=== PATIENT | male | born 1970 | race Hispanic/Latino ===

== ENCOUNTER 2018-12-17 23:54 | Emergency (ER) | payer BC ==
[2018-12-18] MEDS ORDERED: CETIRIZINE HCL 5 MG TABLET ONE (00:46)
[2018-12-18] MEDS ORDERED: ACETAMINOPHEN 325 MG TABLET ONE (00:46)
--- NOTE | 2018-12-18 02:14 | ER ---
Nurse's Notes [facility] Name: Juwan Turner Jr Age: 48 yrs Sex: Male : 1970 Arrival Date: 12/17/2018 Time: 23:59 Bed 15 Private MD: Diagnosis: Influenza due to identified novel influenza A virus Presentation: 12/18 00:03 Presenting complaint: Patient states: I have been congested and my eyes have been jb4 itching. I have body aches and chills that all started yesterday. 00:03 Transition of care: patient was not received from another setting of care. Onset of jb4 symptoms was December 16, 2017. Risk Assessment: Do you want to hurt yourself or someone else? Patient reports no desire to harm self or others. Initial Sepsis Screen: Does the patient meet any 2 criteria? No. Patient's initial sepsis screen is negative. Does the patient have a suspected source of infection? No. Patient's initial sepsis screen is negative. 00:03 Method Of Arrival: Ambulatory jb4 00:03 Acuity: ZAHIDA 4 jb4 00:03 Care prior to arrival: None. jb4 Triage Assessment: 00:03 General: Appears in no apparent distress. uncomfortable, Behavior is calm, cooperative, jb4 appropriate for age. Pain: Complains of pain in headache. Pain does not radiate. Pain currently is 6 out of 10 on a pain scale. EENT: Sclera/Cornea are reddened in outer aspect of conjuctiva of right eye, inner aspect of conjuctiva of right eye, outer aspect of conjuctiva of left eye and inner aspect of conjunctiva of left eye. Neuro: Level of Consciousness is awake, alert, obeys commands. Cardiovascular: Patient's skin is warm and dry. Respiratory: Airway is patent Respiratory effort is even, unlabored, Respiratory pattern is regular, symmetrical, Breath sounds are clear bilaterally. GI: No signs and/or symptoms were reported involving the gastrointestinal system. : No signs and/or symptoms were reported regarding the genitourinary system. Derm: Skin is intact, Skin is pink, warm \T\ dry. Musculoskeletal: Circulation, motion, and sensation intact. Historical: - Allergies: 00:03 No Known Allergies; jb4 - Home Meds: 00:03 None [Active]; jb4 - PMHx: 00:03 None; jb4 - PSHx: 00:03 None; jb4 - Immunization history:: Adult Immunizations up to date, Flu vaccine is not up to date. - Social history:: Smoking status: Patient/guardian denies using tobacco, Patient/guardian denies using alcohol. - Ebola Screening: : No symptoms or risks identified at this time. Screenin:03 Abuse screen: Denies threats or abuse. Nutritional screening: No deficits noted. jb4 Tuberculosis screening: No symptoms or risk factors identified. Fall Risk None identified. Assessment: 00:03 General: see triage assessment.. jb4 01:30 Reassessment: Patient appears in no apparent distress at this time. Patient and/or jb4 family updated on plan of care and expected duration. Pain level reassessed. Patient is alert, oriented x 3, equal unlabored respirations, skin warm/dry/pink. Patient states feeling better. 02:04 Reassessment: Patient appears in no apparent distress at this time. Patient and/or jb4 family updated on plan of care and expected duration. Pain level reassessed. Patient is alert, oriented x 3, equal unlabored respirations, skin warm/dry/pink. Pt O2 sats dropped to 88% while sleeping, placed on 2 L NC per protocol. Patient states feeling better. Vital Signs: 00:03 BP 140 / 74; Pulse 92; Resp 20; Temp 100.7(O); Pulse Ox 96% on R/A; Weight 147.42 kg jb4 (R); Height 5 ft. 7 in. (170.18 cm); Pain 8/10; 01:15 BP 114 / 61; Pulse 87; Resp 16; Temp 100.0; Pulse Ox 95% on R/A; jb4 00:03 Body Mass Index 50.90 (147.42 kg, 170.18 cm) jb4 ED Course: 12/17 23:59 Patient arrived in ED. es 12/18 00:03 Shaheen Sinclair, LIZZIE is Primary Nurse. jb4 00:03 Arm band placed on left wrist. jb4 00:03 Patient has correct armband on for positive identification. Placed in gown. Bed in low jb4 position. Call light in reach. Side rails up X 1. Pulse ox on. NIBP on. 00:08 Paul Godfrey MD is Attending Physician. gs 00:25 Triage completed. jb4 02:26 No provider procedures requiring assistance completed. Patient did not have IV access jb4 during this emergency room visit. Administered Medications: 00:40 Drug: ZyrTEC - Cetirizine 10 mg Route: PO; jb4 02:26 Follow up: Response: No adverse reaction jb4 00:41 Drug: Tylenol 650 mg Route: PO; jb4 02:26 Follow up: Response: No adverse reaction; Temperature is decreased jb4 Outcome: 02:13 Discharge ordered by . gs 02:26 Discharged to home ambulatory. jb4 02:26 Condition: stable 02:26 Discharge instructions given to patient, Instructed on discharge instructions, follow up and referral plans. medication usage, Demonstrated understanding of instructions, follow-up care, medications, Prescriptions given X 1. 02:27 Patient left the ED. jb4 Signatures: Alla Javier James, RN RN jb4 Paul Godfrey MD MD
--- NOTE | 2018-12-18 02:14 | EDPHYS ---
Physician Documentation [facility] Name: Juwan Turner Jr Age: 48 yrs Sex: Male : 1970 Arrival Date: 12/17/2018 Time: 23:59 Bed 15 Private MD: ED Physician Paul Godfrey HPI: 12/18 02:11 This 48 yrs old Male presents to ER via Ambulatory with complaints of gs Congestion, Itching, eyes. 02:11 The patient or guardian reports cough, flu symptoms, arthralgias, low-grade fever, gs myalgias, no appetite. Onset: The symptoms/episode began/occurred yesterday. Severity of symptoms: At their worst the symptoms were moderate, in the emergency department the symptoms are unchanged. Modifying factors: The symptoms are alleviated by nothing, the symptoms are aggravated by nothing. Associated signs and symptoms: Pertinent positives: fever, Pertinent negatives: chest pain. The patient has experienced similar episodes in the past, a few times. The patient has not recently seen a physician. Historical: - Allergies: 00:03 No Known Allergies; jb4 - Home Meds: 00:03 None [Active]; jb4 - PMHx: 00:03 None; jb4 - PSHx: 00:03 None; jb4 - Immunization history:: Adult Immunizations up to date, Flu vaccine is not up to date. - Social history:: Smoking status: Patient/guardian denies using tobacco, Patient/guardian denies using alcohol. - Ebola Screening: : No symptoms or risks identified at this time. ROS: 02:11 All other systems are negative. gs Exam: 02:11 Head/Face: Normocephalic, atraumatic. Eyes: Pupils equal round and reactive to light, gs extra-ocular motions intact. Lids and lashes normal. Conjunctiva and sclera are non-icteric and not injected. Cornea within normal limits. Periorbital areas with no swelling, redness, or edema. Neck: Trachea midline, no thyromegaly or masses palpated, and no cervical lymphadenopathy. Supple, full range of motion without nuchal rigidity, or vertebral point tenderness. No Meningismus. Chest/axilla: Normal chest wall appearance and motion. Nontender with no deformity. No lesions are appreciated. Cardiovascular: Regular rate and rhythm with a normal S1 and S2. No gallops, murmurs, or rubs. Normal PMI, no JVD. No pulse deficits. Respiratory: Lungs have equal breath sounds bilaterally, clear to auscultation and percussion. No rales, rhonchi or wheezes noted. No increased work of breathing, no retractions or nasal flaring. Abdomen/GI: Soft, non-tender, with normal bowel sounds. No distension or tympany. No guarding or rebound. No evidence of tenderness throughout. Back: No spinal tenderness. No costovertebral tenderness. Full range of motion. Skin: Warm, dry with normal turgor. Normal color with no rashes, no lesions, and no evidence of cellulitis. MS/ Extremity: Pulses equal, no cyanosis. Neurovascular intact. Full, normal range of motion. Neuro: Awake and alert, GCS 15, oriented to person, place, time, and situation. Cranial nerves II-XII grossly intact. Motor strength 5/5 in all extremities. Sensory grossly intact. Cerebellar exam normal. Normal gait. 02:11 Constitutional: The patient appears alert, awake. 02:11 ENT: TM's: are normal, Nose: nasal drainage, that is moderate, that is thick. Vital Signs: 00:03 BP 140 / 74; Pulse 92; Resp 20; Temp 100.7(O); Pulse Ox 96% on R/A; Weight 147.42 kg jb4 (R); Height 5 ft. 7 in. (170.18 cm); Pain 8/10; 01:15 BP 114 / 61; Pulse 87; Resp 16; Temp 100.0; Pulse Ox 95% on R/A; jb4 00:03 Body Mass Index 50.90 (147.42 kg, 170.18 cm) jb4 MDM: 00:23 Patient medically screened. 02:11 Differential Diagnosis: Bronchitis Influenza Upper Respiratory Infection. Data reviewed: vital signs, nurses notes, lab test result(s). Counseling: I had a detailed discussion with the patient and/or guardian regarding: lab results. Response to treatment: the patient's symptoms have markedly improved after treatment, and as a result, I will discharge patient. 12/18 00:23 Order name: Strep; Complete Time: 02:10 12/18 00:23 Order name: Influenza Screen (a \T\ B); Complete Time: 02:10 12/18 02:10 Order name: Throat Culture EDMS Administered Medications: 00:40 Drug: ZyrTEC - Cetirizine 10 mg Route: PO; jb4 02:26 Follow up: Response: No adverse reaction jb4 00:41 Drug: Tylenol 650 mg Route: PO; jb4 02:26 Follow up: Response: No adverse reaction; Temperature is decreased jb4 Disposition: 12/18/18 02:13 Discharged to Home. Impression: Influenza due to identified novel influenza A virus. - Condition is Stable. - Discharge Instructions: Influenza, Adult. - Prescriptions for Tamiflu 75 mg Oral Capsule - take 1 tablet by ORAL route every 12 hours for 5 days; 10 tablet. - Work release form, Medication Reconciliation Form, Thank You Letter, Antibiotic Education, Prescription Opioid Use form. - Follow up: Emergency Department; When: 2 - 3 days; Reason: Re-evaluation by your physician. Signatures: Dispatcher [employer] [facility] Shaheen Sinclair RN RN jb4 Paul Godfrey MD MD Corrections: (The following items were deleted from the chart) 02:27 02:13 12/18/2018 02:13 Discharged to Home. Impression: Influenza due to identified jb4 novel influenza A virus. Condition is Stable. Forms are Medication Reconciliation Form, Thank You Letter, Antibiotic Education, Prescription Opioid Use. Follow up: Emergency Department; When: 2 - 3 days; Reason: Re-evaluation by your physician.
== END 2018-12-18 02:27 | disposition home or self-care (01) ==
LOC: ER 23:54
DX: J10.1 Influenza due to other identified influenza virus with other respiratory manifestations (principal)
CPT/HCPCS: 87070; 87081; 87804

== ENCOUNTER 2022-05-27 17:25 | Emergency (ER) | payer OTHER ==
--- OUTSIDE RECORDS SUMMARY | 2022-05-27 17:28 | XMS REPORT | Continuity of Care Document ---
:1970 Author Organization [facility] t Address [address] [place] [address] Care Team Providers Name Role Phone Doctor Unassigned, Painter Attending Clinician Unavailable Avi SAMUEL, T Attending Clinician Unavailable Lab, Fam Pob I Attending Clinician Unavailable Ebrahim DRY CLEANER HAND Attending Clinician Pob1, Care Clinic Attending Clinician Unavailable Anene DRY CLEANER HAND Attending Clinician ANENE Attending Clinician Unavailable Human DRY CLEANER HAND, F Attending Clinician Brenda RN Attending Clinician Unavailable Kalina TERRY, A Attending Clinician Pcp, Does Not Have A Attending Clinician Lab, Covid Attending Clinician Unavailable Green DRY CLEANER HAND Attending Clinician Payers Payer Name Policy Type Policy Number Effective Date Expiration Date [facility] - [id number] 2020 00:00:00 OUT OF STATE Problems Condition Condition Condition Status Onset Resolution Last Treating Co mments Source Name Details Category Date Date Treatment Clinician Date No known No known Disease Unive rs active active ity of problems problems [facility] Allergies, Adverse Reactions, Alerts Allergy Allergy Status Severity Reaction(s) Onset Inactive Treating Comm ents Source Name Type Date Date Clinician NO KNOWN Drug Active Univers ALLERGIE Class ity of S [facility] Social History Social Habit Start Date Stop Date Quantity Comments Source Sex Assigned At [facility] Medical Branch Exposure to Yes [facility] SARS-CoV-2 (event) Medica l Branch Tobacco use and 2020 2020 Never used [facility] [employer] [place] exposure 00:00:00 00:00:00 Medical Branch Smoking Status Start Date Stop Date Source Unknown if ever smoked [facility] Medical Branch Never smoker [facility] Medical [place] Medications Ordered Filled Start Stop Current Ordering Indication Dosage Frequency Signature Comments Components Source Medication Medication Date Date Medication? Clinician (SIG) Name Name benzonatate 2020-0 2020- No [id number] 100mg Take 1 Univers (TESSALON 8-19 08-30 capsule by itShira) 100 [place]:00: 04:59 [place] 00 :00 (three) Medica l times Branch daily as needed for Cough for up to 10 days. benzonatate 2020-0 2020- No [id number] 100mg Take 1 Univers (TESSALON 8-19 08-30 capsule by itjimmy of [facility]) 100 [place]:00: 04:59 [place] capsule 00 :00 (three) Medica l times Branch daily as needed for Cough for up to 10 days. benzonatate 2020-0 2020- No [id number] 100mg Take 1 Univers (TESSALON 8-19 08-30 capsule by itjimmy of [facility]) 100 00:00: 04:59 [place] capsule 00 :00 (three) Medica l times Branch daily as needed for Cough for up to 10 days. benzonatate 2020-0 2020- No [id number] 100mg Take 1 Univers (TESSALON 8-19 08-30 capsule by itjimmy of ISAEL) 100 00:00: 04:59 [place] capsule 00 :00 (three) Medica l times Branch daily as needed for Cough for up to 10 days. albuterol 2019- 2020- No [id number] 2{puff} Inhale 2 Univers (VENTOLIN 8-03 09-03 Puffs ity of HFA) 90 00:00: 04:59 every 6 [place] mcg/actuati 00 :00 (six) Medical on inhaler hours as Branc h needed for Shortness of Breath or Chest tightness for up to 30 days. albuterol 2020- 2020- No [id number] 2{puff} Inhale 2 Univers (VENTOLIN 8-03 09-03 Puffs ity of HFA) 90 00:00: 04:59 every 6 [place] mcg/actuati 00 :00 (six) Medical on inhaler hours as Branc h needed for Shortness of Breath or Chest tightness for up to 30 days. albuterol 2019- 2020- No [id number] 2{puff} Inhale 2 Univers (VENTOLIN 8-03 09-03 Puffs ity of HFA) 90 00:00: 04:59 every 6 [place] mcg/actuati 00 :00 (six) Medical on inhaler hours as Branc h needed for Shortness of Breath or Chest tightness for up to 30 days. albuterol 2019- 2020- No [id number] 2{puff} Inhale 2 Univers (VENTOLIN 8-03 09-03 Puffs ity of HFA) 90 00:00: 04:59 every 6 [place] mcg/actuati 00 :00 (six) Medical on inhaler hours as Branc h needed for Shortness of Breath or Chest tightness for up to 30 days. albuterol 2019-2019- No [id number] 2{puff} Inhale 2 Univers (VENTOLIN 8-03 09-03 Puffs ity of HFA) 90 00:00: 04:59 every 6 [place] mcg/actuati 00 :00 (six) Medical on inhaler hours as Branc h needed for Shortness of Breath or Chest tightness for up to 30 days. albuterol 2019- 2020- No [id number] 2{puff} Inhale 2 Univers (VENTOLIN 8-03 09-03 Puffs ity of HFA) 90 00:00: 04:59 every 6 [place] mcg/actuati 00 :00 (six) Medical on inhaler hours as Branc h needed for Shortness of Breath or Chest tightness for up to 30 days. albuterol 2019- 2020- No [id number] 2{puff} Inhale 2 Univers (VENTOLIN 8-03 09-03 Puffs ity of HFA) 90 00:00: 04:59 every 6 [place] mcg/actuati 00 :00 (six) Medical on inhaler hours as Branc h needed for Shortness of Breath or Chest tightness for up to 30 days. albuterol 2019- 2020- No [id number] 2{puff} Inhale 2 Univers (VENTOLIN 8-03 09-03 Puffs ity of HFA) 90 00:00: 04:59 every 6 [place] mcg/actuati 00 :00 (six) Medical on inhaler hours as Branc h needed for Shortness of Breath or Chest tightness for up to 30 days. albuterol 2019-2019- No [id number] 2{puff} Inhale 2 Univers (VENTOLIN 8-03 09-03 Puffs ity of HFA) 90 00:00: 04:59 every 6 [place] mcg/actuati 00 :00 (six) Medical on inhaler hours as Branc h needed for Shortness of Breath or Chest tightness for up to 30 days. albuterol 2019- 2020- No [id number] 2{puff} Inhale 2 Univers (VENTOLIN 8-03 09-03 Puffs ity of HFA) 90 00:00: 04:59 every 6 [place] mcg/actuati 00 :00 (six) Medical on inhaler hours as Branc h needed for Shortness of Breath or Chest tightness for up to 30 days. albuterol 2019-0 2020- No [id number] 2{puff} Inhale 2 Univers (VENTOLIN 8-03 09-03 Puffs ity of HFA) 90 00:00: 04:59 every 6 [place] mcg/actuati 00 :00 (six) Medical on inhaler hours as Branc h needed for Shortness of Breath or Chest tightness for up to 30 days. albuterol 2019-2019- No [id number] 2{puff} Inhale 2 Univers (VENTOLIN 8-03 09-03 Puffs ity of HFA) 90 00:00: 04:59 every 6 [place] mcg/actuati 00 :00 (six) Medical on inhaler hours as Branc h needed for Shortness of Breath or Chest tightness for up to 30 days. benzonatate 2020- 2020- No [id number] 100mg Take 1 Univers (TESSALON 8-03 08-18 capsule by ity of PERLES) 100 00:00: 04:59 [place] capsule 00 :00 (three) Medica l times Branch daily for 14 days. benzonatate 2020-0 2020- No [id number] 100mg Take 1 Univers (TESSALON 8-03 08-18 capsule by ity of PERLES) 100 00:00: 04:59 mouth 3 [place] mg capsule 00 :00 (three) Medica l times Branch daily for 14 days. benzonatate 2020-0 2020- No [id number] 100mg Take 1 Univers (TESSALON 8- 08-18 capsule by itjimmy of [facility]) 100 00:00: 04:59 mouth 3 [place] mg capsule 00 :00 (three) Medica l times Branch daily for 14 days. benzonatate 2020-0 2020- No [id number] 100mg Take 1 Univers (TESSALON 8- 08-18 capsule by itjimmy [facility]) 100 00:00: 04:59 mouth 3 [place] mg capsule 00 :00 (three) Medica l times Branch daily for 14 days. benzonatate 2020-0 2020- No [id number] 100mg Take 1 Univers (TESSALON 8- 08-18 capsule by itjimmy [facility]) 100 00:00: 04:59 mouth 3 [place] mg capsule 00 :00 (three) Medica l times Branch daily for 14 days. benzonatate 2020-0 2020- No [id number] 100mg Take 1 Univers (TESSALON 8- 08-18 capsule by itjimmy RUFINO) 100 00:00: 04:59 mouth 3 [place] mg capsule 00 :00 (three) Medica l times Branch daily for 14 days. bromphenira 2020-0 2020- No [id number] 5mL Take 5 mL Univers mine-pseudo 07-0314 by mouth 4 i ty of ephedrine-D 00:00: 04:59 (four) Jose Francisco as M (BROMFED 00 :00 times Medical DM) 2-30-10 daily as Bran ch mg/5 mL needed for syrup Cough for up to 10 days. methylPREDN 2020-0 2020- No [id number] Take by Univers ISolone 4 07-03 08-10 mouth ity of mg tablets 00:00: 04:59 SEE-INSTRU [place] 00 :00 CTIONS for Medical 6 days. Branch follow package directions methylPREDN 2020-0 2020- No [id number] Take by Univers ISolone 4 8- 08-10 mouth ity of mg tablets 00:00: 04:59 SEE-INSTRU [place] 00 :00 CTIONS for Medical 6 days. Branch follow package directions methylPREDN 2020-0 2020- No [id number] Take by Univers ISolone 4 07-03 08-10 mouth ity of mg tablets 00:00: 04:59 SEE-INSTRU [place] 00 :00 CTIONS for Medical 6 days. Branch follow package directions methylPREDN 2020-0 2020- No [id number] Take by [facility] 4 8- 08-10 mouth ity of mg tablets 00:00: 04:59 SEE-INSTRU [place] 00 :00 CTIONS for Medical 6 days. Branch follow package directions methylPREDN 2020-0 2020- No [id number] Take by [facility] 4 8- 08-10 mouth ity of mg tablets 00:00: 04:59 SEE-INSTRU [place] 00 :00 CTIONS for Medical 6 days. Branch follow package directions methylPREDN 2020-0 2020- No [id number] Take by [facility] 4 8- 08-10 mouth ity of mg tablets 00:00: 04:59 SEE-INSTRU [place] 00 :00 CTIONS for Medical 6 days. Branch follow package directions azithromyci 2020-0 2020- No [id number] 250mg Take 1 [facility] 07-03 tablet by ity of (ZITHROMAX 00:00: 04:59 mouth [place] Z-YOLI) 250 00 :00 daily for Medi bette mg tablet 5 days. Branch Take 500 mg day 1, then 250 mg days 2 to 5. azithromyci 2020-0 2020- No [id number] 250mg Take 1 [facility] 07-03 tablet by ity of (ZITHROMAX 00:00: 04:59 mouth [place] Z-YOLI) 250 00 :00 daily for Medi bette mg tablet 5 days. Branch Take 500 mg day 1, then 250 mg days 2 to 5. azithromyci 2020-0 2020- No [id number] 250mg Take 1 [facility] 07-03- tablet by ity of (ZITHROMAX 00:00: 04:59 mouth [place] Z-YOLI) 250 00 :00 daily for Medi bette mg tablet 5 days. Branch Take 500 mg day 1, then 250 mg days 2 to 5. azithromyci 2020-0 2020- No [id number] 250mg Take 1 [facility] 809 tablet by ity of (ZITHROMAX 00:00: 04:59 mouth [place] Z-YOLI) 250 00 :00 daily for Medi bette mg tablet 5 days. Branch Take 500 mg day 1, then 250 mg days 2 to 5. azithromyci 2020-0 2020- No [id number] 250mg Take 1 Univers n 07-03 tablet by ity of (ZITHROMAX 00:00: 04:59 mouth [place] Z-YOLI) 250 00 :00 daily for Medi bette mg tablet 5 days. Branch Take 500 mg day 1, then 250 mg days 2 to 5. bromphenira 2020-0 2020- No [id number] 5mL Take 5 mL Univers mine-pseudo 07-03 by mouth 4 i ty of ephedrine-D 00:00: 00:00 (four) Jose Francisco as M (BROMFED 00 :00 times Medical DM) 2-30-10 daily as Bran ch mg/5 mL needed for syrup Cough for up to 10 days. losartan 2020-0 Yes 100mg Take 100 Univ ers 100 mg 6-05 mg by ity of tablet 00:00: mouth [place] 00 every Medical morning. Branch losartan 2020-0 Yes 100mg Take 100 Univ ers 100 mg 6-05 mg by ity of tablet 00:00: mouth [place] 00 every Medical morning. Branch losartan 2020-0 Yes 100mg Take 100 Univ ers 100 mg 6-05 mg by ity of tablet 00:00: mouth [place] 00 every Medical morning. Branch losartan 2020-0 Yes 100mg Take 100 Univ ers 100 mg 6-05 mg by ity of tablet 00:00: mouth [place] 00 every Medical morning. Branch losartan 2020-0 Yes 100mg Take 100 Univ ers 100 mg 6-05 mg by ity of tablet 00:00: mouth [place] 00 every Medical morning. Branch losartan 2020-0 Yes 100mg Take 100 Univ ers 100 mg 6-05 mg by ity of tablet 00:00: mouth [place] 00 every Medical morning. Branch losartan 2020-0 Yes 100mg Take 100 Univ ers 100 mg 6-05 mg by ity of tablet 00:00: mouth [place] 00 every Medical morning. Branch losartan 2020-0 Yes 100mg Take 100 Univ ers 100 mg 6-05 mg by ity of tablet 00:00: mouth [place] 00 every Medical morning. Branch losartan 2020-0 Yes 100mg Take 100 Univ ers 100 mg 6-05 mg by ity of tablet 00:00: mouth [place] 00 every Medical morning. Branch losartan 2020-0 Yes 100mg Take 100 Univ ers 100 mg 6-05 mg by ity of tablet 00:00: mouth [place] 00 every Medical morning. Branch losartan 2020-0 Yes 100mg Take 100 Univ ers 100 mg 6-05 mg by ity of tablet 00:00: mouth [place] 00 every Medical morning. Branch losartan 2020-0 Yes 100mg Take 100 Univ ers 100 mg 6-05 mg by ity of tablet 00:00: mouth [place] 00 every Medical morning. Branch No known No [facility] No [facility] No [facility] medications ity [facility] No known No Univers medications ity [facility] No known No [facility] No known No Univers medications ity [facility] No known No [facility] No known No Univers medications [facility] Vital Signs Vital Name Observation Time Observation Value Comments Source Systolic blood 2020 21:07:00 169 mm[Hg] Univer sity of [facility] Diastolic blood 2020 21:07:00 81 mm[Hg] Unive rsity of [facility] Heart rate 2020 21:05:00 91 /min Universi ty [facility] Body temperature 2020 21:05:00 37.17 Melly [facility] Respiratory rate 2020 21:05:00 22 /min [facility] Body height 2020 21:05:00 [facility] Body weight 2020 21:05:00 [facility]563 [facility] BMI 2020 21:05:00 57.17 kg/m2 General acute hospital Oxygen saturation in 2020 21:05:00 95 /min [facility] Arterial blood by [facility] Pulse oximetry Branch Systolic blood 2020 21:07:00 169 mm[Hg] Univer sity of [facility] Diastolic blood 2020 21:07:00 81 mm[Hg] Unive rsity of [facility] Heart rate 2020 21:05:00 91 /min Universi ty [facility] Body temperature 2020 21:05:00 37.17 Melly [facility] Respiratory rate 2020 21:05:00 22 /min [facility] Body height 2020 21:05:00 170.2 cm Universi ty [facility] [place] [facility] Body weight 2020 21:05:00 165.563 kg [facility]i ty [facility] [place] [facility] BMI 2020 21:05:00 57.17 kg/m2 Universi ty [facility] [place] [facility] Oxygen saturation in 2020 21:05:00 95 /min University of Arterial blood by [facility] Pulse oximetry Branch Systolic blood 2020-07-03 17:58:00 127 mm[Hg] Univer sity of pressure [place] [facility] Diastolic blood 2020-07-03 17:58:00 78 mm[Hg] Unive rsity of pressure [place] [facility] Heart rate 2020-07-03 17:58:00 80 /min Universi ty [facility] [place] [facility] Body temperature 2020-07-03 17:58:00 37.61 Melly Univ ersity of [place] [facility] Respiratory rate 2020-07-03 17:58:00 18 /min Univ ersity of [place] [facility] Body height 2020-07-03 17:58:00 177.8 cm [facility]i [facility] [place] [facility] Body weight 2020-07-03 17:58:00 165.563 kg Universi [facility] [place] [facility] BMI 2020-07-03 17:58:00 52.37 kg/m2 Universi ty [facility] [place] [facility] Oxygen saturation in 2020-07-03 17:58:00 97 /min University of Arterial blood by [facility] Pulse oximetry Branch Systolic blood 2020-07-03 17:58:00 127 mm[Hg] Univer sity of pressure [place] [facility] Diastolic blood 2020-07-03 17:58:00 78 mm[Hg] Unive rsity of pressure [place] [facility] Heart rate 2020-07-03 17:58:00 80 /min Universi ty [facility] [place] [facility] Body temperature 2020-07-03 17:58:00 37.61 Melly Univ ersity of [place] [facility] Respiratory rate 2020-07-03 17:58:00 18 /min Univ ersity of [place] [facility] Body height 2020-07-03 17:58:00 177.8 cm [facility]i [facility] [place] [facility] Body weight 2020-07-03 17:58:00 165.563 kg [facility]i [facility] [place] [facility] BMI 2020-07-03 17:58:00 52.37 kg/m2 Universi ty [facility] [place] [facility] Oxygen saturation in 2020-07-03 17:58:00 97 /min University of Arterial blood by [facility] Pulse oximetry Branch Systolic blood 2020-06-21 18:20:00 116 mm[Hg] Univer sity of pressure [facility] Diastolic blood 2020-06-21 18:20:00 83 mm[Hg] Unive rsity of pressure [facility] Heart rate 2020-06-21 18:20:00 78 /min Universi [facility] Body temperature 2020-06-21 18:20:00 36.94 Melly [facility] Respiratory rate 2020-06-21 18:20:00 20 /min [facility] Body height 2020-06-21 18:20:00 177.8 cm Universi [facility] Body weight 2020-06-21 18:20:00 [facility]109 [facility] 2020-06-21 18:20:00 52.23 kg/m2 General acute hospital Oxygen saturation in 2020-06-21 18:20:00 96 /min University Arterial blood by [facility] Pulse oximetry Branch Procedures Procedure Date / Time Performed Performing Clinician [facility] e PATIENT QUESTIONNAIRE 2020-08-01 05:01:00 Doctor Unassigned, No [facility] Name [facility] XR CHEST 2 VW 2020-07-03 19:06:09 Olga Hernandez [place] o f [facility] Encounters Start End Encounter Admission Attending Care Care Encounter Source Date/Time Date/Time Type Type Clinicians Facility Department ID 2021-09-28 Emergency X [facility] [id number] Univers 13:46:22 ity of [facility] 2020-08-01 2020-08-01 Orders Doctor GORDON 1.2.840.114 [id number] 00:00:00 00:00:00 Only Unassigned, SONJA [id number] [facility] [id number] [id number] 2020-08-01 2020-08-01 Orders Doctor HEIDI Carter2.840.114 [id number] Univers 00:00:00 00:00:00 Only Unassigned, SONJA [id number] ity of Painter [facility] [id number] Jose Francisco as [phone] [place] [address] [place] 2020-07-22 2020-07-22 Letter HEIDI Cárdenas 1.2.840.114 [id number] 00:00:00 00:00:00 (Out) Yue CASILLAS [id number] [facility] [phone] [facility] 2020-07-22 2020-07-22 Letter HEIDI Cárdenas 1.2.840.114 [id number] Univers 00:00:00 00:00:00 (Out) Yue CASILLAS [id number] it y of HOSPITAL [id number] Jose Francisco as [phone] [address] 2020-07-21 2020-07-21 Laboratory Lab, [facility] [id number] 08:40:30 09:00:30 Only Fam Pob I Health [id number] [place] [id number] Professio [phone] [place] [address] Office Building [facility] 2020-07-21 2020-07-21 Laboratory Lab, [facility] Fam Pob I [facility] 1.2. 840.114 [id number] [facility] 08:40:30 09:00:30 Only Ebrahim, Rania Health [id number] ity of [place] [id number] Jose Francisco as Professio [phone] Hi dical [address] Office Building [facility] 2020-07-21 2020-07-21 Outpatient R [facility] [id number] Univers 08:20:00 08:20:00 [id number] ity of [facility] 2020-07-21 2020-07-21 Outpatient R [facility] [id number] Univers 08:20:00 08:20:00 ity of [facility] 2020-07-20 2020-07-20 Telephone Pob1, Acute [facility] 1.2.840.114 [id number] 00:00:00 00:00:00 [facility] Health [id number] [place] 4.2.7.2.686 Professio [phone] nal [facility] Office Building [facility] 2020-07-20 2020-07-20 Telephone Pob1, Acute [facility] 1.2.840.114 [id number] Univers 00:00:00 00:00:00 [facility] Health [id number] ity of [place] [id number] Jose Francisco as Professio [phone] [address] Office Building One 2020 2020 Urgent Pob1, Acute Care Clinic [facility] 1. 2.840.114 [id number] Univers 15:57:18 16:20:48 Olga Fitzpatrick Health [id number] ity of [place] [id number] Jose Francisco as Professio [phone] [address] Office Building One 2020 2020 Urgent Pob1, Acute [facility] 1.2.840.114 [id number] 15:57:18 16:20:48 [facility] Health [id number] [place] [id number] Professio [phone] [place] [address] Office [facility] One 2020 2020 Outpatient R [facility] [id number] Univers 15:40:00 15:40:00 ity of [facility] 2020 2020 Outpatient R [facility] [id number] Univers 15:20:00 15:20:00 [id number] ity [facility] 2020 2020 [facility] [id number] Univers 15:20:00 15:20:00 OLGA ity [facility] 2020-07-10 2020-07-10 Telephone Human, [facility] [id number] Univers 00:00:00 00:00:00 Samara F iCopyright [id number] ity of [place].2.[place] - [phone] [address] 2020-07-10 2020-07-10 Telephone Human, [facility] [id number] 00:00:00 00:00:00 Samara F Health [id number] Specialty 4.2.7.2.686 Care - [id number] [place] [address] 2020-07-09 2020-07-09 Outpatient R [facility] [id number] Univers 16:40:00 16:40:00 [id number] sruthiy [facility] 2020-07-09 2020-07-09 Outpatient O HOLDEN [facility] [id number] Univers 16:40:00 16:40:00 OLGA ity [facility] 2020-07-09 2020-07-09 Laboratory Lab, [facility] Fam Pob I [facility] 1.2. 840.114 [id number] Univers 14:25:31 14:45:31 Only Olga Hernandez Health [id number] ity of [place] 4.2.7.2.686 Jose Francisco as Professio [phone] Hi dic[address] Office [facility] 2020-07-09 2020-07-09 Laboratory Lab, [facility] 1.2.840.114 [id number] 14:25:31 14:45:31 Only Fam Pob I Health [id number] [place] 4.2.7.2.686 Professio [phone] [place] [address] Office [facility] 2020-07-04 2020-07-04 Telephone Elizabeth Gutierrez 1.2.840.114 [id number] Univers 00:00:00 00:00:00 SONJA [id number] it y of HOSPITAL 4.2.7.2.686 Jose Francisco as [phone] [address] 2020-07-04 2020-07-04 Telephone Pob1, Acute [facility] 1.2.840.114 [id number] Univers 00:00:00 00:00:00 Care Clinic Health [id number] ity of [place] 4.2.7.2.686 Jose Francisco as Professio [phone] Hi dic[address] Office [facility] 2020-07-04 2020-07-04 Telephone Elizabeth Gutierrez 1.2.840.114 [id number] 00:00:00 00:00:00 SONJA [id number] [facility] 4.2.7.2.686 [id number] [facility] 2020-07-04 2020-07-04 Telephone Pob1, Acute [facility] 1.2.840.114 [id number] 00:00:00 00:00:00 Care Clinic Health [id number] [place] 4.2.7.2.686 Professio [phone] nal [address] One 2020-07-03 2020-07-03 [facility] 1.2.840.114 [id number] [facility] 13:54:27 23:59:00 Encounter Olga Talbert [id number] ity of [place] 4.2.7.2.686 [place] [phone] [address] 2020-07-03 2020-07-03 [facility] 1.2.840.114 [id number] 13:54:27 23:59:00 Encounter Olga Talbert [id number] [place] 4.2.7.2.686 [place] [id number] [facility] 2020-07-03 2020-07-03 Urgent Pob1, Acute Care Clinic [facility] 1. 2.840.114 [id number] Univers 12:47:10 13:58:33 Olga Fitzpatrick [facility] [id number] ity of [place] [id number] Jose Francisco Professio [phone] Hi dical [address] Office Building One 2020-07-03 2020-07-03 Urgent Pob1, Acute [facility] 1.2.840.114 [id number] 12:47:10 13:58:33 [facility] [id number] [place] 4.2.7.2.686 Professio [phone] nal [facility] Office Building One 2020-07-03 2020-07-03 Outpatient R [facility] [id number] Univers 13:00:00 13:00:00 [id number] ity [facility] 2020-07-03 2020-07-03 [facility] [id number] Univers 13:00:00 13:00:00 OLGA sebastian [facility] 2020-06-24 2020-06-24 Telephone HEIDI Gilman [id number] Univers 00:00:00 00:00:00 More CASILLAS [id number] i ty of HOSPITAL 4.2.7.2.686 Jose Francisco as [phone] [address] 2020-06-24 2020-06-24 Letter PcpHEIDI [id number] Univers 00:00:00 00:00:00 (Out) Patient SONJA 350.1.13.10 it y of Does Not [facility] [place].2.686 [place] [phone] [address] 2020-06-24 2020-06-24 Letter Pcp, OMARI [id number] Univers 00:00:00 00:00:00 (Out) Patient Health 350.1.13.10 it y of Does Not [place].2.686 [place] A Professio [phone] Hi dical nal [address] [place] [address] Office [facility] 2020-06-23 2020-06-23 Laboratory Lab, Adc Fam Pob I [facility] 1.2. 840.114 [id number] Univers 14:27:14 14:47:14 Only Olga Hernandez 350.1.13.10 ity of [place] 4.2.7.2.686 Jose Francisco as Professio [phone] Hi dical nal [address] [place] [address] 2020-06-23 2020-06-23 Outpatient R [facility] [id number] Univers 14:40:00 14:40:00 [id number] ity [facility] 2020-06-23 2020-06-23 Outpatient R [facility] [id number] Univers 14:40:00 14:40:00 ity [facility] 2020-06-23 2020-06-23 Letter Lab, Pcp [facility] 1.2.840.114 [id number] Univers 00:00:00 00:00:00 (Out) Covid [place] 350.1.13.10 i ty of [place].2.[place] Profess[place] [phone] Hi dical nal 044 [facility] 2020-06-23 2020-06-23 Letter Lab, Nilesh [facility] 1.2.840.114 [id number] Univers 00:00:00 00:00:00 (Out) Covid [place] 350.1.13.10 i [place].2.[place] Profess[place] [phone] Hi dical nal 044 [facility] 2020-06-21 2020-06-21 Urgent Pob1, Acute Care Clinic [facility] 1. 2.840.114 [id number] Univers 13:15:16 13:35:16 Care Olga Hernandez Health 350.1.13.10 ity of [place] 4.2.7.2.686 Jose Francisco as Professio [phone] Hi dical nal 0[address] [place] [facility] 2020-06-21 2020-06-21 Laboratory Lab, Adc Fam Pob I [facility] 1.2. 840.114 [id number] Univers 13:05:01 13:25:01 Only Aleksandra Hernandezthia Health 350.1.13.10 ity of [place] 4.2.7.2.686 Jose Francisco as Professio [phone] [address] 2020-06-21 2020-06-21 Outpatient [facility] [id number] Univers 13:20:00 13:20:00 [id number] ity of [facility] 2020-06-21 2020-06-21 Outpatient R [facility] [id number] Univers 13:20:00 13:20:00 ity of [facility] 2020-06-13 2020-06-13 Sandborn Duke [facility] [id number] Univers 00:00:00 00:00:00 [facility] 350.1.13.10 it y of [place] 4.2.7.2.686 Jose Francisco as Professio [phone] [facility] [address] [place] [address] Office [facility] 2020-06-11 2020-06-11 Laboratory Lab, Adc Fam Pob I [facility] 1.2. 840.114 [id number] Univers 12:42:34 13:02:34 Only Aleksandra Hernandezthia Health 350.1.13.10 ity of [place] 4.2.7.2.686 Jose Francisco as Professio [phone] Hi dical nal [address] [place] [facility] 2020-06-11 2020-06-11 Outpatient R HOLDEN [facility] [id number] Univers 13:00:00 13:00:00 OLGA ity of [facility] 2020-06-11 2020-06-11 Outpatient R [facility] [id number] Univers 13:00:00 13:00:00 [id number] [facility] Results Test Description Test Time Test Comments Results Result Comments Source TSH, THIRD GENERATION 2021-12-31 00:41:25 Test Item Value Reference Range Interpretation Comme nts TSH, THIRD GENERATION (test 1.580 UIU/ML 0.400-4.100 UNLESS OTHERWISE code = 2821) INDICATED, ALL TESTING PERFORMED [facility], [facility]. [address] [place] [address] LABORATORY DIRE CTOR: KAYLENE LOPEZ M.D. CLIA NUMBER [id number] CAP ACCREDITATION N O. [id number] LIPID [id number] 00:13:01 Test Item Value Reference Range Interpretation Comments CHOLESTEROL (test 177 MG/DL <200 code = 2210) TRIGLYCERIDES (test 68 MG/DL <150 code = 2232) HDL CHOLESTEROL (test 52 MG/DL >39 code = 2220) CALC LDL CHOL (test 110 MG/DL <100 H NOTE: C ALCULATED LDL code = 2237) IS BASED ON JULIANNE-EWING METHOD WHICHINCLUDES ADJUSTABLE TRIGLYCERIDE:VL DL CHOLESTEROL RAT IO.THIS FACTOR VARIES B Y MEASURED TRIGLY CERIDE AND NON-HDLCHOL ESTEROL CONCENTRATIONS WITH INCREASED CALCU LATED LDL SEENIN HIGH ER TRIGLYCERIDE OR LOWER NON-HDL SPECIME NS. FOR MOREINFORMATION , SEE CLIENT ANNOUNCE MENT AT [email or web address] LDL/HDL 2.12 RATIO <3.55 (test code = 2238) COMPREHENSIVE METABOLIC [id number] 00:13:01 Test Item Value Reference Range Interpretation Comments GLUCOSE (test code = 92 MG/DL 70-99 2216) BUN (test code = 14 MG/DL 6-20 2207) CREATININE (test 0.80 MG/DL 0.80-1.40 code = 2214) eGFR (2020 CKD-EPI) 107 >60 (test code = 40601) ML/MIN/1.73 CALC BUN/CREAT (test 18 RATIO 6-28 code = 2235) SODIUM (test code = 139 MEQ/L 272-032 5268) POTASSIUM (test code 4.1 MEQ/L 3.5-5.4 = 2228) CHLORIDE (test code 100 MEQ/L 95-107 = 2215) CARBON DIOXIDE (test 24 MEQ/L 19-31 code = 220) CALCIUM (test code = 9.0 MG/DL 8.5-10.5 2208) PROTEIN, TOTAL (test 7.7 G/DL 6.1-8.3 code = 2229) ALBUMIN (test code = 4.4 G/DL 3.5-5.2 2200) CALC GLOBULIN (test 3.3 G/DL 1.9-3.7 code = 2240) CALC A/G RATIO (test 1.3 RATIO 1.0-2.6 code = 2234) BILIRUBIN, TOTAL 0.6 MG/DL See_Comment [Automated message] (test code = 2206) The syste m which generated this result transmit karen reference range : <=1.2. The refe rence range was not u sed to interpret th is result as normal/abnormal . ALKALINE PHOSPHATASE 63 U/L 40-121 (test code = 2203) AST (test code = 32 U/L 9-50 2217) ALT (test code = 34 U/L 5-50 2218) HEMOGLOBIN [id number] 04:44:59 Test Item Value Reference Range Interpretation Comments HEMOGLOBIN A1c (test code = 73385) 6.2 % 4.2-5.6 H CBC W/AUTO DIFF WITH [id number] 03:55:47 Test Item Value Reference Range Interpretation Comments WBC (test code = 11.1 K/UL 3.5-11.0 H 1001) RBC (test code = 4.35 M/UL 4.50-6.10 L 1002) HEMOGLOBIN (test code 13.6 G/DL 13.5-17.0 = 1003) HEMATOCRIT (test code 40.1 % 40.0-51.0 = 1004) MCV (test code = 92.2 fL 80.0-99.0 1005) MCH (test code = 31.3 PG 25.0-33.0 1006) MCHC (test code = 33.9 G/DL 31.0-36.0 1007) RDW (test code = 12.4 % 11.5-15.0 1038) NEUTROPHILS (test 71.0 % code = 1008) LYMPHOCYTES (test 19.7 % code = 1010) MONOCYTES (test code 5.4 % = 1011) EOSINOPHILS (test 2.9 % code = 1012) BASOPHILS (test code 0.5 % = 1013) IMMATURE GRANULOCYTES 0.5 % (test code = 1036) NUCLEATED RBCS (test 0.0 /100 See_Comment [Autom ated code = 1065) WBC'S message] The sy stem which generated this result transmitted reference range : 0.0. The refere nce range was not u sed to interpret th is result as normal/abnormal . PLATELET COUNT (test 249 K/UL 130-400 code = 1015) ABSOLUTE NEUTROPHILS 7.85 K/UL 1.50-7.50 H (test code = 1066) ABSOLUTE LYMPHOCYTES 2.18 K/UL 1.00-4.00 (test code = 1067) ABSOLUTE MONOCYTES 0.60 K/UL 0.20-1.00 (test code = 1068) ABSOLUTE EOSINOPHILS 0.32 K/UL 0.00-0.50 (test code = 1040) ABSOLUTE BASOPHILS 0.06 K/UL 0.00-0.20 (test code = 1069) ABS IMMATURE 0.05 K/UL 0.00-0.10 GRANULOCYTES (test code = 1020) ABS NUCLEATED RBCS 0.00 K/UL 0.00-0.11 (test code = 52271) XR CHEST 2 [id number] 20:22:30 Mild bilateral interstitial opacities could be related to minimal pulmonaryvascular congestion versus less likely an atypical infectious process suchas Covid 19 pneumonia. Disclaimer: Generally, the fi ndings on chest imaging in COVID-19 are notspecific, and overlap with other infections, including influenza, H1N1,SARS and MERS.According to the Centers for Disease Control (CDC) and recent statement ofthe [employer], viral testing remains the only specificmethod of diagnosis. Confirmation with the viral test is required, even ifradiologic findings are suggestive of COVID- [address] Preliminary Report Dictated by Resident: Enrike Samayoa MD., have reviewed this study and agree with the abovereport. PROCEDURE: PA AND LATERAL CHEST X-RAY CLINICAL INDICATION: Positive Covid, Cough and SOB for 1 month no relieffrom therapies thus far. COMPARISON: None FIND INGS: Minimal increase in the pulmonary vascular markings with prominence of thepulmonary hilum bilaterally is noted. The lungs are otherwise clear. Nopleural effusion or pneumothorax is seen. The cardiomediastinal silhouette is normal. No acute bony abnormality. [facility], Radiant Results Inft User - 07/03/2020 3:23 PM CDTPROCEDURE: PA AND LATERAL CHEST X-RAYCLINICAL INDICATION: Positive Covid, Cough and SOB for 1 month no relieffrom therapies thus far. COMPARISON: NoneFINDINGS:Minimal increase in the pulmonary vascular markings with prominence of thepulmonary hilum bilaterally is noted. The lungs areotherwise clear. Nopleural effusion or pneumothorax is seen.The cardiomediastinal silhouette is normal.No acute bony abnormality.IMPRESSIONMild bilateral interstitial opacities could be related to minimal pulmonaryvascular congestion versus less likely an atypical infectious process suchas Covid 19 pneumonia.Disclaimer: Generally, the findings on chest imaging in COVID-19 are notspecific, and overlapwith other infections, including influenza, H1N1,SARS and MERS.According to the Centers for Disease Control (CDC) and recent statement ofthe [employer], viral testing remains the only specificmethod of diagnosis. Confirmation with the viral test is required, even ifradiologic findings are suggestive of COVID- [address]Preliminary Report Dictated by Resident: Enrike Sawyer MD., have reviewed this study and agree with the abovereport. [facility]
[2022-05-27] MEDS ORDERED: IBUPROFEN 400 MG TAB ONE (18:03)
--- NOTE | 2022-05-27 18:54 | RAD REPORT ---
EXAM DESCRIPTION: RAD - Pelvis - 05/27/2022 6:16 pm CLINICAL HISTORY: fall, groin pain COMPARISON: Hip Left 2 View dated 05/27/2022 TECHNIQUE: AP imaging of the pelvis was obtained. FINDINGS: Film technique and body habitus affects limit detail. No gross abnormality of the lower eh mbar spine when viewed from AP projection. No fracture of the bony pelvis identifiable. No SI joint o r pubic symphysis diastases. SI joint degenerative changes minimal. Mild symmetric degenerative change seen along the superior aspect of each acetabular rim. No proximal femur fracture identifiable on this image. IMPRESSION: No fracture or acute finding identifiable.
--- NOTE | 2022-05-27 18:55 | RAD REPORT ---
EXAM DESCRIPTION: RAD - Hip Left 2 View - 05/27/2022 6:16 pm CLINICAL HISTORY: PAINfollowing fall COMPARISON: No comparisons FINDINGS: AP and frogleg views of the left hip were obtained. There is no fracture or dislocation. No acute or destructive bony process seen. Mild degenerative ch tony present along superior acetabular rim. Minimal SI joint degenerative change. No soft tissue abnormality. IMPRESSION: Negative left hip examination for acute or significant findings.
--- NOTE | 2022-05-27 19:15 | ER ---
Nurse's Notes [facility] Name: Juwan Turner Jr Age: 51 yrs Sex: Male : 1970 Arrival Date: 05/27/2022 Time: 17:28 Bed 25 Private MD: Diagnosis: Pain in left hip;Fall from chair, initial encounter Presentation: 05/27 17:36 Chief complaint: Patient states: fell and now has groin pain. iw 17:36 Acuity: ZAHIDA 3 iw 17:54 Coronavirus screen: At this time, the client does not indicate any symptoms associated jb4 with coronavirus-19. Ebola Screen: No symptoms or risks identified at this time. Initial Sepsis Screen: Does the patient meet any 2 criteria? No. Patient's initial sepsis screen is negative. Does the patient have a suspected source of infection? No. Patient's initial sepsis screen is negative. Risk Assessment: Do you want to hurt yourself or someone else? Patient reports no desire to harm self or others. Onset of symptoms was May 27, 2022. Transition of care: patient was not received from another setting of care. 17:54 Method Of Arrival: Ambulatory jb4 Historical: - Allergies: 17:55 No Known Allergies; jb4 - Home Meds: 17:55 None [Active]; jb4 - PMHx: 17:55 None; jb4 - PSHx: 17:55 None; jb4 - Immunization history:: Adult Immunizations up to date. - Social history:: Smoking status: Patient denies any tobacco usage or history of. Screenin:00 Abuse screen: Denies threats or abuse. Nutritional screening: No deficits noted. jb4 Tuberculosis screening: No symptoms or risk factors identified. Fall Risk None identified. Assessment: 17:55 General: Appears in no apparent distress. uncomfortable, Behavior is calm, cooperative, jb4 appropriate for age. Pain: Complains of pain in buttocks and pelvis Pain does not radiate. Pain currently is 8 out of 10 on a pain scale. Neuro: Level of Consciousness is awake, alert, obeys commands, Oriented to person, place, time, situation. Cardiovascular: Patient's skin is warm and dry. Respiratory: Airway is patent Respiratory effort is even, unlabored, Respiratory pattern is regular, symmetrical. Derm: Skin is intact, Skin is pink, warm \T\ dry. Musculoskeletal: Circulation, motion, and sensation intact. Range of motion: intact in all extremities. 19:07 Reassessment: Patient appears in no apparent distress at this time. Patient and/or jb4 family updated on plan of care and expected duration. Pain level reassessed. Patient is alert, oriented x 3, equal unlabored respirations, skin warm/dry/pink. Vital Signs: 17:54 BP 152 / 71; Pulse 78; Resp 16; Pulse Ox 96% on R/A; Weight 174.63 kg (R); Height 5 ft. jb4 9 in. (175.26 cm); Pain 8/10; 18:28 Temp 98.3; oj 19:07 BP 140 / 76; Pulse 81; Resp 16; Pulse Ox 97% on R/A; jb4 17:54 Body Mass Index 56.85 (174.63 kg, 175.26 cm) jb4 ED Course: 17:28 Patient arrived in ED. mr 17:32 Ronak Barakat PA is PHCP. cp 17:32 Mark Godwin MD is Attending Physician. cp 17:36 Triage completed. iw 17:48 Shaheen Sinclair, LIZZIE is Primary Nurse. jb4 17:55 Arm band placed on right wrist. jb4 18:00 Patient has correct armband on for positive identification. Bed in low position. Call jb4 light in reach. Side rails up X 1. Client placed on continuous cardiac and pulse oximetry monitoring. NIBP monitoring applied. 18:17 XRAY Pelvis In Process Unspecified. EDMS 18:17 XRAY Hip LEFT 2 view In Process Unspecified. EDMS 19:22 No provider procedures requiring assistance completed. Patient did not have IV access jb4 during this emergency room visit. Administered Medications: 18:05 Drug: Ibuprofen 800 mg Route: PO; jb4 19:23 Follow up: Response: No adverse reaction; Marked relief of symptoms jb4 Medication: 19:23 VIS not applicable for this client. jb4 Outcome: 19:14 Discharge ordered by . cp 19:22 Discharged to home ambulatory, with family. jb4 19:22 Condition: stable 19:22 Discharge instructions given to patient, Instructed on discharge instructions, follow up and referral plans. medication usage, Demonstrated understanding of instructions, follow-up care, medications, Prescriptions given X 1. 19:23 Patient left the ED. jb4 Signatures: Dispatcher [employer] EDMS AgueroTierney Irene, RN RN Ronak Rehman PA PA cp Bryson, James, RN RN jb4 Yojana Ortiz
--- NOTE | 2022-05-27 19:16 | EDPHYS ---
Physician Documentation [facility] Name: Juwan Turner Jr Age: 51 yrs Sex: Male : 1970 Arrival Date: 05/27/2022 Time: 17:28 Bed 25 Private MD: ED Physician Mark Godwin HPI: 05/27 17:45 This 51 yrs old Male presents to ER via Ambulatory with complaints of Fall cp Injury. 17:45 The patient presents with pain, that is acute. cp 17:45 The complaints affect the left inner thigh. Context: resulted from fall onto buttocks cp while attempting to sit in chair at work yesterday. Patient denies immediate pain and reports pain started today. Associated signs and symptoms: The patient has no apparent associated signs or symptoms. Details of fall: The patient fell from an upright position, while attempting to sit onto chair. Historical: - Allergies: 17:55 No Known Allergies; jb4 - Home Meds: 17:55 None [Active]; jb4 - PMHx: 17:55 None; jb4 - PSHx: 17:55 None; jb4 - Immunization history:: Adult Immunizations up to date. - Social history:: Smoking status: Patient denies any tobacco usage or history of. ROS: 17:50 Constitutional: Negative for body aches, chills, fever, poor PO intake. cp 17:50 Eyes: Negative for injury, pain, redness, and discharge. cp 17:50 Neck: Negative for pain with movement, pain at rest, stiffness. 17:50 Cardiovascular: Negative for chest pain, edema, palpitations. 17:50 Respiratory: Negative for cough, shortness of breath, wheezing. 17:50 Back: Negative for pain at rest, pain with movement. 17:50 : Negative for urinary symptoms, testicular pain 17:50 MS/extremity: Positive for pain, of the left inner thigh and left groin, Negative for decreased range of motion, paresthesias. 17:50 Neuro: Negative for altered mental status, headache, numbness, syncope, weakness. 17:50 All other systems are negative. Exam: 17:55 Constitutional: The patient appears in no acute distress, alert, awake, cp non-diaphoretic, non-toxic, well developed, well nourished, obese. 17:55 Head/Face: Normocephalic, atraumatic. cp 17:55 Neck: ROM/movement: is normal, is supple, without pain, no range of motions limitations. 17:55 Chest/axilla: Inspection: normal. 17:55 Cardiovascular: Rate: normal. 17:55 Respiratory: the patient does not display signs of respiratory distress, Respirations: normal, no use of accessory muscles, no retractions. 17:55 Abdomen/GI: Inspection: obese Bowel sounds: active, all quadrants, Palpation: abdomen is soft and non-tender, in all quadrants. 17:55 Back: vertebral tenderness, is not appreciated. 17:55 Musculoskeletal/extremity: Extremities: grossly normal except: noted in the left inner thigh and left groin: pain, tenderness, ROM: limited active range of motion due to pain, in the left hip, Pulses: noted to be 2+ in the left dorsalis pedis artery, the left leg Sensation intact. Vital Signs: 17:54 BP 152 / 71; Pulse 78; Resp 16; Pulse Ox 96% on R/A; Weight 174.63 kg (R); Height 5 ft. jb4 9 in. (175.26 cm); Pain 8/10; 18:28 Temp 98.3; oj 19:07 BP 140 / 76; Pulse 81; Resp 16; Pulse Ox 97% on R/A; jb4 17:54 Body Mass Index 56.85 (174.63 kg, 175.26 cm) jb4 MDM: 17:36 Patient medically screened. cp 18:00 Differential diagnosis: hip fracture, pelvic fracture, contusion. cp 19:14 Data reviewed: vital signs, nurses notes, radiologic studies, plain films. cp 19:14 Test interpretation: by ED physician or midlevel provider: plain radiologic studies. cp Counseling: I had a detailed discussion with the patient and/or guardian regarding: the historical points, exam findings, and any diagnostic results supporting the discharge/admit diagnosis, lab results, the need for outpatient follow up, a family practitioner, to return to the emergency department if symptoms worsen or persist or if there are any questions or concerns that arise at home. Response to treatment: the patient's symptoms have mildly improved after treatment, and as a result, I will discharge patient. ED course: VSS. Xrays negative for acute fracture. Patient observed bearing weight left lower extremity and ambulating w/o assistance. Will discharge to home for continued monitoring. 05/27 17:36 Order name: XRAY Pelvis; Complete Time: 19:11 cp 05/27 19:12 Interpretation: Report reviewed. cp 05/27 17:36 Order name: XRAY Hip LEFT 2 view; Complete Time: 19:11 cp 05/27 19:12 Interpretation: Report reviewed. cp Administered Medications: 18:05 Drug: Ibuprofen 800 mg Route: PO; jb4 19:23 Follow up: Response: No adverse reaction; Marked relief of symptoms jb4 Disposition: 05/28 07:00 Co-signature as Attending Physician, Mark Godwin MD. rn Disposition Summary: 05/27/22 19:14 Discharge Ordered Location: Home cp Problem: new cp Symptoms: have improved cp Condition: Stable cp Diagnosis - Pain in left hip cp - Fall from chair, initial encounter cp Followup: cp - With: Private Physician - When: 2 - 3 days - Reason: Worsening of condition Discharge Instructions: - Discharge Summary Sheet cp - Hip Pain cp - Pelvic Pain, Male cp Forms: - Medication Reconciliation Form cp - Thank You Letter cp - Antibiotic Education cp - Prescription Opioid Use cp - Work release form jb4 Prescriptions: - Naprosyn 500 mg Oral Tablet - take 1 tablet by ORAL route 2 times per day take with food; 20 tablet; Refills: cp 0, Product Selection Permitted Signatures: Dispatcher [employer] Mark Padilla MD MD rn Page, Corey, PA PA cp Shaheen Sinclair, RN RN jb4 Corrections: (The following items were deleted from the chart) 18:05 05/26 17:45 This 51 yrs old Male presents to ER via Ambulatory with complaints cp of Fall Injury. cp
[2022-05-27 19:51] VITALS: TEMP 98.3
[2022-05-27 19:52] VITALS: BP 140/76; O2SAT 97
== END 2022-05-27 19:23 | disposition home or self-care (01) ==
LOC: ER 17:25
DX: M25.552 Pain in left hip (principal); W07.XXXA Fall from chair, initial encounter
CPT/HCPCS: 72170; 99283

== ENCOUNTER 2023-07-29 21:51 | Emergency (ER) | payer OTHER ==
--- OUTSIDE RECORDS SUMMARY | 2023-07-29 21:55 | XMS REPORT | Continuity of Care Document ---
:1970 Author Organization [facility] t Address [address] [place] [address] [place] [address] Care Team Providers Name Role Phone Doctor Unassigned, [place] Attending Clinician Unavailable Yue Cárdenas RN Attending Clinician Unavailable Lab, Adc Fam Pob I Attending Clinician Unavailable Kathleen FINANCIAL ANALYSIS ADVISORSandra Hopper Attending Clinician Pob1, Acute Care Clinic Attending Clinician Unavailable David CÁRDENASPOlga Attending Clinician OLGA HERNANDEZ Attending Clinician Unavailable Human Samara ALVARADO Attending Clinician Elizabeth Gutierrez RN Attending Clinician Unavailable More Syed Attending Clinician Pcp, Patient Does Not Have A Attending Clinician [phone] Lab, Pcp Covid Attending Clinician Unavailable Manju Quezada Attending Clinician Payers Payer Name Policy Type Policy Number Effective Date Expiration Date S [facility] - [id number] 2020 00:00:00 OUT OF STATE Problems Condition Condition Condition Status Onset Resolution Last Treating Co mments Source Name Details Category Date Date Treatment Clinician Date No known No known Disease Unive rs active active ity of problems problems [facility] Allergies, Adverse Reactions, Alerts Allergy Allergy Status Severity Reaction(s) Onset Inactive Treating Comm ents Source Name Type Date Date Clinician NO KNOWN Drug Active [facility] ALLERGIE Class ity of [facility] Social History Social Habit Start Date Stop Date Quantity Comments Source Sex Assigned At [facility] Exposure to Yes [facility] SARS-CoV-2 (event) Medica l Branch Tobacco use and 2020 2020 Never used [facility] exposure 00:00:00 00:00:00 Medical Branch Smoking Status Start Date Stop Date Source Unknown if ever smoked [facility] Never smoker [facility] Medications Ordered Filled Start Stop Current Ordering Indication Dosage Frequency Signature Comments Components Source Medication Medication Date Date Medication? Clinician (SIG) Name Name benzonatate 2019- 2020- No [id number] 100mg Take 1 Univers (TESSALON 8-19 08-30 capsule by ity of [employer]) 100 [place]:00[place] 04:[place] capsule 00 :00 (three) Medica l times Branch daily as needed for Cough for up to 10 days. benzonatate 2019- 2020- No [id number] 100mg Take 1 Univers (TESSALON 8-19 08-30 capsule by ity of [employer]) 100 00:00: 04:59 [place] capsule 00 :00 (three) Medica l times Branch daily as needed for Cough for up to 10 days. benzonatate 2020-0 2020- No [id number] 100mg Take 1 Univers (TESSALON 8-19 08-30 capsule by ity of [employer]) 100 00:00: 04:59 [place] capsule 00 :00 (three) Medica l times Branch daily as needed for Cough for up to 10 days. benzonatate 2020- 2020- No [id number] 100mg Take 1 Univers (TESSALON 8-19 08-30 capsule by ity of [employer]) 100 00:00: 04:59 [place] capsule 00 :00 (three) Medica l times Branch daily as needed for Cough for up to 10 days. albuterol 2019- 2020- No [id number] 2{puff} Inhale 2 Univers (VENTOLIN 8-03 09-03 Puffs ity of HFA) 90 00:00: 04:59 every 6 [place] mcg/actuati 00 :00 (six) Medical on inhaler hours as Branc h needed for Shortness of Breath or Chest tightness for up to 30 days. albuterol 2019- 2020- No [id number] 2{puff} Inhale 2 Univers (VENTOLIN 8-03 09-03 Puffs ity of HFA) 90 00:00: 04:59 every 6 [place] mcg/actuati 00 :00 (six) Medical on inhaler hours as Branc h needed for Shortness of Breath or Chest tightness for up to 30 days. albuterol 2019- 2020- No [id number] 2{puff} Inhale 2 Univers (VENTOLIN 8-03 09-03 Puffs ity of HFA) 90 00:00: 04:59 every 6 [place] mcg/actuati 00 :00 (six) Medical on inhaler hours as Branc h needed for Shortness of Breath or Chest tightness for up to 30 days. albuterol 2020-0 2020- No [id number] 2{puff} Inhale 2 Univers (VENTOLIN 8-03 09-03 Puffs ity of HFA) 90 00:00: 04:59 every 6 [place] mcg/actuati 00 :00 (six) Medical on inhaler hours as Branc h needed for Shortness of Breath or Chest tightness for up to 30 days. albuterol 2019-0 2020- No [id number] 2{puff} Inhale 2 Univers (VENTOLIN 8-03 09-03 Puffs ity of HFA) 90 00:00: 04:59 every 6 [place] mcg/actuati 00 :00 (six) Medical on inhaler hours as Branc h needed for Shortness of Breath or Chest tightness for up to 30 days. albuterol 2019- 2020- No [id number] 2{puff} Inhale 2 Univers (VENTOLIN 8-03 09-03 Puffs ity of HFA) 90 00:00: 04:59 every 6 [place] mcg/actuati 00 :00 (six) Medical on inhaler hours as Branc h needed for Shortness of Breath or Chest tightness for up to 30 days. albuterol 2020-0 2020- No [id number] 2{puff} Inhale 2 Univers (VENTOLIN 8-03 09-03 Puffs ity of HFA) 90 00:00: 04:59 every 6 [place] mcg/actuati 00 :00 (six) Medical on inhaler hours as Branc h needed for Shortness of Breath or Chest tightness for up to 30 days. albuterol 2019-0 2020- No [id number] 2{puff} Inhale 2 Univers (VENTOLIN 8-03 09-03 Puffs ity of HFA) 90 00:00: 04:59 every 6 [place] mcg/actuati 00 :00 (six) Medical on inhaler hours as Branc h needed for Shortness of Breath or Chest tightness for up to 30 days. albuterol 2019- 2020- No [id number] 2{puff} Inhale 2 Univers (VENTOLIN 8-03 09-03 Puffs ity of HFA) 90 00:00: 04:59 every 6 [place] mcg/actuati 00 :00 (six) Medical on inhaler hours as Branc h needed for Shortness of Breath or Chest tightness for up to 30 days. albuterol 2020-0 2020- No [id number] 2{puff} Inhale 2 Univers (VENTOLIN 8-03 09-03 Puffs ity of HFA) 90 00:00: 04:59 every 6 [place] mcg/actuati 00 :00 (six) Medical on inhaler hours as Branc h needed for Shortness of Breath or Chest tightness for up to 30 days. albuterol 2019- 2020- No [id number] 2{puff} Inhale 2 Univers (VENTOLIN 8-03 09-03 Puffs ity of HFA) 90 00:00: 04:59 every 6 [place] mcg/actuati 00 :00 (six) Medical on inhaler hours as Branc h needed for Shortness of Breath or Chest tightness for up to 30 days. albuterol 2019- 2020- No [id number] 2{puff} Inhale 2 Univers (VENTOLIN 8-03 09-03 Puffs ity of HFA) 90 00:00: 04:59 every 6 [place] mcg/actuati 00 :00 (six) Medical on inhaler hours as Branc h needed for Shortness of Breath or Chest tightness for up to 30 days. benzonatate 2020-0 2020- No [id number] 100mg Take 1 Univers (TESSALON 8- 08-18 capsule by ity of ISAEL) 100 00:00: 04:59 [place] 3 [place] mg capsule 00 :00 (three) Medica l times Branch daily for 14 days. benzonatate 2020- 2020- No [id number] 100mg Take 1 Univers (TESSALON 8- 08-18 capsule by ity of ISAEL) 100 00:00: 04:59 mouth 3 [place] mg capsule 00 :00 (three) Medica l times Branch daily for 14 days. benzonatate 2020-0 2020- No [id number] 100mg Take 1 Univers (TESSALON 8- 08-18 capsule by [employer]) 100 00:00: 04:59 mouth 3 [place] mg capsule 00 :00 (three) Medica l times Branch daily for 14 days. benzonatate 2020-0 2020- No [id number] 100mg Take 1 Univers (TESSALON 8- 08-18 capsule by [employer]) 100 00:00: 04:59 mouth 3 [place] mg capsule 00 :00 (three) Medica l times Branch daily for 14 days. benzonatate 2020-0 2020- No [id number] 100mg Take 1 Univers (TESSALON 8- 08-18 capsule by [employer]) 100 00:00: 04:59 mouth 3 [place] mg capsule 00 :00 (three) Medica l times Branch daily for 14 days. benzonatate 2020-0 2020- No [id number] 100mg Take 1 Univers (TESSALON 8- 08-18 capsule by [email or web address]) 100 00:00: 04:59 mouth 3 [place] mg capsule 00 :00 (three) Medica l times Branch daily for 14 days. bromphenira 2020-0 2020- No [id number] 5mL Take 5 mL Univers mine-pseudo 07-03 08-14 by mouth 4 i ty of ephedrine-D 00:00: 04:59 (four) Jose Francisco as M (BROMFED 00 :00 times Medical DM) 2-30-10 daily as Bran ch mg/5 mL needed for syrup Cough for up to 10 days. methylPREDN 2020-0 2020- No [id number] Take by Univers ISolone 4 8- 08-10 mouth ity of mg tablets 00:00: 04:59 SEE-INSTRU [place] 00 :00 CTIONS for Medical 6 days. Branch follow package directions methylPREDN 2020-0 2020- No [id number] Take by Univers ISolone 4 8-03 08-10 mouth ity of mg tablets 00:00: 04:59 SEE-INSTRU [place] 00 :00 CTIONS for Medical 6 days. Branch follow package directions methylPREDN 2020-0 2020- No [id number] Take by [place] [id number] 08-10 mouth ity of mg tablets 00:00: 04:59 SEE-INSTRU [place] 00 :00 CTIONS for Medical 6 days. Branch follow package directions methylPREDN 2019-0 2020- No [id number] Take by [place] [id number] 8 08-10 mouth ity of mg tablets 00:00: 04:59 SEE-INSTRU [place] 00 :00 CTIONS for Medical 6 days. Branch follow package directions methylPREDN 2019-0 2019- No [id number] Take by [place] [id number] 8 08-10 mouth ity of mg tablets 00:00: 04:59 SEE-INSTRU [place] 00 :00 CTIONS for Medical 6 days. Branch follow package directions methylPREDN 2019-0 2019- No [id number] Take by [place] [id number] 07-03 08-10 mouth ity of mg tablets 00:00: 04:59 SEE-INSTRU [place] 00 :00 CTIONS for Medical 6 days. Branch follow package directions azithromyci 2019-0 2019- No [id number] 250mg Take 1 [place] [facility] 07-03 tablet by ity of (ZITHROMAX 00:00: 04:59 mouth [place] Z-YOLI) 250 00 :00 daily for Medi bette mg tablet 5 days. Branch Take 500 mg day 1, then 250 mg days 2 to 5. azithromyci 2019-0 2020- No [id number] 250mg Take 1 [facility] 07-03 tablet by ity of (ZITHROMAX 00:00: 04:59 mouth [place] Z-YOLI) 250 00 :00 daily for Medi bette mg tablet 5 days. Branch Take 500 mg day 1, then 250 mg days 2 to 5. azithromyci 2020-0 2020- No [id number] 250mg Take 1 [facility] 07-03- tablet by ity of (ZITHROMAX 00:00: 04:59 mouth [place] Z-YOLI) 250 00 :00 daily for Medi bette mg tablet 5 days. Branch Take 500 mg day 1, then 250 mg days 2 to 5. azithromyci 2020-0 2020- No [id number] 250mg Take 1 [place] [id number] tablet by ity of (ZITHROMAX 00:00: 04:59 mouth [place] Z-YOIL) 250 00 :00 daily for Medi bette mg tablet 5 days. Branch Take 500 mg day 1, then 250 mg days 2 to 5. azithromyci 2020-0 2020- No [id number] 250mg Take 1 Univers n 07-03 tablet by ity of (ZITHROMAX 00:00: 04:59 mouth [place] Z-YOLI) 250 00 :00 daily for Medi bette mg tablet 5 days. Branch Take 500 mg day 1, then 250 mg days 2 to 5. bromphenira 2020-0 2020- No [id number] 5mL Take 5 mL Univers mine-pseudo 07-03 [...] mg by ity of tablet 00:00: mouth [place] 00 every Medical morning. Branch losartan 2020-0 Yes 100mg Take 100 Univ ers 100 mg 6-05 mg by ity of tablet 00:00: mouth [place] 00 every Medical morning. Branch losartan 2020-0 Yes 100mg Take 100 Univ ers 100 mg 6-05 mg by ity of tablet 00:00: mouth [place] 00 every Medical morning. Branch No known No Univers medications ity [facility] No known No [facility] No known No Univers medications [facility] No known No [facility] No [facility] Univers medications [facility] No known No Univers medications [facility] No known No Univers medications [facility] Vital Signs Vital Name Observation Time Observation Value Comments Source Systolic blood 2020 21:07:00 169 mm[Hg] Univer sity of [facility] Diastolic blood 2020 21:07:00 81 mm[facility]Hg[facility] 2020 21:05:00 91 /min Universi ty [facility] Body temperature 2020 21:05:00 37.17 Melly [facility] Respiratory rate 2020 21:05:00 22 /min [facility] Body height 2020 21:05:00 170.2 cm [facility] Body weight 2020 21:05:00 165.563 kg Universi ty [facility] BMI 2020 21:05:00 57.17 kg/m2 [facility] Oxygen saturation in 2020 21:05:00 95 /min [facility] Arterial blood by [facility] Pulse oximetry Branch Systolic blood 2020 21:07:00 169 mm[Hg] Univer sity of [facility] Diastolic blood 2020 21:07:00 81 mm[Hg] Unive rsity of [facility] Heart rate 2020 21:05:00 91 /min Universi ty [facility] Body temperature 2020 21:05:00 37.17 Melly [facility] Respiratory rate 2020 21:05:00 22 /min Univ ersity of [place] [facility] Body height 2020 21:05:00 170.2 cm Universi ty [facility] [place] [facility] Body weight 2020 21:05:00 165.563 kg Universi ty [facility] [place] [facility] BMI 2020 21:05:00 57.17 kg/m2 Universi ty [facility] [place] [facility] Oxygen saturation in 2020 21:05:00 95 /min University of Arterial blood by [facility] Pulse oximetry Branch Systolic blood 2020-07-03 17:58:00 127 mm[Hg] Univer sity of pressure [facility] Diastolic blood 2020-07-03 17:58:00 78 mm[Hg] Unive rsity of pressure [facility] Heart rate 2020-07-03 17:58:00 80 /min Universi ty [facility] [place] [facility] Body temperature 2020-07-03 17:58:00 37.61 Melly Univ ersity [facility] [place] [facility] Respiratory rate 2020-07-03 17:58:00 18 /min Univ ersity of [place] [facility] Body height 2020-07-03 17:58:00 177.8 cm Universi [facility] [place] [facility] Body weight 2020-07-03 17:58:00 165.563 kg Universi [facility] [place] [facility] BMI 2020-07-03 17:58:00 52.37 kg/m2 Universi ty [facility] [place] [facility] Oxygen saturation in 2020-07-03 17:58:00 97 /min University of Arterial blood by [facility] Pulse oximetry Branch Systolic blood 2020-07-03 17:58:00 127 mm[Hg] Univer sity of pressure [facility] Diastolic blood 2020-07-03 17:58:00 78 mm[Hg] Unive rsity of pressure [facility] Heart rate 2020-07-03 17:58:00 80 /min Universi ty [facility] [place] [facility] Body temperature 2020-07-03 17:58:00 37.61 Melly Univ ersity [facility] [place] [facility] Respiratory rate 2020-07-03 17:58:00 18 /min Univ ersity [facility] [place] [facility] Body height 2020-07-03 17:58:00 177.8 cm [facility]i [facility] [place] [facility] Body weight 2020-07-03 17:58:00 165.563 kg [facility]i [facility] [place] [facility] BMI 2020-07-03 17:58:00 52.37 kg/m2 Universi [facility] Oxygen saturation in 2020-07-03 17:58:00 97 /min University of Arterial blood by [facility] Pulse oximetry Branch Systolic blood 2020-06-21 18:20:00 116 mm[Hg] Univer sity of pressure [facility] Diastolic blood 2020-06-21 18:20:00 83 mm[Hg] Unive rsity of pressure [facility] Heart rate 2020-06-21 18:20:00 78 /min Universi [facility] Body temperature 2020-06-21 18:20:00 36.94 Melly [facility] Respiratory rate 2020-06-21 18:20:00 20 /min [facility] Body height 2020-06-21 18:20:00 177.8 cm Universi [facility] Body weight 2020-06-21 18:20:00 165.109 kg General acute hospital BMI 2020-06-21 18:20:00 52.23 kg/m2 Universi [facility] Oxygen saturation in 2020-06-21 18:20:00 96 /min University of Arterial blood by [facility] Pulse oximetry Branch Procedures Procedure Date / Time Performed Performing Clinician [facility] e PATIENT QUESTIONNAIRE 2020-08-01 05:01:00 Doctor Unassigned, No [facility] XR CHEST 2 VW 2020-07-03 19:06:09 [facility] o f [facility] Encounters Start End Encounter Admission Attending Care Care Encounter Source Date/Time Date/Time Type Type Clinicians Facility Department ID 2021-09-28 Emergency X [facility] [id number] Univers 13:46:22 ity of [facility] 2023-07-12 2023-07-12 Outpatient SFA SFA [id number] Herbie 13:15:22 13:15:22 [id number] F [place] 2023-07-11 2023-07-11 Outpatient SFA SFA [id number] Herbie 15:02:44 15:02:44 0811 F José Miguel 2020-08-01 2020-08-01 Orders Doctor GORDON 1.2.840.114 [id number] Univers 00:00:00 00:00:00 Only Unassigned, SONJA [id number] ity of [place] [facility] 4.2.7.2.686 Jose Francisco as [phone] [facility] [address] [place] 2020-08-01 2020-08-01 Orders Doctor HEIDI 1.2.840.114 [id number] 00:00:00 00:00:00 Only Unassigned, SONJA [id number] [place] [facility] 4.2.7.2.686 [id number] [id number] 2020-07-22 2020-07-22 Letter HEIDI Cárdenas 1.2.840.114 [id number] Univers 00:00:00 00:00:00 (Out) Yue CASILLAS [id number] it y of HOSPITAL [id number] Jose Francisco as [phone] [facility] [address] [place] 2020-07-22 2020-07-22 HEIDI Reyes 1.2.840.114 [id number] 00:00:00 00:00:00 (Out) Yue CASILLAS [id number] HOSPITAL [id number] [id number] 2020-07-21 2020-07-21 Laboratory Lab, [facility] Fam Pob I [facility] 1.2. 840.114 [id number] Univers 08:40:30 09:00:30 Only Ebrahim, [facility] [id number] ity of [place] [id number] Jose Francisco as Professio [phone] Me dical [address] Office Building [facility] 2020-07-21 2020-07-21 Laboratory Lab, [facility] 1.2.840.114 [id number] 08:40:30 09:00:30 Only Fam Pob I Health [id number] [place] 4.2.7.2.686 Professio [phone] [place] [address] Office Building [facility] 2020-07-21 2020-07-21 Outpatient R [facility] [id number] Univers 08:20:00 08:20:00 ity of [facility] 2020-07-20 2020-07-20 Telephone Pob1, Acute [facility] 1.2.840.114 [id number] Univers 00:00:00 00:00:00 [facility] Health [id number] ity of [place] 4.2.7.2.686 Jose Francisco as Professio [phone] [address] Office Building One 2020-07-20 2020-07-20 Telephone Pob1, Acute [facility] 1.2.840.114 [id number] 00:00:00 00:00:00 Care [facility] [id number] [place] [id number] Professio [phone] [place] [address] Office Building One 2020 2020 Urgent Pob1, Acute Care Clinic [facility] 1. 2.840.114 [id number] Univers 15:57:18 16:20:48 Care Olga Hernandez Health [id number] ity of [place] [id number] Jose Francisco as Professio [phone] [address] Office Building One 2020 2020 Urgent Pob1, Acute [place] 1.2.840.114 [id number] 15:57:18 16:20:48 [facility] Health [id number] [place] 4.2.7.2.686 Professio [phone] [place] [address] Office Building One 2020 2020 Outpatient R [facility] [id number] Univers 15:40:00 15:40:00 ity of [facility] 2020 2020 [facility] [id number] Univers 15:20:00 15:20:00 OLGA ity of [facility] 2020-07-10 2020-07-10 Telephone Human, [facility] [id number] Univers 00:00:00 00:00:00 [facility] [id number] ity of Special[id number] [place] - [phone] [address] 2020-07-10 2020-07-10 Telephone Human, [facility] 1.2.019.744 [id number] 00:00:00 00:00:00 Samara F Health [id number] Specialty 4.2.7.2.686 Care - [phone] [place] 314 2020-07-09 2020-07-09 Outpatient O DAVID [facility] [id number] Univers 16:40:00 16:40:00 OLGA ity of [facility] 2020-07-09 2020-07-09 Laboratory Lab, [facility] Fam Pob I [facility] 1.2. 840.114 [id number] [facility] 14:25:31 14:45:31 Only Olga Hernandez Health [id number] ity of [place] 4.2.7.2.686 Jose Francisco as Professio [phone] [address] Office [facility] 2020-07-09 2020-07-09 Laboratory Lab, [facility] 1.2.840.114 [id number] 14:25:31 14:45:31 Only [facility] Pob I Health [id number] [place] 4.2.7.2.686 Professio [phone] [place] [address] Office [facility] 2020-07-04 2020-07-04 Telephone Elizabeth Gutierrez 1.2.840.114 [id number] Univers 00:00:00 00:00:00 SONJA [id number] it y of HOSPITAL 4.2.7.2.686 Jose Francisco as [phone] [address] 2020-07-04 2020-07-04 Telephone Pob1, Acute [facility] 1.2.840.114 [id number] Univers 00:00:00 00:00:00 Care Clinic Health [id number] ity of [place] 4.2.7.2.686 Jose Francisco as Professio [phone] [address] Office [facility] 2020-07-04 2020-07-04 Telephone Elizabeth Gutierrez 1.2.840.114 [id number] 00:00:00 00:00:00 SONJA [id number] HOSPITAL 4.2.7.2.686 [id number] 2020-07-04 2020-07-04 Telephone Pob1, Acute [facility] 1.2.840.114 [id number] 00:00:00 00:00:00 Care Clinic Health [id number] [place] 4.2.7.2.686 Professio [phone] nal [address] Office [address] One 2020-07-03 2020-07-03 [facility] 1.2.840.114 [id number] Univers 13:54:27 23:59:00 Encounter Olga Talbert [id number] ity of [place]2.7.2.686 [place] [phone] [facility] [address] [place] 2020-07-03 2020-07-03 [facility] 1.2.840.114 [id number] 13:54:27 23:59:00 Encounter Olga Talbert [id number] [place] 4.2.7.2.686 [place] [phone] [facility] 2020-07-03 2020-07-03 Urgent Pob1, Acute Care Clinic [facility] 1. 2.840.114 [id number] Univers 12:47:10 13:58:33 [facility] [id number] ity of [place] 4.2.7.2.686 Jose Francisco as Professio [phone] Il dical [address] Office Building One 2020-07-03 2020-07-03 Urgent Pob1, Acute [facility] 1.2.840.114 [id number] 12:47:10 13:58:33 [facility] Health 350.1.13.10 [place] 4.2.7.2.686 Professio [phone] nal [facility] Office Building One 2020-07-03 2020-07-03 Outpatient R [facility] [id number] Univers 13:00:00 13:00:00 OLGA itjimmy of [facility] 2020-06-24 2020-06-24 Telephone KalinaHEIDI gamino [id number] Univers 00:00:00 00:00:00 More CASILLAS [id number] i ty of [facility] 4.2.7.2.686 Jose Francisco as [phone] [facility] [address] [place] 2020-06-24 2020-06-24 Letter HEIDI [place]allow[place] 1.2.840.114 [id number] Univers 00:00:00 00:00:00 (Out) Patient SONJA 350.1.13.10 it y of Does Not HOSPITAL 4.2.7.2.686 [place] Have A [phone] [address] 2020-06-24 2020-06-24 Letter Pcp, [facility] 1.2.840.114 [id number] Univers 00:00:00 00:00:00 (Out) Patient Health 350.1.13.10 it y of Does Not [place]2.7.2.686 [place] A Professio [phone] [address] Office [facility] 2020-06-23 2020-06-23 Laboratory Lab, Adc Fam Pob I [facility] 1.2. 840.114 [id number] Univers 14:27:14 14:47:14 Only David Olga Health 350.1.13.10 ity of [place] 4.2.7.2.686 Jose Francisco as Professio [phone] [address] 2020-06-23 2020-06-23 Outpatient R [facility] [id number] Univers 14:40:00 14:40:00 ity of [facility] 2020-06-23 2020-06-23 Letter Lab, Pcp [facility] 1.2.840.114 [id number] Univers 00:00:00 00:00:00 (Out) Covid [place] [id number] i ty of [place]2.7.2.[place] Profess[place] [phone] [address] 2020-06-23 2020-06-23 Letter Lab, Pcp [facility] 1.2.840.114 [id number] Univers 00:00:00 00:00:00 (Out) Covid [place] [id number] i ty of [place] 4.2.7.2.686 [place] Profess[place] [phone] [address] 2020-06-21 2020-06-21 Urgent Pob1, Acute Care Clinic [facility] 1. 2.840.114 [id number] Univers 13:15:16 13:35:16 Care DavidAleksandraOlga Health [id number] ity of [place] 4.2.7.2.686 Jose Francisco as Professio [phone] Il dical nal [address] [place] Office Building [facility] 2020-06-21 2020-06-21 Laboratory Lab, [facility] Fam Pob I [facility] 1.2. 840.114 [id number] Univers 13:05:01 13:25:01 Only Olga Hernandez Health [id number] ity of [place] 4.2.7.2.686 Jose Francisco as Professio [phone] Il dical nal 62 [place] [address] Office Building [facility] 2020-06-21 2020-06-21 Outpatient R [facility] [id number] Univers 13:20:00 13:20:00 ity of [facility] 2020-06-13 2020-06-13 [facility] [id number] Univers 00:00:00 00:00:00 [facility] [id number] it y of [place] [id number] Jose Francisco as Professio [phone] [facility] nal [address] [place] [address] Office [facility] 2020-06-11 2020-06-11 Laboratory Lab, [facility] Pob I [facility] [id number] Univers 12:42:34 13:02:34 Only [facility] [id number] ity of [place] [id number] Jose Francisco as Professio [id number] Il dical nal [address] [place] [address] Office [facility] 2020-06-11 2020-06-11 Outpatient R [facility] [id number] Univers 13:00:00 13:00:00 OLGA ity [facility] Results Test Description Test Time Test Comments Results Result Comments Source HIV 1/2 4TH GEN, RFLX CONF 2023-07-15 01:47:24 Test Item Value Reference Range Interpretation Comme nts HIV 1/2 4TH GEN, RFLX NON-REACTIVE NON-REACTIVE UNLES S OTHERWISE INDICATED, ALL CONF (test code = 3514) TEST ING PERFORMED AT [facility] [employer] [address] [place] [address] [id number] LABORATORY DIRE CTOR: VINCENT HOWELL M.D. C YONI NUMBER [id number] [facility] [place] [id number] TSH, THIRD [id number] 03:40:32 Test Item Value Reference Range Interpretation Comments TSH, THIRD GENERATION (test code 1.770 UIU/ML 0.400-4.100 = 1) PSA, [id number] 03:40:32 Test Item Value Reference Range Interpretation Comments PSA, TOTAL 0.21 NG/ML See_Comment NOTE: Methodol ogy is Javi (test code = Boo Electroch emiluminescence 2606) Immunoassay tra ceable to WHO reference stand kalne 96/760. [Automated mess age] The system which generated this result transmitted ref erence range: <=4.00. The ref erence range was not used to int erpret this result as raquel l/abnormal. COMPREHENSIVE METABOLIC [id number] 03:13:06 Test Item Value Reference Range Interpretation Comments GLUCOSE (test code = 93 MG/DL 70-99 2216) BUN (test code = 12 MG/DL 6-20 2207) CREATININE (test 0.70 MG/DL 0.80-1.40 L code = 2214) eGFR (2020 CKD-EPI) 111 >60 (test code = 55385) ML/MIN/1.73 CALC BUN/CREAT (test 17 RATIO 6-28 code = 2235) SODIUM (test code = 137 MEQ/L 056-040 9614) POTASSIUM (test code 4.4 MEQ/L 3.5-5.4 = 2227) CHLORIDE (test code 100 MEQ/L 95-107 = 2215) CARBON DIOXIDE (test 22 MEQ/L 19-31 code = 2206) CALCIUM (test code = 9.3 MG/DL 8.5-10.5 2208) PROTEIN, TOTAL (test 7.3 G/DL 6.1-8.3 code = 2229) ALBUMIN (test code = 4.1 G/DL 3.5-5.2 2200) CALC GLOBULIN (test 3.2 G/DL 1.9-3.7 code = 2240) CALC A/G RATIO (test 1.3 RATIO 1.0-2.6 code = 2234) BILIRUBIN, TOTAL 0.3 MG/DL See_Comment [Automated message] (test code = 2207) The syste m which generated this result transmit karen reference range : <=1.2. The refe rence range was not u sed to interpret th is result as normal/abnormal . ALKALINE PHOSPHATASE 58 U/L 40-121 (test code = 2203) AST (test code = 15 U/L 9-50 2217) ALT (test code = 16 U/L 5-50 2218) LIPID [id number] 03:13:06 Test Item Value Reference Range Interpretation Comments CHOLESTEROL (test 168 MG/DL <200 code = 2210) TRIGLYCERIDES (test 83 MG/DL <150 code = 2232) HDL CHOLESTEROL (test 53 MG/DL >39 code = 2220) CALC LDL CHOL (test 98 MG/DL <100 NOTE: C ALCULATED LDL code = 2237) IS BASED ON JULIANNE-EWING METHOD WHICHINCLUDES ADJUSTABLE TRIGLYCERIDE:VL DL CHOLESTEROL RAT IO.THIS FACTOR VARIES B Y MEASURED TRIGLY CERIDE AND NON-HDLCHOL ESTEROL CONCENTRATIONS WITH INCREASED CALCU LATED LDL SEENIN HIGH ER TRIGLYCERIDE OR LOWER NON-HDL SPECIME NS. FOR MOREINFORMATION , SEE CLIENT ANNOUNCE MENT AT [email or web address] [email or web address] RATIO LDL/HDL 1.85 RATIO <3.55 (test code = 2237) HEMOGLOBIN [id number] 03:02:16 Test Item Value Reference Range Interpretation Comments HEMOGLOBIN A1c (test 6.1 % 4.2-5.6 H [employer] AN DIABETES code = 34932) ASSOCIATION IDELINES FOR HGB A1C: PREDIABETES/INC REASED RISK . . . . . . . 5.7 -6.4% DIAGNOSIS OF DI ABETES . . . . . . . . . >=6 .5% WITH CONFIRMATION OR APPROPRIATE SYMPTOMS NOTE: ASSAY MAY BE AFFECTED BY HEMOGLOBINOPATH IES (SICKLE CELL ANEMIA, S- C DISEASE, OTHERS) OR ROSENDO FICIALLY LOWERED BY DECR EASED RED CELL SURVIVAL ( HEMOLYTIC ANEMIAS, BLOOD LOSS, ETC.). CONSIDER ALTERN ATE TESTING OR LABORATORY C ONSULTATION. CBC W/AUTO DIFF WITH [id number] 02:26:30 Test Item Value Reference Range Interpretation Comments WBC (test code = 8.9 K/UL 3.5-11.0 1001) RBC (test code = 4.37 M/UL 4.50-6.10 L 1002) HEMOGLOBIN (test code 13.7 G/DL 13.5-17.0 = 1003) HEMATOCRIT (test code 40.4 % 40.0-51.0 = 1004) MCV (test code = 92.4 fL 80.0-99.0 1005) MCH (test code = 31.4 PG 25.0-33.0 1006) MCHC (test code = 33.9 G/DL 31.0-36.0 1007) RDW (test code = 12.7 % 11.5-15.0 1038) NEUTROPHILS (test 69.7 % code = 1008) LYMPHOCYTES (test 20.6 % code = 1010) MONOCYTES (test code 6.2 % = 1011) EOSINOPHILS (test 2.7 % code = 1012) BASOPHILS (test code 0.4 % = 1013) IMMATURE GRANULOCYTES 0.4 % (test code = 1036) NUCLEATED RBCS (test 0.0 /100 WBC'S See_Comment [Aut omated code = 1065) message] The sy stem which generated this result transmitted reference range : 0.0. The refere nce range was not u sed to interpret th is result as normal/abnormal . PLATELET COUNT (test 231 K/UL 130-400 code = 1015) ABSOLUTE NEUTROPHILS 6.22 K/UL 1.50-7.50 (test code = 1066) ABSOLUTE LYMPHOCYTES 1.84 K/UL 1.00-4.00 (test code = 1067) ABSOLUTE MONOCYTES 0.55 K/UL 0.20-1.00 (test code = 1068) ABSOLUTE EOSINOPHILS 0.24 K/UL 0.00-0.50 (test code = 1040) ABSOLUTE BASOPHILS 0.04 K/UL 0.00-0.20 (test code = 1069) ABS IMMATURE 0.04 K/UL 0.00-0.10 GRANULOCYTES (test code = 1020) ABS NUCLEATED RBCS 0.00 K/UL 0.00-0.11 (test code = 98944) TSH, THIRD [id number] 00:41:25 Test Item Value Reference Range Interpretation Comments TSH, THIRD 1.580 UIU/ML 0.400-4.100 UNLESS OTHERWI SE GENERATION (test INDICATED, ALL TESTING code = 2821) PERFORMED [facility] [address] [place] [address] [facility] DIRECTOR: KAYLENE LOPEZ M.D. CLIA NUMBER [id number] CAP ACCREDITATION N O. [id number] LIPID [id number] 00:13:01 Test Item Value Reference Range Interpretation [...] MOREINFORMATION , SEE CLIENT ANNOUNCE MENT AT [email or web address] [email or web address] RATIO LDL/HDL 2.12 RATIO <3.55 (test code = 2238) COMPREHENSIVE METABOLIC [id number] 00:13:01 Test Item Value Reference Range Interpretation Comments GLUCOSE (test code = 92 MG/DL 70-99 2216) BUN (test code = 14 MG/DL 6-20 2207) CREATININE (test 0.80 MG/DL 0.80-1.40 code = 2214) eGFR (2020 CKD-EPI) 107 >60 (test code = 66147) ML/MIN/1.73 CALC BUN/CREAT (test 18 RATIO 6-28 code = 2235) SODIUM (test code = 139 MEQ/L 462-555 2161) POTASSIUM (test code 4.1 MEQ/L 3.5-5.4 = 2228) CHLORIDE (test code 100 MEQ/L 95-107 = 2215) CARBON DIOXIDE (test 24 MEQ/L 19-31 code = 2206) CALCIUM (test code = 9.0 MG/DL 8.5-10.5 2208) PROTEIN, TOTAL (test 7.7 G/DL 6.1-8.3 code = 2229) ALBUMIN (test code = 4.4 G/DL 3.5-5.2 2200) CALC GLOBULIN (test 3.3 G/DL 1.9-3.7 code = 2240) CALC A/G RATIO (test 1.3 RATIO 1.0-2.6 code = 2234) BILIRUBIN, TOTAL 0.6 MG/DL See_Comment [Automated message] (test code = 2207) The syste m which generated this result transmit karen reference range : <=1.2. The refe rence range was not u sed to interpret th is result as normal/abnormal . ALKALINE PHOSPHATASE 63 U/L 40-121 (test code = 2203) AST (test code = 32 U/L 9-50 2217) ALT (test code = 34 U/L 5-50 2218) HEMOGLOBIN [id number] 04:44:59 Test Item Value Reference Range Interpretation Comments HEMOGLOBIN A1c (test code = 28106) 6.2 % 4.2-5.6 H CBC W/AUTO DIFF WITH [id number] 03:55:47 Test Item Value Reference Range Interpretation [...] = 1036) NUCLEATED RBCS (test 0.0 /100 WBC'S See_Comment [Aut omated code = 1065) message] The sy stem which generated this [...] RBCS 0.00 K/UL 0.00-0.11 (test code = 20658) XR CHEST 2 [id number] 20:22:30 Mild bilateral interstitial opacities could be related to minimal pulmonaryvascular congestion versus less likely an atypical infectious process suchas Covid 19 pneumonia. Disclaimer: Generally, the fi ndings on chest imaging in COVID-19 are notspecific, and overlap with other infections, including influenza, H1N1,SARS and MERS.According to the Centers for Disease Control (CDC) and recent statement ofthe [employer], viral testing remains the only specificmethod of diagnosis. Confirmation with the viral test is required, even ifradiologic findings are suggestive of COVID- [address] Preliminary Report Dictated by Resident: Cresencio Bella I, Enrike Xavier MD., have reviewedthis study and agree with the abovereport. PROCEDURE: PA AND LATERAL CHEST X-RAY CLINICAL INDICATION: Positive Covid, Cough and SOB for 1 month no relieffrom therapies thus far. COMPARISON: None FINDINGS: Minimal increase in the pulmonary vascular markings [...] otherwise clear. Nopleural effusion or pneumothorax is seen.The [...] Disease Control (CDC) and recent statement ofthe [employer], viral testing remains the only specificmethod of diagnosis. Confirmation with the viral test is required, even ifradiologic findings are suggestive of COVID- [address]Preliminary Report Dictated by Resident: Hilario Sawyer MD., have reviewed this study and agree with the abovereport. [facility]
--- NOTE | 2023-07-29 22:15 | RAD REPORT ---
EXAM DESCRIPTION: RAD - Chest Single View - 07/29/2023 10:09 pm CLINICAL HISTORY: CHEST PAIN Chest pain. COMPARISON: <Comparisons> FINDINGS: Portable technique limits examination quality. The lungs are grossly clear. The heart is normal in size. No displaced fractures. IMPRESSION: No acute intrathoracic process suspected.
[2023-07-29] MEDS ORDERED: NA CHLORIDE 0.9% 1,000 ML ONE (22:27)
[2023-07-29 22:37] LABS: Hematocrit 37.7 % (39.6-49.0); Lymphocytes % 16.7 % (15.3-44.8); MCV 95.1 fL (80-100); MPV 8.6 fL (7.6-11.3); Platelets 226 thou/uL (152-406); RBC Red Blood Cell Count 3.97 M/uL (4.33-5.43)
[2023-07-29 22:54] LABS: Protime INR 1.17
[2023-07-29 23:05] LABS: Albumin 3.3 g/dL (3.4-5.0); Bilirubin Direct 0.1 mg/dL (0-0.2); Bilirubin Indirect, Calculated 0.2 mg/dL (0.2-0.8); Bilirubin Total 0.3 mg/dL (0.2-1.0); Protein, Total 7.4 g/dL (6.4-8.2); Troponin High Sensitivity 7.9 pg/mL (<58.9)
[2023-07-29 23:12] LABS: Magnesium 2.6 mg/dL (1.6-2.4); Potassium 4.2 mEq/L (3.5-5.1)
[2023-07-29] MEDS ORDERED: ASPIRIN 81 MG CHEWABLE TABLET ONE (23:12)
[2023-07-30] MEDS ORDERED: NA CHLORIDE 0.9% 1,000 ML ONE (00:59)
--- NOTE | 2023-07-30 01:20 | ER ---
Nurse's Notes [facility] Name: Juwan Turner Jr Age: 53 yrs Sex: Male : 1970 Arrival Date: 07/29/2023 Time: 21:51 Bed 5 Private MD: Diagnosis: Dehydration;Heat exhaustion, heat cramps, moderate dehydration, abdominal pain, morbid obesity Presentation: 07/29 21:59 Chief complaint: Patient states: while at work was having left sided flank pain and was cm10 having his hands cramping up. Pt states that his symptoms have resolved at this time. Coronavirus screen: Vaccine status: Patient reports being unvaccinated. Client denies travel out of the [place] in the last 14 days. Ebola Screen: Patient denies travel to an Ebola-affected area in the 21 days before illness onset. No symptoms or risks identified at this time. Initial Sepsis Screen: Does the patient meet any 2 criteria? No. Patient's initial sepsis screen is negative. Does the patient have a suspected source of infection? No. Patient's initial sepsis screen is negative. Risk Assessment: Do you want to hurt yourself or someone else? Patient reports no desire to harm self or others. Onset of symptoms was July 29, 2023. 21:59 Method Of Arrival: Ambulatory cm10 21:59 Acuity: ZAHIDA 2 cm10 Historical: - Allergies: 22:02 No Known Allergies; cm10 - PMHx: 22:02 Pulmonary Embolism; Hypertensive disorder; cm10 - Immunization history:: Adult Immunizations unknown. - Social history:: Smoking status: Patient denies any tobacco usage or history of. - Family history:: not pertinent. Screenin:15 [facility] ED Fall Risk Assessment (Adult) History of falling in the last 3 months, jw7 including since admission No falls in past 3 months (0 pts) Score/Fall Risk Level 0 - 2 = Low Risk. Abuse screen: Denies threats or abuse. Denies injuries from another. Nutritional screening: No deficits noted. Tuberculosis screening: No symptoms or risk factors identified. Assessment: 22:15 General: Appears in no apparent distress. comfortable, obese, Behavior is calm, jw7 cooperative. 22:15 Pain: Denies pain. Neuro: No deficits noted. Cardiovascular: No deficits noted. Denies jw7 chest pain. Respiratory: No deficits noted. GI: Reports lower abdominal pain, cramping. : No deficits noted. No signs and/or symptoms were reported regarding the genitourinary system. EENT: No deficits noted. No signs and/or symptoms were reported regarding the EENT system. Derm: No deficits noted. No signs and/or symptoms reported regarding the dermatologic system. Musculoskeletal: No deficits noted. No signs and/or symptoms reported regarding the musculoskeletal system. 23:30 Reassessment: Patient appears in no apparent distress at this time. No changes from [facility] previously documented assessment. Patient and/or family updated on plan of care and expected duration. Pain level reassessed. Patient is alert, oriented x 3, equal unlabored respirations, skin warm/dry/pink. 07/30 00:20 Reassessment: Patient appears in no apparent distress at this time. No changes from [facility] previously documented assessment. Patient and/or family updated on plan of care and expected duration. Pain level reassessed. Patient is alert, oriented x 3, equal unlabored respirations, skin warm/dry/pink. Vital Signs: 07/29 21:59 BP 126 / 68; Pulse 69; Resp 18; Temp 98.6; Pulse Ox 97% ; Weight 167.83 kg; Height 5 cm10 ft. 8 in. ; Pain 1/10; 22:17 BP 121 / 53; Pulse 70; Resp 19 S; Pulse Ox 95% on R/A; jw7 22:45 BP 116 / 57; Pulse 73; Resp 24 S; Pulse Ox 96% on R/A; jw7 23:15 BP 103 / 60; Pulse 70; Resp 18 S; Temp 98.5(O); Pulse Ox 98% on R/A; jw7 07/30 00:22 BP 104 / 60; Pulse 64; Resp 18 S; Pulse Ox 98% on R/A; jw7 07/29 21:59 Body Mass Index 56.26 (167.83 kg, 172.72 cm) cm10 07/29 21:59 Pain Scale: Adult cm10 ED Course: 07/29 21:53 Patient arrived in ED. jj6 21:56 Bora Oquendo MD is Attending Physician. sp4 22:02 Triage completed. cm10 22:02 Arm band placed on Patient placed in an exam room, on a stretcher. cm10 22:11 XRAY Chest (1 view) In Process Unspecified. EDMS 22:14 Amy Brand, RN is Primary Nurse. jw7 22:15 Patient has correct armband on for positive identification. Bed in low position. Call jw7 light in reach. Side rails up X 1. 22:40 Initial lab(s) drawn, by me, by EMS personnel. EKG done, by ED staff, reviewed by juan Oquendo MD. Inserted saline lock: 20 gauge in right antecubital area, using aseptic technique. Blood collected. 23:47 CT Abd/Pelvis - Without Contrast In Process Unspecified. EDPR 07/30 01:18 Tian Okeefe MD is Referral Physician. sp4 01:48 Provided Education on: discharge teaching. jw7 01:48 No provider procedures requiring assistance completed. IV discontinued, intact, jw7 bleeding controlled, No redness/swelling at site. Pressure dressing applied. Administered Medications: 07/29 22:41 Drug: NS 0.9% IV 1000 ml Route: IV; Rate: 1 bolus; Site: right antecubital; jw7 07/30 00:57 Follow up: Response: No adverse reaction; IV Status: Completed infusion; IV Intake: jw7 1000ml 07/29 23:02 Drug: Aspirin PO Chewable Tablet 324 mg Route: PO; jw7 07/30 00:56 Follow up: Response: No adverse reaction jw7 00:49 Drug: NS 0.9% IV 1000 ml Route: IV; Rate: 1 bolus; Site: right antecubital; rv 01:49 Follow up: Response: No adverse reaction; IV Status: Completed infusion; IV Intake: jw7 1000ml Medication: 01:48 VIS not applicable for this client. jw7 Intake: 00:57 IV: 1000ml; Total: 1000ml. jw7 01:49 IV: 1000ml; Total: 2000ml. jw7 Outcome: 01:19 Discharge ordered by . sp4 01:49 Discharged to home ambulatory. jw7 01:49 Condition: stable 01:49 Discharge instructions given to patient, Instructed on discharge instructions, follow up and referral plans. Demonstrated understanding of instructions, follow-up care. 01:49 Patient left the ED. jw7 Signatures: Dispatcher [employer] [facility] Obdulio Taylor RN RN rv Ginny Melchor6 Amy Brand, RN RN jw7 Bora Oquendo MD MD sp4 Kathy Gray RN RN cm10
--- NOTE | 2023-07-30 01:20 | EDPHYS ---
Physician Documentation [facility] Name: Juwan Turner Jr Age: 53 yrs Sex: Male : 1970 Arrival Date: 07/29/2023 Time: 21:51 Bed 5 Private MD: ED Physician Bora Oquendo HPI: 07/29 21:56 This 53 yrs old Male presents to ER via Unassigned with complaints of Hand sp4 Pain, Abdominal Pain. 22:08 Very pleasant 53-year-old male who is morbidly overweight presents with a cute onset of sp4 left flank abdominal pain today at work. 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 Patient is stating that he also had bilateral hand cramps. Patient also reported that he had mild midsternal discomfort associated with the symptoms. Patient states he has history of prediabetes and history of possible pulmonary embolus that is remote.. Historical: - Allergies: 22:02 No Known Allergies; cm10 - PMHx: 22:02 Pulmonary Embolism; Hypertensive disorder; cm10 - Immunization history:: Adult Immunizations unknown. - Social history:: Smoking status: Patient denies any tobacco usage or history of. - Family history:: not pertinent. ROS: 22:08 Constitutional: Negative for fever, chills, and weight loss, positive for abdominal sp4 pain, left flank pain, chest discomfort, bilateral hand cramp. 22:08 All other systems are negative. Exam: 22:44 Constitutional: This is a well developed, well nourished patient who is awake, alert, sp4 and in no acute distress. There is morbidly overweight patient. No distress Head/Face: Normocephalic, atraumatic. Eyes: Pupils equal round and reactive to light, extra-ocular motions intact. Lids and lashes normal. Conjunctiva and sclera are not injected. Cornea within normal limits. Periorbital areas with no swelling, redness, or edema. ENT: Nares patent. No nasal discharge, no septal abnormalities noted. Tympanic membranes are normal and external auditory canals are clear. Oropharynx with no redness, swelling, or masses, exudates, or evidence of obstruction, uvula midline. Mucous membranes moist. Neck: Trachea midline, no thyromegaly or masses palpated, and no cervical lymphadenopathy. Supple, full range of motion without nuchal rigidity, or vertebral point tenderness. Chest/axilla: Normal chest wall appearance and motion. Nontender with no deformity. No lesions are appreciated. Cardiovascular: Regular rate and rhythm with a normal S1 and S2. No gallops, murmurs, or rubs. Normal PMI, no JVD. No pulse deficits. Respiratory: Lungs have equal breath sounds bilaterally, clear to auscultation and percussion. No rales, rhonchi or wheezes noted. No increased work of breathing, no retractions or nasal flaring. Abdomen/GI: Soft, non-tender, with normal bowel sounds. No distension or tympany. No guarding or rebound. No evidence of tenderness throughout. Back: No spinal tenderness. No costovertebral tenderness. Skin: Warm, dry with normal turgor. Normal color with no rashes, no lesions, and no evidence of cellulitis. MS/ Extremity: Pulses equal, no cyanosis. Neurovascular intact. Full, normal range of motion. Neuro: Awake and alert, GCS 15, oriented to person, place, time, and situation. Cranial nerves II-XII grossly intact. Motor strength 5/5 in all extremities. Sensory grossly intact. Psych: Awake, alert, with orientation to person, place and time. Behavior, mood, and affect are within normal limits 22:44 ECG was reviewed by the Attending Physician. EKG time 2235, EKG reveals normal sinus sp4 rhythm at rate of 73 with left axis deviation left ventricular hypertrophy no ST elevation or depression no ectopy , otherwise normal EKG Vital Signs: 21:59 BP 126 / 68; Pulse 69; Resp 18; Temp 98.6; Pulse Ox 97% ; Weight 167.83 kg; Height 5 cm10 ft. 8 in. ; Pain 1/10; 22:17 BP 121 / 53; Pulse 70; Resp 19 S; Pulse Ox 95% on R/A; jw7 22:45 BP 116 / 57; Pulse 73; Resp 24 S; Pulse Ox 96% on R/A; jw7 23:15 BP 103 / 60; Pulse 70; Resp 18 S; Temp 98.5(O); Pulse Ox 98% on R/A; jw7 07/30 00:22 BP 104 / 60; Pulse 64; Resp 18 S; Pulse Ox 98% on R/A; jw7 07/29 21:59 Body Mass Index 56.26 (167.83 kg, 172.72 cm) cm10 07/29 21:59 Pain Scale: Adult cm10 MDM: 07/29 22:02 Patient medically screened. sp4 07/30 00:26 ED course: CT abdomen - FINDINGS: The lack of IV and oral contrast limits evaluation of sp4 solid organs, subtle lesions cannot be excluded. The lung bases demonstrate to be clear. Grossly the unopacified liver demonstrate decreased attenuation corresponding to mild fatty dictation. Otherwise the liver, gallbladder, pancreas, spleen and adrenal glands demonstrate to be within normal limits, no significant focal lesions were identified. The kidneys demonstrate grossly unremarkable. There is a lower pole left renal calculus measuring 7.3 mm on image 47. There is no evidence for hydronephrosis/or hydroureter in either kidney. No focal masses were demonstrated. Grossly the unopacified stomach, small bowel and large bowel demonstrate to be within normal limits. There is no evidence for bowel dilatation/or free air. The appendix is unremarkable. With the left site colon demonstrate to be unremarkable. The urinary bladder demonstrate to be within normal limits. The prostate gland demonstrate to be unremarkable. The aorta demonstrate to be within normal limits. There is no retroperitoneal lymphadenopathy. There is no evidence for ascites. The rest of the soft tissue demonstrate to be grossly unremarkable. IMPRESSION: 7.3 mm non obstructing calculus lower pole left renal calculus. Mild fatty dictation of the liver.. ED course: Chest X Ray - EXAM DESCRIPTION: RAD - Chest Single View - 07/29/2023 10:09 pm CLINICAL HISTORY: CHEST PAIN Chest pain. COMPARISON: FINDINGS: Portable technique limits examination quality. The lungs are grossly clear. The heart is normal in size. No displaced fractures. IMPRESSION: No acute intrathoracic process suspected.. 01:16 Differential diagnosis: Hypovolemia, dehydration, new onset diabetes, electrolyte sp4 imbalance, pancreatitis. Data reviewed: vital signs, nurses notes, old medical records, lab test result(s), cardiac enzymes, electrolytes, hepatic panel, EKG, radiologic studies. Consideration of Admission/Observation Escalation of care including admission/observation considered. ED course: Patient's labs are significant for signs of hypovolemia and dehydration. Patient was given 2 L IV fluid boluses. Patient will be advised to remain home for the next 2 days. Will advise clear liquid diet to replenish electrolytes and fluids for the next 24 hours. Increase p.o. hydration at work including Gatorade or other sports beverage. We will also advised to see primary care physician in 2 to 4 weeks to recheck kidney function.. 07/29 22:02 Order name: Basic Metabolic Panel; Complete Time: 23:17 [facility] 07/29 22:02 Order name: CBC with Diff; Complete Time: 23: [facility] 07/29 22:02 Order name: LFT's; Complete Time: 23:17 [facility] 07/29 22:02 Order name: Magnesium; Complete Time: 23:17 [facility] 07/29 22:02 Order name: NT PRO-BNP; Complete Time: 23: [facility] 07/29 22:02 Order name: PT-INR; Complete Time: 23: [facility] 07/29 22:02 Order name: Troponin HS; Complete Time: 23:17 [facility] 07/29 22:02 Order name: XRAY Chest (1 view); Complete Time: 23:17 [facility] 07/29 23:21 Order name: CT Abd/Pelvis - Without Contrast [facility] 07/29 22:02 Order name: EKG; Complete Time: 22:03 [facility] 07/29 22:02 Order name: Cardiac monitoring; Complete Time: 22:41 [facility] 07/29 22:02 Order name: EKG - Nurse/Tech; Complete Time: 22:41 [facility] 07/29 22:02 Order name: IV Saline Lock; Complete Time: 22:41 [facility] 07/29 22:02 Order name: Labs collected and sent; Complete Time: 22:41 [facility] 07/29 22:02 Order name: O2 Per Protocol; Complete Time: 22:41 [facility] 07/29 22:02 Order name: O2 Sat Monitoring; Complete Time: 22:41 4 EC/29 22:44 Rate is 72 beats/min. Rhythm is regular, Sinus Rhythm. Left axis deviation noted. [place] sp4 interval is normal. QRS interval is normal. QT interval is normal. T waves are Normal. No ST changes noted. Clinical impression: No evidence of ischemia. Interpreted by me. Administered Medications: 22:41 Drug: NS 0.9% IV 1000 ml Route: IV; Rate: 1 bolus; Site: right antecubital; jw7 07/30 00:57 Follow up: Response: No adverse reaction; IV Status: Completed infusion; IV Intake: jw7 1000ml 07/29 23:02 Drug: Aspirin PO Chewable Tablet 324 mg Route: PO; 7 07/30 00:56 Follow up: Response: No adverse reaction 00:49 Drug: NS 0.9% IV 1000 ml Route: IV; Rate: 1 bolus; Site: right antecubital; rv 01:49 Follow up: Response: No adverse reaction; IV Status: Completed infusion; IV Intake: jw7 1000ml Disposition Summary: 07/30/23 01:19 Discharge Ordered Location: Home sp4 Problem: new sp4 Symptoms: have improved sp4 Condition: Stable sp4 Diagnosis - Dehydration sp4 - Heat exhaustion, heat cramps, moderate dehydration, abdominal pain, morbid obesity sp4 Followup: sp4 - With: Tian Okeefe MD - When: 7 - 10 days - Reason: Recheck today's complaints Discharge Instructions: - Discharge Summary Sheet sp4 - Dehydration, Adult, [id number] sp4 Forms: - Work release form kl - Patient Portal Instructions sp4 - Leadership Thank You Letter sp4 Signatures: Dispatcher [employer] Obdulio Ravi RN RN Amy Suggs RN RN [email or web address] Bora Oquendo MD MD sp4 Kathy Gray RN RN cm10 Corrections: (The following items were deleted from the chart) 07/29 23:20 22:03 Abdomen Pelvis W Con+CT.RAD.BRZ ordered. EDMS EDMS 23:27 23:20 Abdomen ordered. EDMS EDMS
[2023-07-30 02:53] VITALS: TEMP 98.5; O2SAT 98
[2023-07-30 02:55] VITALS: BP 104/60
--- NOTE | 2023-07-30 12:30 | RAD REPORT ---
EXAM DESCRIPTION: CT - Abdomen Pelvis Wo Contrast - 07/30/2023 6:34 am CLINICAL HISTORY: 53 years, Male, ABD PAIN COMPARISON: None TECHNIQUE: Multiple transaxial tomograms of the abdomen and pelvis were performed from the lung base s to the symphysis pubis utilizing 5 mm slice thickness at 5 mm interval reconstruction, without admi nistration of IV and oral contrast. Multiplanar reformats in the sagittal and coronal plane were generated and reviewed. This exam was performed according to our departmental dose-optimization protocol, which includes auto mated exposure control, adjustment of the mA and/or kV according to patient size and/or use of iterat enma reconstruction technique. FINDINGS: The lack of IV and oral contrast limits evaluation of solid organs, subtle lesions cannot be excluded. The lung bases demonstrate to be clear. Grossly the unopacified liver demonstrate decreased attenuation corresponding to mild fatty dictation . Otherwise the liver, gallbladder, pancreas, spleen and adrenal glands demonstrate to be within norm al limits, no significant focal lesions were identified. The kidneys demonstrate grossly unremarkable. There is a lower pole left renal calculus measuring 7 .3 mm on image 47. There is no evidence for hydronephrosis/or hydroureter in either kidney. No focal masses were demonstrated. Grossly the unopacified stomach, small bowel and large bowel demonstrate to be within normal limits. There is no evidence for bowel dilatation/or free air. The appendix is unremarkable. With the left si te colon demonstrate to be unremarkable. The urinary bladder demonstrate to be within normal limits. The prostate gland demonstrate to be unre markable. The aorta demonstrate to be within normal limits. There is no retroperitoneal lymphadenop athy. There is no evidence for ascites. The rest of the soft tissue demonstrate to be grossly unrem arkable. IMPRESSION: 7.3 mm nonobstructing calculus lower pole left renal calculus. Mild fatty dictation of the liver. Electronically signed by: Eduin Molina MD 07/29/2023 11:57 PM CDT Due to temporary technical issues with the PACS/Fluency reporting system, reports are being signed by the in house radiologist without review as a courtesy to ensure prompt reporting. The interpreting r adiologist is fully responsible for the content of the report.
--- NOTE | 2023-07-30 13:04 | EKG ---
Test Date: 2023-07-29 Test Time: 22:36:02 [employer] Supervisor: TELMA MEASUREMENT RESULTS: Intervals: Rate: 73 NM: 166 QRSD: 130 QT: 450 QTc: 495 Melissa: P: 23 NM: 166 QRS: -63 T: 32 INTERPRETIVE STATEMENTS: Normal sinus rhythm Left axis deviation Left ventricular hypertrophy with QRS widening Cannot rule out Septal infarct, age undetermined Abnormal ECG Compared to ECG 10/04/2000 19:38:00 Left-axis deviation now present Left ventricular hypertrophy now present Myocardial infarct finding now present Electronically Signed On 07-30-23 13:03:05 CDT by Jose G Shelton
== END 2023-07-30 01:49 | disposition home or self-care (01) ==
LOC: ER 21:51
DX: E86.0 Dehydration (principal); T67.2XXA Heat cramp, initial encounter; T67.5XXA Heat exhaustion, unspecified, initial encounter; E66.01 Morbid (severe) obesity due to excess calories; Z68.43 Body mass index [BMI] 50.0-59.9, adult; I10 Essential (primary) hypertension
CPT/HCPCS: 93005; 85025; 80048; 36415; 83735; 85610; 80076; 84484; 83880; 74176; 71045; J7030 ×2

== ENCOUNTER 2023-09-08 05:16 | Emergency (ER) | payer OTHER ==
--- OUTSIDE RECORDS SUMMARY | 2023-09-08 05:19 | XMS REPORT | Continuity of Care Document ---
:1970 Author Organization [facility] t Address [address] [facility] [address] [place] [id number] Care Team Providers Name Role Phone Pcp, Patient Does Not Have A Primary Care Physician [phone] [id number] Doctor Unassigned, [place] Attending Clinician Unavailable Yue Cárdenas RN Attending Clinician Unavailable Lab, Adc Fam Pob I Attending Clinician Unavailable Kathleen MOLD CARPENTERSandra Attending Clinician Pob1, Acute Care Clinic Attending Clinician Unavailable David CÁRDENASPOlga Attending Clinician OLGA HERNANDEZ Attending Clinician Unavailable Samara Paul Attending Clinician Elizabeth Gutierrez RN Attending Clinician Unavailable More Syed Attending Clinician Pcp, Patient Does Not Have A Attending Clinician [phone] Lab, Pcp Covid Attending Clinician Unavailable Manju Quezada Attending Clinician Payers Payer Name Policy Type Policy Number Effective Date Expiration Date S [facility] - [id number] 2020 00:00:00 OUT OF STATE Problems Condition Condition Condition Status Onset Resolution Last Treating Co mments Source Name Details Category Date Date Treatment Clinician Date No known No known Disease Unive rs active active ity of problems problems [facility] Allergies, Adverse Reactions, Alerts Allergy Allergy Status Severity Reaction(s) Onset Inactive Treating Comm ents Source Name Type Date Date Clinician NO KNOWN Drug Active Univers ALLERGIE Class ity of S [facility] Social History Social Habit Start Date Stop Date Quantity Comments Source [facility] to 2020-06-19 2020 Yes University SARS-CoV-2 (event) 00:00:00 16:03:00 [facility] History of Social 2020 2020 Univers ity of function 00:00:00 00:00:00 [facility] Tobacco use and 2020-06-21 2020-06-21 Smokeless Universit y of exposure 00:00:00 00:00:00 tobacco non-user [facility] Sex Assigned At [birth year] Universit y of 00:00:00 00:00:00 [facility] Smoking Status Start Date Stop Date Source Tobacco smoking consumption [facility] Never smoked tobacco [facility] Medications Ordered Filled Start Stop Current Ordering Indication Dosage Frequency Signature Comments Components Source Medication Medication Date Date Medication? Clinician (SIG) Name Name benzonatate 2020- No [id number] 100mg Take 1 Univers (TESSALON 8-19 08-30 capsule by itjimmy of PERL) 100 00:00: 04:[place] capsule 00 :00 (three) Medica l times Branch daily as needed for Cough for up to 10 days. benzonatate 2020- No [id number] 100mg Take 1 Univers (TESSALON 8-19 08-30 capsule by ity PERLClient Outlook) 100 00:00: 04:59 [place] capsule 00 :00 (three) Medica l times Branch daily as needed for Cough for up to 10 days. benzonatate 2020- No [id number] 100mg Take 1 Univers (TESSALON 8-19 08-30 capsule by ity of PERLClient Outlook) 100 00:00: 04:59 [place] capsule 00 :00 (three) Medica l times Branch daily as needed for Cough for up to 10 days. benzonatate 2019- 2020- No [id number] 100mg Take 1 Univers (TESSALON 8-19 08-30 capsule by itjimmy of PERLClient Outlook) 100 00:00: 04:59 [place] capsule 00 :00 (three) Medica l times Branch daily as needed for Cough for up to 10 days. albuterol 0 2020- No [id number] 2{puff} Inhale 2 Univers (VENTOLIN 8-03 09-03 Puffs ity of HFA) 90 00:00: 04:59 every 6 [place] mcg/actuati 00 :00 (six) Medical on inhaler hours as Branc h needed for Shortness of Breath or Chest tightness for up to 30 days. albuterol 2019-0 2020- No [id number] 2{puff} Inhale 2 Univers (VENTOLIN 8-03 09-03 Puffs ity of HFA) 90 00:00: 04:59 every 6 [place] mcg/actuati 00 :00 (six) Medical on inhaler hours as Branc h needed for Shortness of Breath or Chest tightness for up to 30 days. albuterol 2019-0 2020- No [id number] 2{puff} Inhale 2 Univers (VENTOLIN 8-03 09-03 Puffs ity of HFA) 90 00:00: 04:59 every 6 [place] mcg/actuati 00 :00 (six) Medical on inhaler hours as Branc h needed for Shortness of Breath or Chest tightness for up to 30 days. albuterol 2019-0 2020- No [id number] 2{puff} Inhale 2 Univers (VENTOLIN 8-03 09-03 Puffs ity of HFA) 90 00:00: 04:59 every 6 [place] mcg/actuati 00 :00 (six) Medical on inhaler hours as Branc h needed for Shortness of Breath or Chest tightness for up to 30 days. albuterol 2019-0 2020- No [id number] 2{puff} Inhale 2 Univers (VENTOLIN 8-03 09-03 Puffs ity of HFA) 90 00:00: 04:59 every 6 [place] mcg/actuati 00 :00 (six) Medical on inhaler hours as Branc h needed for Shortness of Breath or Chest tightness for up to 30 days. albuterol 2020-0 2020- No [id number] 2{puff} Inhale 2 Univers (VENTOLIN 8-03 09-03 Puffs ity of HFA) 90 00:00: 04:59 every 6 [place] mcg/actuati 00 :00 (six) Medical on inhaler hours as Branc h needed for Shortness of Breath or Chest tightness for up to 30 days. albuterol 2019- 2020- No [id number] 2{puff} Inhale 2 Univers (VENTOLIN 8-03 09-03 Puffs ity of HFA) 90 00:00: 04:59 every 6 [place] mcg/actuati 00 :00 (six) Medical on inhaler hours as Branc h needed for Shortness of Breath or Chest tightness for up to 30 days. albuterol 2019- 2020- No [id number] 2{puff} Inhale 2 Univers (VENTOLIN 8-03 09-03 Puffs ity of HFA) 90 00:00: 04:59 every 6 [place] mcg/actuati 00 :00 (six) Medical on inhaler hours as Branc h needed for Shortness of Breath or Chest tightness for up to 30 days. albuterol 2019- 2020- No [id number] 2{puff} Inhale 2 Univers (VENTOLIN 8-03 09-03 Puffs ity of HFA) 90 00:00: 04:59 every 6 [place] mcg/actuati 00 :00 (six) Medical on inhaler hours as Branc h needed for Shortness of Breath or Chest tightness for up to 30 days. albuterol 2019- 2020- No [id number] 2{puff} Inhale 2 Univers (VENTOLIN 8-03 09-03 Puffs ity of HFA) 90 00:00: 04:59 every 6 [place] mcg/actuati 00 :00 (six) Medical on inhaler hours as Branc h needed for Shortness of Breath or Chest tightness for up to 30 days. albuterol 2019- 2020- No [id number] 2{puff} Inhale 2 Univers (VENTOLIN 8-03 09-03 Puffs ity of HFA) 90 00:00: 04:59 every 6 [place] mcg/actuati 00 :00 (six) Medical on inhaler hours as Branc h needed for Shortness of Breath or Chest tightness for up to 30 days. albuterol 2020-0 2020- No [id number] 2{puff} Inhale 2 Univers (VENTOLIN 8-03 09-03 Puffs ity of HFA) 90 00:00: 04:59 every 6 [place] mcg/actuati 00 :00 (six) Medical on inhaler hours as Branc h needed for Shortness of Breath or Chest tightness for up to 30 days. benzonatate 2020-0 2020- No [id number] 100mg Take 1 Univers (TESSALON 8 08-18 capsule by itjimmy of PERLClient Outlook) 100 00:00: 04:59 mouth 3 [place] capsule 00 :00 (three) Medica l times Branch daily for 14 days. benzonatate 2020-0 2020- No [id number] 100mg Take 1 Univers (TESSALON 07-0318 capsule by itjimmy of [employer]) 100 00:00: 04:59 mouth 3 [place] mg capsule 00 :00 (three) Medica l times Branch daily for 14 days. benzonatate 2020-0 2020- No [id number] 100mg Take 1 Univers (TESSALON 8- 08-18 capsule by itOpara of PERLClient Outlook) 100 00:00: 04:59 mouth 3 [place] mg capsule 00 :00 (three) Medica l times Branch daily for 14 days. benzonatate 2019-0 2020- No [id number] 100mg Take 1 Univers (TESSALON 07-0318 capsule by itjimmy of [employer]) 100 00:00: 04:59 mouth 3 [place] mg capsule 00 :00 (three) Medica l times Branch daily for 14 days. benzonatate 2019-0 2020- No [id number] 100mg Take 1 Univers (TESSALON 07-0318 capsule by itjimmy of [employer]) 100 00:00: 04:59 mouth 3 [place] mg capsule 00 :00 (three) Medica l times Branch daily for 14 days. benzonatate 2019-0 2019- No [id number] 100mg Take 1 Univers (TESSALON 07-0318 capsule by itjimmy of RUFINOClient Outlook) 100 00:00: 04:59 mouth 3 [place] mg capsule 00 :00 (three) Medica l times Branch daily for 14 days. bromphenira 2019- 2020- No [id number] 5mL Take 5 mL Univers mine-pseudo 07-03 by mouth 4 i ty of ephedrine-D 00:00: 04:59 (four) Jose Francisco as M (BROMFED 00 :00 times Medical DM) 2-30-10 daily as Bran ch mg/5 mL needed for syrup Cough for up to 10 days. methylPREDN 2019- No [id number] Take by Univers ISolone 4 07-03 08-10 mouth ity of mg tablets 00:00: 04:59 SEE-INSTRU [place] 00 :00 CTIONS for Medical 6 days. Branch follow package directions methylPREDN 2020-0 2020- No [id number] Take by [place] [id number] 08-10 mouth ity of mg tablets 00:00: 04:59 SEE-INSTRU [place] 00 :00 CTIONS for Medical 6 days. Branch follow package directions methylPREDN 2020-0 2020- No [id number] Take by [place] [id number] 07-03 08-10 mouth ity of mg tablets 00:00: 04:59 SEE-INSTRU [place] 00 :00 CTIONS for Medical 6 days. Branch follow package directions methylPREDN 2020-0 2020- No [id number] Take by [place] [id number] 08-10 mouth ity of mg tablets 00:00: 04:59 SEE-INSTRU [place] 00 :00 CTIONS for Medical 6 days. Branch follow package directions methylPREDN 2020-0 2020- No [id number] Take by [place] [id number] 07-03 08-10 mouth ity of mg tablets 00:00: 04:59 SEE-INSTRU [place] 00 :00 CTIONS for Medical 6 days. Branch follow package directions methylPREDN 2020-0 2020- No [id number] Take by [place] [id number] 08-10 mouth ity of mg tablets 00:00: 04:59 SEE-INSTRU [place] 00 :00 CTIONS for Medical 6 days. Branch follow package directions azithromyci 2020-0 2020- No [id number] 250mg Take 1 [facility] 07-03 tablet by ity of (ZITHROMAX 00:00: 04:59 mouth [place] Z-YOLI) 250 00 :00 daily for Medi bette mg tablet 5 days. Branch Take 500 mg day 1, then 250 mg days 2 to 5. azithromyci 2020-0 2020- No [id number] 250mg Take 1 [facility] 07-03 tablet by ity of (ZITHROMAX 00:00: 04:59 mouth [place] Z-YOLI) 250 00 :00 daily for Medi bette mg tablet 5 days. Branch Take 500 mg day 1, then 250 mg days 2 to 5. azithromyci 2020-0 2020- No [id number] 250mg Take 1 Univers n 07-03 tablet by ity of (ZITHROMAX 00:00: 04:59 mouth [place] Z-YOLI) 250 00 :00 daily for Medi bette mg tablet 5 days. Branch Take 500 mg day 1, then 250 mg days 2 to 5. azithromyci 2020-0 2020- No [id number] 250mg Take 1 Univers n 07-03 tablet by ity of (ZITHROMAX 00:00: 04:59 mouth [place] Z-YOLI) 250 00 :00 daily for Medi bette mg tablet 5 days. Branch Take 500 mg day 1, then 250 mg days 2 to 5. azithromyci 2020-0 2020- No [id number] 250mg Take 1 Univers n 07-03 tablet by ity of (ZITHROMAX 00:00: 04:59 mouth [place] Z-YOLI) 250 00 :00 daily for Medi bette mg tablet 5 days. Branch Take 500 mg day 1, then 250 mg days 2 to 5. bromphenira 2020-0 2020- No [id number] 5mL Take 5 mL Univers mine-pseudo 07-03 [...] morning. Branch No known No [facility] medications [facility] No known No [facility] medications [facility] No known No [facility] medications [facility] No known No [facility] medications [facility] No known No [facility] medications [facility] No known No [facility] medications [facility] No known No [facility] medications [facility] Vital Signs Vital Name Observation Time Observation Value Comments Source Systolic blood 2020 21:07:00 169 mm[Hg] Univer sity of pressure [facility] Diastolic blood 2020 21:07:00 81 mm[Hg] Unive rsity of [facility] Heart rate 2020 21:05:00 91 /min [facility] Body temperature 2020 21:05:00 37.17 Melly [facility] ersity [facility] Respiratory rate 2020 21:05:00 22 /min [facility] Body height 2020 21:05:00 170.2 cm [facility] Body weight 2020 21:05:00 165.563 kg [facility] BMI 2020 21:05:00 57.17 kg/m2 Universi ty [facility] Oxygen saturation in 2020 21:05:00 95 /min University of Arterial blood by [place] Medi bette Pulse oximetry Branch Systolic blood 2020 21:07:00 169 mm[Hg] Univer sity of pressure [facility] Diastolic blood 2020 21:07:00 81 mm[Hg] Unive rsity of pressure [facility] Heart rate 2020 21:05:00 91 /min [facility] Body temperature 2020 21:05:00 37.17 Melly Univ ersity [facility] Respiratory rate 2020 21:05:00 22 /min Univ [facility]ity [facility] Body height 2020 21:05:00 170.2 cm [facility] Body weight 2020 21:05:00 165.563 kg [facility] BMI 2020 21:05:00 57.17 kg/m2 [facility] Oxygen saturation in 2020 21:05:00 95 /min University of Arterial blood by [facility] Pulse oximetry Branch Systolic blood 2020-07-03 [...] 97 /min University of Arterial blood by [place] Medi bette Pulse oximetry Branch Systolic blood 2020-07-03 17:58:00 [...] 97 /min University of Arterial blood by [place] [facility] Pulse oximetry Branch Systolic blood 2020-06-21 18:20:00 116 mm[Hg] Univer sity of pressure [facility] Diastolic blood 2020-06-21 18:20:00 83 mm[Hg] Unive rsity of pressure [facility] Heart rate 2020-06-21 18:20:00 78 /min [facility]i ty [facility] Body temperature 2020-06-21 18:20:00 36.94 Melly Univ ersity [facility] Respiratory rate 2020-06-21 18:20:00 20 /min Univ [facility] Body height 2020-06-21 18:20:00 177.8 cm [facility] Body weight 2020-06-21 18:20:00 165.109 kg [facility] BMI 2020-06-21 18:20:00 52.23 kg/m2 [facility] Oxygen saturation in 2020-06-21 18:20:00 96 /min University of Arterial blood by [facility] Pulse oximetry Branch Procedures Procedure Date / Time Performed Performing Clinician Sour e PATIENT QUESTIONNAIRE 2020-08-01 05:01:00 Doctor Unassigned, No [facility] Name Medical Branch XR CHEST 2 VW 2020-07-03 19:06:09 David [facility] o f [facility] Encounters Start End Encounter Admission Attending Care Care Encounter Source Date/Time Date/Time Type Type Clinicians Facility Department ID 2021-09-28 Emergency X [facility] [id number] Univers 13:46:22 ity of [facility] 2023-07-12 2023-07-12 Outpatient [facility] [id number] Herbie 13:15:22 13:15:22 [id number] F José Miguel 2023-07-11 2023-07-11 Outpatient [facility] [id number] Herbie 15:02:44 15:02:44 0811 F José Miguel 2020-08-01 2020-08-01 Orders Doctor HEIDI Carter2.840.114 [id number] Univers 00:00:00 00:00:00 Only Unassigned, SONJA [id number] ity of [place] [facility] 4.2.7.2.686 Jose Francisco as [phone] [address] 2020-08-01 2020-08-01 Orders Doctor HEIDI 1.2.840.114 [id number] 00:00:00 00:00:00 Only Unassigned, SONJA [id number] [place] [facility] 4.2.7.2.686 [id number] 2020-07-22 2020-07-22 Letter HEIDI Cárdenas 1.2.840.114 [id number] Univers 00:00:00 00:00:00 (Out) Yue CASILLAS [id number] it y of HOSPITAL 4.2.7.2.686 Jose Francisco as [phone] [address] 2020-07-22 2020-07-22 Patient Doctor HEIDI 1.2.840.114 [id number] Univers 00:00:00 00:00:00 Secure Msg Unassigned, SONJA [id number] ity of [place] [facility] 4.2.7.2.686 Jose Francisco as [phone] [address] 2020-07-22 2020-07-22 HEIDI Reyes.2.840.114 [id number] 00:00:00 00:00:00 (Out) Yue KIMY [id number] HOSPITAL 4.2.7.2.686 [id number] 2020-07-21 2020-07-21 Laboratory Lab, Adc Fam Pob I [facility] 1.2. 840.114 [id number] Univers 08:40:30 09:00:30 Only Ebraanastasia [facility] [id number] ity of [place] 4.2.7.2.686 Jose Francisco as Professio [phone] [address] Office Building One 2020-07-21 2020-07-21 Laboratory Lab, [facility] 1.2.840.114 [id number] 08:40:30 09:00:30 Only Fam Pob I Health [id number] [place] 4.2.7.2.686 Professio [phone] [place] [address] Office [address] 2020-07-21 2020-07-21 Outpatient R [facility] [id number] Univers 08:20:00 08:20:00 ity of [facility] 2020-07-20 2020-07-20 Telephone Pob1, Acute [facility] 1.2.840.114 [id number] Univers 00:00:00 00:00:00 Care [facility] Health [id number] ity of [place] 4.2.7.2.686 Jose Francisco as Professio [phone] [address] Office [address] One 2020-07-20 2020-07-20 Telephone Pob1, Acute [facility] 1.2.840.114 [id number] 00:00:00 00:00:00 Care Clinic Health [id number] [place] 4.2.7.2.686 Professio [phone] [place] [address] Office [address] 2020 2020 Urgent Pob1, Acute Care Clinic [facility] 1. 2.840.114 [id number] Univers 15:57:18 16:20:48 [facility] [id number] ity of [place] 4.2.7.2.686 Jose Francisco as Professio [phone] [address] Office Building One 2020 2020 Urgent Pob1, Acute [facility] 1.2.840.114 [id number] 15:57:18 16:20:48 Care Care Clinic Health [id number] [place] 4.2.7.2.686 Professio [phone] [place] [address] Office [address] One 2020 2020 Outpatient R [facility] [id number] Univers 15:40:00 15:40:00 ity of [facility] 2020 2020 [facility] [id number] Univers 15:20:00 15:20:00 OLGA sebastian [facility] 2020-07-10 2020-07-10 Telephone Human, [facility] [id number] [id number] Univers 00:00:00 00:00:00 Samara Kamara Health [id number] ity of [place]ty [place].7.2.[place] - [phone] [address] 2020-07-10 2020-07-10 Telephone Human, [facility] [id number] 00:00:00 00:00:00 Samara Kamara Health [id number] Specialty 4.2.7.2.686 Care - [phone] [place] [address] 2020-07-09 2020-07-09 Outpatient O DAVID, [facility] [id number] Univers 16:40:00 16:40:00 OLGA sebastian [facility] 2020-07-09 2020-07-09 Laboratory Lab, [facility] Fam Pob I [facility] 1.2. 840.114 [id number] Univers 14:25:31 14:45:31 Only Olga Hernandez Health [id number] ity of [place] 4.2.7.2.686 Jose Francisco as Professio [phone] Nd dical [address] 2020-07-09 2020-07-09 Laboratory Lab, [facility] 1.2.840.114 [id number] 14:25:31 14:45:31 Only Fam Pob I Health 350.1.13.10 [place] 4.2.7.2.686 Professio [phone] [address] 2020-07-04 2020-07-04 Telephone Elizabeth Gutierrez 1.2.840.114 [id number] Univers 00:00:00 00:00:00 SONJA 350.1.13.10 it y of HOSPITAL 4.2.7.2.686 Jose Francisco as [id number] [facility] 019 [place] 2020-07-04 2020-07-04 Telephone Pob1, Acute [facility] 1.2.840.114 [id number] [facility] 00:00:00 00:00:00 Care Clinic Health [id number] ity of [place] 4.2.7.2.686 Jose Francisco as Professio [phone] Nd dical nal 044 [place] Office [facility] 2020-07-04 2020-07-04 Telephone Elizabeth Gutierrez 1.2.840.114 [id number] 00:00:00 00:00:00 SONJA 350.1.13.10 [facility] 4.2.7.2.686 [phone] [facility] 2020-07-04 2020-07-04 Telephone Pob1, Acute [facility] 1.2.840.114 [id number] 00:00:00 00:00:00 Care Clinic Health [id number] [place] 4.2.7.2.686 Professio [phone] [place] [address] Office [facility] 2020-07-03 2020-07-03 Hospital [facility] 1.2.840.114 [id number] [facility] 13:54:27 23:59:00 Encounter Olga [place] 350.1.13.10 ity of [place] 4.2.7.2.686 [facility] [id number] [facility] 807 [place] 2020-07-03 2020-07-03 Hospital [facility] 1.2.840.114 [id number] 13:54:27 23:59:00 Encounter Olga [place] 350.1.13.10 [place] 4.2.7.2.686 [place] [id number] [facility] 2020-07-03 2020-07-03 Urgent Pob1, Acute Care Clinic [facility] 1. 2.840.114 [id number] [facility] 12:47:10 13:58:33 Care [facility] Health 350.1.13.10 ity of [place] 4.2.7.2.686 Jsoe Francisco as Professio [phone] Nd dicmo nal [address] [place] [address] Office [facility] 2020-07-03 2020-07-03 Urgent Pob1, Acute [facility] 1.2.840.114 [id number] 12:47:10 13:58:33 [facility] Health 350.1.13.10 [place] 4.2.7.2.686 Professio [phone] nal [facility] Office [facility] 2020-07-03 2020-07-03 Outpatient R DAVID [facility] [id number] Univers 13:00:00 13:00:00 OLGA ity of [facility] 2020-06-24 2020-06-24 Telephone KalinaHEIDI 1.2.653.201 [id number] Univers 00:00:00 00:00:00 More Fontanez SONJA 350.1.13.10 i ty of HOSPITAL 4.2.7.2.686 Jose Francisco as [phone] [address] 2020-06-24 2020-06-24 Letter PcpHEIDI 1.2.840.114 [id number] Univers 00:00:00 00:00:00 (Out) Patient SONJA 350.1.13.10 it y of Does Not HOSPITAL 4.[place].7.2.[place] Have A [id number] [address] 2020-06-24 2020-06-24 Letter Pcp, [facility] 1.2.840.114 [id number] Univers 00:00:00 00:00:00 (Out) Patient Health 350.1.13.10 it y of Does Not [place] 4.2.7.2.686 [place] Have A Professio [phone] [facility] nal [address] [place] [address] Office [facility] 2020-06-23 2020-06-23 Laboratory Lab, Adc Fam Pob I [facility] 1.2. 840.114 [id number] Univers 14:27:14 14:47:14 Only Olga Hernandez Health 350.1.13.10 ity of [place] 4.2.7.2.686 Jose Francisco as Professio [phone] Nd dical nal [address] [place] [address] Office [facility] 2020-06-23 2020-06-23 Outpatient R [facility] [id number] Univers 14:40:00 14:40:00 ity of [facility] 2020-06-23 2020-06-23 Letter Lab, Pcp [facility] 1.2.840.114 [id number] Univers 00:00:00 00:00:00 (Out) Covid [place] 350.1.13.10 i ty of [place] 4.2.7.2.686 [place] Profess[place] [phone] Nd dical nal [address] [place] [address] 2020-06-23 2020-06-23 Letter Lab, Pcp [facility] 1.2.840.114 [id number] Univers 00:00:00 00:00:00 (Out) Covid [place] 350.1.13.10 i ty of [place] 4.2.7.2.686 [place] Professio [phone] Nd dical nal [address] [place] [address] 2020-06-21 2020-06-21 Urgent Pob1, Acute Care Clinic [place] 1. 2.840.114 [id number] Univers 13:15:16 13:35:16 Care PaigeChris [facility] Health 350.1.13.10 ity of [place] 4.2.7.2.686 Jose Francisco as Professio [phone] [facility] nal [address] [place] [address] Office [facility] 2020-06-21 2020-06-21 Laboratory Lab, Adc Fam Pob I [facility] 1.2. 840.114 [id number] Univers 13:05:01 13:25:01 Only David Olga Health 350.1.13.10 ity of [place] 4.2.7.2.686 Jose Francisco as Professio [phone] [facility] nal [address] [place] [address] Office [facility] 2020-06-21 2020-06-21 Outpatient R [facility] [id number] Univers 13:20:00 13:20:00 ity of [facility] 2020-06-13 2020-06-13 Patient Doctor [facility] 1.2.840.114 [id number] Univers 00:00:00 00:00:00 Secure Msg Unassigned, HEALTH 350.1.13.10 ity of [place] [facility] 4.2.7.2.686 Jose Francsico as PROFESSIO [phone] [address] OFFICE [facility] 2020-06-13 2020-06-13 Telephone [place], [facility] 1.2.199.970 [id number] Univers 00:00:00 00:00:00 Manju Health 350.1.13.10 it y of [place] 4.2.7.2.686 Jose Francisco as Professio [phone] Nd dical nal [address] 2020-06-11 2020-06-11 Laboratory Lab, Adc Fam Pob I [facility] 1.2. 840.114 [id number] Univers 12:42:34 13:02:34 Only Olga Hernandez 350.1.13.10 ity of [place] 4.2.7.2.686 Jose Francisco as Professio [phone] Nd dical nal [address] [place] Office [address] 2020-06-11 2020-06-11 Outpatient R DAVID [facility] [id number] Univers 13:00:00 13:00:00 OLGA sebastian [facility] Results Test Description Test Time Test Comments Results Result Comments Source HIV 1/2 4TH GEN, RFLX CONF 2023-07-15 01:47:24 Test Item Value Reference Range Interpretation Comme nts HIV 1/2 4TH GEN, RFLX NON-REACTIVE NON-REACTIVE UNLES S OTHERWISE INDICATED, ALL CONF (test code = 3514) TEST ING PERFORMED AT [facility] [address] [place] [id number] LABORATORY DIRE CTOR: VINCENT HOWELL M.D. C YONI NUMBER [id number] [facility] [place]. [id number] TSH, THIRD [id number] 03:40:32 Test Item Value Reference Range Interpretation Comments TSH, THIRD GENERATION (test code 1.770 UIU/ML 0.400-4.100 = 2821) PSA, [id number] 03:40:32 Test Item Value Reference Range Interpretation Comments PSA, TOTAL 0.21 NG/ML See_Comment NOTE: Methodol ogy is Javi (test code = Boo Electroch emiluminescence 2606) Immunoassay tra ceable to WHO reference stand kalen 96/760. [Automated mess age] The system which generated this result transmitted ref erence range: <=4.00. The ref erence range was not used to int erpret this result as raquel l/abnormal. COMPREHENSIVE METABOLIC [id number] 03:13:06 Test Item Value Reference Range Interpretation Comments GLUCOSE (test code = 93 MG/DL 70-99 2217) BUN (test code = 12 MG/DL 6-20 2207) CREATININE (test 0.70 MG/DL 0.80-1.40 L code = 221) eGFR (2020 CKD-EPI) 111 >60 (test code = 65468) ML/MIN/1.73 CALC BUN/CREAT (test 17 RATIO 6-28 code = 2235) SODIUM (test code = 137 MEQ/L 227-689 0257) POTASSIUM (test code 4.4 MEQ/L 3.5-5.4 = 2227) CHLORIDE (test code 100 MEQ/L 95-107 = 2214) CARBON DIOXIDE (test 22 MEQ/L 19-31 code = 2206) CALCIUM (test code = 9.3 MG/DL 8.5-10.5 2208) PROTEIN, TOTAL (test 7.3 G/DL 6.1-8.3 code = 2228) ALBUMIN (test code = 4.1 G/DL 3.5-5.2 2200) CALC GLOBULIN (test 3.2 G/DL 1.9-3.7 code = 224) CALC A/G RATIO (test 1.3 RATIO 1.0-2.6 code = 223) BILIRUBIN, TOTAL 0.3 MG/DL See_Comment [Automated message] [...] code = 16 U/L 5-50 2218) LIPID [id number] 03:13:06 Test Item Value Reference Range Interpretation [...] MOREINFORMATION , SEE CLIENT ANNOUNCE MENT AT [email or web address] [email or web address] LDL/HDL 1.85 RATIO <3.55 (test code = 2238) HEMOGLOBIN [id number] 03:02:16 Test Item Value Reference Range Interpretation Comments HEMOGLOBIN A1c (test 6.1 % 4.2-5.6 H AMERIC AN DIABETES code = 20334) ASSOCIATION IDELINES FOR HGB A1C: PREDIABETES/INC REASED [...] LABORATORY C ONSULTATION. CBC W/AUTO DIFF WITH [id number] 02:26:30 Test Item Value Reference Range Interpretation [...] RBCS 0.00 K/UL 0.00-0.11 (test code = 84497) TSH, THIRD [id number] 00:41:25 Test Item Value Reference Range Interpretation Comments TSH, THIRD 1.580 UIU/ML 0.400-4.100 UNLESS OTHERWI SE GENERATION (test INDICATED, ALL TESTING code = 2821) PERFORMED [facility], [facility]. [address] [place] [id number] [place] [address] DIRECTOR: KAYLENE LOPEZ M.D. CLIA NUMBER [id number] CAP ACCREDITATION N O. [id number] LIPID [id number] 00:13:01 Test Item Value Reference Range Interpretation [...] MOREINFORMATION , SEE CLIENT ANNOUNCE MENT AT [email or web address] [email or web address] RATIO LDL/HDL 2.12 RATIO <3.55 (test code = 2238) COMPREHENSIVE METABOLIC [id number] 00:13:01 Test Item Value Reference Range Interpretation Comments GLUCOSE (test code = 92 MG/DL 70-99 2216) BUN (test code = 14 MG/DL 6-20 2207) CREATININE (test 0.80 MG/DL 0.80-1.40 code = 2214) eGFR (2020 CKD-EPI) 107 >60 (test code = 82631) ML/MIN/1.73 CALC BUN/CREAT (test 18 RATIO 6-28 code = 2235) SODIUM (test code = 139 MEQ/L 473-863 8000) POTASSIUM (test code 4.1 MEQ/L 3.5-5.4 = 2227) CHLORIDE (test code 100 MEQ/L 95-107 = 2214) CARBON DIOXIDE (test 24 MEQ/L 19-31 code = 220) CALCIUM (test code = 9.0 MG/DL 8.5-10.5 2208) PROTEIN, TOTAL (test 7.7 G/DL 6.1-8.3 code = 222) ALBUMIN (test code = 4.4 G/DL 3.5-5.2 [...] PHOSPHATASE 63 U/L 40-121 (test code = 2204) AST (test code = 32 U/L 9-50 2217) ALT (test code = 34 U/L 5-50 2218) HEMOGLOBIN [id number] 04:44:59 Test Item Value Reference Range Interpretation Comments HEMOGLOBIN A1c (test code = 12101) 6.2 % 4.2-5.6 H CBC W/AUTO DIFF WITH [id number] 03:55:47 Test Item Value Reference Range Interpretation [...] RBCS 0.00 K/UL 0.00-0.11 (test code = 43724) XR CHEST 2 [id number] 20:22:30 Mild bilateral interstitial opacities could be related to minimal pulmonaryvascular congestion versus less likely an atypical infectious process suchas Covid 19 pneumonia. Disclaimer: Generally, the fi ndings on chest imaging in COVID-19 are notspecific, and overlap with other infections, including influenza, H1N1,SARS and MERS.According to the Centers for Disease Control (CDC) and recent statement ofthe [employer] [place] [employer], viral testing remains the only specificmethod of diagnosis. Confirmation with the viral test is required, even ifradiologic findings are suggestive of COVID- [address] Preliminary Report Dictated by Resident: Enrike Samayoa MD., have reviewedthis study and agree with [...] Disease Control (CDC) and recent statement ofthe [place] [employer], viral testing remains the only specificmethod of diagnosis. Confirmation with the viral test is required, even ifradiologic findings are suggestive of COVID- [address]Preliminary Report Dictated by Resident: Hilario Sawyer MD., have reviewed this study and agree with the abovereport. [facility]
[2023-09-08 05:56] LABS: Absolute Lymphocytes (CBC) 1.6 K/uL (0.7-4.9); Hematocrit 37.6 % (39.6-49.0); MCV 95.9 fL (80-100); MPV 8.6 fL (7.6-11.3); Platelets 203 thou/uL (152-406); RBC Red Blood Cell Count 3.92 M/uL (4.33-5.43)
[2023-09-08] MEDS ORDERED: dexAMETHasone 10 MG/ML VIAL ONE (05:57)
[2023-09-08] MEDS ORDERED: KETOROLAC 30 MG/ML INJ ONE (05:58)
[2023-09-08] MEDS ORDERED: ONDANSETRON 4 MG/2 ML VIAL ONE (05:58)
[2023-09-08] MEDS ORDERED: NA CHLORIDE 0.9% 1,000 ML ONE (05:58)
[2023-09-08 06:08] LABS: Bilirubin Total 0.2 mg/dL (0.2-1.0); Potassium 4.5 mEq/L (3.5-5.1); Protein, Total 6.9 g/dL (6.4-8.2)
[2023-09-08 06:47] LABS: Specific Gravity 1.021 (1.005-1.030); Urine Bilirubin NEGATIVE (Negative); Urine Blood Negative (Negative); Urine Clarity Clear (Clear); Urine Color Colorless (Yellow); Urine Glucose NEGATIVE (Negative); Urine Protein NEGATIVE (Negative); Urine Urobilinogen Normal (Normal)
--- NOTE | 2023-09-08 07:09 | EDPHYS ---
Physician Documentation [facility] Name: Juwan Turner Jr Age: 53 yrs Sex: Male : 1970 Arrival Date: 09/08/2023 Time: 05:16 Bed 16 Private MD: ED Physician Ronak Enriquez HPI: 09/08 05:27 This 53 yrs old Male presents to ER via Unassigned with complaints of Back tyler Pain. 05:27 The patient presents with pain and decreased range of motion, and an injury. The tyler symptoms are located in the low back, lumbar area and right low back. Onset: The symptoms/episode began/occurred 2 day(s) ago. Location: right low back. Associated signs and symptoms: The patient has no apparent associated signs or symptoms. The problem was sustained from unknown cause. Severity of symptoms: At their worst the symptoms were moderate, in the emergency department the symptoms are unchanged. The patient has not experienced similar symptoms in the past. Historical: - Allergies: 05:27 No Known Allergies; lg3 - Home Meds: 05:27 unknown HTN medication [Active]; lg3 - PMHx: 05:27 Hypertensive disorder; Pulmonary Embolism; lg3 - PSHx: 05:27 None; lg3 - Immunization history:: Adult Immunizations up to date, Client reports having NOT received the Covid vaccine. Flu vaccine is not up to date. - Social history:: Smoking status: Patient denies any tobacco usage or history of. Patient uses alcohol, occasionally. - Family history:: not pertinent. ROS: 05:27 Constitutional: Negative for fever, chills, and weight loss, Eyes: Negative for injury, tyler pain, redness, and discharge, ENT: Negative for injury, pain, and discharge, Neck: Negative for injury, pain, and swelling, Cardiovascular: Negative for chest pain, palpitations, and edema, Respiratory: Negative for shortness of breath, cough, wheezing, and pleuritic chest pain, Abdomen/GI: Negative for abdominal pain, nausea, vomiting, diarrhea, and constipation, : Negative for injury, bleeding, discharge, and swelling, MS/Extremity: Negative for injury and deformity, Skin: Negative for injury, rash, and discoloration, Neuro: Negative for headache, weakness, numbness, tingling, and seizure, Psych: Negative for depression, anxiety, suicide ideation, homicidal ideation, and hallucinations, Allergy/Immunology: Negative for hives, rash, and allergies, Endocrine: Negative for neck swelling, polydipsia, polyuria, polyphagia, and marked weight changes, Hematologic/Lymphatic: Negative for swollen nodes, abnormal bleeding, and unusual bruising, 05:27 Back: Positive for decreased range of motion, pain with movement, Exam: 05:27 Constitutional: This is a well developed, well nourished patient who is awake, alert, tyler and in no acute distress. Head/Face: Normocephalic, atraumatic. Eyes: Pupils equal round and reactive to light, extra-ocular motions intact. Lids and lashes normal. Conjunctiva and sclera are non-icteric and not injected. Cornea within normal limits. Periorbital areas with no swelling, redness, or edema. ENT: Nares patent. No nasal discharge, no septal abnormalities noted. Tympanic membranes are normal and external auditory canals are clear. Oropharynx with no redness, swelling, or masses, exudates, or evidence of obstruction, uvula midline. Mucous membranes moist. Neck: Trachea midline, no thyromegaly or masses palpated, and no cervical lymphadenopathy. Supple, full range of motion without nuchal rigidity, or vertebral point tenderness. No Meningismus. Chest/axilla: Normal chest wall appearance and motion. Nontender with no deformity. No lesions are appreciated. Cardiovascular: Regular rate and rhythm with a normal S1 and S2. No gallops, murmurs, or rubs. Normal PMI, no JVD. No pulse deficits. Respiratory: Lungs have equal breath sounds bilaterally, clear to auscultation and percussion. No rales, rhonchi or wheezes noted. No increased work of breathing, no retractions or nasal flaring. Abdomen/GI: Soft, non-tender, with normal bowel sounds. No distension or tympany. No guarding or rebound. No evidence of tenderness throughout. Male : Normal genitalia with no discharge or lesions. Skin: Warm, dry with normal turgor. Normal color with no rashes, no lesions, and no evidence of cellulitis. MS/ Extremity: Pulses equal, no cyanosis. Neurovascular intact. Full, normal range of motion. Neuro: Awake and alert, GCS 15, oriented to person, place, time, and situation. Cranial nerves II-XII grossly intact. Motor strength 5/5 in all extremities. Sensory grossly intact. Cerebellar exam normal. Normal gait. Psych: Awake, alert, with orientation to person, place and time. Behavior, mood, and affect are within normal limits. 05:27 Back: pain, that is mild, ROM is normal spinal alignment noted, CVA tenderness, is absent, muscle spasm, is appreciated in the left low back, left mid back, right mid back and right low back, Vital Signs: 05:25 BP 147 / 81; Pulse 66; Resp 16 S; Temp 98.4(O); Pulse Ox 94% on R/A; Weight 165.56 kg lg3 (R); Height 5 ft. 8 in. (R); Pain 7/10; 06:15 BP 136 / 77; Pulse 64; Resp 16; Pulse Ox 97% on R/A; km8 06:25 Pain 4/10; km8 06:45 BP 137 / 79; Pulse 75; Resp 16; Pulse Ox 98% on R/A; km8 07:20 BP 144 / 78; Pulse 73; Resp 18 S; Temp 98(TE); Pulse Ox 97% on R/A; aa5 08:00 BP 140 / 74; Pulse 72; Resp 16 S; Pulse Ox 97% on R/A; aa5 05:25 Body Mass Index 55.50 (165.56 kg, 172.72 cm) lg3 05:25 Pain Scale: Adult lg3 06:25 Pain Scale: Adult km8 MDM: 05:22 Patient medically screened. [facility] 05:30 Differential diagnosis: chronic back pain, Fatigue Fracture Obesity Osteoporosis tyler Pyelonephritis Renal Infarction ruptured disc, Scoliosis spinal injury, sprain, Ureterolithiasis. Data reviewed: vital signs, nurses notes, lab test result(s), radiologic studies, CT scan. Consideration of Admission/Observation Escalation of care including admission/observation considered. I considered the following discharge prescriptions or medication management in the emergency department Medications were administered in the Emergency Department. See MAR. Independent interpretation of the following test(s) in the Emergency Department CT Scan: My interpretation is lumbar . Test considered but Not performed: MRI: no sdtone , no mri. 09/08 05:26 Order name: CBC with Diff; Complete Time: 06:50 tyler 09/08 05:26 Order name: Comprehensive Metabolic Panel; Complete Time: 06:50 [facility] 09/08 05:26 Order name: Urinalysis w/ reflexes; Complete Time: 06:50 [facility] 09/08 05:26 Order name: CT Lumbar Spine Wo Con tyler Administered Medications: 05:53 Drug: NS 0.9% IV 1000 ml IV at 1 bolus Per protocol; 1000 mL bolus Route: IV; Rate: 1 km8 bolus; Site: left antecubital; 07:20 Follow up: Response: completed infusion, intake: 1000mls aa5 05:53 Drug: Ketorolac IVP 30 mg IVP once Route: IVP; Site: left antecubital; km8 06:25 Follow up: Response: No adverse reaction; No change in condition; Pain is decreased km8 06:25 Follow up: Pain 4/10 Adult; Response: No adverse reaction; No change in condition; Pain km8 is decreased 05:53 Drug: Decadron - Dexamethasone IVP 10 mg IVP once Route: IVP; Site: left antecubital; km8 06:25 Follow up: Response: No adverse reaction; No change in condition km8 05:53 Drug: Ondansetron IVP 4 mg IVP once; over 2 minutes Route: IVP; Site: left antecubital; km8 06:25 Follow up: Response: No adverse reaction km8 07:30 Drug: Diazepam PO 10 mg PO once Route: PO; aa5 08:00 Follow up: Response: No adverse reaction; Marked relief of symptoms aa5 07:30 Drug: fentaNYL (PF) IVP 50 mcg IVP once Route: IVP; Site: left antecubital; aa5 07:35 Follow up: Response: No adverse reaction aa5 Disposition Summary: 09/08/23 07:08 Discharge Ordered Notes: Location: Home tyler Problem: new tyler Symptoms: have improved tyler Condition: Stable tyler Diagnosis - Low back pain tyler - Muscle spasm of back tyler - Other injury of muscle and tendon of back wall of thorax tyler - Sciatica, right side tyler Followup: tyler - With: Private Physician - When: 2 - 3 days - Reason: Recheck today's complaints, Continuance of care, Re-evaluation by your physician Followup: tyler - With: Be Clancy MD - When: 2 - 3 days - Reason: Re-evaluation by your physician Discharge Instructions: - Discharge Summary Sheet tyler - Acute Back Pain, Adult tyler - Musculoskeletal Pain tyler - Obesity, Adult tyler - Sciatica tyler - Sciatica, Jadi-od-Klvs [facility] - Obesity, Adult, Vcct-yb-Raat [facility] - Back Exercises, Wzpx-yz-Yuos aa5 Forms: - Medication Reconciliation Form [facility] - Thank You Letter tyler - Antibiotic Education [facility] - Prescription Opioid Use tyler - Patient Portal Instructions [facility] - Leadership Thank You Letter [facility] - Work release form aa5 Prescriptions: - acetaminophen-codeine 300-30 mg Oral tablet - take 2 tablet ORAL route every 6 hours as needed for pain; 20 tablet; Refills: tyler 0, Product Selection Permitted - dexamethasone 2 mg Oral tablet - take 2 tablet ORAL route every 2 hours; 10 tablet; Refills: 0, Product [facility] Selection Permitted - Diclofenac Sodium 75 mg Oral tablet, delayed release (enteric coated) - take 1 tablet ORAL route 2 times per day; 20 tablet; Refills: 0, Product [facility] Selection Permitted - Cyclobenzaprine 5 mg Oral Tablet - take 1 tablet ORAL route 3 times per day As needed; 15 tablet; Refills: 0, [facility] Product Selection Permitted Signatures: Dispatcher [employer] Ronak Calderon MD MD cha Calderon, Audri, RN RN aa5 Toshia Soto RN RN lg3 Nkechi Corey RN RN km8
--- NOTE | 2023-09-08 07:09 | ER ---
Nurse's Notes [facility] Name: Juwan Turner Jr Age: 53 yrs Sex: Male : 1970 Arrival Date: 09/08/2023 Time: 05:16 Bed 16 Private MD: Diagnosis: Low back pain;Muscle spasm of back;Other injury of muscle and tendon of back wall of thorax;Sciatica, right side Presentation: 09/08 05:25 Chief complaint: Patient states: right lower back pain beginning Friday that lg3 increases with ambulation/movement. pain /. denies radiation. Coronavirus screen: At this time, unable to obtain information related to travel outside the [place] At this time, the client does not indicate any symptoms associated with coronavirus-19. Ebola Screen: No symptoms or risks identified at this time. Initial Sepsis Screen: Does the patient meet any 2 criteria? No. Patient's initial sepsis screen is negative. Does the patient have a suspected source of infection? No. Patient's initial sepsis screen is negative. Risk Assessment: Do you want to hurt yourself or someone else? Patient reports no desire to harm self or others. Onset of symptoms was September 06, 2023. 05:25 Method Of Arrival: Ambulatory lg3 05:25 Acuity: ZAHIDA 3 lg3 Triage Assessment: 05:27 General: Appears in no apparent distress. comfortable, Behavior is calm, cooperative. lg3 Pain: Complains of pain in right low back Pain does not radiate. Pain currently is 7 out of 10 on a pain scale. Aggravated by increased activity. EENT: No deficits noted. No signs and/or symptoms were reported regarding the EENT system. Neuro: No deficits noted. Singleton Agitation-Sedation Scale (RASS): 0 - Alert and Calm Level of Consciousness is awake, alert, obeys commands, Oriented to person, place, time, situation. Cardiovascular: No deficits noted. Denies chest pain, shortness of breath, Capillary refill < 3 seconds Clubbing of nail beds is absent JVD is absent Patient's skin is warm and dry. Respiratory: No deficits noted. Airway is patent Respiratory effort is even, unlabored, Respiratory pattern is regular, symmetrical. GI: No deficits noted. No signs and/or symptoms were reported involving the gastrointestinal system. Abdomen is round non-distended, obese. : No deficits noted. No signs and/or symptoms were reported regarding the genitourinary system. Derm: No deficits noted. No signs and/or symptoms reported regarding the dermatologic system. Skin is intact, is healthy with good turgor, Skin is dry, Skin is normal, Skin temperature is warm. Musculoskeletal: No deficits noted. Circulation, motion, and sensation intact. Range of motion: intact in all extremities, Reports pain in right low back. Historical: - Allergies: 05:27 No Known Allergies; lg3 - Home Meds: 05:27 unknown HTN medication [Active]; lg3 - PMHx: 05:27 Hypertensive disorder; Pulmonary Embolism; lg3 - PSHx: 05:27 None; lg3 - Immunization history:: Adult Immunizations up to date, Client reports having NOT received the Covid vaccine. Flu vaccine is not up to date. - Social history:: Smoking status: Patient denies any tobacco usage or history of. Patient uses alcohol, occasionally. - Family history:: not pertinent. Screenin:30 [facility] ED Fall Risk Assessment (Adult) History of falling in the last 3 months, km8 including since admission No falls in past 3 months (0 pts) Confusion or Disorientation No (0 pts) Intoxicated or Sedated No (0 pts) Impaired Gait No (0 pts) Mobility Assist Device Used No (0 pt) Altered Elimination No (0 pt) Score/Fall Risk Level 0 - 2 = Low Risk Oriented to surroundings, Maintained a safe environment, Educated pt \T\ family on fall prevention, incl call for assistance when getting out of bed, Assessed \T\ reinforced patient's understanding of fall precautions. Abuse screen: Denies threats or abuse. Denies injuries from another. Nutritional screening: No deficits noted. Tuberculosis screening: No symptoms or risk factors identified. Assessment: 05:30 General: see triage assessment . lg3 05:54 General: pt is seeing if he can get a ride home before being given IV fentanyl and PO km8 diazepam; . 06:39 Reassessment: Patient appears in no apparent distress at this time. No changes from km8 previously documented assessment. Patient and/or family updated on plan of care and expected duration. Pain level reassessed. Patient is alert, oriented x 3, equal unlabored respirations, skin warm/dry/pink. Patient states symptoms have improved. Neuro: No deficits noted. Singleton Agitation-Sedation Scale (RASS): 0 - Alert and Calm. 07:20 Reassessment: Patient is alert, oriented x 3, equal unlabored respirations, skin aa5 warm/dry/pink. Reassessment: Pt states he found a ride home, his brother will come pick him up. Will administer pending medications now. . Pain: Pain currently is 4 out of 10 on a pain scale. 07:20 Reassessment: Awaiting CT scan results prior to d/c home per MD.. aa5 08:00 Reassessment: Patient is alert, oriented x 3, equal unlabored respirations, skin aa5 warm/dry/pink. Patient states feeling better. Pain: Pain currently is 2 out of 10 on a pain scale. Vital Signs: 05:25 BP 147 / 81; Pulse 66; Resp 16 S; Temp 98.4(O); Pulse Ox 94% on R/A; Weight 165.56 kg lg3 (R); Height 5 ft. 8 in. (R); Pain 7/10; 06:15 BP 136 / 77; Pulse 64; Resp 16; Pulse Ox 97% on R/A; km8 06:25 Pain 4/10; km8 06:45 BP 137 / 79; Pulse 75; Resp 16; Pulse Ox 98% on R/A; km8 07:20 BP 144 / 78; Pulse 73; Resp 18 S; Temp 98(TE); Pulse Ox 97% on R/A; aa5 08:00 BP 140 / 74; Pulse 72; Resp 16 S; Pulse Ox 97% on R/A; aa5 05:25 Body Mass Index 55.50 (165.56 kg, 172.72 cm) lg3 05:25 Pain Scale: Adult lg3 06:25 Pain Scale: Adult km8 ED Course: 05:20 Patient arrived in ED. gm2 05:22 Ronak Enriquez MD is Attending Physician. tyler 05:27 Triage completed. lg3 05:27 Arm band placed on right wrist. lg3 05:40 Comprehensive Metabolic Panel Sent. km8 05:40 CBC with Diff Sent. km8 05:40 Inserted saline lock: 20 gauge in left antecubital area, using aseptic technique. Blood km8 collected. 06:16 CT Lumbar Spine Wo Con In Process Unspecified. EDMS 06:30 Patient has correct armband on for positive identification. Bed in low position. Call km8 light in reach. Side rails up X 1. 06:39 Urinalysis w/ reflexes Sent. km8 07:03 Report given to LIZZIE Lion. km8 07:08 Be Clancy MD is Referral Physician. [facility] 07:34 Becca Rascon, LIZZIE is Primary Nurse. aa5 08:15 No provider procedures requiring assistance completed. IV discontinued, intact, aa5 bleeding controlled, No redness/swelling at site. Pressure dressing applied. Administered Medications: 05:53 Drug: NS 0.9% IV 1000 ml IV at 1 bolus Per protocol; 1000 mL bolus Route: IV; Rate: 1 km8 bolus; Site: left antecubital; 07:20 Follow up: Response: completed infusion, intake: 1000mls aa5 05:53 Drug: Ketorolac IVP 30 mg IVP once Route: IVP; Site: left antecubital; km8 06:25 Follow up: Response: No adverse reaction; No change in condition; Pain is decreased km8 06:25 Follow up: Pain 4/10 Adult; Response: No adverse reaction; No change in condition; Pain km8 is decreased 05:53 Drug: Decadron - Dexamethasone IVP 10 mg IVP once Route: IVP; Site: left antecubital; km8 06:25 Follow up: Response: No adverse reaction; No change in condition 8 05:53 Drug: Ondansetron IVP 4 mg IVP once; over 2 minutes Route: IVP; Site: left antecubital; km8 06:25 Follow up: Response: No adverse reaction km8 07:30 Drug: Diazepam PO 10 mg PO once Route: PO; aa5 08:00 Follow up: Response: No adverse reaction; Marked relief of symptoms aa5 07:30 Drug: fentaNYL (PF) IVP 50 mcg IVP once Route: IVP; Site: left antecubital; aa5 07:35 Follow up: Response: No adverse reaction aa5 Medication: 08:20 VIS not applicable for this client. aa5 Outcome: 07:08 Discharge ordered by . tyler 08:15 Discharged to home ambulatory, with family, aa5 08:15 Condition: improved 08:15 Discharge instructions given to patient, Instructed on discharge instructions, follow up and referral plans. medication usage, Demonstrated understanding of instructions, follow-up care, medications, Prescriptions given X 4 08:21 Patient left the ED. aa5 Signatures: Dispatcher [employer] EDRonak Law MD MD cha Calderon, Audri, RN RN aa5 Toshia Soto RN RN lg3 Celia Saucedo 2 Nkechi Corey RN RN km8
--- NOTE | 2023-09-08 07:25 | RAD REPORT ---
EXAM DESCRIPTION: CT - Spine Lumbar Wo Con - 09/08/2023 6:15 am CLINICAL HISTORY: Radiculopathy. Pain;Lower back pain COMPARISON: No comparisons TECHNIQUE: Axial noncontrast CT imaging of the lumbar spine was performed with coronal and sagittal re-formatted images. All CT scans are performed using dose optimization technique as appropriate and may include automated exposure control or mA/KV adjustment according to patient size. FINDINGS: No acute lumbar spine fracture seen. No aggressive marrow pattern or malalignment. Paraspinal tissues are normal in thickness. No paraspinal abscess or hematoma seen. Mild posterior disc bulges are seen lower lumbar level with facet hypertrophy and ligamentum flavum h ypertrophy. Mild narrowing of the central canal and bilateral exit foramina is likely present althoug h full assessment is limited by CT. Central canal narrowing appears most significant at L4-5. Small calculus suspected inferior left kidney. IMPRESSION: No acute lumbar spine finding. Mild to moderate lower lumbar degenerative spondylosis, appearing most significant at L4-5. Nonemerge nt followup MR imaging would be useful for more detailed assessment of disc disease.
[2023-09-08] MEDS ORDERED: DIAZEPAM 5 MG TABLET ONE (07:41)
[2023-09-08] MEDS ORDERED: FENTANYL CITR 100 MCG/2 ML ONE (07:41)
[2023-09-08 09:03] VITALS: BP 144/78; TEMP 98; O2SAT 97
== END 2023-09-08 08:21 | disposition home or self-care (01) ==
LOC: ER 05:16
DX: M62.830 Muscle spasm of back (principal); M54.31 Sciatica, right side; S29.092A Other injury of muscle and tendon of back wall of thorax, initial encounter; I10 Essential (primary) hypertension
CPT/HCPCS: 85025; 36415; 81003; 80053; 72131; 96375; 96374; 99284; J3010; J1100; J2405; J7030

== ENCOUNTER 2023-10-09 08:01 | Day surgery (SDC) | payer OTHER ==
[2023-10-09] MEDS ORDERED: Ringers Lactate 1,000 ML IV ONE (08:19)
[2023-10-09] MEDS ORDERED: LIDOCAINE 1% MPF 5 ML VIAL ONE (09:25)
[2023-10-09] MEDS ORDERED: propofoL 200 MG/20 ML VIAL IV ONE (09:25)
[2023-10-09 10:22] VITALS: O2SAT 95
[2023-10-09 10:24] VITALS: BP 128/77; TEMP 97.5
== END 2023-10-09 10:20 | disposition home or self-care (01) ==
LOC: OR 08:01
PROVIDERS: ATTEND Internal Medicine Gastroenterology
PROC: 0DB38ZX Excision of Lower Esophagus, Via Natural or Artificial Opening Endoscopic, Diagnostic (ICD-10-PCS; 2023-10-09)
PROC: 0DB78ZX Excision of Stomach, Pylorus, Via Natural or Artificial Opening Endoscopic, Diagnostic (ICD-10-PCS; 2023-10-09)
PROC: 0DB68ZX Excision of Stomach, Via Natural or Artificial Opening Endoscopic, Diagnostic (ICD-10-PCS; 2023-10-09)
PROC: 3E0G8GC Introduction of Other Therapeutic Substance into Upper GI, Via Natural or Artificial Opening Endoscopic (ICD-10-PCS; principal; 2023-10-09 09:15)
DX: Z01.818 Encounter for other preprocedural examination (principal); K29.50 Unspecified chronic gastritis without bleeding; A04.8 Other specified bacterial intestinal infections; K76.0 Fatty (change of) liver, not elsewhere classified; E66.9 Obesity, unspecified; K21.00 Gastro-esophageal reflux disease with esophagitis, without bleeding; Z68.43 Body mass index [BMI] 50.0-59.9, adult
CPT/HCPCS: 43239; 88312; 88305; J2704; J2001; J7120

== ENCOUNTER 2023-11-18 07:34 | Day surgery (SDC) | payer OTHER ==
[2023-11-18] MEDS ORDERED: EPHEDRINE SULF 50 MG/ML VIAL ONE (07:46)
[2023-11-18] MEDS ORDERED: propofoL 200 MG/20 ML VIAL IV ONE (07:46)
[2023-11-18] MEDS ORDERED: LIDOCAINE 1% MPF 5 ML VIAL ONE (07:46)
[2023-11-18] MEDS ORDERED: Ringers Lactate 1,000 ML IV ONE (07:56)
[2023-11-18 08:31] VITALS: TEMP 97.3
[2023-11-18 10:37] VITALS: BP 145/69; O2SAT 97
== END 2023-11-18 09:45 | disposition home or self-care (01) ==
LOC: OR 07:34
PROVIDERS: ATTEND Internal Medicine Gastroenterology
PROC: 0DBN8ZX Excision of Sigmoid Colon, Via Natural or Artificial Opening Endoscopic, Diagnostic (ICD-10-PCS; 2023-11-18)
PROC: 0DBK8ZX Excision of Ascending Colon, Via Natural or Artificial Opening Endoscopic, Diagnostic (ICD-10-PCS; principal; 2023-11-18 08:30)
DX: Z12.11 Encounter for screening for malignant neoplasm of colon (principal); Z68.43 Body mass index [BMI] 50.0-59.9, adult; I10 Essential (primary) hypertension; E66.9 Obesity, unspecified; K57.30 Diverticulosis of large intestine without perforation or abscess without bleeding; K64.8 Other hemorrhoids; D12.2 Benign neoplasm of ascending colon; D12.5 Benign neoplasm of sigmoid colon
CPT/HCPCS: 88305; 45384; J2704; J2001; J7120

== ENCOUNTER 2024-06-08 01:30 | Emergency (ER) | payer BC, SELFPAY ==
--- OUTSIDE RECORDS SUMMARY | 2024-06-08 01:34 | XMS REPORT | Continuity of Care Document ---
Author Name Unknown Address [address] [facility] [place]. [address] [place] [address] [facility] thconnect Address [address] [facility]. [address] [place] [address] Care Team Providers Care Ledger Clerk Name Role Phone Conrad BEE, Rani Primary Care Physician [phone] [place] I Attending Clinician Unavailable Doctor Unassigned, [place] Attending Clinician U fatmata Cárdenas RN, Yue Vargas Attending Clinician Unavailab le Lab, Adc Fam Pob I Attending Clinician Unavailab le Ebrahim OFFICE AUDITORSandra Attending Clinician [phone] Pob1, Acute Care Clinic Attending Clinician Unav ailable Olga Sanon Attending Clinician [phone] OLGA HERNANDEZ Attending Clinician Unavailable Human Samara ALVARADO Attending Clinician [phone] Elizabeth Gutierrez RN Attending Clinician Unavailable More Syed Attending Clinician [phone] Pcp, Patient Does Not Have A Attending Clinician Lab, Pcp Covid Attending Clinician Unavailable Manju Quezada Attending Clinician [phone] [place] I Admitting Clinician Unavailable Payers Payer Name Policy Type Policy Number Effective Date Expirati on Date Source [facility] - OUT [facility] STATE [id number] 2020 00:00:00 Problems Condition Name Condition Details Condition Category Status Onset Date Resolution Date Last Treatment Date Treating Clinician Comments Source No known active problems No known active problems Disease [facility] Allergies, Adverse Reactions, Alerts Allergy Name Allergy Type Status Severity Reaction(s) Onset Date Inactive Date Treating Clinician Comments Source No Known Allergie s DA Active U 12-25 00:00: 00 [facility] [place] NO KNOWN ALLERGIE S Drug Class Active [facility] Social History Social Habit Start Date Stop Date Quantity Comments Source Sexual orientation U [facility] Exposure to SARS-CoV-2 (event) 2020-06-19 00:00:00 2020 16:03:[address] [facility] History of Social function 2020 00:00:00 2020 00:00:[address] [facility] Tobacco use and exposure 2020-06-21 00:00:00 2020-06-21 00:00:00 Smokeless tobacco non-user [facility] Sex Assigned At 1970 00:00:00 1970 00:00:[address] [facility] Smoking Status Start Date Stop Date Source Tobacco smoking consumption unknown [facility] Never smoked tobacco [facility] Medications Ordered Medication Name Filled Medication Name Start Date Stop Date Current Medication? Ordering Clinician Indication Dosage Frequency Signature (SIG) Comments Components Source meloxicam 15 mg tablet 04-20 00:00: 00 Yes 1mg Herbie Valdez cyclobenzap rine 10 mg tablet 04-20 00:00: 00 Yes 1mg Herbie Valdez lisinopril 10 mg tablet -12 00:00: 00 Yes 1mg Herbie Valdez ONDANSETRON ODT 4 MG - 00:00: 00 Yes Herbie Valdez TAKE 1 TABLET BY MOUTH TWICE DAILY 2022-12- 00:00: 00 Yes Herbie Valdez AMOXICILLIN 500 MG CAPSULE 2022-12- 00:00: 00 Yes [address] 40 MG CAPSULE 2022-12- 00:00: 00 Yes 40 Herbie Valdez AMOXICILLIN 500 MG CAPSULE 2022-12 00:00: 00 Yes 500 Herbie Valdez 5MG /0.5 ML SINGLE DOSE PEN FOR SQ PREFILLED PEN INJECTION 2022-12 00:00: 00 Yes 505 Herbie Valdez TAKE 1 TABLET BY MOUTH ONCE DAILY 2022-12 00:00: 00 Yes 100 Herbie Valdez TAKE 1 TABLET BY MOUTH ONCE DAILY 2022-12 00:00: 00 Yes Herbie Valdez SOD SUL-POTASS SUL-MAG SUL MICHELLE 2022-12 00:00: 00 Yes Herbie Valdez TAKE 1 TABLET DAILY NEEDED. 2022-12 00:00: 00 Yes 10 Herbie Valdez INHALE 1 PUFF EVERY 12 HOURS. 2022-12 00:00: 00 03-15 00:00 :00 No [id number] Herbie Valdez TAKE 1 TABLET EVERY 12 HOURS DAILY. 2022-12 00:00: 00 Yes [id number] Herbie Valdez TAKE 2 TABLETS ON DAY 1 THEN TAKE 1 TABLET A DAY FOR 4 DAYS. 2022-12 00:00: 00 03-15 00:00 :00 No 250 Herbie Valdez TAKE 10 ML BY MOUTH EVERY 4 TO 6 HOURS NEEDED FOR COUGH. 2022-12 00:00: 00 03-15 00:00 :00 No [id number] Herbie Valdez BROMPHEN-PS E-DM 2-30-10 MG/5ML 2022-12 0 00:00: 00 03-15 00:00 :00 No Herbie Valdez CYCLOBENZAP RINE 5 MG 2022-12 0- 00:00: 00 Yes Herbie Valdez DEXAMETHASO NE 2 MG 2022-12 0- 00:00: 00 Yes Herbie Valdez DICLOFENAC SOD DR 75 MG 2022-12 0 00:00: 00 Yes Herbie Valdez ACETAMINOPH EN-COD #3 2022-12 0- 00:00: 00 Yes Herbie Valdez TAKE 1 TABLET DAILY. - 00:00: 00 03-15 00:00 :00 No 10 Herbie Valdez TAKE 1 TABLET DAILY. 8-11 00:00: 00 03-15 00:00 :00 No 10 Herbie Valdez &lt 05-27 00:00: 00 Yes Herbie Valdez &lt 05-27 00:00: 00 Yes Herbie Valdez TAKE 1 TABLET 3 TIMES DAILY WITH FOOD NEEDED. 05-27 00:00: 00 Yes 800 Herbie Valdez TAKE 1 TABLET TWICE DAILY NEEDED. 05-27 00:00: 00 Yes 10 Herbie Valdez benzonatate (TESSALON PERLES) 100 mg capsule 07-19 00:00: 00 07-30 04:59 :00 No [id number] 100mg Take 1 capsule by mouth 3 (three) times daily as needed for Cough for up to 10 days. [facility] Tessalon Perles 100 mg capsule 07-04 00:00: 00 Yes 12mg Herbie Valdez albuterol (VENTOLIN HFA) 90 mcg/actuati on inhaler 07-03 00:00: 08-03 04:59 :00 No [id number] 2{puff} Inhale 2 Puffs every 6 (six) hours as needed for Shortness of Breath or Chest tightness for up to 30 days. [facility] benzonatate (TESSALON PERLES) 100 mg capsule 07-03 00:00: 07-18 04:59 :00 No [id number] 100mg Take 1 capsule by mouth 3 (three) times daily for 14 days. [facility] bromphenira mine-pseudo ephedrine-D M (BROMFED DM) 2-30-10 mg/5 mL syrup 07-03 00:00: 00 07-14 04:59 :00 No [id number] 5mL Take 5 mL by mouth 4 (four) times daily as needed for Cough for up to 10 days. [facility] methylPREDN ISolone 4 mg tablets 07-03 00:00: 00 07-10 04:59 :00 No [id number] Take by mouth SEE-INSTRU CTIONS for 6 days. follow package directions [facility] azithromyci n (ZITHROMAX Z-YOLI) 250 mg tablet 07-03 00:00: 00 07-09 04:59 :00 No [id number] 250mg Take 1 tablet by mouth daily for 5 days. Take 500 mg day 1, then 250 mg days 2 to 5. [facility] losartan 100 mg tablet 05-05 00:00: 00 Yes 100mg Take 100 mg by mouth every morning. [facility] No known medications No Un tasneem [facility] No known medications No Un tasneem [facility] No known medications No Un tasneem [facility] Immunizations Ordered Immunization Name Filled Immunization Name Date Status Comments Source Tdap Tdap 2024-02-27 00:00:00 Liana Valdez SHINGRIX VACCINE SHINGRIX VACCINE 2024-02-27 00:00:00 Liana Valdez Vital Signs Vital Name Observation Time Observation Value Comments S ournarayan Systolic blood pressure 2020 21:07:00 169 mm[Hg] [facility] Diastolic blood pressure 2020 21:07:00 81 mm[Hg] [facility] Heart rate 2020 21:05:00 91 /min [facility] Body temperature 2020 21:05:[address] [facility] Respiratory rate 2020 21:05:00 22 /min [facility] Body height 2020 21:05:00 170.2 cm [facility] Body weight 2020 21:05:00 165.563 kg [facility] BMI 2020 21:05:00 57.17 kg/m2 [facility] Oxygen saturation in Arterial blood by Pulse oximetry 2020 21:05:00 95 /min [facility] Systolic blood pressure 2020 21:07:00 169 mm[Hg] [facility] Diastolic blood pressure 2020 21:07:00 81 mm[Hg] [facility] Heart rate 2020 21:05:00 91 /min [facility] Body temperature 2020 21:05:[address] [facility] Respiratory rate 2020 21:05:00 22 /min [facility] Body height 2020 21:05:00 170.2 cm [facility] Body weight 2020 21:05:00 165.563 kg [facility] BMI 2020 21:05:00 57.17 kg/m2 [facility] Oxygen saturation in Arterial blood by Pulse oximetry 2020 21:05:00 95 /min [facility] Systolic blood pressure 2020-07-03 17:58:00 127 mm[Hg] [facility] Diastolic blood pressure 2020-07-03 17:58:00 78 mm[Hg] [facility] Heart rate 2020-07-03 17:58:00 80 /min Un[facility] Body temperature 2020-07-03 17:58:[address] [facility] Respiratory rate 2020-07-03 17:58:00 18 /min [facility] Body height 2020-07-03 17:58:00 177.8 cm [facility] Body weight 2020-07-03 17:58:00 165.563 kg [facility] BMI 2020-07-03 17:58:00 52.37 kg/m2 [facility] Oxygen saturation in Arterial blood by Pulse oximetry 2020-07-03 17:58:00 97 /min [facility] Systolic blood pressure 2020-07-03 17:58:00 127 mm[Hg] [facility] Diastolic blood pressure 2020-07-03 17:58:00 78 mm[Hg] [facility] Heart rate 2020-07-03 17:58:00 80 /min Unive [facility] Body temperature 2020-07-03 17:58:[address] [facility] Respiratory rate 2020-07-03 17:58:00 18 /min [facility] Body height 2020-07-03 17:58:00 177.8 cm [facility] Body weight 2020-07-03 17:58:00 165.563 kg [facility] BMI 2020-07-03 17:58:00 52.37 kg/m2 [facility] Oxygen saturation in Arterial blood by Pulse oximetry 2020-07-03 17:58:00 97 /min [facility] Systolic blood pressure 2020-06-21 18:20:00 116 mm[Hg] [facility] Diastolic blood pressure 2020-06-21 18:20:00 83 mm[Hg] [facility] Heart rate 2020-06-21 18:20:00 78 /min [facility] Body temperature 2020-06-21 18:20:[address] [facility] Respiratory rate 2020-06-21 18:20:00 20 /min [facility] Body height 2020-06-21 18:20:00 177.8 cm [facility] Body weight 2020-06-21 18:20:00 165.109 kg [facility] BMI 2020-06-21 18:20:00 52.23 kg/m2 [facility] Oxygen saturation in Arterial blood by Pulse oximetry 2020-06-21 18:20:00 96 /min [facility] BP Systolic 2024-04-20 08:51:00 120 mm[Hg] Step hen F José Miguel BP Diastolic 2024-04-20 08:51:00 82 mm[Hg] Ashvin phen F José Miguel Weight Measured 2024-04-20 08:51:00 338.00 pounds Herbie F [place] Height Measured 2024-04-20 08:51:00 66.00 inches Herbie F [place] Body Temperature 2024-04-20 08:51:00 97.20 degrees Herbie F [place] Heart Rate 2024-04-20 08:51:00 54.00 /min Patricia en F José Miguel Respiratory Rate 2024-04-20 08:51:00 22.00 /min Herbie F [place] BP Systolic 2024-02-27 13:21:00 120 mm[Hg] Step hen F José Miguel BP Diastolic 2024-02-27 13:21:00 80 mm[Hg] Ashvin phen F José Miguel Weight Measured 2024-02-27 13:21:00 320.60 pounds Herbie F [place] Height Measured 2024-02-27 13:21:00 67.50 inches Herbie F José Migule Body Temperature 2024-02-27 13:21:00 98.20 degrees Herbie F José [place] Heart Rate 2024-02-27 13:21:00 56.00 /min Patricia en F José Miguel Respiratory Rate 2024-02-27 13:21:00 Herbie F José Miguel BP Systolic 2023-10-21 08:05:00 126 mm[Hg] Step hen F José Miguel BP Diastolic 2023-10-21 08:05:00 84 mm[Hg] Ashvin phen F José Miguel Weight Measured 2023-10-21 08:05:00 348.00 pounds Herbie F [place] Height Measured 2023-10-21 08:05:00 67.50 inches Herbie F [place] Body Temperature 2023-10-21 08:05:00 97.00 degrees Herbie F José Miguel Heart Rate 2023-10-21 08:05:00 62.00 /min Patricia en F José Miguel Respiratory Rate 2023-10-21 08:05:00 20.00 /min Herbie F José Miguel BP Systolic 2023-10-01 16:57:00 130 mm[Hg] Step hen F José Miguel BP Diastolic 2023-10-01 16:57:00 78 mm[Hg] Ashvin phen F José Miguel Weight Measured 2023-10-01 16:57:00 367.00 pounds Herbie F [place] Height Measured 2023-10-01 16:57:00 67.50 inches Herbie F [place] Body Temperature 2023-10-01 16:57:00 98.70 degrees Herbie F José Miguel Heart Rate 2023-10-01 16:57:00 100.00 /min Step hen F José Miguel Respiratory Rate 2023-10-01 16:57:00 18.00 /min Herbie F José Miguel BP Systolic 2023-09-26 08:36:00 138 mm[Hg] Step hen F José Miguel BP Diastolic 2023-09-26 08:36:00 70 mm[Hg] Ash[place] phen F José Miguel Weight Measured 2023-09-26 08:36:00 358.00 pounds Herbie F José Miguel Height Measured 2023-09-26 08:36:00 67.50 inches Herbie F [place] Body Temperature 2023-09-26 08:36:00 97.40 degrees Herbie F José Miguel Heart Rate 2023-09-26 08:36:00 77.00 /min Patricia en F José Miguel Respiratory Rate 2023-09-26 08:36:00 20.00 /min Herbie F José Miguel BP Systolic 2023-09-19 10:30:00 122 mm[Hg] Step hen F José Miguel BP Diastolic 2023-09-19 10:30:00 65 mm[Hg] Ashvin phen F José Miguel Weight Measured 2023-09-19 10:30:00 370.20 pounds Herbie F José Miguel Height Measured 2023-09-19 10:30:00 67.72 inches Herbie F [place] Body Temperature 2023-09-19 10:30:00 98.10 degrees Herbie F José Miguel Heart Rate 2023-09-19 10:30:00 68.00 /min Patricia en F José Miguel Respiratory Rate 2023-09-19 10:30:00 17.00 /min Herbie F José Miguel BP Systolic 2023-07-11 15:17:00 152 mm[Hg] Step hen F José Miguel BP Diastolic 2023-07-11 15:17:00 81 mm[Hg] Ash[place] phen F José Miguel Weight Measured 2023-07-11 15:17:00 370.40 pounds Herbie F José Miguel Height Measured 2023-07-11 15:17:00 67.72 inches Herbie F [place] Body Temperature 2023-07-11 15:17:00 98.20 degrees Herbie F José Miguel Heart Rate 2023-07-11 15:17:00 74.00 /min Patricia en F José Miguel Respiratory Rate 2023-07-11 15:17:00 17.00 /min Herbie F José Miguel BP Systolic 2022-05-27 13:41:00 154 mm[Hg] Step hen F José Miguel BP Diastolic 2022-05-27 13:41:00 79 mm[Hg] Ash[place] phen F José Miguel Weight Measured 2022-05-27 13:41:00 385.40 pounds Herbie F José Miguel Height Measured 2022-05-27 13:41:00 67.72 inches Herbie F [place] Body Temperature 2022-05-27 13:41:00 98.00 degrees Herbie F José Miguel Heart Rate 2022-05-27 13:41:00 77.00 /min Patricia en F José Miguel Respiratory Rate 2022-05-27 13:41:00 24.00 /min Herbie F José Miguel BP Systolic 2022-05-27 13:22:00 154 mm[Hg] Step hen Anh Valdez BP Diastolic 2022-05-27 13:22:00 79 mm[Hg] Ash[place] phen Anh Valdez Weight Measured 2022-05-27 13:22:00 385.40 pounds Herbie Valdez Height Measured 2022-05-27 13:22:00 67.72 inches Herbie Valdez Body Temperature 2022-05-27 13:22:00 98.00 degrees Herbie Anh Valdez Heart Rate 2022-05-27 13:22:00 77.00 /min Patricia en F José Miguel Respiratory Rate 2022-05-27 13:22:00 24.00 /min Herbie Anh Valdez BP Systolic 2021-12-28 15:58:00 126 mm[Hg] Step hen F José Miguel BP Diastolic 2021-12-28 15:58:00 74 mm[Hg] Ashvin phen Anh Valdez Weight Measured 2021-12-28 15:58:00 379.20 pounds Herbie Valdez Height Measured 2021-12-28 15:58:00 Herbie Valdez Body Temperature 2021-12-28 15:58:00 98.40 degrees Herbie Valdez Heart Rate 2021-12-28 15:58:00 74.00 /min Patricia en F José Miguel Respiratory Rate 2021-12-28 15:58:00 Herbie Valdez Procedures Procedure Date / Time Performed Performing Clinicia n Source PATIENT QUESTIONNAIRE 2020-08-01 05:01:00 Doctor Unassigned, [place] [facility] XR CHEST 2 VW 2020-07-03 19:06:09 Olga Hernandez [facility] Encounters Start Date/Time End Date/Time Encounter Type Admission Type Attending [facility] Care Department Encounter ID Source 2023-12-29 07:30:00 Inpatient [facility] DA[facility] [id number] [facility] [place] 2023-12-24 16:36:01 Outpatient STLMLC STLMLC [id number] [facility] 2021-09-28 13:46:22 Emergency X [facility] [id number] [facility] 2024-04-20 15:50:43 2024-04-20 15:50:43 Outpatient SFA SFA [id number] Herbie Valdez 2024-04-20 00:00:00 2024-04-20 00:00:00 Outpatient Visit [facility] [id number] Herbie Valdez 2024-02-27 13:17:42 2024-02-27 13:17:42 Outpatient SFA [facility] [id number] Herbie Valdez 2023-10-21 07:53:33 2023-10-21 07:53:33 Outpatient SFA [facility] [id number] Herbie Kamara José Miguel 2023-10-01 16:51:15 2023-10-01 16:51:15 Outpatient [facility] [id number] Herbie Kamara José Miguel 2023-09-26 08:35:20 2023-09-26 08:35:20 Outpatient SFA [facility] [id number] Herbie Kamara José Miguel 2023-09-19 10:23:31 2023-09-19 10:23:31 Outpatient [facility] [id number] Herbie Kamara [place] 2023-07-12 13:15:22 2023-07-12 13:15:22 Outpatient S[facility] [id number] Herbie Kamara [place] 2023-07-11 15:02:44 2023-07-11 15:02:44 Outpatient S[facility] [id number] Herbie Kamara José Miguel 2020-08-01 00:00:00 2020-08-01 00:00:00 Orders Only Doctor Unassigned, [place] [facility] [id number] 350.1.13.10 4.2.7.2.686 [id number] [facility] 2020-08-01 00:00:00 2020-08-01 00:00:00 Orders Only Doctor Unassigned, [place] [facility] 1.2.840.114 350.1.13.10 4.2.7.2.686 [id number] 2020-07-22 00:00:00 2020-07-22 00:00:00 Letter (Out) Yue Cárdenas [facility] 1.2.840.114 350.1.13.10 4.2.7.2.686 [id number] [facility] 2020-07-22 00:00:00 2020-07-22 00:00:00 Patient Secure Msg Doctor Unassigned, [place] [facility] 1.2840.114 350.1.13.10 4.2.7.2.686 [id number] [facility] 2020-07-22 00:00:00 2020-07-22 00:00:00 Letter (Out) Yue Cárdenas [facility] 1.0.114 350.1.13.10 4.2.7.2.686 [id number] 2020-07-21 08:40:30 2020-07-21 09:00:30 Laboratory Only Lab, Adc Fam Pob I DesireemarkSandra [facility] [address] 1..114 350.1.13.10 4.2.7.2.686 [id number] [facility] 2020-07-21 08:40:30 2020-07-21 09:00:30 Laboratory Only Lab, Adc Fam Pob I [facility] 1.0.114 350.1.13.10 4.2.7.2.686 [id number] 2020-07-21 08:20:00 2020-07-21 08:20:00 Outpatient R [facility] [id number] [facility] 2020-07-20 00:00:00 2020-07-20 00:00:00 Telephone Pob1, Acute [facility] 1..114 350.1.13.10 4.2.7.2.686 [id number] [facility] 2020-07-20 00:00:00 2020-07-20 00:00:00 Telephone Pob1, Acute Care Clinic [facility] 1.2840.114 350.1.13.10 4.2.7.2.686 [id number] 2020 15:57:18 2020 16:20:48 Urgent Care Pob1, Acute Care Clinic Olga Hernandez [facility] 1.2840.114 350.1.13.10 4.2.7.2.686 [id number] [facility] 2020 15:57:18 2020 16:20:48 Urgent Care Pob1, Acute Care Clinic [facility] 1.2840.114 350.1.13.10 4.2.7.2.686 [id number] 2020 15:40:00 2020 15:40:00 Outpatient R [facility] [id number] [facility] 2020 15:20:00 2020 15:20:00 Outpatient R OLGA HERNANDEZ [facility] [id number] [facility] 2020-07-10 00:00:00 2020-07-10 00:00:[address] [facility] 1.2840.114 350.1.13.10 4.2.7.2.686 [id number] [facility] 2020-07-10 00:00:00 2020-07-10 00:00:00 Telephone Samara Orosco [facility] 1.2840.114 350.1.13.10 4.2.7.2.686 [id number] 2020-07-09 16:40:00 2020-07-09 16:40:00 Outpatient O OLGA HERNANDEZ [facility] [id number] [facility] 2020-07-09 14:25:31 2020-07-09 14:45:31 Laboratory Only Lab, Adc Fam Pob I Olga Hernandez [facility] 1.2.840.114 350.1.13.10 4.2.7.2.686 [id number] [facility] 2020-07-09 14:25:31 2020-07-09 14:45:31 Laboratory Only Lab, Adc Fam Pob I [facility] 1.2.840.114 350.1.13.10 4.2.7.2.686 [id number] 2020-07-04 00:00:00 2020-07-04 00:00:00 Telephone [facility] 1.2.840.114 350.1.13.10 4.2.7.2.686 [id number] [facility] 2020-07-04 00:00:00 2020-07-04 00:00:00 Telephone Po, Acute Care [facility] 1.2840.114 350.1.13.10 4.2.7.2.686 [id number] [facility] 2020-07-04 00:00:00 2020-07-04 00:00:00 [facility] 1.2.840.114 350.1.13.10 4.2.7.2.686 [id number] 2020-07-04 00:00:00 2020-07-04 00:00:[address] [facility] 1.2.840.114 350.1.13.10 4.2.7.2.686 [id number] 2020-07-03 13:54:27 2020-07-03 23:59:00 Hospital Encounter Olga Hernandez [facility] 1.2.840.114 350.1.13.10 4.2.7.2.686 [id number] [facility] 2020-07-03 13:54:27 2020-07-03 23:59:00 Hospital Encounter Olga Hernandez [facility] 1.2.840.114 350.1.13.10 4.2.7.2.686 [id number] 2020-07-03 12:47:10 2020-07-03 13:58:33 Urgent Care Pob1, Acute Care Clinic Olga Hernandez [facility] 1.2840.114 350.1.13.10 4.2.7.2.686 [id number] [facility] 2020-07-03 12:47:10 2020-07-03 13:58:33 Urgent Care Po, Acute Care [facility] 1.20.114 350.1.13.10 4.2.7.2.686 [id number] 2020-07-03 13:00:00 2020-07-03 13:00:00 Outpatient R OLGA HERNANDEZ [facility] [id number] [facility] 2020-06-24 00:00:00 2020-06-24 00:00:[address] [facility] 1.2840.114 350.1.13.10 4.2.7.2.686 [id number] [facility] 2020-06-24 00:00:00 2020-06-24 00:00:00 Letter (Out) Pcp, Patient Does Not Have A [facility] 1.20.114 350.1.13.10 4.2.7.2.686 [id number] [facility] 2020-06-24 00:00:00 2020-06-24 00:00:00 Letter (Out) Pcp, Patient Does Not Have A [facility] One 1.2840.114 350.1.13.10 4.2.7.2.686 [id number] [facility] 2020-06-23 14:27:14 2020-06-23 14:47:14 Laboratory Only Lab, [facility] Pob I Paigearisteo [facility] 1.840.114 350.1.13.10 4.2.7.2.686 [id number] [facility] 2020-06-23 14:40:00 2020-06-23 14:40:00 Outpatient R [facility] [id number] [facility] 2020-06-23 00:00:00 2020-06-23 00:00:00 Letter (Out) Lab, Pcp [facility] 1.840.114 350.1.13.10 4.2.7.2.686 [id number] [facility] 2020-06-23 00:00:00 2020-06-23 00:00:00 Letter (Out) Lab, Pcp [facility] Building 1.2840.114 350.1.13.10 4.2.7.2.686 [id number] [facility] 2020-06-21 13:15:16 2020-06-21 13:35:16 Urgent Care Pob1, Acute Care Clinic David [facility] 1.840.114 350.1.13.10 4.2.7.2.686 [id number] [facility] 2020-06-21 13:05:01 2020-06-21 13:25:01 Laboratory Only [facility] 1.840.114 350.1.13.10 4.2.7.2.686 [id number] [facility] 2020-06-21 13:20:00 2020-06-21 13:20:00 Outpatient R [facility] [id number] [facility] 2020-06-13 00:00:00 2020-06-13 00:00:00 Patient Secure Msg Doctor Unassigned, [place] [facility] OFF[facility] BUILD[facility] ONE [id number] [facility] 2020-06-13 00:00:00 2020-06-13 00:00:00 Telephone Manju Wall [facility] Office Building One [id number] [facility] 2020-06-11 12:42:34 2020-06-11 13:02:34 Laboratory Only Lab, Adc Fam Pob I Olga Hernandez [facility] Office Building One [id number] [facility] 2020-06-11 13:00:00 2020-06-11 13:00:00 Outpatient R [facility] [id number] [facility] Results Test Description Test Time Test Comments Results Result Co mments Source VITAMIN [id number] 00:00:00* Test Item Value Reference Range Interpretation Comme nts VITAMIN B1 (test code = 4952) TEST NOT PERFORMED Herbie Kamara AustinLIPID [id number] 04:36:59* Test Item Value Reference Range Interpretation Comme nts CHOLESTEROL (test code = 2210) 163 MG/DL <200 TRIGLYCERIDES (test code = 2232) 73 MG/DL <150 HDL CHOLESTEROL (test code = 2220) 56 MG/DL >39 CALC LDL CHOL (test code = 2237) 91 MG/DL <100 NOTE: CALCULATED LDL IS BASED ON JULIANNE-EWING METHOD WHICHINCLUDES ADJUSTABLE TRIGLYCERIDE:VLDL CHOLESTEROL RATIO.THIS FACTOR VARIES BY MEASURED TRIGLYCERIDE AND NON-HDLCHOLESTEROL CONCENTRATIONS WITH INCREASED CALCULATED LDL SEENIN HIGHER TRIGLYCERIDE OR LOWER NON-HDL SPECIMENS. FOR MOREINFORMATION, SEE CLIENT ANNOUNCEMENT AT [email or web address] RISK RATIO LDL/HDL (test code = 223) 1.63 RATIO <3.55 COMPREHENSIVE METABOLIC [id number] 04:36:59* Test Item Value Reference Range Interpretation Comme nts GLUCOSE (test code = 2216) 86 MG/DL 70-99 BUN (test code = 2207) 14 MG/DL 6-20 CREATININE (test code = 2213) 0.79 MG/DL 0.80-1.40 L eGFR (2020 CKD-EPI) (test code = 07944) 106 ML/MIN/1.73 >60 CALC BUN/CREAT (test code = 2234) 18 RATIO 6-28 SODIUM (test code = 2230) 139 MEQ/L 133-146 POTASSIUM (test code = 2228) 4.1 MEQ/L 3.5-5.4 CHLORIDE (test code = 2214) 101 MEQ/L 95-107 CARBON DIOXIDE (test code = 6) 23 MEQ/L 19-31 CALCIUM (test code = 2209) 8.8 MG/DL 8.5-10.5 PROTEIN, TOTAL (test code = 222) 7.0 G/DL 6.1-8.3 ALBUMIN (test code = 2201) 4.2 G/DL 3.5-5.2 CALC GLOBULIN (test code = 2240) 2.8 G/DL 1.9-3.7 CALC A/G RATIO (test code = 2233) 1.5 RATIO 1.0-2.6 BILIRUBIN, TOTAL (test code = 2206) 0.5 MG/DL <=1.2 ALKALINE PHOSPHATASE (test code = 2203) 66 U/L 40-121 AST (test code = 2218) 15 U/L 9-50 ALT (test code = 2219) 16 U/L 5-50 HEPATITIS A [id number] 03:45:09* Test Item Value Reference Range Interpretation Comme nts HEPATITIS A IgM (test code = 2728) NON-REACTIVE NON-REACTIVE UNLESS OTHERW ISE INDICATED, ALL TESTING PERFORMED AT [facility] [address] [place] [address] ANNEALER HELPER: VINCENT HOWELL M.D. [place] NUMBER [id number] [facility] [place]. [id number] HEPATITIS PANEL, [id number] 03:45:09* Test Item Value Reference Range Interpretation Comments HEPATITIS A TOTAL AB (test code = 2725) REACTIVE NON-REACTIVE A HEPATITIS B SURF AG (test code = 2739) NON-REACTIVE NON-REACTIVE HEP B CORE TOTAL AB (test code = 2729) REACTIVE NON-REACTIVE A HEPATITIS B SURFACE AB (test code = 2737) NON-REACTIVE NON-REACTIVE HEPATITIS C ANTIBODY (test code = 4675) NON-REACTIVE NON-REACTIVE INTERPRETATION HEPATITIS A: (test code = 2552) (NOTE) Hepatitis A sero logy consistent with past exposure or previousvaccination to hepatitis A virus. No evidence of current acutehepatitis A infection. INTERPRETATION HEPATITIS B: (test code = 15912) (NOTE) Hepatitis B sero logy consistent with either resolving acutehepatitis B infection (so-called "window phase") or past exposure tohepatitis B in the remote past. To distinguish between these twopossibilities, consider testing for hepatitis B core antibody-IgM. INTERPRETATION HEPATITIS C: (test code = 01901) (NOTE) Hepatitis C sero logy shows no evidence of exposure to hepatitisC virus at this time. It can take up to 12 months after exposure tothe hepatitis C virus for antibodies to become detectable in the blood in certain patients. HIV 1/2 4TH GEN, RFLX [id number] 03:45:09* Test Item Value Reference Range Interpretation Comme nts HIV 1/2 4TH GEN, RFLX CONF ( test code = 3514) NON-REACTIVE NON-REACTIVE HEMOGLOBIN [id number] 02:49:40* Test Item Value Reference Range Interpretation Comme nts HEMOGLOBIN A1c (test code = 88496) 5.7 % 4.2-5.6 H [employer] GUIDELINES FOR HGB A1C: PREDIABETES/INCREASED RISK . . . . . . . 5.7-6.4% DIAGNOSIS OF DIABETES . . . . . . . . . >=6.5% WITH CONFIRMATION OR APPROPRIATE SYMPTOMS NOTE: ASSAY MAY BE AFFECTED BY HEMOGLOBINOPATHIES (SICKLE CELL ANEMIA, S-C DISEASE, OTHERS) OR ARTIFICIALLY LOWERED BY DECREASED RED CELL SURVIVAL (HEMOLYTIC ANEMIAS, BLOOD LOSS, ETC.). CONSIDER ALTERNATE TESTING OR LABORATORY CONSULTATION. CBC W/AUTO DIFF WITH [id number] 01:46:48* Test Item Value Reference Range Interpretation Comme nts WBC (test code = 1001) 10.4 K/UL 3.5-11.0 RBC (test code = 1002) 4.56 M/UL 4.50-6.10 HEMOGLOBIN (test code = 1003) 14.0 G/DL 13.5-17.0 HEMATOCRIT (test code = 1004) 43.0 % 40.0-51.0 MCV (test code = 1005) 94.3 fL 80.0-99.0 MCH (test code = 1006) 30.7 PG 25.0-33.0 MCHC (test code = 1007) 32.6 G/DL 31.0-36.0 RDW (test code = 1038) 12.6 % 11.5-15.0 NEUTROPHILS (test code = 1008) 71.0 % LYMPHOCYTES (test code = 1010) 20.7 % MONOCYTES (test code = 1011) 5.1 % EOSINOPHILS (test code = 1012) 2.5 % BASOPHILS (test code = 1013) 0.4 % IMMATURE GRANULOCYTES (test code = 1036) 0.3 % NUCLEATED RBCS (test code = 1065) 0.0 /100 WBC'S See_Comment [Automated messa ge] The system which generated this result transmitted reference range: 0.0. The reference range was not used to interpret this result as normal/abnormal. PLATELET COUNT (test code = 1015) 227 K/UL 130-400 ABSOLUTE NEUTROPHILS (test code = 1066) 7.42 K/UL 1.50-7.50 ABSOLUTE LYMPHOCYTES (test code = 1067) 2.16 K/UL 1.00-4.00 ABSOLUTE MONOCYTES (test code = 1068) 0.53 K/UL 0.20-1.00 ABSOLUTE EOSINOPHILS (test code = 1040) 0.26 K/UL 0.00-0.50 ABSOLUTE BASOPHILS (test code = 1069) 0.04 K/UL 0.00-0.20 ABS IMMATURE GRANULOCYTES (test code = 1020) 0.03 K/UL 0.00-0.10 ABS NUCLEATED RBCS (test code = 07304) 0.00 K/UL 0.00-0.11 HEPATITIS A IgM [REFLEX][id number] 00:00:00* Test Item Value Reference Range Interpretation Comme nts HEPATITIS A IgM (test code = 2728) NON-REACTIVE Herbie ValdezCBC W/AUTO [id number] 00:00:00* Test Item Value Reference Range Interpretation Comme nts WBC (test code = 1001) 10.4 K/UL RBC (test code = 1002) 4.56 M/UL HEMOGLOBIN (test code = 1003) 14.0 G/DL HEMATOCRIT (test code = 1004) 43.0 % MCV (test code = 1005) 94.3 fL MCH (test code = 1006) 30.7 PG MCHC (test code = 1007) 32.6 G/DL RDW (test code = 1038) 12.6 % NEUTROPHILS (test code = 1008) 71.0 % LYMPHOCYTES (test code = 1010) 20.7 % MONOCYTES (test code = 1011) 5.1 % EOSINOPHILS (test code = 1012) 2.5 % BASOPHILS (test code = 1013) 0.4 % IMMATURE GRANULOCYTES (test code = 1036) 0.3 % NUCLEATED RBCS (test code = 1065) 0.0 /100WBC'S PLATELET COUNT (test code = 1015) 227 K/UL ABSOLUTE NEUTROPHILS (test c ode = 1066) 7.42 K/UL ABSOLUTE LYMPHOCYTES (test c ode = 1067) 2.16 K/UL ABSOLUTE MONOCYTES (test cod e = 1068) 0.53 K/UL ABSOLUTE EOSINOPHILS (test c ode = 1040) 0.26 K/UL ABSOLUTE BASOPHILS (test cod e = 1069) 0.04 K/UL ABS IMMATURE GRANULOCYTES (t est code = 1020) 0.03 K/UL ABS NUCLEATED RBCS (test cod e = 57268) 0.00 K/UL Herbie ValdezHEMOGLOBIN [id number] 00:00:00* Test Item Value Reference Range Interpretation Comme nts HEMOGLOBIN A1c (test code = 55233) 5.7 % Herbie ValdezLIPID [id number] 00:00:00* Test Item Value Reference Range Interpretation Comme nts CHOLESTEROL (test code = 2210) 163 MG/DL TRIGLYCERIDES (test code = 2232) 73 MG/DL HDL CHOLESTEROL (test code = 2220) 56 MG/DL CALC LDL CHOL (test code = 2237) 91 MG/DL RISK RATIO LDL/HDL (test cod e = 2238) 1.63 RATIO Herbie ValdezCOMPREHENSIVE METABOLIC [id number] 00:00:00* Test Item Value Reference Range Interpretation Comme nts GLUCOSE (test code = 2217) 86 MG/DL BUN (test code = 2208) 14 MG/DL CREATININE (test code = 2214) 0.79 MG/DL eGFR (2020 CKD-EPI) (test code = 69472) 106 ML/MIN/1.73 CALC BUN/CREAT (test code = 2235) 18 RATIO SODIUM (test code = 2231) 139 MEQ/L POTASSIUM (test code = 2228) 4.1 MEQ/L CHLORIDE (test code = 2215) 101 MEQ/L CARBON DIOXIDE (test code = 2206) 23 MEQ/L CALCIUM (test code = 2209) 8.8 MG/DL PROTEIN, TOTAL (test code = 2229) 7.0 G/DL ALBUMIN (test code = 2201) 4.2 G/DL CALC GLOBULIN (test code = 2240) 2.8 G/DL CALC A/G RATIO (test code = 2234) 1.5 RATIO BILIRUBIN, TOTAL (test code = 2207) 0.5 MG/DL ALKALINE PHOSPHATASE (test code = 2204) 66 U/L AST (test code = 2218) 15 U/L ALT (test code = 2219) 16 U/L Herbie ValdezHEPATITIS PROFILE (A,B,C)[id number] 00:00:00* Test Item Value Reference Range Interpretation Comme nts HEPATITIS A TOTAL AB (test c ode = 2725) REACTIVE HEPATITIS B SURF AG (test co de = 2739) NON-REACTIVE HEP B CORE TOTAL AB (test co de = 2729) REACTIVE HEPATITIS B SURFACE AB (test code = 2737) NON-REACTIVE HEPATITIS C ANTIBODY (test c ode = 5975) NON-REACTIVE INTERPRETATION HEPATITIS A: (test code = 2552) (NOTE) INTERPRETATION HEPATITIS B: (test code = 10667) (NOTE) INTERPRETATION HEPATITIS C: (test code = 32578) (NOTE) Herbie ValdezHIV 1/2 4TH GEN, RFLX [id number] 00:00:00* Test Item Value Reference Range Interpretation Comme nts HIV 1/2 4TH GEN, RFLX CONF ( test code = 3514) NON-REACTIVE Herbie ValdezHIV 1/2 4TH GEN, RFLX [id number] 01:47:24* Test Item Value Reference Range Interpretation Comme nts HIV 1/2 4TH GEN, RFLX CONF (test code = 3514) NON-REACTIVE NON-REACTIVE UNLESS OTHERWISE INDICATED, ALL TESTING PERFORMED AT [facility] [address] [place] [address] ANNEALER HELPER: VINCENT HOWELL M.D. [place] NUMBER [id number] [facility] [place]. [id number] HIV 1/2 4TH GEN, RFLX [id number] 00:00:00* Test Item Value Reference Range Interpretation Comme nts HIV 1/2 4TH GEN, RFLX CONF ( test code = 3514) NON-REACTIVE Herbie BowdenH, THIRD [id number] 03:40:32* Test Item Value Reference Range Interpretation Comme nts TSH, THIRD GENERATION (test code = 2821) 1.770 UIU/ML 0.400-4.100 PSA, [id number] 03:40:32* Test Item Value Reference Range Interpretation Comme nts PSA, TOTAL (test code = 2606) 0.21 NG/ML See_Comment NOTE: Methodolog y is Javi Boo Electrochemiluminescence Immunoassay traceable to WHO reference standard 96/760. [Automated message] The system which generated this result transmitted reference range: <=4.00. The reference range was not used to interpret this result as normal/abnormal. COMPREHENSIVE METABOLIC [id number] 03:13:06* Test Item Value Reference Range Interpretation Comme nts GLUCOSE (test code = 2217) 93 MG/DL 70-99 BUN (test code = 2208) 12 MG/DL 6-20 CREATININE (test code = 2214) 0.70 MG/DL 0.80-1.40 L eGFR (2020 CKD-EPI) (test code = 59112) 111 ML/MIN/1.73 >60 CALC BUN/CREAT (test code = 2235) 17 RATIO 6-28 SODIUM (test code = 2231) 137 MEQ/L 133-146 POTASSIUM (test code = 2228) 4.4 MEQ/L 3.5-5.4 CHLORIDE (test code = 2215) 100 MEQ/L 95-107 CARBON DIOXIDE (test code = 6) 22 MEQ/L 19-31 CALCIUM (test code = 2208) 9.3 MG/DL 8.5-10.5 PROTEIN, TOTAL (test code = 2229) 7.3 G/DL 6.1-8.3 ALBUMIN (test code = 2201) 4.1 G/DL 3.5-5.2 CALC GLOBULIN (test code = 2240) 3.2 G/DL 1.9-3.7 CALC A/G RATIO (test code = 2234) 1.3 RATIO 1.0-2.6 BILIRUBIN, TOTAL (test code = 220) 0.3 MG/DL See_Comment [Automated me ssage] The system which generated this result transmitted reference range: <=1.2. The reference range was not used to interpret this result as normal/abnormal. ALKALINE PHOSPHATASE (test code = 2203) 58 U/L 40-121 AST (test code = 2217) 15 U/L 9-50 ALT (test code = 2218) 16 U/L 5-50 LIPID [id number] 03:13:06* Test Item Value Reference Range Interpretation Comme nts CHOLESTEROL (test code = 2210) 168 MG/DL <200 TRIGLYCERIDES (test code = 2232) 83 MG/DL <150 HDL CHOLESTEROL (test code = 2220) 53 MG/DL >39 CALC LDL CHOL (test code = 2236) 98 MG/DL <100 NOTE: CALCULATED LDL IS BASED ON JULIANNE-EWING METHOD WHICHINCLUDES ADJUSTABLE TRIGLYCERIDE:VLDL CHOLESTEROL RATIO.THIS FACTOR VARIES BY MEASURED TRIGLYCERIDE AND NON-HDLCHOLESTEROL CONCENTRATIONS WITH INCREASED CALCULATED LDL SEENIN HIGHER TRIGLYCERIDE OR LOWER NON-HDL SPECIMENS. FOR MOREINFORMATION, SEE CLIENT ANNOUNCEMENT AT [email or web address] RISK RATIO LDL/HDL (test code = 2238) 1.85 RATIO <3.55 COMPREHENSIVE METABOLIC [id number] 00:00:00* Test Item Value Reference Range Interpretation Comme nts GLUCOSE (test code = 2217) 93 MG/DL BUN (test code = 2207) 12 MG/DL CREATININE (test code = 2214) 0.70 MG/DL eGFR (2020 CKD-EPI) (test code = 02944) 111 ML/MIN/1.73 CALC BUN/CREAT (test code = 2235) 17 RATIO SODIUM (test code = 2231) 137 MEQ/L POTASSIUM (test code = 2228) 4.4 MEQ/L CHLORIDE (test code = 2215) 100 MEQ/L CARBON DIOXIDE (test code = 2206) 22 MEQ/L CALCIUM (test code = 2209) 9.3 MG/DL PROTEIN, TOTAL (test code = 2229) 7.3 G/DL ALBUMIN (test code = 2201) 4.1 G/DL CALC GLOBULIN (test code = 2240) 3.2 G/DL CALC A/G RATIO (test code = 2234) 1.3 RATIO BILIRUBIN, TOTAL (test code = 2207) 0.3 MG/DL ALKALINE PHOSPHATASE (test code = 2204) 58 U/L AST (test code = 2218) 15 U/L ALT (test code = 2219) 16 U/L Herbie ValdezLIPID [id number] 00:00:00* Test Item Value Reference Range Interpretation Comme nts CHOLESTEROL (test code = 2210) 168 MG/DL TRIGLYCERIDES (test code = 2232) 83 MG/DL HDL CHOLESTEROL (test code = 2220) 53 MG/DL CALC LDL CHOL (test code = 2237) 98 MG/DL RISK RATIO LDL/HDL (test cod e = 2238) 1.85 RATIO Herbie ValdezTSH, THIRD [id number] 00:00:00* Test Item Value Reference Range Interpretation Comme nts TSH, THIRD GENERATION (test code = 2821) 1.770 UIU/ML Herbie ValdezPSA, [id number] 00:00:00* Test Item Value Reference Range Interpretation Comme nts PSA, TOTAL (test code = 2606) 0.21 NG/ML Herbie ValdezHEMOGLOBIN [id number] 03:02:16* Test Item Value Reference Range Interpretation Comme nts HEMOGLOBIN A1c (test code = 84555) 6.1 % 4.2-5.6 H [employer] GUIDELINES FOR HGB A1C: PREDIABETES/INCREASED RISK . . . . . . . 5.7-6.4% DIAGNOSIS OF DIABETES . . . . . . . . . >=6.5% WITH CONFIRMATION OR APPROPRIATE SYMPTOMS NOTE: ASSAY MAY BE AFFECTED BY HEMOGLOBINOPATHIES (SICKLE CELL ANEMIA, S-C DISEASE, OTHERS) OR ARTIFICIALLY LOWERED BY DECREASED RED CELL SURVIVAL (HEMOLYTIC ANEMIAS, BLOOD LOSS, ETC.). CONSIDER ALTERNATE TESTING OR LABORATORY CONSULTATION. CBC W/AUTO DIFF WITH [id number] 02:26:30* Test Item Value Reference Range Interpretation Comme nts WBC (test code = 1001) 8.9 K/UL 3.5-11.0 RBC (test code = 1002) 4.37 M/UL 4.50-6.10 L HEMOGLOBIN (test code = 1003) 13.7 G/DL 13.5-17.0 HEMATOCRIT (test code = 1004) 40.4 % 40.0-51.0 MCV (test code = 1005) 92.4 fL 80.0-99.0 MCH (test code = 1006) 31.4 PG 25.0-33.0 MCHC (test code = 1007) 33.9 G/DL 31.0-36.0 RDW (test code = 1038) 12.7 % 11.5-15.0 NEUTROPHILS (test code = 1008) 69.7 % LYMPHOCYTES (test code = 1010) 20.6 % MONOCYTES (test code = 1011) 6.2 % EOSINOPHILS (test code = 1012) 2.7 % BASOPHILS (test code = 1013) 0.4 % IMMATURE GRANULOCYTES (test code = 1036) 0.4 % NUCLEATED RBCS (test code = 1065) 0.0 /100 WBC'S See_Comment [Automated Schveya ge] The system which generated this result transmitted reference range: 0.0. The reference range was not used to interpret this result as normal/abnormal. PLATELET COUNT (test code = 1015) 231 K/UL 130-400 ABSOLUTE NEUTROPHILS (test code = 1066) 6.22 K/UL 1.50-7.50 ABSOLUTE LYMPHOCYTES (test code = 1067) 1.84 K/UL 1.00-4.00 ABSOLUTE MONOCYTES (test code = 1068) 0.55 K/UL 0.20-1.00 ABSOLUTE EOSINOPHILS (test code = 1040) 0.24 K/UL 0.00-0.50 ABSOLUTE BASOPHILS (test code = 1069) 0.04 K/UL 0.00-0.20 ABS IMMATURE GRANULOCYTES (test code = 1020) 0.04 K/UL 0.00-0.10 ABS NUCLEATED RBCS (test code = 13829) 0.00 K/UL 0.00-0.11 HEMOGLOBIN [id number] 00:00:00* Test Item Value Reference Range Interpretation Comme nts HEMOGLOBIN A1c (test code = 70089) 6.1 % Herbie SharifC W/AUTO [id number] 00:00:00* Test Item Value Reference Range Interpretation Comme nts WBC (test code = 1001) 8.9 K/UL RBC (test code = 1002) 4.37 M/UL HEMOGLOBIN (test code = 1003) 13.7 G/DL HEMATOCRIT (test code = 1004) 40.4 % MCV (test code = 1005) 92.4 fL MCH (test code = 1006) 31.4 PG MCHC (test code = 1007) 33.9 G/DL RDW (test code = 1038) 12.7 % NEUTROPHILS (test code = 1008) 69.7 % LYMPHOCYTES (test code = 1010) 20.6 % MONOCYTES (test code = 1011) 6.2 % EOSINOPHILS (test code = 1012) 2.7 % BASOPHILS (test code = 1013) 0.4 % IMMATURE GRANULOCYTES (test code = 1036) 0.4 % NUCLEATED RBCS (test code = 1065) 0.0 /100WBC'S PLATELET COUNT (test code = 1015) 231 K/UL ABSOLUTE NEUTROPHILS (test c ode = 1066) 6.22 K/UL ABSOLUTE LYMPHOCYTES (test c ode = 1067) 1.84 K/UL ABSOLUTE MONOCYTES (test cod e = 1068) 0.55 K/UL ABSOLUTE EOSINOPHILS (test c ode = 1040) 0.24 K/UL ABSOLUTE BASOPHILS (test cod e = 1069) 0.04 K/UL ABS IMMATURE GRANULOCYTES (t est code = 1020) 0.04 K/UL ABS NUCLEATED RBCS (test cod e = 87446) 0.00 K/UL Herbie Bowden, THIRD [id number] 00:41:25* Test Item Value Reference Range Interpretation Comme nts TSH, THIRD GENERATION (test code = 2821) 1.580 UIU/ML 0.400-4.100 UNLESS OTHERWISE INDICATED, [facility] [address] [place] [address] ANNEALER HELPER: Nadeem ALVAREZ NUMBER [id number] [facility] [place]. [id number] LIPID [id number] 00:13:01* Test Item Value Reference Range Interpretation Comme nts CHOLESTEROL (test code = 2210) 177 MG/DL <200 TRIGLYCERIDES (test code = 2232) 68 MG/DL <150 HDL CHOLESTEROL (test code = 2220) 52 MG/DL >39 CALC LDL CHOL (test code = 2237) 110 MG/DL <100 H NOTE: CALCULATED LDL IS BASED ON JULIANNE-EWING METHOD WHICHINCLUDES ADJUSTABLE TRIGLYCERIDE:VLDL CHOLESTEROL RATIO.THIS FACTOR VARIES BY MEASURED TRIGLYCERIDE AND NON-HDLCHOLESTEROL CONCENTRATIONS WITH INCREASED CALCULATED LDL SEENIN HIGHER TRIGLYCERIDE OR LOWER NON-HDL SPECIMENS. FOR MOREINFORMATION, SEE CLIENT ANNOUNCEMENT AT [email or web address] [email or web address] RATIO LDL/HDL (test code = 2238) 2.12 RATIO <3.55 COMPREHENSIVE METABOLIC [id number] 00:13:01* Test Item Value Reference Range Interpretation Comme nts GLUCOSE (test code = 2217) 92 MG/DL 70-99 BUN (test code = 2208) 14 MG/DL 6-20 CREATININE (test code = 2214) 0.80 MG/DL 0.80-1.40 eGFR (2020 CKD-EPI) (test code = 02556) 107 ML/MIN/1.73 >60 CALC BUN/CREAT (test code = 2235) 18 RATIO 6-28 SODIUM (test code = 2231) 139 MEQ/L 133-146 POTASSIUM (test code = 2228) 4.1 MEQ/L 3.5-5.4 CHLORIDE (test code = 2215) 100 MEQ/L 95-107 CARBON DIOXIDE (test code = 2206) 24 MEQ/L 19-31 CALCIUM (test code = 2209) 9.0 MG/DL 8.5-10.5 PROTEIN, TOTAL (test code = 222) 7.7 G/DL 6.1-8.3 ALBUMIN (test code = 2201) 4.4 G/DL 3.5-5.2 CALC GLOBULIN (test code = 2240) 3.3 G/DL 1.9-3.7 CALC A/G RATIO (test code = 2234) 1.3 RATIO 1.0-2.6 BILIRUBIN, TOTAL (test code = 2207) 0.6 MG/DL See_Comment [Automated me ssage] The system which generated this result transmitted reference range: <=1.2. The reference range was not used to interpret this result as normal/abnormal. ALKALINE PHOSPHATASE (test code = 2204) 63 U/L 40-121 AST (test code = 2218) 32 U/L 9-50 ALT (test code = 2219) 34 U/L 5-50 LIPID [id number] 00:00:00* Test Item Value Reference Range Interpretation Comme nts CHOLESTEROL (test code = 2210) 177 MG/DL TRIGLYCERIDES (test code = 2232) 68 MG/DL HDL CHOLESTEROL (test code = 2220) 52 MG/DL CALC LDL CHOL (test code = 2237) 110 MG/DL RISK RATIO LDL/HDL (test cod e = 2238) 2.12 RATIO Herbie Kamara José MiguelCOMPREHENSIVE METABOLIC [id number] 00:00:00* Test Item Value Reference Range Interpretation Comme nts GLUCOSE (test code = 2217) 92 MG/DL BUN (test code = 2208) 14 MG/DL CREATININE (test code = 2214) 0.80 MG/DL eGFR (2020 CKD-EPI) (test code = 48396) 107 ML/MIN/1.73 CALC BUN/CREAT (test code = 2235) 18 RATIO SODIUM (test code = 2231) 139 MEQ/L POTASSIUM (test code = 2228) 4.1 MEQ/L CHLORIDE (test code = 2215) 100 MEQ/L CARBON DIOXIDE (test code = 2206) 24 MEQ/L CALCIUM (test code = 2209) 9.0 MG/DL PROTEIN, TOTAL (test code = 2229) 7.7 G/DL ALBUMIN (test code = 2201) 4.4 G/DL CALC GLOBULIN (test code = 2240) 3.3 G/DL CALC A/G RATIO (test code = 2234) 1.3 RATIO BILIRUBIN, TOTAL (test code = 2207) 0.6 MG/DL ALKALINE PHOSPHATASE (test code = 2204) 63 U/L AST (test code = 2218) 32 U/L ALT (test code = 2219) 34 U/L Herbiehe [id number] 00:00:00* Test Item Value Reference Range Interpretation Comme nts TSH, THIRD GENERATION (test code = 2821) 1.580 UIU/ML Herbie Kamara AustinHEMOGLOBIN [id number] 04:44:59* Test Item Value Reference Range Interpretation Comme nts HEMOGLOBIN A1c (test code = 33671) 6.2 % 4.2-5.6 H CBC W/AUTO DIFF WITH [id number] 03:55:47* Test Item Value Reference Range Interpretation Comme nts WBC (test code = 1001) 11.1 K/UL 3.5-11.0 H RBC (test code = 1002) 4.35 M/UL 4.50-6.10 L HEMOGLOBIN (test code = 1003) 13.6 G/DL 13.5-17.0 HEMATOCRIT (test code = 1004) 40.1 % 40.0-51.0 MCV (test code = 1005) 92.2 fL 80.0-99.0 MCH (test code = 1006) 31.3 PG 25.0-33.0 MCHC (test code = 1007) 33.9 G/DL 31.0-36.0 RDW (test code = 1038) 12.4 % 11.5-15.0 NEUTROPHILS (test code = 1008) 71.0 % LYMPHOCYTES (test code = 1010) 19.7 % MONOCYTES (test code = 1011) 5.4 % EOSINOPHILS (test code = 1012) 2.9 % BASOPHILS (test code = 1013) 0.5 % IMMATURE GRANULOCYTES (test code = 1036) 0.5 % NUCLEATED RBCS (test code = 1065) 0.0 /100 WBC'S See_Comment [Automated messa ge] The system which generated this result transmitted reference range: 0.0. The reference range was not used to interpret this result as normal/abnormal. PLATELET COUNT (test code = 1015) 249 K/UL 130-400 ABSOLUTE NEUTROPHILS (test code = 1066) 7.85 K/UL 1.50-7.50 H ABSOLUTE LYMPHOCYTES (test code = 1067) 2.18 K/UL 1.00-4.00 ABSOLUTE MONOCYTES (test code = 1068) 0.60 K/UL 0.20-1.00 ABSOLUTE EOSINOPHILS (test code = 1040) 0.32 K/UL 0.00-0.50 ABSOLUTE BASOPHILS (test code = 1069) 0.06 K/UL 0.00-0.20 ABS IMMATURE GRANULOCYTES (test code = 1020) 0.05 K/UL 0.00-0.10 ABS NUCLEATED RBCS (test code = 60063) 0.00 K/UL 0.00-0.11 CBC W/AUTO [id number] 00:00:00* Test Item Value Reference Range Interpretation Comme nts WBC (test code = 1001) 11.1 K/UL RBC (test code = 1002) 4.35 M/UL HEMOGLOBIN (test code = 1003) 13.6 G/DL HEMATOCRIT (test code = 1004) 40.1 % MCV (test code = 1005) 92.2 fL MCH (test code = 1006) 31.3 PG MCHC (test code = 1007) 33.9 G/DL RDW (test code = 1038) 12.4 % NEUTROPHILS (test code = 1008) 71.0 % LYMPHOCYTES (test code = 1010) 19.7 % MONOCYTES (test code = 1011) 5.4 % EOSINOPHILS (test code = 1012) 2.9 % BASOPHILS (test code = 1013) 0.5 % IMMATURE GRANULOCYTES (test code = 1036) 0.5 % NUCLEATED RBCS (test code = 1065) 0.0 /100WBC'S PLATELET COUNT (test code = 1015) 249 K/UL ABSOLUTE NEUTROPHILS (test c ode = 1066) 7.85 K/UL ABSOLUTE LYMPHOCYTES (test c ode = 1067) 2.18 K/UL ABSOLUTE MONOCYTES (test cod e = 1068) 0.60 K/UL ABSOLUTE EOSINOPHILS (test c ode = 1040) 0.32 K/UL ABSOLUTE BASOPHILS (test cod e = 1069) 0.06 K/UL ABS IMMATURE GRANULOCYTES (t est code = 1020) 0.05 K/UL ABS NUCLEATED RBCS (test cod e = 72534) 0.00 K/UL Herbie Kamara AustinHEMOGLOBIN [id number] 00:00:00* Test Item Value Reference Range Interpretation Comme nts HEMOGLOBIN A1c (test code = 37212) 6.2 % Herbie ValdezSARS-CoV-2 (COVID-19) by RT-PCR (HIGH RISK)2020 00:00:00* Test Item Value Reference Range Interpretation Comme nts SARS-CoV-2 INTERPRETATION (t est code = 86764) NEGATIVE SOURCE (test code = 05462) NOT SPECIFIED Herbie ValdezXR CHEST 2 [id number] 20:22:30Mild bilateral interstitial opacities could be related to minimal pulmonaryvascular congestion versus less likely an atypical infectious process suchas Covid 19 pneumonia. Disclaimer: Generally, the findings on chest imaging in COVID-19 are notspecific, and overlap with other infections, including influenza, H1N1,SARS and MERS.According to the Centers for Disease Control (CDC) and recent statement ofthe [employer], viral testing remains the only specificmethod of diagnosis. Confirmation with the viral test is required, even ifradiologic findings are suggestive of COVID-[address]. Preliminary Report Dictated by Resident: Cresencio Bella I, Enrike Xavier MD., have reviewed this study and agree with the abovereport. PROCEDURE: PA AND LATERAL CHEST X-RAY CLINICAL PRINCESS CATION: Positive Covid, Cough and SOB for 1 [...] 3:23 PM CDTPROCEDURE: PA AND LATERAL CHEST X- RAYCLINICAL INDICATION: Positive Covid, Cough and SOB for 1 month no relieffrom therapies thus far. COMPARISON: NoneFINDINGS:Minimal increase in the pulmonary vascular markings with prominence of thepulmonary hilum bilaterally is noted. Thelungs are otherwise clear. Nopleural effusion or pneumothorax [...] Disease Control (CDC) and recent statement ofthe [employer], viral testingremains the only specificmethod of diagnosis. Confirmation with the viral test is required, even ifradiologic findings are suggestive of COVID-[address]Preliminary Report Dictated by Resident:Cresencio Malave, Enrike Xavier MD., have reviewed this study and agree with the abovereport.[facility] Notes Date/Time Note Provider Source 2024-04-20 00:00:00 [id number]:00:00+ -----+ +| Plan Activity | Plan Date |+ + +| symptoms resolved | 2020-07-05 || order Covid-19 antibody and PCR testing | || waiting result | |+ + +| POST BRONCHITIS COUGH- | 2020-07-05 || ALBUTEROL INHALER 90 MCG PRN - has some | || ADVAIR discuss 1INHALATION BID | || ZYRTEC 10MG 1 PO QD | || FLONASE | || | || F/U 1 WEEK FOR POST BRONCHITIS COUGH OR CXR IF NOT BETTER OR AN INHALER TO GET | || RID OF LEFT OVER COUGH | |+ + +| Auto-Add by COVID19 Screen Import | 2020-07-11 |+ + +| Labs: CBC ,CMP , HgBA1C , Lipids , hepatitis panel , HIV | 2021-12-28 || Recommend yearly flu and Tdap every 10 years | || RTO pending results | || Advised continue with dental cleanings every 6 months and and yearly eye exams | |+ + +| CBC, a1c, cmp drawn today | 2021-12-28 || Follow up with results | |+ + +| Lipid panel | 2021-12-28 || results pending | |+ + +| Screening colonoscopy referral initiated | 2021-12-28 || results pending | |+ + +| cards referral | 2021-12-28 || follow up prn | |+ + +| Encourage weight loss through healthy diet and exercise. | 2022-05-27 |+ + +| Recommend daily exercise as part of a healthy lifestyle. | 2022-05-27 || 30 of moderate aerobic exercise 5 times a week. Increase your activity as | || tolerated. | |+ + +| Recommend diet high in fruits and vegetables, lean meats, low in fat and | 2022-05-27 || processed sugars. Monitor portion sizes. | |+ + +| X ray of sacrum and coccyx | 2022-05-27 || X ray of pelvis | || Cyclobenzaprine take as directed | || Ibuprofen take as directed | |+ + +| X ray of sacrum and coccyx | 2022-05-27 || X ray of pelvis | || Cyclobenzaprine take as directed | || Ibuprofen take as directed | |+ + +| HIV | 2023-07-11 || results pending | |+ + +| PSA | 2023-07-11 || results pending | |+ + +| Sleep study ordered | 2023-07-11 |+ + +| Referral to bariatric surgeon- working on deciding sleeve or bypass=pt states | 2023-07-11 || no | || glucometer lances strips and all necessary supplies E66.01 - check for glu | || below 60 if hypoglycemia - peanut butter or cheese crackers to get sugar up | || Mounjaro 2.5 mg weekly for 4 weeks then | || Mounjaro 5mg pen /0.5ml once weekly | || 84 day supply dispense 6ml------ for 4 weeks- then 7.5mg once weekly for 4 | || szict54pm weekly then 12.5 mg weekly then 15mg weekly | |+ + +| CMP, lipid | 2023-07-11 |+ + +| CMP, A1c | 2023-07-11 || results pending | |+ + +| Covid negative | 2023-09-19 || Reassurance provided that symptoms are likely d/t viral etiology and should | || start to improve over the next 7 days with supportive care. No antibiotics | || indicated at this time. | || Bromfed 10mL every 4-6 hours as needed. | || Tylenol and ibuprofen as needed for fever. | || Increase fluid intake. | || Follow up in 3-5 days or sooner if worsening | || Discussed supportive care with humidifier, nasal saline spray, warm tea with | || honey and lemon, vicks vaporub. | || ER precautions | |+ + +| Recommend healthy eating with foods from a variety of food groups, appropriate | 2024-02-27 || portion sizes, and few sugary snacks/drinks. | || Well-rounded, whole foods diet focused on fresh vegetables and fruits, lean | || proteins. Avoid sugary drinks. Avoid fried, greasy foods. Portion control. | |+ + +| thiamine levels | 2024-02-27 |+ + +| shingrix and Tdap | 2024-02-27 |+ + +| HIV, Hepatitis | 2024-02-27 |+ + +| stable at this time | 2024-02-27 || FU if worsen | |+ + +| cyclobenzaprine 10mg 1 PO QHS | 2024-04-20 || Meloxicam 1 PO QD | || MEDROL DOSE PK 7 DAYS | || RECOMMENDATIONS- Bed rest for one day,apply moist heat , massage home back | || strengthening exercises, weight loss and treatment of depressing | || F /U call if worsening symptoms including bowel incontinence fever, increasing | || pain, numbness weakness and urinary incontinence, | || F/U 3 months or PRN | |+ + +[id number] of TreatmentLNCARE PLANTXTS|[id number] gonzalez for patient [id number] Section NarrativeNARRATIVEFormatted C-CDA narrative textSSammy AnhMeghan [place]2024-05-21T00:00:00 Herbie Meghan [place]
--- NOTE | 2024-06-08 02:23 | ER ---
Nurse's Notes [facility] Name: Juwan Turner Jr Age: 53 yrs Sex: Male : 1970 Arrival Date: 06/08/2024 Time: 01:30 Bed IW1 Private MD: Diagnosis: Torticollis, neck pain Presentation: 06/08 01:38 Chief complaint: Patient states: pain in neck since this morning, causing difficulty jp4 turning neck from side to side. Coronavirus screen: Vaccine status: Patient reports being unvaccinated. Ebola Screen: Patient negative for fever greater than or equal to 101.5 degrees Fahrenheit, and additional compatible Ebola Virus Disease symptoms Patient denies exposure to infectious person. Patient denies travel to an Ebola-affected area in the 21 days before illness onset. No symptoms or risks identified at this time. Initial Sepsis Screen: Does the patient meet any 2 criteria? No. Patient's initial sepsis screen is negative. Does the patient have a suspected source of infection? No. Patient's initial sepsis screen is negative. Risk Assessment: Do you want to hurt yourself or someone else? Patient reports no desire to harm self or others. Onset of symptoms was June 07, 2024. 01:38 Method Of Arrival: Ambulatory [facility] 01:38 Acuity: ZAHIDA 5 4 Triage Assessment: 01:40 General: Appears in no apparent distress. unkempt, patient texting on phone while jp4 talking with triage nurse. Behavior is cooperative. Pain: Complains of pain in neck Pain currently is 9 out of 10 on a pain scale. Neuro: Level of Consciousness is awake, alert, obeys commands, Oriented to person, place, time, situation. Respiratory: No deficits noted. Musculoskeletal: No deficits noted. Historical: - Allergies: 01:40 No Known Allergies; jp4 - Home Meds: 01:40 UNKNOWN HTN MEDICATION [Active]; jp4 - PMHx: :40 Hypertensive disorder; Pulmonary Embolism; jp4 - PSHx: 01:40 None; jp4 - Immunization history:: Adult Immunizations unknown. - Infectious Disease History:: Denies. - Social history:: Patient/guardian denies using street drugs, IV drugs, caffeine, over the counter diet medications, tobacco products, The patient lives at home, Smoking status: Patient denies any tobacco usage or history of. - Family history:: not pertinent. - Code Status:: Full code. Screenin:43 [facility] ED Fall Risk Assessment (Adult) History of falling in the last 3 months, jp4 including since admission No falls in past 3 months (0 pts) Confusion or Disorientation No (0 pts) Intoxicated or Sedated No (0 pts) Impaired Gait No (0 pts) Mobility Assist Device Used No (0 pt) Altered Elimination No (0 pt) Score/Fall Risk Level 0 - 2 = Low Risk. Abuse screen: Denies threats or abuse. Denies injuries from another. Nutritional screening: No deficits noted. Tuberculosis screening: No symptoms or risk factors identified. Assessment: :43 Neuro: Level of Consciousness is awake, alert, obeys commands, Oriented to person, jp4 place, time, situation. Respiratory: No deficits noted. Airway is patent Trachea midline Respiratory effort is even, unlabored, Respiratory pattern is regular, symmetrical. 02:18 General: Appears in no apparent distress. uncomfortable, Behavior is calm, cooperative, bm8 appropriate for age. Neuro: Level of Consciousness is awake, alert, obeys commands, Oriented to person, place, time, situation, Sport Intern are equal bilaterally Moves all extremities. Full function Gait is steady, Speech is normal, Facial symmetry appears normal. Cardiovascular: Denies chest pain, lightheadedness, shortness of breath, Capillary refill < 3 seconds Patient's skin is warm and dry. Respiratory: No deficits noted. Airway is patent Trachea midline Respiratory effort is even, unlabored, Respiratory pattern is regular, symmetrical, Breath sounds are clear bilaterally. Musculoskeletal: pt reports a sharp pain in left side of neck that is reproduce able when pressure is applied. Vital Signs: 01:38 BP 147 / 77; Pulse 70; Resp 18; Temp 97.6(T); Pulse Ox 100% ; Weight 154.22 kg; Height jp4 5 ft. 6 in. ; Pain 9/10; 02:18 BP 137 / 83; Pulse 68; Resp 17; Temp 97.1; Pulse Ox 96% ; Pain 6/10; bm8 01:38 Body Mass Index 54.88 (154.22 kg, 167.64 cm) jp4 01:38 Pain Scale: Adult jp4 02:18 Pain Scale: Adult bm8 01:38 pain in neck - when moving and still jp4 [place] Coma Score: 02:18 Eye Response: spontaneous(4). Motor Response: obeys commands(6). Verbal Response: bm8 oriented(5). Total: 15. ED Course: 01:33 Patient arrived in ED. rg4 01:40 Triage completed. jp4 01:40 Arm band placed on right wrist. jp4 01:43 Patient has correct armband on for positive identification. Verbal reassurance given. jp4 01:46 Misti Suggs MD is Attending Physician. sp3 02:18 Rory Bowers, RN is Primary Nurse. bm8 02:18 Bed in low position. Call light in reach. Provided Education on: post er care. Client bm8 placed on continuous cardiac and pulse oximetry monitoring. NIBP monitoring applied. Pulse ox on. NIBP on. 02:18 No provider procedures requiring assistance completed. Patient did not have IV access bm8 during this emergency room visit. Administered Medications: 02:29 Drug: Ketorolac IM 30 mg IM once Route: IM; Site: right deltoid; bm8 02:30 Follow up: Response: No adverse reaction; Medication administered at discharge. bm8 Medication: 02:18 VIS not applicable for this client. bm8 Outcome: 02:23 Discharge ordered by . sp3 02:29 Discharged to home ambulatory, bm8 02:29 Condition: stable 02:29 Discharge instructions given to patient, Instructed on discharge instructions, follow up and referral plans. Demonstrated understanding of instructions, follow-up care, medications, Prescriptions given X 2, 02:30 Patient left the ED. bm8 Signatures: Madelyn Rios 4 Misti Suggs MD MD sp3 Blanco Sanchez RN RN jp4 Rory Bowers, RN RN bm8
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
[2024-06-08] MEDS ORDERED: KETOROLAC 30 MG/ML INJ ONE (02:24)
[2024-06-08 03:11] VITALS: BP 137/83; TEMP 97.1; O2SAT 96
== END 2024-06-08 02:30 | disposition home or self-care (01) ==
LOC: ER 01:30
DX: M43.6 Torticollis (principal); I10 Essential (primary) hypertension; Z86.711 Personal history of pulmonary embolism
CPT/HCPCS: 96372; 99284

== ENCOUNTER 2024-06-08 22:15 | Emergency (ER) | payer BC ==
--- OUTSIDE RECORDS SUMMARY | 2024-06-08 22:21 | XMS REPORT | Continuity of Care Document ---
Author Name Unknown Address [address] [facility] [address] [place] [address] [facility] thconnect Address [address] [facility] [place] [address] Care Team Providers Care Yeast Pumper Name Role Phone Conrad BEE, Rani Primary Care Physician [place] [facility] Attending Clinician Unavailable Doctor Unassigned, [place] Attending Clinician U fatmata Cárdenas RN, Yue Vargas Attending Clinician Unavailab le Lab, Adc Fam Pob I Attending Clinician Unavailab le Ebrahim THREAD SINGERSandra Attending Clinician [phone] Pob1, Acute Care Clinic Attending Clinician Unav ailable Olga Sanon Attending Clinician [phone] OLGA HERNANDEZ Attending Clinician Unavailable Human Samara ALVARADO Attending Clinician [phone] Elizabeth Gutierrez RN Attending Clinician Unavailable More Syed Attending Clinician [phone] Pcp, Patient Does Not Have A Attending Clinician Lab, Pcp Covid Attending Clinician Unavailable Manju Quezada Attending Clinician [phone] [place] [facility] Admitting Clinician Unavailable Payers Payer Name Policy Type Policy Number Effective Date Expirati on Date Source BCBS [facility] - OUT OF STATE [id number] 2020 00:00:00 Problems Condition Name Condition Details Condition Category Status Onset Date Resolution Date Last Treatment Date Treating Clinician Comments Source No known active problems No known active problems Disease [facility] Allergies, Adverse Reactions, Alerts Allergy Name Allergy Type Status Severity Reaction(s) Onset Date Inactive Date Treating Clinician Comments Source No Known Allergie s DA Active U 12-25 00:00: 00 [facility] [place] NO KNOWN ALLERGIE S Drug Class Active [facility] Social History Social Habit Start Date Stop Date Quantity Comments Source Sexual orientation U [facility] Exposure to SARS-CoV-2 (event) 2020-06-19 00:00:00 2020 16:03:00 Yes [facility] History of Social function 2020 00:00:00 2020 00:00:00 [facility] Tobacco use and exposure 2020-06-21 00:00:00 2020-06-21 00:00:00 Smokeless tobacco non-user [facility] Sex Assigned At 1970 00:00:00 1970 00:00:00 [facility] Smoking Status Start Date Stop Date Source Tobacco smoking consumption unknown [facility] Never smoked tobacco [facility] Medications Ordered Medication Name Filled Medication [...] 2022-12 00:00: 00 03-15 00:00 :00 No [id number] Herbie Valdez TAKE 1 TABLET EVERY 12 HOURS DAILY. 2022-12 00:00: 00 Yes [id number] Herbie Valdez TAKE 2 TABLETS ON DAY 1 THEN TAKE 1 TABLET A DAY FOR 4 DAYS. 2022-12 00:00: 00 03-15 00:00 :00 No 250 Herbie Valdez TAKE 10 ML BY MOUTH EVERY 4 TO 6 HOURS NEEDED FOR COUGH. 2022-12 00:00: 00 03-15 00:00 :00 No [id number] Herbie Valdez BROMPHEN-PS E-DM 2-30-10 MG/5ML 2022-12 0 00:00: 00 03-15 00:00 :00 No Herbie Valdez ACETAMINOPH EN-COD #3 2022-12 0- 00:00: 00 Yes Herbie Valdez CYCLOBENZAP RINE 5 MG 2022-12 0- 00:00: 00 Yes Herbie Valdez DEXAMETHASO NE 2 MG 2022-12 0- 00:00: 00 Yes Herbie Valdez DICLOFENAC SOD DR 75 MG 2022-12 0 00:00: 00 Yes Herbie Valdez TAKE 1 [...] 07-19 00:00: 00 07-30 04:59 :00 No [id number] 100mg Take 1 capsule by mouth 3 (three) times daily as needed for Cough for up to 10 days. [facility] Tessalon Perles 100 mg capsule 07-04 00:00: 00 Yes 12mg Herbie Valdez albuterol (VENTOLIN HFA) 90 mcg/actuati on inhaler 07-03 00:00: 08-03 04:59 :00 No [id number] 2{puff} Inhale 2 Puffs every 6 (six) hours as needed for Shortness of Breath or Chest tightness for up to 30 days. [facility] benzonatate (TESSALON PERLES) 100 mg capsule 07-03 00:00: 07-18 04:59 :00 No [id number] 100mg Take 1 capsule by mouth 3 (three) times daily for 14 days. [facility] bromphenira mine-pseudo ephedrine-D M (BROMFED DM) 2-30-10 mg/5 mL syrup 07-03 00:00: 00 07-14 04:59 :00 No [id number] 5mL Take 5 mL by mouth 4 (four) times daily as needed for Cough for up to 10 days. [facility] methylPREDN ISolone 4 mg tablets 07-03 00:00: 00 07-10 04:59 :00 No [id number] Take by mouth SEE-INSTRU CTIONS for 6 days. follow package directions [facility] azithromyci n (ZITHROMAX Z-YOLI) 250 mg tablet 07-03 00:00: 00 07-09 04:59 :00 No [id number] 250mg Take 1 tablet by mouth daily for 5 days. Take 500 mg day 1, then 250 mg days 2 to 5. [facility] losartan 100 mg tablet 05-05 00:00: 00 Yes 100mg Take 100 mg by mouth every morning. [facility] No known medications No [facility] tasne[facility] No known medications No Un tasneem [facility] No known medications No Un tasneem [facility] Immunizations Ordered Immunization Name Filled Immunization Name Date Status Comments Source Tdap Tdap 2024-02-27 00:00:00 Liana Valdez SHINGRIX VACCINE SHINGRIX VACCINE 2024-02-27 00:00:00 Liana Valdez Vital Signs Vital Name Observation Time Observation Value Comments S ournarayan Systolic blood pressure 2020 21:07:00 169 mm[Hg] [facility] Diastolic blood pressure 2020 21:07:00 81 mm[Hg] [facility] Heart rate 2020 21:05:00 91 /min [facility] Body temperature 2020 21:05:00 37.17 Melly [facility] Respiratory rate 2020 21:05:00 22 /min [facility] Body height 2020 21:05:00 170.2 cm [facility] Body weight 2020 21:05:00 165.563 kg [facility] BMI 2020 21:05:00 57.17 kg/m2 [facility] Oxygen saturation in Arterial blood by Pulse oximetry 2020 21:05:00 95 /min [facility] Systolic blood pressure 2020 21:07:00 169 mm[Hg] [facility] Diastolic blood pressure 2020 21:07:00 81 mm[Hg] [facility] Heart rate 2020 21:05:00 91 /min [facility] Body temperature 2020 21:05:00 37.17 Melly [facility] Respiratory rate 2020 21:05:00 22 /min [facility] Body height 2020 21:05:00 170.2 cm [facility] Body weight 2020 21:05:00 165.563 kg [facility] BMI 2020 21:05:00 57.17 kg/m2 [facility] Oxygen saturation in Arterial blood by Pulse oximetry 2020 21:05:00 95 /min [facility] Systolic blood pressure 2020-07-03 17:58:00 127 mm[Hg] [facility] Diastolic blood pressure 2020-07-03 17:58:00 78 mm[Hg] [facility] Heart rate 2020-07-03 17:58:00 80 /min [facility] Body temperature 2020-07-03 17:58:00 37.61 Melly [facility] Respiratory rate 2020-07-03 17:58:00 18 /min [facility] Body height 2020-07-03 17:58:00 177.8 cm [facility] Body weight 2020-07-03 17:58:00 165.563 kg [facility] BMI 2020-07-03 17:58:00 52.37 kg/m2 [facility] Oxygen saturation in Arterial blood by Pulse oximetry 2020-07-03 17:58:00 97 /min [facility] Systolic blood pressure 2020-07-03 17:58:00 127 mm[Hg] [facility] Diastolic blood pressure 2020-07-03 17:58:00 78 mm[Hg] [facility] Heart rate 2020-07-03 17:58:00 80 /min Unive [facility] Body temperature 2020-07-03 17:58:00 37.61 Melly [facility] Respiratory rate 2020-07-03 17:58:00 18 /min [facility] Body height 2020-07-03 17:58:00 177.8 cm [facility] Body weight 2020-07-03 17:58:00 165.563 kg [facility] BMI 2020-07-03 17:58:00 52.37 kg/m2 [facility] Oxygen saturation in Arterial blood by Pulse oximetry 2020-07-03 17:58:00 97 /min [facility] Systolic blood pressure 2020-06-21 18:20:00 116 mm[Hg] [facility] Diastolic blood pressure 2020-06-21 18:20:00 83 mm[Hg] [facility] Heart rate 2020-06-21 18:20:00 78 /min [facility] Body temperature 2020-06-21 18:20:00 36.94 Melly [facility] Respiratory rate 2020-06-21 18:20:00 20 /min [facility] Body height 2020-06-21 18:20:00 177.8 cm [facility] Body weight 2020-06-21 18:20:00 165.109 kg [facility] BMI 2020-06-21 18:20:00 52.23 kg/m2 [facility] Oxygen saturation in Arterial blood by Pulse oximetry 2020-06-21 18:20:00 96 /min [facility] BP Systolic 2024-04-20 08:51:00 120 mm[Hg] Step hen F José Miguel BP Diastolic 2024-04-20 08:51:00 82 mm[Hg] Ashvin phen F José Miguel Weight Measured 2024-04-20 08:51:00 338.00 pounds Herbie F José Miguel Height Measured 2024-04-20 08:51:00 66.00 inches Herbie F Nageezi Body Temperature 2024-04-20 08:51:00 97.20 degrees Herbie [...] 2024-02-27 13:21:00 67.50 inches Herbie F José Miguel Body Temperature 2024-02-27 13:21:00 98.20 degrees Herbie F José Miguel Heart Rate 2024-02-27 13:21:00 56.00 /min Patricia en F José Miguel Respiratory Rate 2024-02-27 13:21:00 Herbie F José Miguel Height Measured 2023-10-21 08:05:00 67.50 inches Herbie F José Miguel Body Temperature 2023-10-21 08:05:00 97.00 degrees Herbie F José Miguel Heart Rate 2023-10-21 08:05:00 62.00 /min Patricia en F José Miguel Respiratory Rate 2023-10-21 08:05:00 20.00 /min Herbie F José Miguel BP Systolic 2023-10-21 08:05:00 126 mm[Hg] Step hen F José Miguel BP Diastolic 2023-10-21 08:05:00 84 mm[Hg] Ashvin phen F José Miguel Weight Measured 2023-10-21 08:05:00 348.00 pounds Herbie F José Miguel BP Systolic 2023-10-01 [...] Source PATIENT QUESTIONNAIRE 2020-08-01 05:01:00 Doctor Unassigned, [place] [facility] XR CHEST 2 VW 2020-07-03 19:06:09 Olga Hernandez [facility] Encounters Start Date/Time End Date/Time Encounter Type Admission Type Attending [facility] Care Facility Care Department Encounter ID Source 2023-12-29 07:30:00 Inpatient [facility] [id number] [facility] [place] 2023-12-24 16:36:01 Outpatient [facility]LML[facility] [id number] [facility] 2021-09-28 13:46:[address] [facility] [id number] [facility] 2024-04-20 15:50:43 2024-04-20 15:50:43 Outpatient SFA [facility] [id number] Herbie Valdez 2024-04-20 00:00:00 2024-04-20 00:00:00 Outpatient Visit [facility] [id number] Herbie Valdez 2024-02-27 13:17:42 2024-02-27 13:17:42 Outpatient SFA [facility] [id number] Herbie Valdez 2023-10-21 07:53:33 2023-10-21 07:53:33 Outpatient SFA [facility] [id number] Herbie Kamara José Miguel 2023-10-01 16:51:15 2023-10-01 16:51:15 Outpatient [facility] [id number] Herbie Kamara José Miguel 2023-09-26 08:35:20 2023-09-26 08:35:20 Outpatient SFA [facility] [id number] Herbie Kamara José Miguel 2023-09-19 10:23:31 2023-09-19 10:23:31 Outpatient [facility] [id number] Herbie Kamara Nageezi 2023-07-12 13:15:22 2023-07-12 13:15:22 Outpatient SFA [facility] [id number] Herbie Kamara Nageezi 2023-07-11 15:02:44 2023-07-11 15:02:44 Outpatient [facility] [id number] Herbie Kamara José Miguel 2020-08-01 00:00:00 2020-08-01 00:00:00 Orders Only Doctor Unassigned, [place] [facility] 1.2.840.114 350.1.13.10 4.2.7.2.686 [id number] 2020-08-01 00:00:00 2020-08-01 00:00:00 Orders Only Doctor Unassigned, [place] [facility] 1.2.840.114 350.1.13.10 4.2.7.2.686 [id number] [facility] 2020-07-22 00:00:00 2020-07-22 00:00:00 Letter (Out) Yue Cárdenas [facility] 1.2.840.114 350.1.13.10 4.2.7.2.686 [id number] 2020-07-22 00:00:00 2020-07-22 00:00:00 Letter (Out) Yue Cárdenas [facility] 1.2840.114 350.1.13.10 4.2.7.2.686 [id number] [facility] 2020-07-22 00:00:00 2020-07-22 00:00:00 Patient Secure Msg Doctor Unassigned, [place] [facility] 1.840.114 350.1.13.10 4.2.7.2.686 [id number] [facility] 2020-07-21 08:40:30 2020-07-21 09:00:30 Laboratory Only Lab, Adc Fam Pob I [facility] 1..114 350.1.13.10 4.2.7.2.686 [id number] 2020-07-21 08:40:30 2020-07-21 09:00:30 Laboratory Only Lab, Adc Fam Pob I Kathleen Sandra [facility] 1..114 350.1.13.10 4.2.7.2.686 [id number] [facility] 2020-07-21 08:20:00 2020-07-21 08:20:[address] [facility] [id number] [facility] 2020-07-20 00:00:00 2020-07-20 00:00:00 Telephone Pob1, Acute [facility] 1..114 350.1.13.10 4.2.7.2.686 [id number] 2020-07-20 00:00:00 2020-07-20 00:00:00 Telephone Pob1, Acute [facility] 1.2840.114 350.1.13.10 4.2.7.2.686 [id number] [facility] 2020 15:57:18 2020 16:20:48 Urgent Care Po, Acute Care [facility] 1.2840.114 350.1.13.10 4.2.7.2.686 [id number] 2020 15:57:18 2020 16:20:48 Urgent Care Pob1[facility] 1.0.114 350.1.13.10 4.2.7.2.686 [id number] [facility] 2020 15:40:00 2020 15:40:[address] [facility] [id number] [facility] 2020 15:20:00 2020 15:20:00 Outpatient R OLGA HERNANDEZ [facility] [id number] [facility] 2020-07-10 00:00:00 2020-07-10 00:00:00 Telephone Samara Orosco [facility] 1.840.114 350.1.13.10 4.2.7.2.686 [id number] 2020-07-10 00:00:00 2020-07-10 00:00:00 Telephone Samara Orosco [facility] 1.840.114 350.1.13.10 4.2.7.2.686 [id number] [facility] 2020-07-09 16:40:00 2020-07-09 16:40:00 Outpatient O OLGA HERNANDEZ [facility] [id number] [facility] 2020-07-09 14:25:31 2020-07-09 14:45:31 Laboratory Only Lab, Adc Fam Pob I [facility] 1.2.840.114 350.1.13.10 4.2.7.2.686 [id number] 2020-07-09 14:25:31 2020-07-09 14:45:31 Laboratory Only Lab, Adc Fam Pob I Olga Hernandez [facility] 1.2.840.114 350.1.13.10 4.2.7.2.686 [id number] [facility] 2020-07-04 00:00:00 2020-07-04 00:00:00 [facility] 1.2.840.114 350.1.13.10 4.2.7.2.686 [id number] 2020-07-04 00:00:00 2020-07-04 00:00:00 Telephone Pob1, [facility] 1.2.840.114 350.1.13.10 4.2.7.2.686 [id number] 2020-07-04 00:00:00 2020-07-04 00:00:00 [facility] 1.2.840.114 350.1.13.10 4.2.7.2.686 [id number] [facility] 2020-07-04 00:00:00 2020-07-04 00:00:00 Telephone Pob1, [facility] 1.2.840.114 350.1.13.10 4.2.7.2.686 [id number] [facility] 2020-07-03 13:54:27 2020-07-03 23:59:00 Hospital Encounter Olga Hernandez [facility] 1.2.840.114 350.1.13.10 4.2.7.2.686 [id number] 2020-07-03 13:54:27 2020-07-03 23:59:00 Hospital Encounter Olga Hernandez [facility] 1.2840.114 350.1.13.10 4.2.7.2.686 [id number] [facility] 2020-07-03 12:47:10 2020-07-03 13:58:33 Urgent Care Pob1, Acute Care Clinic [facility] 1.2840.114 350.1.13.10 4.2.7.2.686 [id number] 2020-07-03 12:47:10 2020-07-03 13:58:33 Urgent Care Po, [facility] 1.0.114 350.1.13.10 4.2.7.2.686 [id number] [facility] 2020-07-03 13:00:00 2020-07-03 13:00:00 Outpatient R OLGA HERNAN[facility]Z [facility] [id number] [facility] 2020-06-24 00:00:00 2020-06-24 00:00:00 Telephone More Gilman [facility] 1.0.114 350.1.13.10 4.2.7.2.686 [id number] [facility] 2020-06-24 00:00:00 2020-06-24 00:00:00 Letter (Out) Pcp, Patient Does Not Have A [facility] 1.0.114 350.1.13.10 4.2.7.2.686 [id number] [facility] 2020-06-24 00:00:00 2020-06-24 00:00:00 Letter (Out) Pcp, Patient Does Not Have A [facility] 1.20.114 350.1.13.10 4.2.7.2.686 [id number] [facility] 2020-06-23 14:27:14 2020-06-23 14:47:14 Laboratory Only Lab, [facility] Pob I [facility] One 1.840.114 350.1.13.10 4.2.7.2.686 [id number] [facility] 2020-06-23 14:40:00 2020-06-23 14:40:[address] [facility] [id number] [facility] 2020-06-23 00:00:00 2020-06-23 00:00:00 Letter (Out) Lab, Pcp [facility] 1.840.114 350.1.13.10 4.2.7.2.686 [id number] [facility] 2020-06-23 00:00:00 2020-06-23 00:00:00 Letter (Out) Lab, Pcp [facility] 1.2840.114 350.1.13.10 4.2.7.2.686 [id number] [facility] 2020-06-21 13:15:16 2020-06-21 13:35:16 Urgent Care Pob1, Acute Care Clinic David [facility] 1.840.114 350.1.13.10 4.2.7.2.686 [id number] [facility] 2020-06-21 13:05:01 2020-06-21 13:25:01 Laboratory Only Lab, [facility] 1.840.114 350.1.13.10 4.2.7.2.686 [id number] [facility] 2020-06-21 13:20:00 2020-06-21 13:20:[address] [facility] [id number] [facility] 2020-06-13 00:00:00 2020-06-13 00:00:00 Patient Secure Msg Doctor Unassigned, [place] [facility] ONE 1.840.114 350.1.13.10 4.2.7.2.686 [id number] [facility] 2020-06-13 00:00:00 2020-06-13 00:00:00 Telephone Manju Wall [facility] 1.840.114 350.1.13.10 4.2.7.2.686 [id number] [facility] 2020-06-11 12:42:34 2020-06-11 13:02:34 Laboratory Only Lab, Adc Fam Pob I Olga Hernandez [facility] 1.840.114 350.1.13.10 4.2.7.2.686 [id number] [facility] 2020-06-11 13:00:00 2020-06-11 13:00:00 Outpatient R OLGA HERNAN[address]Z [facility] [id number] [facility] Results Test Description Test Time Test Comments Results Result Co mments Source VITAMIN [id number] 00:00:00* Test Item Value Reference Range Interpretation Comme [facility] VITAMIN B1 (test code = 4952) TEST NOT PERFORMED Herbie Anh José MiguelCOMPREHENSIVE METABOLIC [id number] 04:36:59* Test Item Value Reference Range Interpretation Comme nts GLUCOSE (test code = 2217) 86 MG/DL 70-99 BUN (test code = 2208) 14 MG/DL 6-20 CREATININE (test code = 2214) 0.79 MG/DL 0.80-1.40 L eGFR (2020 CKD-EPI) (test code = 31093) 106 ML/MIN/1.73 >60 CALC BUN/CREAT (test code = 2234) 18 RATIO 6-28 SODIUM (test code = 2230) 139 MEQ/L 133-146 POTASSIUM (test code = 2227) 4.1 MEQ/L 3.5-5.4 CHLORIDE (test code = 2214) 101 MEQ/L 95-107 CARBON DIOXIDE (test code = 2205) 23 MEQ/L 19-31 CALCIUM (test code = 2208) 8.8 MG/DL 8.5-10.5 PROTEIN, TOTAL (test code = 2228) 7.0 G/DL 6.1-8.3 ALBUMIN (test code = 2200) 4.2 G/DL 3.5-5.2 CALC GLOBULIN (test code = 2239) 2.8 G/DL 1.9-3.7 CALC A/G RATIO (test code = 2233) 1.5 RATIO 1.0-2.6 BILIRUBIN, TOTAL (test code = 2206) 0.5 MG/DL <=1.2 ALKALINE PHOSPHATASE (test code = 2203) 66 U/L 40-121 AST (test code = 2217) 15 U/L 9-50 ALT (test code = 2218) 16 U/L 5-50 LIPID [id number] 04:36:59* Test Item Value Reference Range Interpretation Comme nts CHOLESTEROL (test code = 2209) 163 MG/DL <200 TRIGLYCERIDES (test code = 2231) 73 MG/DL <150 HDL CHOLESTEROL (test code = 2219) 56 MG/DL >39 CALC LDL CHOL (test code = 2236) 91 MG/DL <100 NOTE: CALCULATED LDL IS BASED ON JULIANNE-EWING METHOD WHICHINCLUDES ADJUSTABLE TRIGLYCERIDE:VLDL CHOLESTEROL RATIO.THIS FACTOR VARIES BY MEASURED TRIGLYCERIDE AND NON-HDLCHOLESTEROL CONCENTRATIONS WITH INCREASED CALCULATED LDL SEENIN HIGHER TRIGLYCERIDE OR LOWER NON-HDL SPECIMENS. FOR MOREINFORMATION, SEE CLIENT ANNOUNCEMENT AT [email or web address] RISK RATIO LDL/HDL (test code = 223) 1.63 RATIO <3.55 HEPATITIS PANEL, [id number] 03:45:09* Test Item Value Reference Range Interpretation Comments HEPATITIS A TOTAL AB (test code = 2722) REACTIVE NON-REACTIVE A HEPATITIS B SURF AG [...] infection. INTERPRETATION HEPATITIS B: (test code = 05119) (NOTE) Hepatitis B sero logy consistent with either resolving acutehepatitis B infection (so-called "window phase") or past exposure tohepatitis B in the remote past. To distinguish between these twopossibilities, consider testing for hepatitis B core antibody-IgM. INTERPRETATION HEPATITIS C: (test code = 55390) (NOTE) Hepatitis C sero logy shows no evidence of exposure to hepatitisC virus at this time. It can take up to 12 months after exposure tothe hepatitis C virus for antibodies to become detectable in the blood in certain patients. HIV 1/2 4TH GEN, RFLX [id number] 03:45:09* Test Item Value Reference Range Interpretation Comme nts HIV 1/2 4TH GEN, RFLX CONF ( test code = 3514) NON-REACTIVE NON-REACTIVE HEPATITIS A [id number] 03:45:09* Test Item Value Reference Range Interpretation Comme nts HEPATITIS A IgM (test code = 2728) NON-REACTIVE NON-REACTIVE UNLESS OTHERW ISE INDICATED, ALL TESTING PERFORMED AT [facility] [address] [place] [address] [employer]: VINCENT HOWELL M.D. [place] NUMBER [id number] [facility]. [id number] HEMOGLOBIN [id number] 02:49:40* Test Item Value Reference Range Interpretation Comme nts HEMOGLOBIN A1c (test code = 93103) 5.7 % 4.2-5.6 H [employer] GUIDELINES FOR HGB A1C: [...] OR LABORATORY CONSULTATION. CBC W/AUTO DIFF WITH [id number] 01:46:48* Test Item Value Reference Range Interpretation [...] = 1065) 0.0 /100 WBC'S See_Comment [[employer] ge] The system which generated this result [...] 0.00-0.10 ABS NUCLEATED RBCS (test code = 94777) 0.00 K/UL 0.00-0.11 HEPATITIS A IgM [REFLEX]2024-02-28 00:00:00* Test Item Value Reference Range Interpretation Comme nts HEPATITIS A IgM (test code = 2728) NON-REACTIVE Herbie ValdezCBC W/AUTO [id number] 00:00:00* Test Item Value Reference Range Interpretation [...] ABS NUCLEATED RBCS (test cod e = 54053) 0.00 K/UL Herbie ValdezHEMOGLOBIN [id number] 00:00:00* Test Item Value Reference Range Interpretation Comme nts HEMOGLOBIN A1c (test code = 71531) 5.7 % Herbie ValdezLIPID [id number] 00:00:00* Test Item Value Reference Range Interpretation Comme nts CHOLESTEROL (test code = 2210) 163 MG/DL TRIGLYCERIDES (test code = 2232) 73 MG/DL HDL CHOLESTEROL (test code = 2220) 56 MG/DL CALC LDL CHOL (test code = 2237) 91 MG/DL RISK RATIO LDL/HDL (test cod e = 2238) 1.63 RATIO Herbie ValdezCOMPREHENSIVE METABOLIC [id number] 00:00:00* Test Item Value Reference Range Interpretation Comme nts GLUCOSE (test code = 2217) 86 MG/DL BUN (test code = 2208) 14 MG/DL CREATININE (test code = 2214) 0.79 MG/DL eGFR (2020 CKD-EPI) (test code = 38445) 106 ML/MIN/1.73 CALC BUN/CREAT (test code = [...] HEPATITIS C ANTIBODY (test c ode = 9075) NON-REACTIVE INTERPRETATION HEPATITIS A: (test code = 2552) (NOTE) INTERPRETATION HEPATITIS B: (test code = 65110) (NOTE) INTERPRETATION HEPATITIS C: (test code = 56846) (NOTE) Herbie ValdezHIV 1/2 4TH GEN, RFLX [id number] 00:00:00* Test Item Value Reference Range Interpretation Comme nts HIV 1/2 4TH GEN, RFLX CONF ( test code = 3514) NON-REACTIVE Herbie VladezHIV 1/2 4TH GEN, RFLX [id number] 01:47:24* Test Item Value Reference Range Interpretation Comme nts HIV 1/2 4TH GEN, RFLX CONF (test code = 3514) NON-REACTIVE NON-REACTIVE UNLESS OTHERWISE INDICATED, ALL TESTING PERFORMED AT [facility] [address] [place] [id number] [employer]: VINCENT HOWELL M.D. [place] NUMBER [id number] [facility]. [id number] HIV 1/2 4TH GEN, RFLX [id number] 00:00:00* Test Item Value Reference Range Interpretation Comme nts HIV 1/2 4TH GEN, RFLX CONF ( test code = 3514) NON-REACTIVE Herbie BowdenH, THIRD [id number] 03:40:32* Test Item Value Reference Range Interpretation Comme nts TSH, THIRD GENERATION (test code = 2821) 1.770 UIU/ML 0.400-4.100 PSA, [id number] 03:40:32* Test Item Value Reference Range Interpretation Comme nts PSA, TOTAL (test code = 2606) 0.21 NG/ML See_Comment NOTE: Methodolog y is Javi Boo Electrochemiluminescence Immunoassay traceable to WHO reference standard 96/760. [Automated message] The system which generated this result transmitted reference range: <=4.00. The reference range was not used to interpret this result as normal/abnormal. COMPREHENSIVE METABOLIC [id number] 03:13:06* Test Item Value Reference Range Interpretation Comme nts GLUCOSE (test code = 2217) 93 MG/DL 70-99 BUN (test code = 2208) 12 MG/DL 6-20 CREATININE (test code = 2214) 0.70 MG/DL 0.80-1.40 L eGFR (2020 CKD-EPI) (test code = 81475) 111 ML/MIN/1.73 >60 CALC BUN/CREAT (test code = 2235) 17 RATIO 6-28 SODIUM (test code = 2231) 137 MEQ/L 133-146 POTASSIUM (test code = 2228) 4.4 MEQ/L 3.5-5.4 CHLORIDE (test code = 2215) 100 MEQ/L 95-107 CARBON DIOXIDE (test code = 2206) 22 MEQ/L 19-31 CALCIUM (test code = 220) 9.3 MG/DL 8.5-10.5 PROTEIN, TOTAL (test code = 2229) 7.3 G/DL 6.1-8.3 ALBUMIN (test code = 2201) 4.1 G/DL 3.5-5.2 CALC GLOBULIN (test code = 2240) 3.2 G/DL 1.9-3.7 CALC A/G RATIO (test code = 2234) 1.3 RATIO 1.0-2.6 BILIRUBIN, TOTAL (test code = 2207) 0.3 MG/DL See_Comment [Automated me ssage] The system which generated this result transmitted reference range: <=1.2. The reference range was not used to interpret this result as normal/abnormal. ALKALINE PHOSPHATASE (test code = 2203) 58 U/L 40-121 AST (test code = 221) 15 U/L 9-50 ALT (test code = 221) 16 U/L 5-50 LIPID [id number] 03:13:06* Test Item Value Reference Range Interpretation Comme nts CHOLESTEROL (test code = 2210) 168 MG/DL <200 TRIGLYCERIDES (test code = 2232) 83 MG/DL <150 HDL CHOLESTEROL (test code = 2220) 53 MG/DL >39 CALC LDL CHOL (test code = 2237) 98 MG/DL <100 NOTE: CALCULATED LDL IS BASED ON JULIANNE-EWING METHOD WHICHINCLUDES ADJUSTABLE TRIGLYCERIDE:VLDL CHOLESTEROL RATIO.THIS FACTOR VARIES BY MEASURED TRIGLYCERIDE AND NON-HDLCHOLESTEROL CONCENTRATIONS WITH INCREASED CALCULATED LDL SEENIN HIGHER TRIGLYCERIDE OR LOWER NON-HDL SPECIMENS. FOR MOREINFORMATION, SEE CLIENT ANNOUNCEMENT AT [email or web address] RISK RATIO LDL/HDL (test code = 2238) 1.85 RATIO <3.55 COMPREHENSIVE METABOLIC [id number] 00:00:00* Test Item Value Reference Range Interpretation Comme nts GLUCOSE (test code = 2217) 93 MG/DL BUN (test code = 2208) 12 MG/DL CREATININE (test code = 2214) 0.70 MG/DL eGFR (2020 CKD-EPI) (test code = 83627) 111 ML/MIN/1.73 CALC BUN/CREAT (test code = [...] code = 2219) 16 U/L Herbie ValdezLIPID [id number] 00:00:00* Test Item Value Reference Range Interpretation Comme nts CHOLESTEROL (test code = 2210) 168 MG/DL TRIGLYCERIDES (test code = 2232) 83 MG/DL HDL CHOLESTEROL (test code = 2220) 53 MG/DL CALC LDL CHOL (test code = 2237) 98 MG/DL RISK RATIO LDL/HDL (test cod e = 2238) 1.85 RATIO Herbie ValdezTSH, THIRD [id number] 00:00:00* Test Item Value Reference Range Interpretation Comme nts TSH, THIRD GENERATION (test code = 2821) 1.770 UIU/ML Herbie ValdezPSA, [id number] 00:00:00* Test Item Value Reference Range Interpretation Comme nts PSA, TOTAL (test code = 2606) 0.21 NG/ML Herbie ValdezHEMOGLOBIN [id number] 03:02:16* Test Item Value Reference Range Interpretation Comme nts HEMOGLOBIN A1c (test code = 76460) 6.1 % 4.2-5.6 H [employer] GUIDELINES FOR HGB A1C: [...] OR LABORATORY CONSULTATION. CBC W/AUTO DIFF WITH [id number] 02:26:30* Test Item Value Reference Range Interpretation [...] = 1065) 0.0 /100 WBC'S See_Comment [Automated [employer] ge] The system which generated this result [...] 0.00-0.10 ABS NUCLEATED RBCS (test code = 34580) 0.00 K/UL 0.00-0.11 HEMOGLOBIN [id number] 00:00:00* Test Item Value Reference Range Interpretation Comme nts HEMOGLOBIN A1c (test code = 95646) 6.1 % Herbie SharifC W/AUTO [id number] 00:00:00* Test Item Value Reference Range Interpretation [...] ABS NUCLEATED RBCS (test cod e = 99041) 0.00 K/UL Herbie Bowden, THIRD [id number] 00:41:25* Test Item Value Reference Range Interpretation Comme nts TSH, THIRD GENERATION (test code = 2821) 1.580 UIU/ML 0.400-4.100 UNLESS OTHERWISE INDICATED, [facility] [address] [place] [address] [employer]: KAYLENE LOPEZ M.D. [place] NUMBER [id number] [facility] [place]. [id number] LIPID [id number] 00:13:01* Test Item Value Reference Range Interpretation [...] SPECIMENS. FOR MOREINFORMATION, SEE CLIENT ANNOUNCEMENT AT [email or web address] RISK RATIO LDL/HDL (test code = 2238) 2.12 RATIO <3.55 COMPREHENSIVE METABOLIC [id number] 00:13:01* Test Item Value Reference Range Interpretation Comme nts GLUCOSE (test code = 2217) 92 MG/DL 70-99 BUN (test code = 2208) 14 MG/DL 6-20 CREATININE (test code = 2214) 0.80 MG/DL 0.80-1.40 eGFR (2020 CKD-EPI) (test code = 63406) 107 ML/MIN/1.73 >60 CALC BUN/CREAT (test code = 2235) 18 RATIO 6-28 SODIUM (test code = 2231) 139 MEQ/L 133-146 POTASSIUM (test code = 2228) 4.1 MEQ/L 3.5-5.4 CHLORIDE (test code = 2215) 100 MEQ/L 95-107 CARBON DIOXIDE (test code = 2206) 24 MEQ/L 19-31 CALCIUM (test code = 2209) 9.0 MG/DL 8.5-10.5 PROTEIN, TOTAL (test code = 2229) 7.7 G/DL 6.1-8.3 ALBUMIN (test code = [...] code = 2219) 34 U/L 5-50 LIPID [id number] 00:00:00* Test Item Value Reference Range Interpretation Comme nts CHOLESTEROL (test code = 2210) 177 MG/DL TRIGLYCERIDES (test code = 2232) 68 MG/DL HDL CHOLESTEROL (test code = 2220) 52 MG/DL CALC LDL CHOL (test code = 2237) 110 MG/DL RISK RATIO LDL/HDL (test cod e = 2238) 2.12 RATIO Herbie F José MiguelCOMPREHENSIVE METABOLIC [id number] 00:00:00* Test Item Value Reference Range Interpretation Comme nts GLUCOSE (test code = 2217) 92 MG/DL BUN (test code = 2208) 14 MG/DL CREATININE (test code = 2214) 0.80 MG/DL eGFR (2020 CKD-EPI) (test code = 60551) 107 ML/MIN/1.73 CALC BUN/CREAT (test code = [...] ALT (test code = 2219) 34 U/L Herbie Kamara [id number] 00:00:00* Test Item Value Reference Range Interpretation Comme nts TSH, THIRD GENERATION (test code = 2821) 1.580 UIU/ML Herbie Kamara AustinHEMOGLOBIN [id number] 04:44:59* Test Item Value Reference Range Interpretation Comme nts HEMOGLOBIN A1c (test code = 79975) 6.2 % 4.2-5.6 H CBC W/AUTO DIFF WITH [id number] 03:55:47* Test Item Value Reference Range Interpretation [...] 0.00-0.10 ABS NUCLEATED RBCS (test code = 94994) 0.00 K/UL 0.00-0.11 CBC W/AUTO [id number] 00:00:00* Test Item Value Reference Range Interpretation [...] ABS NUCLEATED RBCS (test cod e = 63243) 0.00 K/UL Herbie ValdezHEMOGLOBIN [id number] 00:00:00* Test Item Value Reference Range Interpretation Comme nts HEMOGLOBIN A1c (test code = 65352) 6.2 % Herbie ValdezSARS-CoV-2 (COVID-19) by RT-PCR (HIGH RISK)2020 00:00:00* Test Item Value Reference Range Interpretation Comme nts SARS-CoV-2 INTERPRETATION (t est code = 16582) NEGATIVE SOURCE (test code = 36195) NOT SPECIFIED Herbie ValdezXR CHEST 2 [id number] 20:22:30Mild bilateral interstitial opacities could be related to minimal pulmonaryvascular congestion versus less likely an atypical infectious process suchas Covid 19 pneumonia. Disclaimer: Generally, the findings on chest imaging in COVID-19 are notspecific, and overlap with other infections, including influenza, H1N1,SARS and MERS.According to the Centers for Disease Control (CDC) and recent statement ofthe [employer] [employer], viral testing remains the only specificmethod of diagnosis. Confirmation with the viral test is required, even ifradiologic findings are suggestive of COVID-[address]. Preliminary Report Dictated by Resident: Enrike [...] Disease Control (CDC) and recent statement ofthe [employer], viral testingremains the only specificmethod of diagnosis. Confirmation with the viral test is required, even ifradiologic findings are suggestive of COVID-[address]Preliminary Report Dictated by Resident:Cresencio Malave, Enrike Xavier MD., have reviewed this study and agree with the abovereport.[facility] Notes Date/Time Note Provider Source 2024-04-20 00:00:00 [id number]+zRr [id number]:00:00+ -----+ +| Plan Activity | Plan Date [...] 7.5mg once weekly for 4 | || [id number] weekly then 12.5 mg weekly then 15mg [...] 3 months or PRN | |+ + +[id number] of TreatmentLNCARE PLANTXTSFA|[id number]. [id number] gonzalez for patient [id number] Section NarrativeNARRATIVEFormatted C-CDA narrative textSFAStlino AnhMeghan [facility]2024-05-21T00:00:00 Herbie Vivas [facility]
[2024-06-08] MEDS ORDERED: FENTANYL CITR 100 MCG/2 ML ONE (23:15)
[2024-06-08] MEDS ORDERED: NA CHLORIDE 0.9% 1,000 ML ONE (23:16)
[2024-06-08] MEDS ORDERED: METHOCARBAMOL 1,000 MG/10 ML VIAL ONE (23:17)
[2024-06-08] MEDS ORDERED: NA CHLORIDE 0.9% 100 ML ONE (23:17)
[2024-06-08 23:54] LABS: Absolute Eosinophils 0.2 K/uL (0-0.5); Absolute Lymphocytes (CBC) 1.5 K/uL (0.7-4.9); Absolute Monocytes 1.1 K/uL (0.1-1.3); Absolute Neutrophil 9.7 K/uL (1.8-8.0); Basophils % 0.4 % (0-1.3); Eosinophils % 1.4 % (0-4.4); Hematocrit 39.5 % (39.6-49.0); Lymphocytes % 12.2 % (15.3-44.8); MCH 31.1 pg (27.0-35.0); MCV 94.2 fL (80-100); Monocytes % 8.8 % (3.3-12.3); Neutrophils % 77.2 % (41.7-73.7); Nucleated Red Blood Cells % 0.1 % (0-0); Platelets 204 thou/uL (152-406); RBC Red Blood Cell Count 4.19 M/uL (4.33-5.43); Red Cell Distribution Width 14.7 % (12.1-15.2)
[2024-06-09 00:07] LABS: ALT/SGPT 22 U/L (16-61); Albumin 3.5 g/dL (3.4-5.0); Albumin/Globulin Ratio 0.9 (1.1-1.8); Alkaline Phosphatase 61 U/L (45-117); Anion Gap 7.8 mEq/L (5.0-15.0); BUN Blood Urea Nitrogen 23 mg/dL (7-18); Bicarbonate 26 mEq/L (21-32); Bilirubin Total 0.4 mg/dL (0.2-1.0); Creatine Phosphokinase 124 U/L (39-308); Glomerular Filtration Rate 97 ml/min (=/>90); Glucose Level 110 mg/dL (74-106); Magnesium 2.3 mg/dL (1.6-2.4); Potassium 3.8 mEq/L (3.5-5.1); Protein, Total 7.5 g/dL (6.4-8.2); Sodium Level 137 mEq/L (136-145); Troponin High Sensitivity 5.7 pg/mL (<58.9)
[2024-06-09 00:15] LABS: AST/SGOT < 10 U/L (15-37); Bilirubin Direct < 0.2 mg/dL (0-0.2); Bilirubin Indirect, Calculated 0.2 mg/dL (0.2-0.8)
[2024-06-09] MEDS ORDERED: KETOROLAC 30 MG/ML INJ ONE (01:53)
[2024-06-09] MEDS ORDERED: dexAMETHasone 10 MG/ML VIAL ONE (01:53)
--- NOTE | 2024-06-09 03:57 | RAD REPORT ---
EXAM DESCRIPTION: CT - Head Brain Wo Cont - 06/09/2024 1:12 am CLINICAL HISTORY: HEADACHE COMPARISON: Head angio dated 06/09/2024; Spine Lumbar Wo Con dated 09/08/2023 TECHNIQUE: All CT scans are performed using dose optimization technique as appropriate and may inclu de automated exposure control or mA/KV adjustment according to patient size. FINDINGS: No intracranial hemorrhage, hydrocephalus or extra-axial fluid collection.No areas of brai n edema or evidence of midline shift. The paranasal sinuses and mastoids are clear. The calvarium is intact. IMPRESSION: No acute intracranial abnormality.
--- NOTE | 2024-06-09 03:59 | RAD REPORT ---
EXAM DESCRIPTION: CT - Neck Angio - 06/09/2024 1:12 am CLINICAL HISTORY: HEADACHE COMPARISON: No comparisons TECHNIQUE: CT angiography of the neck vessels was performed with maximum intensity reformatted image s. CAROTID STENOSIS REFERENCE USING NASCET CRITERIA: Mild - <50% stenosis. Moderate - 50-69% stenosis. Severe - 70-94% stenosis. Near occlusion - 95-99% stenosis. Occluded - 100% stenosis. All CT scans are performed using dose optimization technique as appropriate and may include automated exposure control or mA/KV adjustment according to patient size. FINDINGS: A left aortic arch is identified with normal three vessel configuration of the great vesse ls. No significant flow abnormality is seen of the common carotid bilaterally. No significant stenosis is identified involving the cervical segments of both internal carotid arteri es. Normal flow is seen within both vertebral arteries. Near complete opacification right maxillary sinus. IMPRESSION: No significant flow abnormality of the neck vessels is identified.
--- NOTE | 2024-06-09 04:00 | RAD REPORT ---
EXAM DESCRIPTION: CT - Head angio - 06/09/2024 1:12 am CLINICAL HISTORY: HEADACHE COMPARISON: No comparisons TECHNIQUE: CT angiography of the head was performed with maximum intensity reformatted images. 3D ma ximum intensity pixel (MIP) reconstructions were created All CT scans are performed using dose optimization technique as appropriate and may include automated exposure control or mA/KV adjustment according to patient size. FINDINGS: Anterior circulation: No aneurysm or large vessel occlusion. No hemodynamically significant stenosis. No arteriovenous malf ormation identified. Posterior circulation: No aneurysm or large vessel occlusion. No hemodynamically significant stenosis. No arteriovenous malf ormation identified. IMPRESSION: No significant flow abnormality is detected.
--- NOTE | 2024-06-09 04:18 | ER ---
Nurse's Notes [facility] Name: Juwan Turner Jr Age: 53 yrs Sex: Male : 1970 Arrival Date: 06/08/2024 Time: 22:15 Bed 25 Private MD: Diagnosis: Torticollis Presentation: 06/08 23:40 Chief complaint: Patient states: PINCHED NERVE IN LEFT SIDE OF NECK. Coronavirus vc1 screen: At this time, the client does not indicate any symptoms associated with coronavirus-19. Ebola Screen: Patient negative for fever greater than or equal to 101.5 degrees Fahrenheit, and additional compatible Ebola Virus Disease symptoms Patient denies exposure to infectious person. Patient denies travel to an Ebola-affected area in the 21 days before illness onset. No symptoms or risks identified at this time. Initial Sepsis Screen: Does the patient meet any 2 criteria? No. Patient's initial sepsis screen is negative. Does the patient have a suspected source of infection? No. Patient's initial sepsis screen is negative. Risk Assessment: Do you want to hurt yourself or someone else? Patient reports no desire to harm self or others. Onset of symptoms was June 08, 2024. 23:40 Method Of Arrival: Ambulatory vc1 23:40 Acuity: ZAHIDA 4 vc1 Triage Assessment: 23:42 General: Appears in no apparent distress. uncomfortable, Behavior is calm, cooperative, vc1 appropriate for age. Pain: Complains of pain in left lateral aspect of neck. Pain: Pain currently is 10 out of 10 on a pain scale. Quality of pain is described as radiating, sharp. EENT: No deficits noted. No signs and/or symptoms were reported regarding the EENT system. Neuro: Level of Consciousness is awake, alert, obeys commands, Oriented to person, place, time, situation, Appropriate for age. Cardiovascular: Capillary refill < 3 seconds Patient's skin is warm and dry. Respiratory: Airway is patent Respiratory effort is even, unlabored, Respiratory pattern is regular, symmetrical, Breath sounds are clear bilaterally. GI: Abdomen is round non-distended, Bowel sounds present X 4 quads. : No deficits noted. No signs and/or symptoms were reported regarding the genitourinary system. Derm: Skin is intact, is healthy with good turgor, Skin is dry, Skin is normal, Skin temperature is warm. Musculoskeletal: No deficits noted. No signs and/or symptoms reported regarding the musculoskeletal system. Historical: - Allergies: 23:41 No Known Allergies; vc1 - PMHx: 23:41 Hypertensive disorder; Pulmonary Embolism; vc1 - PSHx: 23:41 None; vc1 - Immunization history:: Client reports having NOT received the Covid vaccine. Flu vaccine is not up to date. - Infectious Disease History:: Denies. - Social history:: Smoking status: Patient denies any tobacco usage or history of. Screenin:30 [facility] ED Fall Risk Assessment (Adult) History of falling in the last 3 months, fu including since admission No falls in past 3 months (0 pts). Abuse screen: Denies threats or abuse. Nutritional screening: No deficits noted. Tuberculosis screening: No symptoms or risk factors identified. 23:44 [facility] ED Fall Risk Assessment (Adult) Confusion or Disorientation No (0 pts) vc1 Intoxicated or Sedated No (0 pts) Impaired Gait No (0 pts) Mobility Assist Device Used No (0 pt) Altered Elimination No (0 pt) Score/Fall Risk Level 0 - 2 = Low Risk Oriented to surroundings, Maintained a safe environment, Educated pt \T\ family on fall prevention, incl call for assistance when getting out of bed. Assessment: 23:20 General: Appears uncomfortable. Pain: Complains of pain in left side of the neck Pain fu currently is 10 out of 10 on a pain scale. Quality of pain is described as throbbing, Pain began 2-3 days ago. Is intermittent, Aggravated by repositioning, Noted to be grimacing. Neuro: Level of Consciousness is awake, alert, obeys commands, Oriented to person, place, time, situation, Terminal Gauger are equal bilaterally Moves all extremities. Gait is steady, Speech is normal, Facial symmetry appears normal, Intact. Cardiovascular: Denies chest pain. Respiratory: Respiratory effort is even, unlabored, Respiratory pattern is regular. Derm: Skin is intact. 06/09 00:00 Reassessment: Patient and/or family updated on plan of care and expected duration. Pain fu level reassessed. Patient is alert, oriented x 3, equal unlabored respirations, skin warm/dry/pink. 01:00 Reassessment: Patient and/or family updated on plan of care and expected duration. Pain fu level reassessed. Patient is alert, oriented x 3, equal unlabored respirations, skin warm/dry/pink. 02:00 Reassessment: Patient is alert, oriented x 3, equal unlabored respirations, skin fu warm/dry/pink. patient sitting on the chair. 03:00 Reassessment: Patient asleep in bed, SOB not noted. fu 04:21 Reassessment: Patient and/or family updated on plan of care and expected duration. Pain fu level reassessed. Patient is alert, oriented x 3, equal unlabored respirations, skin warm/dry/pink. Vital Signs: 06/08 23:40 Weight 154.22 kg; Height 5 ft. 6 in. ; vc1 06/09 00:00 BP 130 / 67; Pulse 74; Resp 14; Pulse Ox 98% ; Pain 10/10; fu 01:00 BP 147 / 74; Pulse 67; Resp 14; Pulse Ox 78% ; Pain 7/10; fu 02:00 BP 144 / 73; Pulse 65; Resp 14; Pulse Ox 97% ; Pain 7/10; fu 02:02 Pain 7/10; fu 03:02 Pain 2/10; fu 03:03 Pain 4/10; fu 03:51 BP 125 / 70; Pulse 66; Resp 22; Pulse Ox 94% ; Pain 2/10; fu 06/08 23:40 Body Mass Index 54.88 (154.22 kg, 167.64 cm) vc1 06/09 00:00 Pain Scale: Adult fu 01:00 Pain Scale: Adult fu 02:00 Pain Scale: Adult fu 02:02 Pain Scale: Adult fu 03:02 Pain Scale: Adult fu 03:03 Pain Scale: Adult fu 03:51 Pain Scale: Adult fu ED Course: 06/08 22:20 Patient arrived in ED. kmf 22:36 Ronak Barakat PA is PHCP. cp 22:36 Misti Suggs MD is Attending Physician. cp 23:00 Jonathan Hightower, LIZZIE is Primary Nurse. fu 23:21 Basic Metabolic Panel Sent. vk 23:27 CBC with Diff Sent. fu 23:27 LFT's Sent. fu 23:27 Magnesium Sent. fu 23:27 Troponin HS Sent. fu 23:27 CK Sent. fu 23:30 Patient has correct armband on for positive identification. Bed in low position. Call fu light in reach. Side rails up X 1. satellite project site monitor on. Pulse ox on. NIBP on. 23:31 Inserted saline lock: 20 gauge in left wrist, using aseptic technique. Blood collected. fu 23:41 Triage completed. vc1 06/09 01:13 CT Head Brain wo Cont In Process Unspecified. EDMS 01:13 CT Neck Angio In Process Unspecified. EDMS 01:14 Head angio In Process Unspecified. EDMS 03:51 No provider procedures requiring assistance completed. fu 04:22 IV discontinued, bleeding controlled, Pressure dressing applied. fu Administered Medications: 06/08 23:27 Drug: fentaNYL (PF) IVP 25 mcg IVP once Route: IVP; Site: right hand; eb1 06/09 02:02 Follow up: Pain 7/10 Adult; Response: No adverse reaction fu 06/08 23:28 Drug: NS 0.9% IV 1000 ml IV at 999 ml/hr Per protocol Route: IV; Rate: 999 ml/hr; Site: eb1 right hand; 23:28 Drug: Methocarbamol IVPB 1 grams IVPB once over 1 hrs; (mix in NS 100 mL) Route: IVPB; eb1 Infused Over: 1 hrs; Site: right hand; 06/09 02:01 Drug: Dexamethasone IVP 10 mg IVP once; (not to exceed 40 mg) Route: IVP; Site: left fu wrist; 03:02 Follow up: Response: No adverse reaction fu 03:04 Follow up: Response: No adverse reaction fu 02:02 Drug: Ketorolac IVP 30 mg IVP once Route: IVP; Site: left wrist; fu 03:02 Follow up: Pain 2/10 Adult; Response: Pain is decreased fu 03:03 Follow up: Pain 4/10 Adult fu Medication: 03:00 VIS not applicable for this client. fu Outcome: 04:17 Discharge ordered by MD. lima 04:28 Discharged to home ambulatory, fu 04:28 Condition: good 04:28 Discharge instructions given to patient, Instructed on discharge instructions, follow up and referral plans. Demonstrated understanding of instructions, follow-up care, medications, Prescriptions given X 1, 04:36 Patient left the ED. fu Signatures: Dispatcher [employer] EDMS Ronak Barakat PA PA cp Umadhay, Felix, RN RN Sondra Vega RN RN eb1 Misti Suggs MD MD sp3 Lauren Brewster, LIZZIE RN vc1 Lora Mcnairf Edilia Dang
--- NOTE | 2024-06-09 04:18 | EDPHYS ---
Physician Documentation [facility] Name: Juwan Turner Jr Age: 53 yrs Sex: Male : 1970 Arrival Date: 06/08/2024 Time: 22:15 Bed 25 Private MD: ED Physician Misti Suggs HPI: 06/08 23:15 This 53 yrs old Male presents to ER via Ambulatory with complaints of Neck cp Pain, >24Hrs Old. 23:15 The patient or guardian complains of pain, that is acute. The symptoms are located left cp posterior lateral. Onset: The symptoms/episode began/occurred suddenly, 3 day(s) ago. Context: The neck injury/problem resulted from from unknown cause. Associated signs and symptoms: Pertinent positives: headache, radiating pain to back, Pertinent negatives: numbness, vomiting, weakness. Modifying factors: the symptoms are aggravated by turning head. Historical: - Allergies: 23:41 No Known Allergies; vc1 - PMHx: 23:41 Hypertensive disorder; Pulmonary Embolism; vc1 - PSHx: 23:41 None; vc1 - Immunization history:: Client reports having NOT received the Covid vaccine. Flu vaccine is not up to date. - Infectious Disease History:: Denies. - Social history:: Smoking status: Patient denies any tobacco usage or history of. ROS: 23:20 Neck: Positive for pain with movement, pain at rest, stiffness, tenderness, Negative cp for injury or acute deformity, 23:20 Constitutional: HX per HPI cp 23:20 Constitutional: Negative for body aches, chills, fever, 23:20 ENT: Negative for drainage from ear(s), ear pain, sore throat, difficulty swallowing, difficulty handling secretions, 23:20 Cardiovascular: Negative for chest pain, palpitations, 23:20 Respiratory: Negative for cough, shortness of breath, wheezing, 23:20 Abdomen/GI: Negative for abdominal pain, nausea, vomiting, and diarrhea, 23:20 Neuro: Positive for headache, Negative for altered mental status, numbness, tingling, weakness, 23:20 All other systems are negative, Exam: 23:25 Constitutional: The patient appears in no acute distress, alert, awake, cp non-diaphoretic, non-toxic, well developed, well nourished, obese, uncomfortable, 23:25 Head/Face: Normocephalic, atraumatic. cp 23:25 Eyes: Periorbital structures: appear normal, Conjunctiva: normal, no exudate, no injection, Sclera: no appreciated abnormality, Lids and lashes: appear normal, bilaterally, 23:25 ENT: External ear(s): are unremarkable, Nose: is normal, Mouth: Lips: moist, Oral mucosa: pink and intact, moist, Posterior pharynx: Airway: no evidence of obstruction, patent, 23:25 Neck: External neck: tenderness, that is severe, left posterior lateral neck, C-spine: vertebral tenderness, is not appreciated, crepitus, is not appreciated, ROM/movement: limited range of motion, in any direction, Meningeal signs: are not present, 23:25 Chest/axilla: Inspection: normal, Palpation: is normal, no crepitus, no tenderness, 23:25 Cardiovascular: Rate: normal, Rhythm: regular, 23:25 Respiratory: the patient does not display signs of respiratory distress, Respirations: normal, no use of accessory muscles, no retractions, labored breathing, is not present, Breath sounds: are clear throughout, no decreased breath sounds, no stridor, no wheezing, 23:25 Neuro: Orientation: to person, place \T\ time. Mentation: is normal, Motor: moves all fours, strength is normal, Sensation: no obvious gross deficits, Gait: is steady, at a normal pace, without difficulty, 23:27 ECG was reviewed by the Attending Physician. cp Vital Signs: 23:40 Weight 154.22 kg; Height 5 ft. 6 in. ; vc1 06/09 00:00 BP 130 / 67; Pulse 74; Resp 14; Pulse Ox 98% ; Pain 10/10; fu 01:00 BP 147 / 74; Pulse 67; Resp 14; Pulse Ox 78% ; Pain 7/10; fu 02:00 BP 144 / 73; Pulse 65; Resp 14; Pulse Ox 97% ; Pain 7/10; fu 02:02 Pain 7/10; fu 03:02 Pain 2/10; fu 03:03 Pain 4/10; fu 03:51 BP 125 / 70; Pulse 66; Resp 22; Pulse Ox 94% ; Pain 2/10; fu / 23:40 Body Mass Index 54.88 (154.22 kg, 167.64 cm) vc1 06/09 00:00 Pain Scale: Adult fu 01:00 Pain Scale: Adult fu 02:00 Pain Scale: Adult fu 02:02 Pain Scale: Adult fu 03:02 Pain Scale: Adult fu 03:03 Pain Scale: Adult fu 03:51 Pain Scale: Adult fu MDM: 06/08 23:00 Patient medically screened. cp 06/09 04:16 ED course: CT scan angiograms all negative. Laboratory values demonstrate no sp3 significant findings. We will safely discharge patient home at this time. Patient was seen by Ronak Peters midlevel provider. I saw patient yesterday as well. Further per patient's follow-up doctor and orthopedics.. 06/08 23:11 Order name: Basic Metabolic Panel; Complete Time: :28 cp 06/09 01:49 Interpretation: Normal except: GLUC 110; BUN 23. cp 06/08 23:11 Order name: CBC with Diff; Complete Time: cp 06/09 01:49 Interpretation: Normal except: WBC 12.60; RBC 4.19; HGB 13.0; HCT 39.5; GENESIS% 77.2; LYM% cp 12.2; NEUT A 9.7. 06/08 23:11 Order name: LFT's; Complete Time: cp 06/09 01:49 Interpretation: Normal except: AST < 10; GLOB 4.0; A/G 0.9. cp 06/08 23:11 Order name: Magnesium; Complete Time: :28 cp 06/08 23:11 Order name: Troponin HS; Complete Time: :28 cp 06/08 23:11 Order name: CK; Complete Time: :28 cp 06/08 23:11 Order name: CT Head Brain wo Cont; Complete Time: 04:15 cp 06/08 23:11 Order name: CT Neck Angio; Complete Time: 04:15 cp 06/09 00:22 Order name: Head angio; Complete Time: 04:15 EDMS 06/08 23:11 Order name: EKG; Complete Time: 23:12 cp 06/08 23:11 Order name: Cardiac monitoring; Complete Time: 23:21 cp 06/08 23:11 Order name: EKG - Nurse/Tech; Complete Time: 23:21 cp 06/08 23:11 Order name: IV Saline Lock; Complete Time: 23:21 cp 06/08 23:11 Order name: Labs collected and sent; Complete Time: 23:21 cp 06/08 23:11 Order name: O2 Per Protocol; Complete Time: 23:21 cp 06/08 23:11 Order name: O2 Sat Monitoring; Complete Time: 23:21 cp EC/09 23:27 Rate is 78 beats/min. Rhythm is regular. AL interval is normal. QRS interval is cp prolonged at 138 msec. QT interval is normal. T waves are Inverted in leads aVR, V2. Interpreted by me. Reviewed by me. Administered Medications: 23:27 Drug: fentaNYL (PF) IVP 25 mcg IVP once Route: IVP; Site: right hand; eb1 06/09 02:02 Follow up: Pain 7/10 Adult; Response: No adverse reaction fu 06/08 23:28 Drug: NS 0.9% IV 1000 ml IV at 999 ml/hr Per protocol Route: IV; Rate: 999 ml/hr; Site: eb1 right hand; 23:28 Drug: Methocarbamol IVPB 1 grams IVPB once over 1 hrs; (mix in NS 100 mL) Route: IVPB; eb1 Infused Over: 1 hrs; Site: right hand; 06/09 02:01 Drug: Dexamethasone IVP 10 mg IVP once; (not to exceed 40 mg) Route: IVP; Site: left fu wrist; 03:02 Follow up: Response: No adverse reaction fu 03:04 Follow up: Response: No adverse reaction fu 02:02 Drug: Ketorolac IVP 30 mg IVP once Route: IVP; Site: left wrist; fu 03:02 Follow up: Pain 2/10 Adult; Response: Pain is decreased fu 03:03 Follow up: Pain 4/10 Adult fu Disposition: 04:16 Co-signature as Attending Physician, Ronak TERRY I agree with the assessment and plan sp3 of care. I reviewed the patient's care provided by Advanced Practice Provider \T\ agree w/ the diagnosis \T\ care plan. I personally saw the pt \T\ performed a substantive portion of the visit, incldng all aspects of the (History/Exam/Medical Decision Making). Disposition Summary: 06/09/24 04:17 Discharge Ordered Notes: Location: Home sp3 Condition: Stable sp3 Diagnosis - Torticollis sp3 Followup: sp3 - With: Private Physician - When: Upon discharge from the Emergency Department - Reason: Continuance of care Discharge Instructions: - Discharge Summary Sheet sp3 - Acute Torticollis, Adult sp3 Forms: - Medication Reconciliation Form sp3 - Antibiotic Education sp3 - Prescription Opioid Use sp3 - Patient Portal Instructions sp3 - Leadership Thank You Letter sp3 Prescriptions: - Tramadol 50 mg Oral Tablet - take 1 tablet ORAL route every 8 hours as needed; 12 tablet; Refills: 0, sp3 Product Selection Permitted Signatures: Dispatcher [employer] EDMS Ronak Barakat PA PA cp Umadhay, Felix, RN RN Sondra Daniel RN RN eb1 Misti Suggs MD MD sp3 Lauren Brewster RN RN vc1 Corrections: (The following items were deleted from the chart) 06/08 23:12 23:12 BASIC METABOLIC PANEL+C.LAB.BRZ ordered. EDMS EDMS 23:12 23:12 CBC+H.LAB.BRZ ordered. EDMS EDMS 23:12 23:12 HEPATIC FUNCTION+C.LAB.BRZ ordered. EDMS EDMS 23:12 23:12 MAGNESIUM+C.LAB.BRZ ordered. EDMS EDMS 23:12 23:12 Troponin High Sensitivity+C.LAB.BRZ ordered. EDMS EDMS 23:12 23:12 CREATINE PHOSPHOKINASE+C.LAB.BRZ ordered. EDMS EDMS 23:12 23:12 Head Brain Wo Cont+CT.RAD.BRZ ordered. EDMS EDMS 23:12 23:12 Neck Angio+CT.RAD.BRZ ordered. EDMS EDMS 06/09 00:22 06/08 23:18 Head angio ordered. EDMS EDMS 06/09 02:37 06/08 22:50 Neck: Positive for pain with movement, pain at rest, stiffness, cp cp
[2024-06-09 06:17] VITALS: BP 125/70; O2SAT 94
--- NOTE | 2024-06-09 12:10 | EKG ---
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: JACI MEASUREMENT RESULTS: Intervals: Rate: 78 WA: 164 QRSD: 138 QT: 408 QTc: 465 [place]: P: 20 WA: 164 QRS: -60 T: 52 INTERPRETIVE STATEMENTS: Normal sinus rhythm Right bundle branch block Left anterior fascicular block Bifascicular block Voltage criteria for left ventricular hypertrophy Septal infarct, age undetermined Abnormal ECG Compared to ECG 07/29/2023 22:36:02 Right bundle-branch block now present Left anterior fascicular block now present Bifascicular block now present Left-axis deviation no longer present Myocardial infarct finding still present Electronically Signed On 06-09-24 12:09:14 CDT by Chavez Bean
== END 2024-06-09 04:36 | disposition home or self-care (01) ==
LOC: ER 22:15
DX: M43.6 Torticollis (principal)
CPT/HCPCS: 93005; 85025; 80048; 36415; 83735; 82550; 80076; 84484; 70450; 70496; 70498; 99285; Q9967; J3010; J1100; J2800; J7030

== ENCOUNTER 2025-03-10 19:14 | Emergency (ER) | payer BC ==
--- OUTSIDE RECORDS SUMMARY | 2025-03-10 19:19 | XMS REPORT | Continuity of Care Document ---
Author Name Unknown Address [address] [facility] [address] [place] [address] [facility] [place] Address [address] [facility]. 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 Role Phone Cuong Guan Primary Care Physician [place] I Attending Clinician Unavailable Malik Schaefer Attending Clinician Unavailable Doctor Unassigned, [place] Attending Clinician U fatmata Cárdenas RN, Yue Vargas Attending Clinician Unavailab le Lab, Adc Fam Pob I Attending Clinician Unavailab kourtney Ebrahim TRAUMA THERAPISTSandra Attending Clinician [phone] Pob1, Acute Care Clinic Attending Clinician Unav ailable David CÁRDENASPOgla Attending Clinician [phone] OLGA HERNANDEZ Attending Clinician Unavailable Human Samara ALVARADO Attending Clinician [phone] Brenda SAMUEL, Elizabeth Attending Clinician Unavailable More Syed Attending Clinician [phone] Pcp, Patient Does Not Have A Attending Clinician Lab, Pcp Covid Attending Clinician Unavailable Manju Quezada Attending Clinician [phone] [place] I Admitting Clinician Unavailable Malik Schaefer Admitting Clinician Unavailable Payers Payer Name Policy Type Policy Number Effective Date Expirati on Date Source [facility] [id number] 2020 00:00:00 Problems Condition Name Condition Details Condition Category Status Onset Date Resolution Date Last Treatment Date Treating Clinician Comments Source No known active problems No known active problems Disease [facility] Allergies, Adverse Reactions, Alerts Allergy Name Allergy Type Status Severity Reaction(s) Onset Date Inactive Date Treating Clinician Comments Source No Known Allergie s DA Active U 12-25 00:00: 00 [facility] are [place] NO KNOWN ALLERGIE S Drug Class Active [facility] Social History Social Habit Start Date Stop Date Quantity Comments Source Sexual orientation U [facility] Exposure to SARS-CoV-2 (event) 2020-06-19 00:00:00 2020 16:03:00 Yes [facility] History of Social function 2020 00:00:00 2020 00:00:00 [facility] Tobacco use and exposure 2020-06-21 00:00:00 2020-06-21 00:00:00 Smokeless tobacco non-user [facility] Sex Assigned At 1970 00:00:00 1970 00:00:00 [facility] Smoking Status Start Date Stop Date Source Tobacco smoking consumption unknown [facility] Never smoked tobacco [facility] Medications Ordered Medication Name Filled Medication Name Start Date Stop Date Current Medication? Ordering Clinician Indication Dosage Frequency Signature (SIG) Comments Components Source cetirizine 10 mg tablet 2023-12 0 00:00: 00 Yes 1mg Herbiehe Valdez prednisone 5 mg tablet 2023-12 0-30 00:00: 00 Yes 1mg Herbie Anh Valdez fluticasone propionate 50 mcg/actuati on nasal spray,suspe nsion 2023-12 0 00:00: 00 Yes 2mcg/ac tuation Herbie Valdez lisinopril 10 mg tablet - 00:00: 00 Yes 1mg Herbie Anh Valdez meloxicam 15 mg tablet 202404-20 00:00: 00 Yes 1mg Herbie Valdez cyclobenzap rine 10 mg tablet 04-20 00:00: 00 Yes 1mg Herbie Valdez lisinopril 10 mg tablet 03-12 00:00: 00 Yes 1mg Herbie Valdez ONDANSETRON ODT 4 MG 12-23 00:00: 00 Yes Herbie Valdez TAKE 1 TABLET BY MOUTH TWICE DAILY 2022-12 00:00: 00 Yes Herbie Vadlez AMOXICILLIN 500 MG CAPSULE 2022-12 00:00: 00 Yes [address] 40 MG CAPSULE 2022-12 00:00: 00 Yes 40 Herbie Valdez AMOXICILLIN [...] 2022-12 00:00: 00 03-15 00:00 :00 No [id number] Herbie Valdez TAKE 1 TABLET EVERY 12 HOURS DAILY. 2022-12 00:00: 00 Yes [id number] Herbie Valdez TAKE 2 TABLETS ON DAY 1 THEN TAKE 1 TABLET A DAY FOR 4 DAYS. 2022-12 00:00: 00 03-15 00:00 :00 No 250 Herbie Valdez TAKE 10 ML BY MOUTH EVERY 4 TO 6 HOURS NEEDED FOR COUGH. 2022-12 00:00: 00 03-15 00:00 :00 No [id number] Herbie Valdez BROMPHEN-PS E-DM 2-30-10 MG/5ML 2022-12 00:00: 03-15 00:00 :00 No Herbie Valdez ACETAMINOPH EN-COD #3 2022-12 0- 00:00: 00 Yes Herbie Valdez CYCLOBENZAP RINE 5 MG 2022-12 0 00:00: 00 Yes Herbie Valdez DEXAMETHASO NE 2 MG 2022-12 0 00:00: 00 Yes Herbie Valdez DICLOFENAC SOD DR 75 MG 2022-12 0 00:00: 00 Yes Herbie Valdez TAKE 1 TABLET DAILY. 9- 00:00: 00 03-15 00:00 :00 No 10 Herbie Valdez TAKE 1 TABLET DAILY. 8- 00:00: 00 03-15 00:00 :00 No 10 Herbie Valdez &lt - 00:00: 00 Yes Herbie Valdez &lt 05-27 00:00: 00 Yes Herbie Valdez TAKE 1 TABLET 3 TIMES DAILY WITH FOOD NEEDED. 05-27 00:00: 00 Yes 800 Herbie Valdez TAKE 1 TABLET TWICE DAILY NEEDED. 05-27 00:00: 00 Yes 10 Herbie Valdez benzonatate (TESSALON PERLES) 100 mg capsule 07-19 00:00: 00 07-30 04:59 :00 No [id number] 100mg Take 1 capsule by mouth 3 (three) times daily as needed for Cough for up to 10 days. [facility] Tessalon Perles 100 mg capsule 07-04 00:00: 00 Yes 12mg Herbie Valdez albuterol (VENTOLIN HFA) 90 mcg/actuati on inhaler 07-03 00:00: 00 08-03 04:59 :00 No [id number] 2{puff} Inhale 2 Puffs every 6 (six) hours as needed for Shortness of Breath or Chest tightness for up to 30 days. [facility] benzonatate (TESSALON PERLES) 100 mg capsule 07-03 00:00: 00 07-18 04:59 :00 No [id number] 100mg Take 1 capsule by mouth 3 (three) times daily for 14 days. [facility] bromphenira mine-pseudo ephedrine-D M (BROMFED DM) 2-30-10 mg/5 mL syrup 07-03 00:00: 00 07-14 04:59 :00 No [id number] 5mL Take 5 mL by mouth 4 (four) times daily as needed for Cough for up to 10 days. [facility] methylPREDN ISolone 4 mg tablets 07-03 00:00: 00 07-10 04:59 :00 No [id number] Take by mouth SEE-INSTRU CTIONS for 6 days. follow package directions [facility] azithromyci n (ZITHROMAX Z-YOLI) 250 mg tablet 07-03 00:00: 00 07-09 04:59 :00 No [id number] 250mg Take 1 tablet by mouth daily for 5 days. Take 500 mg day 1, then 250 mg days 2 to 5. [facility] losartan 100 mg tablet 05-05 00:00: 00 Yes 100mg Take 100 mg by mouth every morning. [facility] No known medications No Un tasneem [facility] No known medications No Un tasneem [facility] No known medications No Un [facility] Immunizations Ordered Immunization Name Filled Immunization Name Date Status Comments Source Tdap Tdap 2024-02-27 00:00:00 Liana Valdez SHINGRIX VACCINE SHINGRIX VACCINE 2024-02-27 00:00:00 Liana Valdez Vital Signs Vital Name Observation Time Observation Value Comments S franklin Systolic blood pressure 2020 21:07:00 169 mm[Hg] [facility] Diastolic blood pressure 2020 21:07:00 81 mm[Hg] [facility] Heart rate 2020 21:05:00 91 /min [facility] Body temperature 2020 21:05:00 37.17 Melly [facility] Respiratory rate 2020 21:05:00 22 /min [facility] Body height 2020 21:05:00 170.2 cm [facility] Body weight 2020 21:05:00 165.563 kg [facility] BMI 2020 21:05:00 57.17 kg/m2 [facility] Oxygen saturation in Arterial blood by Pulse oximetry 2020 21:05:00 95 /min [facility] Systolic blood pressure 2020 21:07:00 169 mm[Hg] [facility] Diastolic blood pressure 2020 21:07:00 81 mm[Hg] [facility] Heart rate 2020 21:05:00 91 /min Unive [facility] Body temperature 2020 21:05:00 37.17 Melly [facility] Respiratory rate 2020 21:05:00 22 /min [facility] Body height 2020 21:05:00 170.2 cm [facility] Body weight 2020 21:05:00 165.563 kg [facility] BMI 2020 21:05:00 57.17 kg/m2 [facility] Oxygen saturation in Arterial blood by Pulse oximetry 2020 21:05:00 95 /min [facility] Systolic blood pressure 2020-07-03 17:58:00 127 mm[Hg] [facility] Diastolic blood pressure 2020-07-03 17:58:00 78 mm[Hg] [facility] Heart rate 2020-07-03 17:58:00 80 /min [facility] 2020-07-03 17:58:00 37.61 Melly [facility] Respiratory rate 2020-07-03 17:58:00 18 /min [facility] Body height 2020-07-03 17:58:00 177.8 cm [facility] Body weight 2020-07-03 17:58:00 165.563 kg [facility] BMI 2020-07-03 17:58:00 52.37 kg/m2 [facility] Oxygen saturation in Arterial blood by Pulse oximetry 2020-07-03 17:58:00 97 /min [facility] Systolic blood pressure 2020-07-03 17:58:00 127 mm[Hg] [facility] Diastolic blood pressure 2020-07-03 17:58:00 78 mm[Hg] [facility] Heart rate 2020-07-03 17:58:00 80 /min Unive [facility] Body temperature 2020-07-03 17:58:00 37.61 Melly [facility] Respiratory rate 2020-07-03 17:58:00 18 /min [facility] Body height 2020-07-03 17:58:00 177.8 cm [facility] Body weight 2020-07-03 17:58:00 165.563 kg [facility] BMI 2020-07-03 17:58:00 52.37 kg/m2 [facility] Oxygen saturation in Arterial blood by Pulse oximetry 2020-07-03 17:58:00 97 /min [facility] Systolic blood pressure 2020-06-21 18:20:00 116 mm[Hg] [facility] Diastolic blood pressure 2020-06-21 18:20:00 83 mm[Hg] [facility] Heart rate 2020-06-21 18:20:00 78 /min Unive [facility] Body temperature 2020-06-21 18:20:00 36.94 Melly [facility] Respiratory rate 2020-06-21 18:20:00 20 /min [facility] Body height 2020-06-21 18:20:00 177.8 cm [facility] Body weight 2020-06-21 18:20:00 165.109 kg [facility] BMI 2020-06-21 18:20:00 52.23 kg/m2 [facility] Oxygen saturation in Arterial blood by Pulse oximetry 2020-06-21 18:20:00 96 /min [facility] BP Systolic 2024-10-11 15:48:00 132 mm[Hg] Rai Valdez BP Diastolic 2024-10-11 15:48:00 87 mm[Hg] Ashvin Valdez Weight Measured 2024-10-11 15:48:00 365.40 pounds Herbie Valdez Height Measured 2024-10-11 15:48:00 66.00 inches Herbie F José Miguel Body Temperature 2024-10-11 15:48:00 98.10 degrees Herbie F José Miguel Heart Rate 2024-10-11 15:48:00 79.00 /min Patricia en F José Miguel Respiratory Rate 2024-10-11 15:48:00 19.00 /min Herbie F José Miguel BP Systolic 2024-09-29 17:15:00 112 mm[Hg] Step hen F José Miguel BP Diastolic 2024-09-29 17:15:00 88 mm[Hg] Ashvin phen F José Miguel Weight Measured 2024-09-29 17:15:00 364.00 pounds Herbie F José Miguel Height Measured 2024-09-29 17:15:00 66.00 inches Herbie F José Miguel Body Temperature 2024-09-29 17:15:00 98.40 degrees Herbie F José Miguel Heart Rate 2024-09-29 17:15:00 82.00 /min Patricia en F José Miguel Respiratory Rate 2024-09-29 17:15:00 20.00 /min Herbie F José Miguel BP Systolic 2024-04-20 08:51:00 120 mm[Hg] Step hen F José Miguel BP Diastolic 2024-04-20 08:51:00 82 mm[Hg] Ashvin phen F José Miguel Weight Measured 2024-04-20 08:51:00 338.00 pounds Herbie F José Miguel Height Measured 2024-04-20 08:51:00 66.00 inches Herbie F José Miguel Body Temperature 2024-04-20 08:51:00 97.20 degrees Herbie [...] Systolic 2022-05-27 13:22:00 154 mm[Hg] Step hen F José Miguel BP Diastolic 2022-05-27 13:22:00 79 mm[Hg] Ashvin phen Anh Valdez Weight Measured 2022-05-27 13:22:00 385.40 pounds Herbie Valdez Height Measured 2022-05-27 13:22:00 67.72 inches Herbie Valdez Body Temperature 2022-05-27 13:22:00 98.00 degrees Herbie Anh Valdez Heart Rate 2022-05-27 13:22:00 77.00 /min Patricia en F José Miguel Respiratory Rate 2022-05-27 13:22:00 24.00 /min Herbie Valdez BP Systolic 2021-12-28 15:58:00 126 mm[Hg] Step hen Anh Valdez BP Diastolic 2021-12-28 15:58:00 74 mm[Hg] Ashvin phen Anh Valdez Weight Measured 2021-12-28 15:58:00 379.20 pounds Herbie Valdez Height Measured 2021-12-28 15:58:00 Herbie Valdez Body Temperature 2021-12-28 15:58:00 98.40 degrees Herbie Valdez Heart Rate 2021-12-28 15:58:00 74.00 /min Patricia en Anh Valdez Respiratory Rate 2021-12-28 15:58:00 Herbie Valdez Procedures Procedure Date / Time Performed Performing Clinician Source BYPASS STOMACH TO JEJUNUM, PERCUTANEOUS ENDOSCOPIC 2024-11-11 00:00:00 [facility] ROBOTIC ASSISTED PROCEDURE OF TRUNK, PERC ENDO ARVIN 2024-11-11 00:00:00 [facility] INSPECTION OF UPPER INTESTINAL TRACT, ENDO 2024-11-11 00:00:00 [facility] PATIENT QUESTIONNAIRE 2020-08-01 05:01:00 Doctor Unassigned, [place] [facility] XR CHEST 2 VW 2020-07-03 19:06:09 Olga Hernandez [facility] Encounters Start Date/Time End Date/Time Encounter Type Admission Type Attending Clinicians Care Facility Care Department Encounter ID Source 2023-12-29 07:30:00 Inpatient [facility] DAYS [id number] 2023-12-24 16:36:01 Outpatient STLMLC ST[facility] [id number] [facility] 2021-09-28 13:46:22 Emergency X [facility] [id number] [facility] 2024-11-11 10:27:00 2024-11-12 18:30:00 [id number] [facility] [place] 2024-10-12 11:34:59 2024-10-12 11:34:59 Outpatient SFA SFA [id number] Herbie Valdez 2024-10-11 15:38:11 2024-10-11 15:38:11 Outpatient SFA SFA [id number] Herbie Valdez 2024-10-11 00:00:00 2024-10-11 00:00:00 Outpatient Visit SFA [id number] Herbie Valdez 2024-09-29 17:15:28 2024-09-29 17:15:28 Outpatient SFA SFA [id number] Herbie Valdez 2024-09-29 00:00:00 2024-09-29 00:00:00 Outpatient Visit SFA [id number] Herbie Valdez 2024-04-20 15:50:43 2024-04-20 15:50:43 Outpatient SFA SFA [id number] Herbie Valdez 2024-04-20 00:00:00 2024-04-20 00:00:00 Outpatient Visit SFA [id number] Herbie Valdez 2024-02-27 13:17:42 2024-02-27 13:17:42 Outpatient SFA SFA [id number] Herbie Valdez 2023-10-21 07:53:33 2023-10-21 07:53:33 Outpatient SFA SFA [id number] Herbie Kamara José Miguel 2023-10-01 16:51:15 2023-10-01 16:51:15 Outpatient SFA SFA [id number] Herbie Valdez 2023-09-26 08:35:20 2023-09-26 08:35:20 Outpatient [facility] [id number] Herbie Valdez 2023-09-19 10:23:31 2023-09-19 10:23:31 Outpatient [facility] [id number] Herbie Valdez 2023-07-12 13:15:22 2023-07-12 13:15:22 Outpatient [facility] [id number] Herbie Kamara Elizabeth 2023-07-11 15:02:44 2023-07-11 15:02:44 Outpatient [facility] [id number] Herbie Kamara Elizabeth 2020-08-01 00:00:00 2020-08-01 00:00:00 Orders Only Doctor Unassigned, [place] [facility] 1.2.840.114 350.1.13.10 4.2.7.2.686 [id number] [facility] 2020-08-01 00:00:00 2020-08-01 00:00:00 Orders Only Doctor Unassigned, [place] [facility] 1.2.840.114 350.1.13.10 4.2.7.2.686 [id number] 2020-07-22 00:00:00 2020-07-22 00:00:00 Letter (Out) Avi, [facility] 1.2.840.114 350.1.13.10 4.2.7.2.686 [id number] [facility] 2020-07-22 00:00:00 2020-07-22 00:00:00 Patient Secure Msg Doctor Unassigned, [place] [facility] 1.2.840.114 350.1.13.10 4.2.7.2.686 [id number] [facility] 2020-07-22 00:00:00 2020-07-22 00:00:00 Letter (Out) Avi [facility] 1.2.840.114 350.1.13.10 4.2.7.2.686 [id number] 2020-07-21 08:40:30 2020-07-21 09:00:30 Laboratory Only Lab, Adc Fam Pob I Sandra Wang [facility] 1.840.114 350.1.13.10 4.2.7.2.686 [id number] [facility] 2020-07-21 08:40:30 2020-07-21 09:00:30 Laboratory Only Lab, Adc Fam Pob I [facility] 1.840.114 350.1.13.10 4.2.7.2.686 [id number] 2020-07-21 08:20:00 2020-07-21 08:20:00 Outpatient R [facility] [id number] [facility] 2020-07-20 00:00:00 2020-07-20 00:00:00 Telephone Pob1, Acute Care Clinic [facility] 1.0.114 350.1.13.10 4.2.7.2.686 [id number] [facility] 2020-07-20 00:00:00 2020-07-20 00:00:00 Telephone Pob1, Acute Care Clinic [facility] 1.840.114 350.1.13.10 4.2.7.2.686 [id number] 2020 15:57:18 2020 16:20:48 Urgent Care Pob1, Acute Care Clinic Olga Hernandez [facility] 1.2840.114 350.1.13.10 4.2.7.2.686 [id number] [facility] 2020 15:57:18 2020 16:20:48 Urgent Care Pob1, Acute Care Clinic [facility] 1.2.840.114 350.1.13.10 4.2.7.2.686 [id number] 2020 15:40:00 2020 15:40:00 Outpatient R [facility] [id number] [facility] 2020 15:20:00 2020 15:20:00 Outpatient R OLGA HERNANDEZ [facility] [id number] [facility] 2020-07-10 00:00:00 2020-07-10 00:00:00 Telephone Samara [place] [facility] 1.114 350.1.13.10 4.2.7.2.686 [id number] [facility] 2020-07-10 00:00:00 2020-07-10 00:00:[address] [facility] 1.114 350.1.13.10 4.2.7.2.686 [id number] 2020-07-09 16:40:00 2020-07-09 16:40:00 Outpatient O OLGA HERNANDEZ [facility] [id number] [facility] 2020-07-09 14:25:31 2020-07-09 14:45:31 Laboratory Only Lab, [facility] 1.114 350.1.13.10 4.2.7.2.686 [id number] [facility] 2020-07-09 14:25:31 2020-07-09 14:45:31 Laboratory Only Lab, Adc Fam Pob [facility] 1.114 350.1.13.10 4.2.7.2.686 [id number] 2020-07-04 00:00:00 2020-07-04 00:00:00 Telephone Elizabeth Gutierrez [facility] 1.2.840.114 350.1.13.10 4.2.7.2.686 [id number] [facility] 2020-07-04 00:00:00 2020-07-04 00:00:00 Telephone Pob1, [facility] 1.2.840.114 350.1.13.10 4.2.7.2.686 [id number] [facility] 2020-07-04 00:00:00 2020-07-04 00:00:00 [facility] 1.2.840.114 350.1.13.10 4.2.7.2.686 [id number] 2020-07-04 00:00:00 2020-07-04 00:00:00 Telephone Pob1, [facility] 1.2.840.114 350.1.13.10 4.2.7.2.686 [id number] 2020-07-03 13:54:27 2020-07-03 23:59:00 Hospital Encounter [facility] 1.2.840.114 350.1.13.10 4.2.7.2.686 [id number] [facility] 2020-07-03 13:54:27 2020-07-03 23:59:00 Hospital Encounter [facility] 1.2.840.114 350.1.13.10 4.2.7.2.686 [id number] 2020-07-03 12:47:10 2020-07-03 13:58:33 Urgent Care Po, [facility] 1.2.840.114 350.1.13.10 4.2.7.2.686 [id number] [facility] 2020-07-03 12:47:10 2020-07-03 13:58:33 Urgent Care Pob1, Acute Care Clinic [facility] 1.114 350.1.13.10 4.2.7.2.686 [id number] 2020-07-03 13:00:00 2020-07-03 13:00:00 Outpatient R OLGA HERNANDEZ [facility] [id number] [facility] 2020-06-24 00:00:00 2020-06-24 00:00:00 Telephone More Gilman [facility] 1..114 350.1.13.10 4.2.7.2.686 [id number] [facility] 2020-06-24 00:00:00 2020-06-24 00:00:00 Letter (Out) Pcp, Patient Does Not Have A [facility] 1..114 350.1.13.10 4.2.7.2.686 [id number] [facility] 2020-06-24 00:00:00 2020-06-24 00:00:00 Letter (Out) Pcp, Patient Does Not Have A [facility] 1.114 350.1.13.10 4.2.7.2.686 [id number] [facility] 2020-06-23 14:27:14 2020-06-23 14:47:14 Laboratory Only Lab, Adc Fam Pob I Aleksandra Hernandezthia [facility] 1.114 350.1.13.10 4.2.7.2.686 [id number] [facility] 2020-06-23 14:40:00 2020-06-23 14:40:00 Outpatient R [facility] [id number] [facility] 2020-06-23 00:00:00 2020-06-23 00:00:00 Letter (Out) Lab, Pcp Covkitty [facility] 1.2840.114 350.1.13.10 4.2.7.2.686 [id number] [facility] 2020-06-23 00:00:00 2020-06-23 00:00:00 Letter (Out) Lab, Pcp Covid [facility] 1.2840.114 350.1.13.10 4.2.7.2.686 [id number] [facility] 2020-06-21 13:15:16 2020-06-21 13:35:16 Urgent Care Pob1, Acute Care Clinic [facility] 1.840.114 350.1.13.10 4.2.7.2.686 [id number] [facility] 2020-06-21 13:05:01 2020-06-21 13:25:01 Laboratory Only Lab, Adc Fam Pob I [facility] 1.0.114 350.1.13.10 4.2.7.2.686 [id number] [facility] 2020-06-21 13:20:00 2020-06-21 13:20:00 Outpatient R [facility] [id number] [facility] 2020-06-13 00:00:00 2020-06-13 00:00:00 Patient Secure Msg Doctor Unassigned, [place] [facility] 1..114 350.1.13.10 4.2.7.2.686 [id number] [facility] 2020-06-13 00:00:00 2020-06-13 00:00:00 Telephone Manju Wall [facility] 1.0.114 350.1.13.10 4.2.7.2.686 [id number] [facility] 2020-06-11 12:42:34 2020-06-11 13:02:34 Laboratory Only Lab, Adc Fam Pob [facility] 1.2.840.114 350.1.13.10 4.2.7.2.686 [id number] [facility] 2020-06-11 13:00:00 2020-06-11 13:00:00 Outpatient R OLGA HERNANDEZ [facility] [id number] [facility] Results Test Description Test Time Test Comments Results Result Co mments Source BASIC METABOLIC [id number] 07:04:00* Test Item Value Reference Range Interpretation Comme nts SODIUM (test code = NA) 139 mmol/L 136-145 N POTASSIUM (test code = K) 4.4 mmol/L 3.5-5.1 N CHLORIDE (test code = CL) 106 mmol/L 98-107 N CARBON DIOXIDE (test code = CO2) 23 mmol/L 20-31 N ANION GAP (test code = GAP) 14.4 2.0-16.0 N GLUCOSE (test code = GLU) 126 mg/dL 74-106 H BLOOD UREA NITROGEN (test code = BUN) 11 mg/dL 9-23 N GLOMERULAR FILTRATION RATE (test code = GFR) >=60 max estimate ml/min The Glomerular Filtration Rate is a calculated parameterbased on serum Creatinine, patient age and sex. GFR valuesless than 60 mL/min/1.73 square meters are indicative ofChronic Kidney Disease. Values less than 15 mL/min/1.73square meters indicate Kidney failure. The calculation forGFR is based on the CKD-EPI (2020) calculation. This formulais race indifferent and is the recommended formula for GFRby the National Kidney Foundation for Adults.The GFR will not calculate if the sex is unknown or if thepatient's age is <18 years. CREATININE (test code = CREAT) 0.7 mg/dL 0.7-1.3 N BUN/CREATININE RATIO (test code = BUN/CREA) 15.7 12.0-20.0 N CALCIUM (test code = CA) 8.5 mg/dL 8.7-10.4 L CBC W/AUTO [id number] 06:52:00* Test Item Value Reference Range Interpretation Comme nts WHITE BLOOD CELL (test code = WBC) 12.6 10 3/uL 4.5-11.0 H RED BLOOD CELL (test code = RBC) 4.15 10 6/uL 4.30-5.90 L HEMOGLOBIN (test code = HGB) 12.8 g/dL 14.0-18.0 L HEMATOCRIT (test code = HCT) 39.7 % 40.0-55.0 L MEAN CELL VOLUME (test code = MCV) 96 fL 81-102 N MEAN CELL HGB (test code = MCH) 30.8 pg 26.0-34.0 N MEAN CELL HGB CONCENTRATION (test code = MCHC) 32.2 g/dL 31.0-37.0 N RED CELL DISTRIBUTION WIDTH (test code = RDW) 13.2 % 11.6-14.4 N PLATELET COUNT (test code = PLT) 246 10 3/uL 150-400 N MEAN PLATELET VOLUME (test code = MPV) 10.7 fL 9.0-12.6 N NEUTROPHIL % (test code = NT%) 90.5 % 33.0-76.0 H IMMATURE GRANULOCYTE % (test code = IG%) 0.6 % 0.0-1.0 N LYMPHOCYTE % (test code = LY%) 5.4 % 14.0-56.4 L MONOCYTE % (test code = MO%) 3.4 % 0.0-12.9 N EOSINOPHIL % (test code = EO%) 0.0 % 0.0-7.0 N BASOPHIL % (test code = BA%) 0.1 % 0-2.0 N NUCLEATED RBC % (test code = NRBC%) 0.0 % 0-0.2 N NEUTROPHIL # (test code = NT#) 11.44 10 3/uL 1.5-7.0 H IMMATURE GRANULOCYTE # (test code = IG#) 0.070 x10 3/uL 0.000-0.100 N LYMPHOCYTE # (test code = LY#) 0.68 10 3/uL 1.50-4.00 L MONOCYTE # (test code = MO#) 0.43 10 3/uL 0.20-0.80 N EOSINOPHIL # (test code = EO#) 0.00 10 3/uL 0.0-0.5 N BASOPHIL # (test code = BA#) 0.01 10 3/uL 0.0-0.1 N NUCLEATED RBC # (test code = NRBC#) 0.000 10 3/uL 0.000-0.012 N [id number] 05:28:00* Test Item Value Reference Range Interpretation Comme nts GLUBED (test code = GLUBED) 146 mg/dL 70-105 H Intravenous admi nistration of N-acetylcysteine which resultsin blood concentrations >5 mg/dL will cause overestimationof blood glucose results. Do not use during intravenousinfusion of N'acetylcysteine. [id number] 23:59:00* Test Item Value Reference Range Interpretation Comme nts GLUBED (test code = GLUBED) 152 mg/dL 70-105 H Intravenous admi nistration of N-acetylcysteine which resultsin blood concentrations >5 mg/dL will cause overestimationof blood glucose results. Do not use during intravenousinfusion of N'acetylcysteine. [id number] 19:39:00* Test Item Value Reference Range Interpretation Comme nts GLUBED (test code = GLUBED) 167 mg/dL 70-105 H Intravenous admi nistration of N-acetylcysteine which resultsin blood concentrations >5 mg/dL will cause overestimationof blood glucose results. Do not use during intravenousinfusion of N'acetylcysteine. [id number] 17:16:00* Test Item Value Reference Range Interpretation Comme nts GLUBED (test code = GLUBED) 138 mg/dL 70-105 H Intravenous admi nistration of N-acetylcysteine which resultsin blood concentrations >5 mg/dL will cause overestimationof blood glucose results. Do not use during intravenousinfusion of N'acetylcysteine. [id number] 11:44:00* Test Item Value Reference Range Interpretation Comme nts GLUBED (test code = GLUBED) 98 mg/dL 70-105 N Intravenous admi nistration of N-acetylcysteine which resultsin blood concentrations >5 mg/dL will cause overestimationof blood glucose results. Do not use during intravenousinfusion of N'acetylcysteine. BASIC METABOLIC [id number] 14:43:00* Test Item Value Reference Range Interpretation Comme nts SODIUM (test code = NA) 140 mmol/L 136-145 N POTASSIUM (test code = K) 4.3 mmol/L 3.5-5.1 N CHLORIDE (test code = CL) 104 mmol/L 98-107 N CARBON DIOXIDE (test code = CO2) 27 mmol/L 20-31 N ANION GAP (test code = GAP) 13.1 2.0-16.0 N GLUCOSE (test code = GLU) 97 mg/dL 74-106 N BLOOD UREA NITROGEN (test code = BUN) 18 mg/dL 9-23 N GLOMERULAR FILTRATION RATE (test code = GFR) >=60 max estimate ml/min The Glomerular Filtration Rate is a calculated parameterbased on serum Creatinine, patient age and sex. GFR valuesless than 60 mL/min/1.73 square meters are indicative ofChronic Kidney Disease. Values less than 15 mL/min/1.73square meters indicate Kidney failure. The calculation forGFR is based on the CKD-EPI (2020) calculation. This formulais race indifferent and is the recommended formula for GFRby the National Kidney Foundation for Adults.The GFR will not calculate if the sex is unknown or if thepatient's age is <18 years. CREATININE (test code = CREAT) 0.9 mg/dL 0.7-1.3 N BUN/CREATININE RATIO (test code = BUN/CREA) 20.0 12.0-20.0 N CALCIUM (test code = CA) 8.8 mg/dL 8.7-10.4 N CBC W/AUTO [id number] 14:15:00* Test Item Value Reference Range Interpretation Comme nts WHITE BLOOD CELL (test code = WBC) 9.9 10 3/uL 4.5-11.0 N RED BLOOD CELL (test code = RBC) 4.11 10 6/uL 4.30-5.90 L HEMOGLOBIN (test code = HGB) 13.1 g/dL 14.0-18.0 L HEMATOCRIT (test code = HCT) 39.7 % 40.0-55.0 L MEAN CELL VOLUME (test code = MCV) 97 fL 81-102 N MEAN CELL HGB (test code = MCH) 31.9 pg 26.0-34.0 N MEAN CELL HGB CONCENTRATION (test code = MCHC) 33.0 g/dL 31.0-37.0 N RED CELL DISTRIBUTION WIDTH (test code = RDW) 13.5 % 11.6-14.4 N PLATELET COUNT (test code = PLT) 214 10 3/uL 150-400 N MEAN PLATELET VOLUME (test code = MPV) 10.3 fL 9.0-12.6 N NEUTROPHIL % (test code = NT%) 71.4 % 33.0-76.0 N IMMATURE GRANULOCYTE % (test code = IG%) 0.5 % 0.0-1.0 N LYMPHOCYTE % (test code = LY%) 18.8 % 14.0-56.4 N MONOCYTE % (test code = MO%) 6.5 % 0.0-12.9 N EOSINOPHIL % (test code = EO%) 2.3 % 0.0-7.0 N BASOPHIL % (test code = BA%) 0.5 % 0-2.0 N NUCLEATED RBC % (test code = NRBC%) 0.0 % 0-0.2 N NEUTROPHIL # (test code = NT#) 7.04 10 3/uL 1.5-7.0 H IMMATURE GRANULOCYTE # (test code = IG#) 0.050 x10 3/uL 0.000-0.100 N LYMPHOCYTE # (test code = LY#) 1.85 10 3/uL 1.50-4.00 N MONOCYTE # (test code = MO#) 0.64 10 3/uL 0.20-0.80 N EOSINOPHIL # (test code = EO#) 0.23 10 3/uL 0.0-0.5 N BASOPHIL # (test code = BA#) 0.05 10 3/uL 0.0-0.1 N NUCLEATED RBC # (test code = NRBC#) 0.000 10 3/uL 0.000-0.012 N LIPID [id number] 05:08:46* Test Item Value Reference Range Interpretation Comme nts CHOLESTEROL (test code = 2210) 161 MG/DL <200 TRIGLYCERIDES (test code = 223) 75 MG/DL <150 HDL CHOLESTEROL (test code = 2220) 63 MG/DL >39 CALC LDL CHOL (test code = 2237) 82 MG/DL <100 NOTE: CALCULATED LDL IS BASED ON JULIANNE-EWING METHOD WHICHINCLUDES ADJUSTABLE TRIGLYCERIDE:VLDL CHOLESTEROL RATIO.THIS FACTOR VARIES BY MEASURED TRIGLYCERIDE AND NON-HDLCHOLESTEROL CONCENTRATIONS WITH INCREASED CALCULATED LDL SEENIN HIGHER TRIGLYCERIDE OR LOWER NON-HDL SPECIMENS. FOR MOREINFORMATION, SEE CLIENT ANNOUNCEMENT AT [email or web address] RISK RATIO LDL/HDL (test code = 223) 1.30 RATIO <3.55 COMPREHENSIVE METABOLIC [id number] 05:08:46* Test Item Value Reference Range Interpretation Comme nts GLUCOSE (test code = 2216) 98 MG/DL 70-99 BUN (test code = 2207) 13 MG/DL 6-20 CREATININE (test code = 2213) 0.78 MG/DL 0.80-1.40 L eGFR (2020 CKD-EPI) (test code = 55367) 106 ML/MIN/1.73 >60 CALC BUN/CREAT (test code = 5) 17 RATIO 6-28 SODIUM (test code = 223) 140 MEQ/L 133-146 POTASSIUM (test code = 2228) 4.0 MEQ/L 3.5-5.4 CHLORIDE (test code = 2214) 101 MEQ/L 95-107 CARBON DIOXIDE (test code = 2206) 23 MEQ/L 19-31 CALCIUM (test code = 2209) 8.9 MG/DL 8.5-10.5 PROTEIN, TOTAL (test code = 222) 7.1 G/DL 6.1-8.3 ALBUMIN (test code = 2201) 4.3 G/DL 3.5-5.2 CALC GLOBULIN (test code = 2240) 2.8 G/DL 1.9-3.7 CALC A/G RATIO (test code = 2233) 1.5 RATIO 1.0-2.6 BILIRUBIN, TOTAL (test code = 2206) 0.4 MG/DL <=1.2 ALKALINE PHOSPHATASE (test code = 220) 58 U/L 40-121 AST (test code = 2218) 17 U/L 9-50 ALT (test code = 2219) 16 U/L 5-50 UNLESS OTHERWISE INDICATED, ALL TESTING PERFORMED AT [facility] [address] [place] [id number] [employer] INTERN: VINCENT HOWELL M.D. CLIA NUMBER [id number] [place]. [id number] PROTIME AND [id number] 03:51:13* Test Item Value Reference Range Interpretation Comme nts PROTHROMBIN TIME (PT) (test code = 1402) 14.5 SECONDS 12.5-14.7 INR (test code = 37908) 1.1 SEE BELOW CURRENT RECOMMENDATIONS ARE FOR AN INR OF 2.0-3.0 FOR ALL PATIENTS ON VITAMIN K ANTAGONISTS, EXCEPT THOSE WITH PROSTHETIC HEART VALVES, FOR WHOM INR OF 2.5-3.5 IS RECOMMENDED. PTT (test code = 1403) 27.7 SECONDS 25.2-40.0 CBC W/AUTO DIFF WITH [id number] 03:35:56* Test Item Value Reference Range Interpretation Comme nts WBC (test code = 1001) 9.6 K/UL 3.5-11.0 RBC (test code = 1002) 4.23 M/UL 4.50-6.10 L HEMOGLOBIN (test code = 1003) 13.0 G/DL 13.5-17.0 L HEMATOCRIT (test code = 1004) 39.9 % 40.0-51.0 L MCV (test code = 1005) 94.3 fL 80.0-99.0 MCH (test code = 1006) 30.7 PG 25.0-33.0 MCHC (test code = 1007) 32.6 G/DL 31.0-36.0 RDW (test code = 1038) 12.3 % 11.5-15.0 NEUTROPHILS (test code = 1008) 74.9 % LYMPHOCYTES (test code = 1010) 17.2 % MONOCYTES (test code = 1011) 5.2 % EOSINOPHILS (test code = 1012) 2.0 % BASOPHILS (test code = 1013) 0.4 % IMMATURE GRANULOCYTES (test code = 1036) 0.3 % NUCLEATED RBCS (test code = 1065) 0.0 /100 WBC'S See_Comment [Automated messa ge] The system which generated this result transmitted reference range: 0.0. The reference range was not used to interpret this result as normal/abnormal. PLATELET COUNT (test code = 1015) 220 K/UL 130-400 ABSOLUTE NEUTROPHILS (test code = 1066) 7.19 K/UL 1.50-7.50 ABSOLUTE LYMPHOCYTES (test code = 1067) 1.65 K/UL 1.00-4.00 ABSOLUTE MONOCYTES (test code = 1068) 0.50 K/UL 0.20-1.00 ABSOLUTE EOSINOPHILS (test code = 1040) 0.19 K/UL 0.00-0.50 ABSOLUTE BASOPHILS (test code = 1069) 0.04 K/UL 0.00-0.20 ABS IMMATURE GRANULOCYTES (test code = 1020) 0.03 K/UL 0.00-0.10 ABS NUCLEATED RBCS (test code = 28859) 0.00 K/UL 0.00-0.11 CBC W/AUTO [id number] 00:00:00* Test Item Value Reference Range Interpretation Comme nts WBC (test code = 1001) 9.6 K/UL RBC (test code = 1002) 4.23 M/UL HEMOGLOBIN (test code = 1003) 13.0 G/DL HEMATOCRIT (test code = 1004) 39.9 % MCV (test code = 1005) 94.3 fL MCH (test code = 1006) 30.7 PG MCHC (test code = 1007) 32.6 G/DL RDW (test code = 1038) 12.3 % NEUTROPHILS (test code = 1008) 74.9 % LYMPHOCYTES (test code = 1010) 17.2 % MONOCYTES (test code = 1011) 5.2 % EOSINOPHILS (test code = 1012) 2.0 % BASOPHILS (test code = 1013) 0.4 % IMMATURE GRANULOCYTES (test code = 1036) 0.3 % NUCLEATED RBCS (test code = 1065) 0.0 /100WBC'S PLATELET COUNT (test code = 1015) 220 K/UL ABSOLUTE NEUTROPHILS (test c ode = 1066) 7.19 K/UL ABSOLUTE LYMPHOCYTES (test c ode = 1067) 1.65 K/UL ABSOLUTE MONOCYTES (test cod e = 1068) 0.50 K/UL ABSOLUTE EOSINOPHILS (test c ode = 1040) 0.19 K/UL ABSOLUTE BASOPHILS (test cod e = 1069) 0.04 K/UL ABS IMMATURE GRANULOCYTES (t est code = 1020) 0.03 K/UL ABS NUCLEATED RBCS (test cod e = 71269) 0.00 K/UL Herbie Kamara AustinPROTIME AND [id number] 00:00:00* Test Item Value Reference Range Interpretation Comme nts PROTHROMBIN TIME (PT) (test code = 1402) 14.5 SECONDS INR (test code = 78713) 1.1 PTT (test code = 1403) 27.7 SECONDS Herbie ValdezLIPID [id number] 00:00:00* Test Item Value Reference Range Interpretation Comme nts CHOLESTEROL (test code = 2210) 161 MG/DL TRIGLYCERIDES (test code = 2232) 75 MG/DL HDL CHOLESTEROL (test code = 2220) 63 MG/DL CALC LDL CHOL (test code = 2237) 82 MG/DL RISK RATIO LDL/HDL (test cod e = 2238) 1.30 RATIO Herbie ValdezCOMPREHENSIVE METABOLIC [id number] 00:00:00* Test Item Value Reference Range Interpretation Comme nts GLUCOSE (test code = 2217) 98 MG/DL BUN (test code = 2208) 13 MG/DL CREATININE (test code = 2214) 0.78 MG/DL eGFR (2020 CKD-EPI) (test code = 84176) 106 ML/MIN/1.73 CALC BUN/CREAT (test code = 2235) 17 RATIO SODIUM (test code = 2231) 140 MEQ/L POTASSIUM (test code = 2228) 4.0 MEQ/L CHLORIDE (test code = 2215) 101 MEQ/L CARBON DIOXIDE (test code = 2206) 23 MEQ/L CALCIUM (test code = 2209) 8.9 MG/DL PROTEIN, TOTAL (test code = 2229) 7.1 G/DL ALBUMIN (test code = 2201) 4.3 G/DL CALC GLOBULIN (test code = 2240) 2.8 G/DL CALC A/G RATIO (test code = 2234) 1.5 RATIO BILIRUBIN, TOTAL (test code = 2207) 0.4 MG/DL ALKALINE PHOSPHATASE (test code = 2204) 58 U/L AST (test code = 2218) 17 U/L ALT (test code = 2219) 16 U/L Herbie ValdezBASIC METABOLIC [id number] 12:40:00* Test Item Value Reference Range Interpretation Comme nts SODIUM (test code = NA) 138 mmol/L 136-145 N POTASSIUM (test code = K) 4.0 mmol/L 3.5-5.1 N CHLORIDE (test code = CL) 106 mmol/L 98-107 N CARBON DIOXIDE (test code = CO2) 25 mmol/L 20-31 N ANION GAP (test code = GAP) 11.0 2.0-16.0 N GLUCOSE (test code = GLU) 92 mg/dL 74-106 N BLOOD UREA NITROGEN (test code = BUN) 20 mg/dL 9-23 N GLOMERULAR FILTRATION RATE (test code = GFR) >=60 max estimate ml/min The Glomerular Filtration Rate is a calculated parameterbased on serum Creatinine, patient age and sex. GFR valuesless than 60 mL/min/1.73 square meters are indicative ofChronic Kidney Disease. Values less than 15 mL/min/1.73square meters indicate Kidney failure. The calculation forGFR is based on the CKD-EPI (2020) calculation. This formulais race indifferent and is the recommended formula for GFRby the National Kidney Foundation for Adults.The GFR will not calculate if the sex is unknown or if thepatient's age is <18 years. CREATININE (test code = CREAT) 0.8 mg/dL 0.7-1.3 N BUN/CREATININE RATIO (test code = BUN/CREA) 25.0 12.0-20.0 H CALCIUM (test code = CA) 9.2 mg/dL 8.7-10.4 N VITAMIN [id number] 16:00:00* Test Item Value Reference Range Interpretation Comme nts VITAMIN B1 (test code = 4952) TEST NOT PERFORMED Unable to per form testing, improper specimen received.Charges adjusted as applicable. TESTING PERFORMED AT [facility] [address] [place] [address], [facility] [address]IA NO: [id number] VITAMIN [id number] 00:00:00* Test Item Value Reference Range Interpretation Comme nts VITAMIN B1 (test code = 4952) TEST NOT PERFORMED [facility] [id number] 00:00:00* Test Item Value Reference Range Interpretation Comme nts VITAMIN B1 (test code = 4952) TEST NOT PERFORMED [facility] [id number] 00:00:00* Test Item Value Reference Range Interpretation Comme nts VITAMIN B1 (test code = 4952) TEST NOT [facility]FORMED [facility] [id number] 04:36:59* Test Item Value Reference Range Interpretation Comme nts GLUCOSE (test code = 2217) 86 MG/DL 70-99 BUN (test code = 2208) 14 MG/DL 6-20 CREATININE (test code = 2213) 0.79 MG/DL 0.80-1.40 L eGFR (2020 CKD-EPI) (test code = ) 106 ML/MIN/1.73 >60 CALC BUN/CREAT (test code [...] code = 2218) 16 U/L 5-50 LIPID [id number] 04:36:59* Test Item Value Reference Range Interpretation [...] SPECIMENS. FOR MOREINFORMATION, SEE CLIENT ANNOUNCEMENT AT [email or web address] RISK RATIO LDL/HDL (test code = 2237) 1.63 RATIO <3.55 HEPATITIS PANEL, [id number] 03:45:09* Test Item Value Reference Range Interpretation [...] infection. INTERPRETATION HEPATITIS B: (test code = 56161) (NOTE) Hepatitis B sero logy consistent with either resolving acutehepatitis B infection (so-called "window phase") or past exposure tohepatitis B in the remote past. To distinguish between these twopossibilities, consider testing for hepatitis B core antibody-IgM. INTERPRETATION HEPATITIS C: (test code = 43347) (NOTE) Hepatitis C sero logy shows no evidence of exposure to hepatitisC virus at this time. It can take up to 12 months after exposure tothe hepatitis C virus for antibodies to become detectable in the blood in certain patients. HIV 1/2 4TH GEN, RFLX [id number] 03:45:09* Test Item Value Reference Range Interpretation Comme nts HIV 1/2 4TH GEN, RFLX CONF ( test code = 3514) NON-REACTIVE NON-REACTIVE HEPATITIS A [id number] 03:45:09* Test Item Value Reference Range Interpretation Comme nts HEPATITIS A IgM (test code = 2728) NON-REACTIVE NON-REACTIVE UNLESS OTHERW ISE INDICATED, ALL TESTING PERFORMED AT [facility] [address] [place] [address] [employer] INTERN: VINCENT HOWELL M.D. CLIA NUMBER [id number] [place]. [id number] HEMOGLOBIN [id number] 02:49:40* Test Item Value Reference Range Interpretation Comme nts HEMOGLOBIN A1c (test code = 15614) 5.7 % 4.2-5.6 H [employer] GUIDELINES FOR HGB A1C: [...] OR LABORATORY CONSULTATION. CBC W/AUTO DIFF WITH [id number] 01:46:48* Test Item Value Reference Range Interpretation [...] = 1065) 0.0 /100 WBC'S See_Comment [Automated [employer] Systemsa ge] The system which generated this result [...] 0.00-0.10 ABS NUCLEATED RBCS (test code = 62892) 0.00 K/UL 0.00-0.11 HEPATITIS A IgM [REFLEX]2024-02-28 00:00:00* Test Item Value Reference Range Interpretation Comme nts HEPATITIS A IgM (test code = 2728) NON-REACTIVE Herbie ValdezCBC W/AUTO [id number] 00:00:00* Test Item Value Reference Range Interpretation [...] ABS NUCLEATED RBCS (test cod e = 60812) 0.00 K/UL Herbie ValdezHEMOGLOBIN [id number] 00:00:00* Test Item Value Reference Range Interpretation Comme nts HEMOGLOBIN A1c (test code = 96367) 5.7 % Herbie Kamara AustinLIPID [id number] 00:00:00* Test Item Value Reference Range Interpretation Comme nts CHOLESTEROL (test code = 2210) 163 MG/DL TRIGLYCERIDES (test code = 2232) 73 MG/DL HDL CHOLESTEROL (test code = 2220) 56 MG/DL CALC LDL CHOL (test code = 2237) 91 MG/DL RISK RATIO LDL/HDL (test cod e = 2238) 1.63 RATIO Herbie ValdezCOMPREHENSIVE METABOLIC [id number] 00:00:00* Test Item Value Reference Range Interpretation Comme nts GLUCOSE (test code = 2217) 86 MG/DL BUN (test code = 2208) 14 MG/DL CREATININE (test code = 2214) 0.79 MG/DL eGFR (2020 CKD-EPI) (test code = 16719) 106 ML/MIN/1.73 CALC BUN/CREAT (test code = [...] HEPATITIS C ANTIBODY (test c ode = 0395) NON-REACTIVE INTERPRETATION HEPATITIS A: (test code = 2552) (NOTE) INTERPRETATION HEPATITIS B: (test code = 88246) (NOTE) INTERPRETATION HEPATITIS C: (test code = 50756) (NOTE) Heribe ValdezHIV 1/2 4TH GEN, RFLX [id number] 00:00:00* Test Item Value Reference Range Interpretation Comme nts HIV 1/2 4TH GEN, RFLX CONF ( test code = 3514) NON-REACTIVE Herbie ValdezHEPATITIS A IgM [REFLEX]2024-02-28 00:00:00* Test Item Value Reference Range Interpretation Comme nts HEPATITIS A IgM (test code = 2728) NON-REACTIVE Herbie ValdezCBC W/AUTO [id number] 00:00:00* Test Item Value Reference Range Interpretation [...] ABS NUCLEATED RBCS (test cod e = 46220) 0.00 K/UL Herbie ValdezHEMOGLOBIN [id number] 00:00:00* Test Item Value Reference Range Interpretation Comme nts HEMOGLOBIN A1c (test code = 93406) 5.7 % Herbie Kamara AustinLIPID [id number] 00:00:00* Test Item Value Reference Range Interpretation Comme nts CHOLESTEROL (test code = 2210) 163 MG/DL TRIGLYCERIDES (test code = 2232) 73 MG/DL HDL CHOLESTEROL (test code = 2220) 56 MG/DL CALC LDL CHOL (test code = 2237) 91 MG/DL RISK RATIO LDL/HDL (test cod e = 2238) 1.63 RATIO Herbie ValdezCOMPREHENSIVE METABOLIC [id number] 00:00:00* Test Item Value Reference Range Interpretation Comme nts GLUCOSE (test code = 2217) 86 MG/DL BUN (test code = 2208) 14 MG/DL CREATININE (test code = 2214) 0.79 MG/DL eGFR (2020 CKD-EPI) (test code = 26615) 106 ML/MIN/1.73 CALC BUN/CREAT (test code = [...] A TOTAL AB (test c ode = 3447) REACTIVE HEPATITIS B SURF AG (test co de = 8839) NON-REACTIVE HEP B CORE TOTAL AB (test co de = 2729) REACTIVE HEPATITIS B SURFACE AB (test code = 2737) NON-REACTIVE HEPATITIS C ANTIBODY (test c ode = 4675) NON-REACTIVE INTERPRETATION HEPATITIS A: (test code = 2552) (NOTE) INTERPRETATION HEPATITIS B: (test code = 01311) (NOTE) INTERPRETATION HEPATITIS C: (test code = 18599) (NOTE) Herbie ValdezHIV 1/2 4TH GEN, RFLX [id number] 00:00:00* Test Item Value Reference Range Interpretation Comme nts HIV 1/2 4TH GEN, RFLX CONF ( test code = 3514) NON-REACTIVE Herbie ValdezHEPATITIS A IgM [REFLEX]2024-02-28 00:00:00* Test Item Value Reference Range Interpretation Comme nts HEPATITIS A IgM (test code = 2728) NON-REACTIVE Herbie ValdezCBC W/AUTO [id number] 00:00:00* Test Item Value Reference Range Interpretation [...] ABS NUCLEATED RBCS (test cod e = 55201) 0.00 K/UL Herbie ValdezHEMOGLOBIN [id number] 00:00:00* Test Item Value Reference Range Interpretation Comme aretmio HEMOGLOBIN A1c (test code = 89361) 5.7 % Herbie ValdezLIPID [id number] 00:00:00* Test Item Value Reference Range Interpretation Comme nts CHOLESTEROL (test code = 2210) 163 MG/DL TRIGLYCERIDES (test code = 2232) 73 MG/DL HDL CHOLESTEROL (test code = 2220) 56 MG/DL CALC LDL CHOL (test code = 2237) 91 MG/DL RISK RATIO LDL/HDL (test cod e = 2238) 1.63 RATIO Herbie ValdezCOMPREHENSIVE METABOLIC [id number] 00:00:00* Test Item Value Reference Range Interpretation Comme nts GLUCOSE (test code = 2217) 86 MG/DL BUN (test code = 2208) 14 MG/DL CREATININE (test code = 2214) 0.79 MG/DL eGFR (2020 CKD-EPI) (test code = 73090) 106 ML/MIN/1.73 CALC BUN/CREAT (test code = [...] A TOTAL AB (test c ode = 4427) REACTIVE HEPATITIS B SURF AG (test co de = 7614) NON-REACTIVE HEP B CORE TOTAL AB (test co de = 2729) REACTIVE HEPATITIS B SURFACE AB (test code = 2737) NON-REACTIVE HEPATITIS C ANTIBODY (test c ode = 4675) NON-REACTIVE INTERPRETATION HEPATITIS A: (test code = 2552) (NOTE) INTERPRETATION HEPATITIS B: (test code = 22555) (NOTE) INTERPRETATION HEPATITIS C: (test code = 64251) (NOTE) Herbie ValdezHIV 1/2 4TH GEN, RFLX [id number] 00:00:00* Test Item Value Reference Range Interpretation Comme nts HIV 1/2 4TH GEN, RFLX CONF ( test code = 3514) NON-REACTIVE Herbie Kamara AustinHIV 1/2 4TH GEN, RFLX [id number] 01:47:24* Test Item Value Reference Range Interpretation Comme nts HIV 1/2 4TH GEN, RFLX CONF (test code = 3514) NON-REACTIVE NON-REACTIVE UNLESS OTHERWISE INDICATED, ALL TESTING PERFORMED AT [facility] [address] [place] [address] MARKET RESEARCH INTERN: VINCENT HOWELL M.D. CLIA NUMBER [id number] [place]. [id number] HIV 1/2 4TH GEN, RFLX [id number] 00:00:00* Test Item Value Reference Range Interpretation Comme nts HIV 1/2 4TH GEN, RFLX CONF ( test code = 3514) NON-REACTIVE Herbie Kamara AustinHIV 1/2 4TH GEN, RFLX [id number] 00:00:00* Test Item Value Reference Range Interpretation Comme nts HIV 1/2 4TH GEN, RFLX CONF ( test code = 3514) NON-REACTIVE Herbie Kamara AustinHIV 1/2 4TH GEN, RFLX [id number] 00:00:00* Test Item Value Reference Range Interpretation Comme nts HIV 1/2 4TH GEN, RFLX CONF ( test code = 3514) NON-REACTIVE Herbie ValdezTSH, THIRD [id number] 03:40:32* Test Item Value Reference Range Interpretation Comme nts TSH, THIRD GENERATION (test code = 2821) 1.770 UIU/ML 0.400-4.100 PSA, [id number] 03:40:32* Test Item Value Reference Range Interpretation Comme nts PSA, TOTAL (test code = 260) 0.21 NG/ML See_Comment NOTE: Methodolog y is Javi Boo Electrochemiluminescence Immunoassay traceable to WHO reference standard 96/760. [Automated message] The system which generated this result transmitted reference range: <=4.00. The reference range was not used to interpret this result as normal/abnormal. COMPREHENSIVE METABOLIC [id number] 03:13:06* Test Item Value Reference Range Interpretation Comme nts GLUCOSE (test code = 2216) 93 MG/DL 70-99 BUN (test code = 2207) 12 MG/DL 6-20 CREATININE (test code = 221) 0.70 MG/DL 0.80-1.40 L eGFR (2020 CKD-EPI) (test code = 61942) 111 ML/MIN/1.73 >60 CALC BUN/CREAT (test code = 2235) 17 RATIO 6-28 SODIUM (test code = 223) 137 MEQ/L 133-146 POTASSIUM (test code = 2228) 4.4 MEQ/L 3.5-5.4 CHLORIDE (test code = 2215) 100 MEQ/L 95-107 CARBON DIOXIDE (test code = 2206) 22 MEQ/L 19-31 CALCIUM (test code = 2209) 9.3 MG/DL 8.5-10.5 PROTEIN, TOTAL (test code = 222) 7.3 G/DL 6.1-8.3 ALBUMIN (test code = 2201) 4.1 G/DL 3.5-5.2 CALC GLOBULIN (test code = 2240) 3.2 G/DL 1.9-3.7 CALC A/G RATIO (test code = 223) 1.3 RATIO 1.0-2.6 BILIRUBIN, TOTAL (test code = 220) 0.3 MG/DL See_Comment [Automated me ssage] The system which generated this result transmitted reference range: <=1.2. The reference range was not used to interpret this result as normal/abnormal. ALKALINE PHOSPHATASE (test code = 2203) 58 U/L 40-121 AST (test code = 2218) 15 U/L 9-50 ALT (test code = 2219) 16 U/L 5-50 LIPID [id number] 03:13:06* Test Item Value Reference Range Interpretation [...] SPECIMENS. FOR MOREINFORMATION, SEE CLIENT ANNOUNCEMENT AT [email or web address] RISK RATIO LDL/HDL (test code = 2238) 1.85 RATIO <3.55 COMPREHENSIVE METABOLIC [id number] 00:00:00* Test Item Value Reference Range Interpretation Comme nts GLUCOSE (test code = 2217) 93 MG/DL BUN (test code = 2208) 12 MG/DL CREATININE (test code = 2214) 0.70 MG/DL eGFR (2020 CKD-EPI) (test code = 10883) 111 ML/MIN/1.73 CALC BUN/CREAT (test code = [...] (test code = 2219) 16 U/L Herbie Kamara AustinLIPID [id number] 00:00:00* Test Item Value Reference Range Interpretation Comme nts CHOLESTEROL (test code = 2210) 168 MG/DL TRIGLYCERIDES (test code = 2232) 83 MG/DL HDL CHOLESTEROL (test code = 2220) 53 MG/DL CALC LDL CHOL (test code = 2237) 98 MG/DL RISK RATIO LDL/HDL (test cod e = 2238) 1.85 RATIO Herbie Lema, THIRD [id number] 00:00:00* Test Item Value Reference Range Interpretation Comme nts TSH, THIRD GENERATION (test code = 2821) 1.770 UIU/ML Herbie ValdezPSA, [id number] 00:00:00* Test Item Value Reference Range Interpretation Comme nts PSA, TOTAL (test code = 2606) 0.21 NG/ML Herbie ValdezCOMPREHENSIVE METABOLIC [id number] 00:00:00* Test Item Value Reference Range Interpretation Comme nts GLUCOSE (test code = 2217) 93 MG/DL BUN (test code = 2208) 12 MG/DL CREATININE (test code = 2214) 0.70 MG/DL eGFR (2020 CKD-EPI) (test code = 27201) 111 ML/MIN/1.73 CALC BUN/CREAT (test code = [...] code = 2219) 16 U/L Herbie ValdezLIPID [id number] 00:00:00* Test Item Value Reference Range Interpretation Comme nts CHOLESTEROL (test code = 2210) 168 MG/DL TRIGLYCERIDES (test code = 2232) 83 MG/DL HDL CHOLESTEROL (test code = 2220) 53 MG/DL CALC LDL CHOL (test code = 2237) 98 MG/DL RISK RATIO LDL/HDL (test cod e = 2238) 1.85 RATIO Herbie eLma THIRD [id number] 00:00:00* Test Item Value Reference Range Interpretation Comme nts TSH, THIRD GENERATION (test code = 2821) 1.770 UIU/ML Herbie ValdezPSA, [id number] 00:00:00* Test Item Value Reference Range Interpretation Comme nts PSA, TOTAL (test code = 2606) 0.21 NG/ML Herbie ValdezCOMPREHENSIVE METABOLIC [id number] 00:00:00* Test Item Value Reference Range Interpretation Comme nts GLUCOSE (test code = 2217) 93 MG/DL BUN (test code = 2208) 12 MG/DL CREATININE (test code = 2214) 0.70 MG/DL eGFR (2020 CKD-EPI) (test code = 47575) 111 ML/MIN/1.73 CALC BUN/CREAT (test code = [...] code = 2219) 16 U/L Herbie ValdezLIPID [id number] 00:00:00* Test Item Value Reference Range Interpretation Comme nts CHOLESTEROL (test code = 2210) 168 MG/DL TRIGLYCERIDES (test code = 2232) 83 MG/DL HDL CHOLESTEROL (test code = 2220) 53 MG/DL CALC LDL CHOL (test code = 2237) 98 MG/DL RISK RATIO LDL/HDL (test cod e = 2238) 1.85 RATIO Herbie Lema THIRD [id number] 00:00:00* Test Item Value Reference Range Interpretation Comme nts TSH, THIRD GENERATION (test code = 2821) 1.770 UIU/ML Herbie VladezPSA, [id number] 00:00:00* Test Item Value Reference Range Interpretation Comme nts PSA, TOTAL (test code = 2606) 0.21 NG/ML Herbie ValdezHEMOGLOBIN [id number] 03:02:16* Test Item Value Reference Range Interpretation Comme nts HEMOGLOBIN A1c (test code = 45135) 6.1 % 4.2-5.6 H [employer] GUIDELINES FOR HGB A1C: [...] OR LABORATORY CONSULTATION. CBC W/AUTO DIFF WITH [id number] 02:26:30* Test Item Value Reference Range Interpretation [...] 0.00-0.10 ABS NUCLEATED RBCS (test code = 24340) 0.00 K/UL 0.00-0.11 HEMOGLOBIN [id number] 00:00:00* Test Item Value Reference Range Interpretation Comme nts HEMOGLOBIN A1c (test code = 99910) 6.1 % Herbie Kamara [facility] W/AUTO [id number] 00:00:00* Test Item Value Reference Range Interpretation [...] ABS NUCLEATED RBCS (test cod e = 07852) 0.00 K/UL Herbie Kamara AustinHEMOGLOBIN [id number] 00:00:00* Test Item Value Reference Range Interpretation Comme nts HEMOGLOBIN A1c (test code = 45981) 6.1 % Herbie ValdezCBC W/AUTO [id number] 00:00:00* Test Item Value Reference Range Interpretation [...] ABS NUCLEATED RBCS (test cod e = 69652) 0.00 K/UL Herbie F AustinHEMOGLOBIN [id number] 00:00:00* Test Item Value Reference Range Interpretation Comme nts HEMOGLOBIN A1c (test code = 91512) 6.1 % Herbie ValdezCBC W/AUTO [id number] 00:00:00* Test Item Value Reference Range Interpretation [...] ABS NUCLEATED RBCS (test cod e = 00451) 0.00 K/UL Herbie ValdezTSH, THIRD [id number] 00:41:25* Test Item Value Reference Range Interpretation Comme nts TSH, THIRD GENERATION (test code = 2821) 1.580 UIU/ML 0.400-4.100 UNLESS OTHERWISE INDICATED, ALL TESTING PERFORMED [facility] [address] [place] [id number] [employer] INTERN: KAYLENE LOPEZ M.D. CLIA NUMBER [id number] [place]. [id number] LIPID [id number] 00:13:01* Test Item Value Reference Range Interpretation [...] SPECIMENS. FOR MOREINFORMATION, SEE CLIENT ANNOUNCEMENT AT [email or web address] RISK RATIO LDL/HDL (test code = 2238) 2.12 RATIO <3.55 COMPREHENSIVE METABOLIC [id number] 00:13:01* Test Item Value Reference Range Interpretation Comme nts GLUCOSE (test code = 2217) 92 MG/DL 70-99 BUN (test code = 8) 14 MG/DL 6-20 CREATININE (test code = 2214) 0.80 MG/DL 0.80-1.40 eGFR (2020 CKD-EPI) (test code = 19526) 107 ML/MIN/1.73 >60 CALC BUN/CREAT (test code [...] 1.0-2.6 BILIRUBIN, TOTAL (test code = 2206) 0.6 MG/DL See_Comment [Automated me ssage] The system which generated this result transmitted reference range: <=1.2. The reference range was not used to interpret this result as normal/abnormal. ALKALINE PHOSPHATASE (test code = 2204) 63 U/L 40-121 AST (test code = 2218) 32 U/L 9-50 ALT (test code = 2219) 34 U/L 5-50 LIPID [id number] 00:00:00* Test Item Value Reference Range Interpretation Comme nts CHOLESTEROL (test code = 2210) 177 MG/DL TRIGLYCERIDES (test code = 2232) 68 MG/DL HDL CHOLESTEROL (test code = 2220) 52 MG/DL CALC LDL CHOL (test code = 2237) 110 MG/DL RISK RATIO LDL/HDL (test cod e = 2238) 2.12 RATIO Herbie ValdezCOMPREHENSIVE METABOLIC [id number] 00:00:00* Test Item Value Reference Range Interpretation Comme nts GLUCOSE (test code = 2217) 92 MG/DL BUN (test code = 2208) 14 MG/DL CREATININE (test code = 2214) 0.80 MG/DL eGFR (2020 CKD-EPI) (test code = 35266) 107 ML/MIN/1.73 CALC BUN/CREAT (test code = [...] (test code = 2219) 34 U/L Herbie [id number] 00:00:00* Test Item Value Reference Range Interpretation Comme nts TSH, THIRD GENERATION (test code = 2821) 1.580 UIU/ML Herbie ValdezLIPID [id number] 00:00:00* Test Item Value Reference Range Interpretation Comme nts CHOLESTEROL (test code = 2210) 177 MG/DL TRIGLYCERIDES (test code = 2232) 68 MG/DL HDL CHOLESTEROL (test code = 2220) 52 MG/DL CALC LDL CHOL (test code = 2237) 110 MG/DL RISK RATIO LDL/HDL (test cod e = 2238) 2.12 RATIO Herbie ValdezCOMPREHENSIVE METABOLIC [id number] 00:00:00* Test Item Value Reference Range Interpretation Comme nts GLUCOSE (test code = 2217) 92 MG/DL BUN (test code = 2208) 14 MG/DL CREATININE (test code = 2214) 0.80 MG/DL eGFR (2020 CKD-EPI) (test code = 00517) 107 ML/MIN/1.73 CALC BUN/CREAT (test code = [...] (test code = 2219) 34 U/L Herbie [id number] 00:00:00* Test Item Value Reference Range Interpretation Comme nts TSH, THIRD GENERATION (test code = 2821) 1.580 UIU/ML Herbie ValdezLIPID [id number] 00:00:00* Test Item Value Reference Range Interpretation Comme nts CHOLESTEROL (test code = 2210) 177 MG/DL TRIGLYCERIDES (test code = 2232) 68 MG/DL HDL CHOLESTEROL (test code = 2220) 52 MG/DL CALC LDL CHOL (test code = 2237) 110 MG/DL RISK RATIO LDL/HDL (test cod e = 2238) 2.12 RATIO Herbie ValdezCOMPREHENSIVE METABOLIC [id number] 00:00:00* Test Item Value Reference Range Interpretation Comme nts GLUCOSE (test code = 2217) 92 MG/DL BUN (test code = 2208) 14 MG/DL CREATININE (test code = 2214) 0.80 MG/DL eGFR (2020 CKD-EPI) (test code = 17457) 107 ML/MIN/1.73 CALC BUN/CREAT (test code = [...] (test code = 2219) 34 U/L Herbie [id number] 00:00:00* Test Item Value Reference Range Interpretation Comme artemio TSH, THIRD GENERATION (test code = 2821) 1.580 UIU/ML Herbie ValdezHEMOGLOBIN [id number] 04:44:59* Test Item Value Reference Range Interpretation Comme artemio HEMOGLOBIN A1c (test code = 51049) 6.2 % 4.2-5.6 H CBC W/AUTO DIFF WITH [id number] 03:55:47* Test Item Value Reference Range Interpretation [...] 0.00-0.10 ABS NUCLEATED RBCS (test code = 39124) 0.00 K/UL 0.00-0.11 CBC W/AUTO [id number] 00:00:00* Test Item Value Reference Range Interpretation [...] ABS NUCLEATED RBCS (test cod e = 57827) 0.00 K/UL Herbie ValdezHEMOGLOBIN [id number] 00:00:00* Test Item Value Reference Range Interpretation Comme nts HEMOGLOBIN A1c (test code = 22167) 6.2 % Herbie ValdezCBC W/AUTO [id number] 00:00:00* Test Item Value Reference Range Interpretation [...] ABS NUCLEATED RBCS (test cod e = 22421) 0.00 K/UL Herbie ValdezHEMOGLOBIN [id number] 00:00:00* Test Item Value Reference Range Interpretation Comme nts HEMOGLOBIN A1c (test code = 83458) 6.2 % Herbie ValdezCBC W/AUTO [id number] 00:00:00* Test Item Value Reference Range Interpretation [...] ABS NUCLEATED RBCS (test cod e = 54418) 0.00 K/UL Herbie ValdezHEMOGLOBIN [id number] 00:00:00* Test Item Value Reference Range Interpretation Comme artemio HEMOGLOBIN A1c (test code = 50861) 6.2 % Herbie ValdezSARS-CoV-2 (COVID-19) by RT-PCR (HIGH RISK)2020 00:00:00* Test Item Value Reference Range Interpretation Comme artemio SARS-CoV-2 INTERPRETATION (t est code = 81487) NEGATIVE SOURCE (test code = 77912) NOT SPECIFIED Herbie Kamara [id number] (COVID-19) by RT-PCR (HIGH RISK)2020 00:00:00* Test Item Value Reference Range Interpretation Comme artemio SARS-CoV-2 INTERPRETATION (t est code = 29886) NEGATIVE SOURCE (test code = 77250) NOT SPECIFIED Herbie Kamara [id number] (COVID-19) by RT-PCR (HIGH RISK)2020 00:00:00* Test Item Value Reference Range Interpretation Comme artemio SARS-CoV-2 INTERPRETATION (t est code = 46663) NEGATIVE SOURCE (test code = 08065) NOT SPECIFIED Herbie ValdezXR CHEST 2 [id number] 20:22:30Mild bilateral interstitial opacities could be related to minimal pulmonaryvascular congestion versus less likely an atypical infectious process suchas Covid 19 pneumonia. Disclaimer: Generally, the findings on chest imaging in COVID-19 are notspecific, and overlap with other infections, including influenza, H1N1,SARS and MERS.According to the Centers for Disease Control (CDC) and recent statement ofthe [employer], viral testing remains the [...] Disease Control (CDC) and recent statement ofthe [place] [employer], viral testingremains the only specificmethod of diagnosis. Confirmation with the viral test is required, even ifradiologic findings are suggestive of COVID-[address]Preliminary Report Dictated by Resident:Enrike Sawyer MD., have reviewed this study and agree with the abovereport.[facility] Notes Date/Time Note Provider Source 2024-11-12 12:32:00 [facility]) Med Order Sheet REPORT #: [id number] REPORT STATUS: Signed DATE: 11/12/24 TIME: 1232 PATIENT: HIMANSHU ENRIQUEZ JR UNIT #: [id number] ROOM #: [id number] BED: 1 : 70 AGE: 54 SEX: M ATTEND: Malik Schaefer MD ADM AUTHOR: Vladimir Falk MD R5 ATTENTION *EDITS and/or ADDENDA must be made in Patient Keeper for this note. * * Edits and ammendments created in [employer] are not visible * * in Patient Keeper or the legal medical record ([facility]). * Discharge Medication Reconciliation DISCHARGE MEDICATION LIST ALLERGY MED Dose: 1 TAB PO DAILY lisinopril tablet Dose: 10 MG PO QAM STOPPED HOSPITAL MEDICATIONS Dc'd: Acetaminophen Tab (Tylenol Tab) 650MG PO Q6HDc'd: Admelog Inj (Insulin Lispro Inj) UNIT SUBQ Q6HDc'd: Dextrose 50% Syringe (D50W Syringe) 0 ML IV ASDIR PRN hypoglycemic protocolDc'd: Enoxaparin 40mg/0.4mL Inj (Lovenox 40mg/0.4mL Inj) 40MG SUBQ 2100Dc'd: hydrALAZINE Inj (Apresoline Inj) 10MG IV Q6H PRN sbp greater than 160Dc'd: Methocarbamol Inj (Robaxin Inj) 1000MG IV TIDDc'd: Naloxone Inj (Narcan Inj) 0.1MG IV Q2M X 3 doses PRN unresponsivenessDc'd: Ondansetron Inj (Zofran Inj) 4MG IV Q6HDc'd: Pantoprazole Inj (Protonix Inj) 40MG IV DAILYin Sodium Chloride 0.9% (Nacl 0.9%) 10ML (Total 10 ML) Dc'd: Promethazine Inj (Phenergan Inj) 12.5MG IV Q6Hin Sodium Chloride 0.9% (NS) 50ML (Total 50.5 ML) Dc'd: Sodium Chloride 0.9% (NS) 1000ML 125 MLS/HR IV ASDIRDc'd: traMADol Tab (Ultram Tab) 50MG PO Q6H PRN moderate pain (scale 5-6) at 1232 ATTENTION *EDITS and/or ADDENDA must be made in Patient Keeper for this note. * * Edits and ammendments created in [facility] are not visible * * in Patient Keeper or the legal medical record ([facility]). * RPT #: [id number] END OF REPORT FORMERLY [facility] 2024-11-12 12:20:00 [facility]) General Surg. D/C Summary REPORT #: [id number] REPORT STATUS: Signed DATE: 11/12/24 TIME: 1220 PATIENT: HIMANSHU ENRIQUEZ JR UNIT #: [id number] ROOM #: [id number] BED: 1 : 70 AGE: 54 SEX: M ATTEND: Malik Schaefer MD ADM AUTHOR: Vladimir Falk MD R5 ATTENTION *EDITS and/or ADDENDA must be made in Patient Keeper for this note. * * Edits and ammendments created in Crypt[employer]ator are not visible * * in Patient Keeper or the legal medical record ([facility]). * Attending: Malik Schaefer MD 11/12/24 13:56 I agree with assessment and plan Note Date: 11/12/24 12:20 -- PROBLEMS/PROCEDURES -- ADMISSION DATE: 11/11/2024 ADMITTING DIAGNOSIS: - GERD with esophagitis - Hyperlipidemia - Hypertension - Morbid obesity DISCHARGE DATE: 11/12/24 DISCHARGE DIAGNOSIS: - GERD with esophagitis - Hyperlipidemia - Hypertension - Morbid obesity PROCEDURES PERFORMED: RAL daisy-en-y gastric bypass 11/11 -- HOSPITAL COURSE -- HOSPITAL COURSE: Pt is a 54yo M w/ the disease of morbid obesity s/p RAL daisy-en-y gastric bypass 11/11. He is doing well postoperatively. Tolerating FLD and meeting goals for fluid intake. He has ambulated and is passing flatus. Denies N/V. HDS. -- DISCHARGE MEDICATIONS -- ALLERGIES - No Known Allergies ( UNKNOWN - Allergy ) DISCHARGE MEDICATIONS - ALLERGY MED 1 TAB PO DAILY - lisinopril tablet 10 MG PO QAM -- DISCHARGE INSTRUCTIONS -- PENDING LABS/TESTS AT DISCHARGE PENDING LABS: none PENDING TESTS: none Admission Orders Discharge Follow Up [id number]; 11/16/2024; [id number]; 11/16/2024; MALIK SCHAEFER MD; Call to schedule an appointment for 11/16/24; Call to schedule an appointment for 11/16/24; [id number]; 11/16/2024; Call to schedule an appointment for 11/16/24; [id number]; 11/16/2024; Call to schedule an appointment for 11/16/24; [id number]; 11/16/2024; Call to schedule an appointment for 11/16/24; SARMAD:Malik Schaefer MD Details: Order number: [id number] Category: ADT - Admission Orders Order status: Transmitted Details: Consulting provider 1: SARMAD:Malik Schaefer MD Consulting provider 1: . Consult phone: [phone] Consult appt date: 11/16/2024 Consult special instructions: Call to schedule an appointment for 11/16/24 Ordered by: Vladimir Falk MD R5 Nov 12, 2024 12:32pm Entered by: Vladimir Falk MD R5 Service date: Nov 12, 2024 12:31pm PK Discharge Orders DC Order - No eCQM 2019.2 Details: Discharge w/Instructions Details: Order number: [id number] Category: PKDC - PK Discharge Orders Order status: Transmitted Details: Discharge order: Yes Discharge to: Home/Self Care Diet: Bariatric Liquid Diet Activity: Do not Submerge Incision No Lifting >20lbs No Strenuous Activity Shower Only PCP follow up timeframe: In 1-2 weeks Wound/dressing care: Do not submerge incision OK to shower tomorrow Additional Discharge Routines: PCP Follow-Up Ordered by: Vladimir Falk MD R5 Nov 12, 2024 12:32pm Entered by: Vladimir Falk MD R5 Service date: Nov 12, 2024 12:31pm Emergency instructions: The patient was instructed to present to the nearest Emergency Department or call 911 should their symptoms return or worsen. ADDTIONAL DISCHARGE INSTRUCTIONS: Emergency Instructions: The patient was instructed to present to the nearest Emergency Department or call 911 should their symptoms return or worsen.; -- OBJECTIVE -- VITALS (11/11 12:20 - 11/12 12:20): Blood pressure: 130/76 (127/69 - 168/84) Respiratory rate: 16 (16 - 18) Temperature source: Oral Temperature C: 37.1 (36.3 - 37.5) Pulse Rate: 60 (60 - 73) I/OS (11/11 07:00-11/12 07:00): Net1,200.00 Intake1,200.00 IV fluid 1 volume ml:1,200.00 Number of continent voids:3 EXAM: General: Well developed, in no apparent distress. Head: Normocephalic, atraumatic. Neck: No masses, no thyromegaly, no abnormal cervical nodes, trachea midline. Chest: Grossly normal appearance. Abdomen: Soft, mild anticipated incisional tenderness to palpation, incisions CDI, no organomegaly, no masses noted. Extremities: No clubbing, no cyanosis, no edema. Pulses: Pulses normal in all extremities. Skin: Intact without significant lesions, or rashes. Psychiatric: Alert and oriented to time, person, place. Normal mood and affect, intact judgment and insight. -- DATA -- ALLERGIES LAB RESULTS GLU BED (11/12/24 05:27) GLUBED 146 H CBC W/AUTO DIFF (11/12/24 06:03) NUCLEATED RBC # 0 MONOCYTE % 3.4 EOSINOPHIL % 0 BASOPHIL % 0.1 NUCLEATED RBC % 0 NEUTROPHIL # 11.44 H IMMATURE GRANULOCYTE # 0.07 WHITE BLOOD CELL 12.6H H NEUTROPHIL % 90.5 H EOSINOPHIL # 0 IMMATURE GRANULOCYTE % 0.6 BASOPHIL # 0.01 LYMPHOCYTE % 5.4 L LYMPHOCYTE # 0.68 L MEAN PLATELET VOLUME 10.7 MONOCYTE # 0.43 RED BLOOD CELL 4.15 L HEMOGLOBIN 12.8L L HEMATOCRIT 39.7L L MEAN CELL VOLUME 96 MEAN CELL HGB 30.8 MEAN CELL HGB CONCENTRATION 32.2 RED CELL DISTRIBUTION WIDTH 13.2 PLATELET COUNT 246 BASIC METABOLIC PANEL (11/12/24 06:03) CALCIUM 8.5 L CARBON DIOXIDE 23 CHLORIDE 106 POTASSIUM 4.4 SODIUM 139 GLOMERULAR FILTRATION RATE >=60 max estimate BLOOD UREA NITROGEN 11 GLUCOSE 126H H ANION GAP 14.4 BUN/CREATININE RATIO 15.7 CREATININE 0.7 GLU BED (11/12/24 11:49) GLUBED 118 H at 1356 at 1356 ATTENTION *EDITS and/or ADDENDA must be made in Patient Keeper for this note. * * Edits and ammendments created in [facility] are not visible * * in Patient Keeper or the legal medical record ([facility]). * RPT #: [id number] END OF REPORT [facility] 2024-11-12 12:08:00 [facility] Surgical Post Op Progress Note REPORT #: [id number] REPORT STATUS: Signed DATE: 11/12/24 TIME: 1208 PATIENT: HIMANSHU ENRIQUEZ JR UNIT #: [id number] ROOM #: [id number] BED: 1 : 70 AGE: 54 SEX: M ATTEND: Malik Schaefer MD ADM AUTHOR: Malik Schaefer MD ATTENTION *EDITS and/or ADDENDA must be made in Patient Keeper for this note. * * Edits and ammendments created in [employer] are not visible * * in Patient Keeper or the legal medical record ([facility]). * Note Date: 11/12/24 12:08 -- ASSESSMENT/PLAN -- HOSPITAL COURSE TO DATE: 54 y/o M with morbid obesity and co-morbidities who is POD#1 from RAL RYGB. -Doing well -Tolerating CLD -Advance to bariatric FLD for lunch -MMPC -Lovenox BID -Continue IVF -Will monitor intake. If meets 500cc PO intake requirement can be discharged this afternoon -Fu 11/16 in clinic -I gave discharge instructions including detailed review of post-op diet and medications ASSESSMENT AND PLAN: 1: GERD with esophagitis 2: Hypertension 3: Morbid obesity 4: Hyperlipidemia -- SUBJECTIVE -- Hospital day 2 CHIEF COMPLAINT: s/p RYGB HPI: The patient is a 54 y/o M who is POD#1 from RAL RYGB. No acute events overnight. Tolerating clear liquids without nausea/vomiting/dysphagia. DIRECTED ROS: See HPI TOLERATING FLUIDS Yes VOIDING Yes -- EXAM -- VITALS (11/11 12:08 - 11/12 12:08): Respiratory rate: 16 (16 - 18) Blood pressure: 130/76 (127/69 - 168/84) Temperature C: 37.1 (36.3 - 37.5) Temperature source: Oral Pulse Rate: 60 (60 - 73) IOS (11/11 07:00-11/12 07:00): Net1,200.00 Intake1,200.00 IV fluid 1 volume ml:1,200.00 Number of continent voids:3 WOUND/ULCER EXAM: General: Well developed, well nourished, in no apparent distress. EXAM: Abdomen Soft, non-distended, appropriately TTP near incisions Pulses 2+ radial pulse Skin Incisions C/D/I, no erythema INDWELLING [place] No -- DATA -- MEDICATIONS PROMETHAZINE HCL with/in SODIUM CHLORIDE 50 mL BAG 12.5 MG IV Q6H SODIUM CHLORIDE 0.9% 1000 ML IV ASDIR NALOXONE HCL 0.1 MG IV Q2M PRN PANTOPRAZOLE with/in SODIUM CHLORIDE 0.9% 40 MG IV DAILY DEXTROSE 50%-WATER 0 ML IV ASDIR PRN ACETAMINOPHEN 650 MG PO Q6H methocarbamoL 1000 MG IV TID hydrALAZINE HCL 10 MG IV Q6H PRN ENOXAPARIN SODIUM 40 MG SUBQ 2100 traMADol HCL 50 MG PO Q6H PRN ONDANSETRON HCL/PF 4 MG IV Q6H INSULIN LISPRO UNIT SUBQ Q6H LAB RESULTS GLU BED (11/12/24 05:27) GLUBED 146 H CBC W/AUTO DIFF (11/12/24 06:03) NUCLEATED RBC # 0.000 MONOCYTE % 3.4 EOSINOPHIL % 0.0 BASOPHIL % 0.1 NUCLEATED RBC % 0.0 NEUTROPHIL # 11.44 H IMMATURE GRANULOCYTE # 0.070 WHITE BLOOD CELL 12.6H H NEUTROPHIL % 90.5 H EOSINOPHIL # 0.00 IMMATURE GRANULOCYTE % 0.6 BASOPHIL # 0.01 LYMPHOCYTE % 5.4 L LYMPHOCYTE # 0.68 L MEAN PLATELET VOLUME 10.7 MONOCYTE # 0.43 RED BLOOD CELL 4.15 L HEMOGLOBIN 12.8L L HEMATOCRIT 39.7L L MEAN CELL VOLUME 96 MEAN CELL HGB 30.8 MEAN CELL HGB CONCENTRATION 32.2 RED CELL DISTRIBUTION WIDTH 13.2 PLATELET COUNT 246 BASIC METABOLIC PANEL (11/12/24 06:03) CALCIUM 8.5 L CARBON DIOXIDE 23 CHLORIDE 106 POTASSIUM 4.4 SODIUM 139 GLOMERULAR FILTRATION RATE >=60 max estimate BLOOD UREA NITROGEN 11 GLUCOSE 126H H ANION GAP 14.4 BUN/CREATININE RATIO 15.7 CREATININE 0.7 GLU BED (11/12/24 11:49) GLUBED 118 H at 1213 ATTENTION *EDITS and/or ADDENDA must be made in Patient Keeper for this note. * * Edits and ammendments created in [employer] are not visible * * in Patient Keeper or the legal medical record ([facility]). * [facility] #: [id number] END OF REPORT [facility] 2024-11-11 21:02:00 [facility] Operative Report REPORT #: [id number] REPORT STATUS: Signed DATE: 11/11/24 TIME: 2101 PATIENT: HIMANSHU ENRIQUEZ JR UNIT #: [id number] ROOM #: [id number] BED: 1 : 70 AGE: 54 SEX: M ATTEND: Malik Schaefer MD ADM AUTHOR: Malik Schaefer MD ATTENTION *EDITS and/or ADDENDA must be made in Patient Keeper for this note. * * Edits and ammendments created in [employer] are not visible * * in Patient Keeper or the legal medical record ([facility]). * Note Date: 11/11/24 21:02 -- OPERATION -- SURGERY START DATE/TIME 11/11/2024 21:02 PRE-OPERATIVE DIAGNOSIS: See description POST-OPERATIVE DIAGNOSIS: See description NAME OF PROCEDURE: See description Surgeon:Malik Schaefer MD SUPERVISOR LITHARGE(S): See description ANESTHESIA: See description ESTIMATED BLOOD LOSS 20 mls FINDINGS: See description SPECIMENS(S) REMOVED AND/OR ALTERED: See description COMPLICATION(S): See description -- DESCRIPTION -- DESCRIPTION OF TECHNIQUE/PROCEDURE: SURGEON: Malik Schaefer MD 1st AST: Vladimir Falk MD PGY5 2nd AST: Sommer Rosas MD PGY1 PREOPERATIVE DIAGNOSIS: 1. Morbid obesity (BMI 54.7) 2. Hypertension POSTOPERATIVE DIAGNOSIS: 1. Morbid obesity (BMI 54.7) 2. Hypertension PROCEDURES PERFORMED: 1. Laparoscopic Daisy-en-Y gastric bypass with robotic assistance. 2. Intraoperative EGD to confirm gastrojejunal anastomosis. ANESTHESIA: General endotracheal anesthesia ESTIMATED BLOOD LOSS: 20 cc FLUIDS: See anesthesia record BLOOD ADMINSTERED: None DRAINS: None GRAFTS/IMPLANTS: None FINDINGS: Normal appearing gastric anatomy, fatty liver INDICATION FOR PROCEDURE: The patient is a [54 y/o M who presented with morbid obesity and comorbidities related to morbid obesity, who underwent extensive preoperative workup and was found to be a reasonable candidate for bariatric surgery. They also underwent extensive preoperative educational process and through that process it was felt that a gastric bypass was the procedure of choice to achieve long-term weight loss. They understood the risks of the procedure including risk for bleeding, infection, gastrointestinal leak, pulmonary embolism, organ failure, and possibly even . They agreed to proceed to the operating room for the above-named surgery after an informed consent was obtained. PROCEDURE IN DETAIL: After informed consent was obtained, the patient was taken to the operating room where they were identified and the surgical site was confirmed. The patient was positioned supine on the operating room table and anesthesia was administered. Appropriate preoperative antibiotics were administered. The abdomen was prepped and draped in the usual sterile fashion. As 8 mm transverse incision was made along the left subcostal margin and under direct visualization, 5 mm Optiview trocar was placed into the abdominal cavity. The abdomen was inflated with CO2 and a laparoscopic camera was inserted through the trocar. Using laparoscopic visualization, a 12 mm port was placed in the right upper quadrant, an 8 mm port was placed in the periumbilical position, and an 8 mm port was placed on the left lateral abdominal wall. The 5 mm port was exchanged for an 8 mm port, and a 5 mm dietetic assistant port was placed in the left upper quadrant. An internal retractor was used to retract the liver anteriorly and expose the anterior surface of the stomach. A gastric balloon was inserted into the stomach to aid in the creation of the gastric pouch. The da Guille robot was brought into the surgical field and docked at the patient's bedside. Using robotic assistance, attention was turned to the upper abdomen. The gastrophrenic fat pad at the angle of His was mobilized with electrocautery to expose the left hira of the diaphragm. The pars flaccida was incised and lesser sac was entered. The upper gastric pouch was created with 4 firings of the robotic SureForm, 60 mm green load, with SeamGuard reinforcement strips. This produced a small 15 to 20 mL upper gastric pouch. The ligament of Treitz was then identified. The jejunum was then run 100 cm distal to the ligament of Treitz and brought in apposition to the gastric pouch. They were sutured together with a running 2-0 PDS Stratifix suture. A 1.5 cm gastrotomy and enterotomy were made, and a 2 layer hand-sewn gastrojejunal anastomosis was performed with an inner running layer of 2-0 Vicryl suture and outer running layer of 2-0 PDS Stratifix suture. The mesentery of the jejunum was then cleared, and the jejunum was divided with a 60 mm white load (robotic SureForm) to create the biliopancreatic limb and the Daisy limb. The Daisy limb was run 110 cm distally and then brought into apposition with the biliopancreatic limb. They were sutured together with an interrupted 2-0 Vicryl stay suture X2. Enterotomies were made in both segments of bowel and an anastomosis performed with a 60 mm white load (robotic SureForm). The enterotomy defect was closed with a running 2-0 Vicryl suture and the mesenteric defect was closed with a running 2-0 silk suture. Upon completion of the anastomoses, a gastroscope was inserted in the patient's mouth and down into the jejunum. The Daisy limb was clamped at the jejunum and a leak test was performed. No air bubbles or air leaks were identified, and the scope passed through the anastomosis easily. Air was removed from the gastric pouch and the Daisy limb and the gastroscope was removed. Irrigation fluid was removed from the abdominal cavity using the suction predictive maintenance specialist. Hemostasis appeared adequate. The gastrojejunostomy, jejunojejunostomy, and mesenteric closure was covered with fibrin glue. The robot was undocked and the 12 mm trocar site fascial defect was closed with 0 Vicryl suture using the suture passer. CO2 was evacuated from the abdominal cavity and all trocars were removed. All skin incisions were closed with 4-0 Monocryl subcuticular sutures and covered with Dermabond. The patient was then extubated and taken to the PACU in stable condition. SPECIMENS REMOVED: None COMPLICATIONS: None Malik Schaefer MD at 2110 ATTENTION *EDITS and/or ADDENDA must be made in Patient Keeper for this note. * * Edits and ammendments created in [employer] are not visible * * in Patient Keeper or the legal medical record (HPF). * [facility] #: [id number] END OF REPORT FORMERLY [facility] Herbie Vivas [facility]2024-11-09 10:54:[id number] [facility] [id number] [place] [id number] PATIENT NAME: HIMANSHU ENRIQUEZ JR ADMIT DATE: ACCOUNT NO: [id number] ROOM NO: AGE: 54 REPORT TYPE: eELECTROCARDIOGRAM SEX: M ADMITTING PHYSICIAN:Malik Schaefer MD ATTENDING PHYSICIAN:Malik Schaefer MD Order: [id number] Test Reason : PPRE PRO Test Date/Time Stamp: FriOct 09 2024 10:54:47 Blood Pressure : / mmHG Vent. Rate : 056 BPM Atrial Rate : 056 BPM P-R Int : 168 ms QRS Dur : 132 ms QT Int : 482 ms P-R-T Axes : 026 -58 029 degrees QTc Int : 465 ms Sinus bradycardia Left axis deviation Left ventricular hypertrophy with QRS widening ( R in aVL , [place] product , Romhilt-Lopez ) Abnormal ECG No previous ECGs available Confirmed by MANUEL XAVIER MD ([id number]) on 10/13/2024 12:00:43 PM Referred By: Malik Schaefer Confirmed by:MANUEL XAVIER MD at [address] [address] PATIENT NAME: HIMANSHU ENRIQUEZ JR [facility]00:00 [facility]00 [facility]
[2025-03-10 20:49] LABS: Absolute Eosinophils 0.2 K/uL (0-0.5); Absolute Lymphocytes (CBC) 2.1 K/uL (0.7-4.9); Absolute Monocytes 0.6 K/uL (0.1-1.3); Absolute Neutrophil 6.4 K/uL (1.8-8.0); Basophils % 0.5 % (0-1.3); Hematocrit 33.8 % (39.6-49.0); Hemoglobin 11.6 g/dL (13.6-17.9); Lymphocytes % 22.3 % (15.3-44.8); MCH 32.3 pg (27.0-35.0); MCHC 34.4 g/dL (32.0-36.0); MCV 93.9 fL (80-100); MPV 9.9 fL (7.6-11.3); Monocytes % 6.6 % (3.3-12.3); Neutrophils % 68.6 % (41.7-73.7); Platelets 164 thou/uL (152-406); RBC Red Blood Cell Count 3.59 M/uL (4.33-5.43)
[2025-03-10 20:53] LABS: Protime INR 1.24
--- NOTE | 2025-03-10 20:56 | RAD REPORT ---
EXAMINATION: ONE VIEW CHEST XR CLINICAL INDICATION: Male, 54 years old.,left side chest pain TECHNIQUE: Frontal chest projection is submitted. Examination is limited by patient positioning and t echnique. COMPARISON: 07/29/2023 FINDINGS: The lungs are grossly clear although suboptimal inspiratory effort somewhat limits evaluation. No pn eumothorax or sizable effusion. The heart is normal in size. Mediastinal contours are unremarkable. IMPRESSION: No acute intrathoracic abnormalities.
[2025-03-10 21:07] LABS: ALT/SGPT 25 U/L (16-61); AST/SGOT 17 U/L (15-37); Albumin 3.1 g/dL (3.4-5.0); Albumin/Globulin Ratio 0.9 (1.1-1.8); Alkaline Phosphatase 76 U/L (45-117); Anion Gap 8.6 mEq/L (5.0-15.0); BUN Blood Urea Nitrogen 23 mg/dL (7-18); Bicarbonate 26 mEq/L (21-32); Bilirubin Total 0.4 mg/dL (0.2-1.0); Globulin 3.4 g/dL (2.3-3.5); Glomerular Filtration Rate 109 ml/min (=/>90); Glucose Level 111 mg/dL (74-106); Magnesium 2.1 mg/dL (1.6-2.4); NT PRO-BNP 272 pg/mL (<125); Potassium 3.6 mEq/L (3.5-5.1); Protein, Total 6.5 g/dL (6.4-8.2); Sodium Level 140 mEq/L (136-145); Troponin High Sensitivity 7.6 pg/mL (<58.9)
[2025-03-10 21:08] LABS: Bilirubin Direct < 0.2 mg/dL (0-0.2); Bilirubin Indirect, Calculated 0.2 mg/dL (0.2-0.8)
[2025-03-10] MEDS ORDERED: KETOROLAC 30 MG/ML INJ ONE (21:53)
[2025-03-10] MEDS ORDERED: ACETAMINOPHEN 500 MG TAB ONE (21:57)
--- NOTE | 2025-03-10 22:27 | RAD REPORT ---
EXAM: CT CHEST, ABDOMEN AND PELVIS WITH CONTRAST CLINICAL INDICATION: Male, 54 years old. CHEST PAIN TECHNIQUE: CT chest, abdomen, and pelvis was performed, following the administration of contrast, as per department protocol. Axial, sagittal and coronal reconstructions were obtained. One or more of the following dose reduction techniques were used: Automated exposure control, adjustment of the mA a nd/or kV according to patient size, and/or iterative reconstruction. Unless otherwise specified, incidental findings do not require dedicated imaging follow-up. COMPARISON: Lumbar spine CT 09/08/2023 FINDINGS: LUNGS AND AIRWAYS: No evidence of airspace or interstitial process. No nodules. PLEURA: No pleural effusion. No pneumothorax. MEDIASTINUM AND LYMPH NODES: No mediastinal mass or fluid collection. Normal size mediastinal, hilar, and axillary lymph nodes. THORACIC AORTA: Normal caliber and configuration. PULMONARY ARTERIES: Normal caliber. OSSEOUS STRUCTURES AND CHEST WALL: Intact. LIVER: Normal in size and contour. No focal lesion or biliary dilitation. BILIARY SYSTEM: No suspicious abnormalities. PANCREAS: No mass, ductal dilation, or delisa-pancreatic fluid. SPLEEN: Normal size. No focal lesion. ADRENALS: Normal; no mass. KIDNEYS AND URETERS: Normal size and contour. No hydronephrosis. Nonobstructing left renal lower pole calculi largest measuring 9 mm. URINARY BLADDER: Normal contour. GASTROINTESTINAL TRACT: Sequelae of Willy-en-Y gastric bypass No bowel obstruction, free air, signific ant free fluid or abscess. APPENDIX: No inflammatory changes in region of appendix. LYMPH NODES: No lymphadenopathy. ABDOMINAL AORTA AND OTHER VESSELS: Normal caliber aorta and IVC. MUSCULOSKELETAL: No acute or suspicious osseous abnormality. IMPRESSION: No acute or traumatic abnormalities seen in the chest, abdomen or pelvis. Nonobstructing left renal lower pole calculi largest measuring 9 mm.
[2025-03-11] MEDS ORDERED: methocarbamoL 750 MG TAB ONE (00:08)
--- NOTE | 2025-03-11 00:14 | ER ---
Nurse's Notes [facility] Name: Juwan Turner Jr Age: 54 yrs Sex: Male : 1970 Arrival Date: 03/10/2025 Time: 19:14 Bed 11 Private MD: Diagnosis: Chest pain, unspecified;Fall on same level from slipping, tripping and stumbling with subsequent striking against object Presentation: 03/10 19:31 Chief complaint: Patient states: fell from waling position onto concrete at 0600 this lg3 morning. denies LOC. pain to left chest wall and shoulder. Coronavirus screen: Client denies travel out of the [place] in the last 14 days. At this time, the client does not indicate any symptoms associated with coronavirus-19. Ebola Screen: No symptoms or risks identified at this time. Initial Sepsis Screen: Does the patient meet any 2 criteria? No. Patient's initial sepsis screen is negative. Does the patient have a suspected source of infection? No. Patient's initial sepsis screen is negative. Risk Assessment: Do you want to hurt yourself or someone else? Patient reports no desire to harm self or others. Onset of symptoms was March 10, 2025. 19:31 Method Of Arrival: Ambulatory lg3 19:31 Acuity: ZAHIDA 3 lg3 Triage Assessment: 19:32 General: Appears in no apparent distress. uncomfortable, Behavior is calm, cooperative. lg3 Pain: Complains of pain in left chest wall, left shoulder. EENT: No deficits noted. No signs and/or symptoms were reported regarding the EENT system. Neuro: No deficits noted. Singleton Agitation-Sedation Scale (RASS): 0 - Alert and Calm Level of Consciousness is awake, alert, obeys commands, Oriented to person, place, time, situation. Cardiovascular: No deficits noted. Reports chest pain, Heart tones S1 S2 present Capillary refill < 3 seconds Clubbing of nail beds is absent JVD is absent Patient's skin is warm and dry. Respiratory: No deficits noted. Airway is patent Respiratory effort is even, unlabored, Respiratory pattern is regular, symmetrical, Breath sounds are clear bilaterally. GI: No deficits noted. No signs and/or symptoms were reported involving the gastrointestinal system. Abdomen is round non-distended, obese. : No signs and/or symptoms were reported regarding the genitourinary system. Derm: Skin is intact, is healthy with good turgor, Skin is dry, Skin is normal, Bruising that is dark purple, on left cheek. Musculoskeletal: Circulation, motion, and sensation intact. Range of motion: intact in all extremities, Reports pain in chest. Historical: - Allergies: 19:32 No Known Allergies; lg3 - PMHx: 19:32 Hypertensive disorder; Pulmonary Embolism; lg3 - PSHx: 19:32 gastric bypass (Pulmonary Embolism); lg3 - Immunization history:: Adult Immunizations up to date. - Infectious Disease History:: Denies. - Social history:: Smoking status: Patient denies any tobacco usage or history of. Patient/guardian denies using alcohol, street drugs. Screenin:36 [facility] ED Fall Risk Assessment (Adult) History of falling in the last 3 months, al5 including since admission Yes- single mechanical fall (1 pt) Confusion or Disorientation No (0 pts) Intoxicated or Sedated No (0 pts) Impaired Gait No (0 pts) Mobility Assist Device Used No (0 pt) Altered Elimination No (0 pt) Score/Fall Risk Level 0 - 2 = Low Risk Oriented to surroundings, Maintained a safe environment, Hourly rounding (assess needs \T\ fall precautionary measures) done. Abuse screen: Denies threats or abuse. Denies injuries from another. Nutritional screening: No deficits noted. Tuberculosis screening: No symptoms or risk factors identified. Assessment: 20:35 General: Appears in no apparent distress. uncomfortable, Behavior is calm, cooperative. al5 Pain: Complains of pain in anterior aspect of left upper chest. Neuro: Level of Consciousness is awake, alert, obeys commands, Oriented to person, place, time, situation. Cardiovascular: Capillary refill < 3 seconds Patient's skin is warm and dry. Rhythm is sinus rhythm. Respiratory: Airway is patent Respiratory effort is even, unlabored, Respiratory pattern is regular, symmetrical. GI: No signs and/or symptoms were reported involving the gastrointestinal system. : No signs and/or symptoms were reported regarding the genitourinary system. EENT: No signs and/or symptoms were reported regarding the EENT system. Derm: Wound noted left roman catholic Wound is abrasion no bleeding. Musculoskeletal: Reports pain in anterior aspect of left upper chest. 22:00 Reassessment: Patient appears in no apparent distress at this time. No changes from al5 previously documented assessment. Patient and/or family updated on plan of care and expected duration. Pain level reassessed. Patient is alert, oriented x 3, equal unlabored respirations, skin warm/dry/pink. 23:32 Reassessment: Patient appears in no apparent distress at this time. No changes from al5 previously documented assessment. Patient and/or family updated on plan of care and expected duration. Pain level reassessed. Patient is alert, oriented x 3, equal unlabored respirations, skin warm/dry/pink. Patient states feeling better. Vital Signs: 19:31 BP 166 / 66; Pulse 64; Resp 17 S; Temp 98.4(O); Pulse Ox 98% on R/A; Weight 120.2 kg lg3 (R); Height 5 ft. 8 in. (R); Pain 8/10; 20:35 BP 131 / 79; Pulse 62; Resp 16; Pulse Ox 96% ; al5 22:00 BP 120 / 62; Pulse 52; Resp 18; Pulse Ox 96% ; al5 23:31 BP 131 / 73; Pulse 50; Resp 18; Pulse Ox 95% ; al5 19:31 Body Mass Index 40.29 (120.20 kg, 172.72 cm) lg3 19:31 Pain Scale: Adult lg3 ED Course: 19:16 Patient arrived in ED. im 19:32 Triage completed. lg3 19:32 Ronak Barakat PA is PHCP. cp 19:32 Nba Segura DO is Attending Physician. cp 19:32 Arm band placed on right wrist. lg3 20:30 XRAY Chest (1 view) In Process Unspecified. EDMS 20:30 Marianne Forte, LIZZIE is Primary Nurse. al5 20:31 EKG done, by ED staff, reviewed by Ronak TERRY. oe 20:31 Inserted saline lock: 22 gauge in right forearm, using aseptic technique. Blood oe collected. Flushed with 10 mL NS. 20:36 Patient has correct armband on for positive identification. Bed in low position. Call al5 light in reach. Side rails up X2. Provided Education on: plan of care. 20:36 No provider procedures requiring assistance completed. al5 22:12 CT Chest, Abdomen, Pelvis - W/Contrast: fall In Process Unspecified. EDMS Administered Medications: 22:00 Not Given (Patient Refused): [id number] mg IVP once al5 22:00 Drug: Acetaminophen PO 1000 mg PO once Route: PO; al5 23:32 Follow up: Response: No adverse reaction; Pain is decreased al5 03/11 00:08 Drug: Methocarbamol PO 750 mg PO once Route: PO; al5 Medication: 03/10 20:36 VIS not applicable for this client. al5 Outcome: 03/11 00:14 Discharge ordered by MD. debbie 01:57 Discharged to home ambulatory, vc1 01:57 Condition: stable 01:57 Discharge instructions given to patient, Instructed on discharge instructions, follow up and referral plans. medication usage, Demonstrated understanding of instructions, follow-up care, medications, Prescriptions given X 1, 02:00 Patient left the ED. rv1 Signatures: Dispatcher [employer] EDMS Ronak Barakat PA PA cp Espinosa, [place] oe Able, Lacie, RN RN lg3 Lauren Brewster RN RN vc1 Cris Vora rv1 Lissette Ram Amanda, RN RN al5 Corrections: (The following items were deleted from the chart) 03/10 19:36 19:31 Acuity: ZAHIDA 4 lg3 lg3 20:36 20:35 Musculoskeletal: No signs and/or symptoms reported regarding the musculoskeletal al5 system. al5
--- NOTE | 2025-03-11 00:14 | EDPHYS ---
Physician Documentation [facility] Name: Juwan Turner Jr Age: 54 yrs Sex: Male : 1970 Arrival Date: 03/10/2025 Time: 19:14 Bed 11 Private MD: ED Physician Nba Segura HPI: 03/10 19:40 This 54 yrs old Male presents to ER via Ambulatory with complaints of Fall cp Injury. 19:40 Details of fall: The patient fell from an upright position, while walking, and struck a cp concrete surface. Onset: The symptoms/episode began/occurred this morning. 19:40 Associated injuries: The patient sustained injury to the chest, specifically the left cp side of chest, pain with breathing, pain with movement, tenderness. Severity of symptoms: in the emergency department the symptoms are unchanged, despite home interventions. Historical: - Allergies: 19:32 No Known Allergies; lg3 - PMHx: 19:32 Hypertensive disorder; Pulmonary Embolism; lg3 - PSHx: 19:32 gastric bypass (Pulmonary Embolism); lg3 - Immunization history:: Adult Immunizations up to date. - Infectious Disease History:: Denies. - Social history:: Smoking status: Patient denies any tobacco usage or history of. Patient/guardian denies using alcohol, street drugs. ROS: 19:45 Constitutional: Negative for body aches, chills, fever, poor PO intake, cp 19:45 Eyes: Negative for injury, pain, redness, and discharge, cp 19:45 ENT: Negative for drainage from ear(s), ear pain, sore throat, difficulty swallowing, difficulty handling secretions, 19:45 Neck: Negative for pain with movement, pain at rest, stiffness, 19:45 Cardiovascular: Positive for chest pain, of the left side of chest, Negative for edema, palpitations, 19:45 Respiratory: Negative for cough, wheezing, 19:45 Abdomen/GI: Negative for abdominal pain, vomiting, diarrhea, constipation, 19:45 Neuro: Negative for altered mental status, dizziness, headache, weakness, 19:45 All other systems are negative, Exam: 19:50 Constitutional: The patient appears in no acute distress, alert, awake, cp non-diaphoretic, non-toxic, well developed, well nourished, obese, 19:50 Head/Face: Normocephalic, atraumatic. cp 19:50 Eyes: Periorbital structures: appear normal, Conjunctiva: normal, no exudate, no injection, Sclera: no appreciated abnormality, Lids and lashes: appear normal, bilaterally, 19:50 ENT: External ear(s): are unremarkable, Nose: is normal, Mouth: Lips: moist, Oral mucosa: moist, Posterior pharynx: Airway: no evidence of obstruction, patent, 19:50 Neck: C-spine: vertebral tenderness, is not appreciated, crepitus, is not appreciated, ROM/movement: is normal, is supple, without pain, no range of motions limitations, 19:50 Chest/axilla: Inspection: normal, Palpation: crepitus, is not appreciated, tenderness, that is moderate, of the anterior aspect of left upper chest and left breast, 19:50 Cardiovascular: Rate: normal, Rhythm: regular, Edema: is not appreciated, JVD: is not appreciated, 19:50 Respiratory: the patient does not display signs of respiratory distress, Respirations: normal, no use of accessory muscles, no retractions, labored breathing, is not present, Breath sounds: are clear throughout, no decreased breath sounds, no stridor, no wheezing, 19:50 Abdomen/GI: Inspection: obese Palpation: abdomen is soft and non-tender, in all quadrants, 19:50 Back: pain, is absent, ROM is normal, 19:50 Neuro: Orientation: to person, place \T\ time. Mentation: is normal, Motor: moves all fours, strength is normal, Gait: is steady, at a normal pace, without difficulty, 20:18 ECG was reviewed by the Attending Physician. cp Vital Signs: 19:31 BP 166 / 66; Pulse 64; Resp 17 S; Temp 98.4(O); Pulse Ox 98% on R/A; Weight 120.2 kg lg3 (R); Height 5 ft. 8 in. (R); Pain 8/10; 20:35 BP 131 / 79; Pulse 62; Resp 16; Pulse Ox 96% ; al5 22:00 BP 120 / 62; Pulse 52; Resp 18; Pulse Ox 96% ; al5 23:31 BP 131 / 73; Pulse 50; Resp 18; Pulse Ox 95% ; al5 19:31 Body Mass Index 40.29 (120.20 kg, 172.72 cm) lg3 19:31 Pain Scale: Adult lg3 MDM: 19:36 Medical Screening Exam initiated cp 03/11 00:14 Data reviewed: vital signs, nurses notes, lab test result(s), EKG, radiologic studies, cp CT scan, plain films, and as a result, I will discharge patient. 00:14 Differential diagnosis: contusion, fracture, acute [place], pulmonary embolism. I considered cp the following discharge prescriptions or medication management in the emergency department Medications were administered in the Emergency Department. See MAR. Independent interpretation of the following test(s) in the Emergency Department EKG: See my EKG interpretation above. Care significantly affected by the following chronic conditions: Hypertension, Obesity. Response to treatment: the patient's symptoms have mildly improved after treatment, and as a result, I will discharge patient. Special discussion: Based on the patient's history, exam, and Dx evaluation, there is no indication for emergent intervention or inpatient Tx. It is understood by the patient/guardian that if the Sx's persist or worsen they need to return immediately for re-evaluation. 03/10 19:37 Order name: Basic Metabolic Panel; Complete Time: 21:42 cp 03/10 21:42 Interpretation: Normal except: CL 109; GLUC 111; BUN 23; CA 8.3. cp 03/10 19:37 Order name: CBC with Diff; Complete Time: 21:42 cp 03/10 19:37 Order name: LFT's; Complete Time: 21:42 cp 03/10 19:37 Order name: Magnesium; Complete Time: 21:42 cp 03/10 19:37 Order name: NT PRO-BNP; Complete Time: 21:42 cp 03/10 19:37 Order name: PT-INR; Complete Time: 20:58 cp 03/10 19:37 Order name: Troponin HS; Complete Time: 21:42 cp 03/10 22:48 Order name: Troponin High Sensitivity; Complete Time: 00:12 cp 03/11 00:13 Interpretation: Reviewed. cp 03/10 19:37 Order name: XRAY Chest (1 view); Complete Time: 20:58 cp 03/10 21:43 Order name: CT Chest, Abdomen, Pelvis - W/Contrast: fall; Complete Time: 22:46 cp 03/10 19:37 Order name: Cardiac monitoring; Complete Time: 20:34 cp 03/10 19:37 Order name: EKG - Nurse/Tech; Complete Time: 20:28 cp 03/10 19:37 Order name: IV Saline Lock; Complete Time: 20:34 cp 03/10 19:37 Order name: Labs collected and sent; Complete Time: 20:34 cp 03/10 19:37 Order name: O2 Per Protocol; Complete Time: 20:34 cp 03/10 19:37 Order name: O2 Sat Monitoring; Complete Time: 20:34 cp EC/10 20:18 Rate is 60 beats/min. Rhythm is regular. MT interval is normal. QRS interval is cp prolonged at 136 msec. QT interval is normal. T waves are Inverted in lead aVR. Interpreted by me. Reviewed by me. Administered Medications: 22:00 Not Given (Patient Refused): [id number] mg IVP once al5 22:00 Drug: Acetaminophen PO 1000 mg PO once Route: PO; al5 23:32 Follow up: Response: No adverse reaction; Pain is decreased al5 03/11 00:08 Drug: Methocarbamol PO 750 mg PO once Route: PO; al5 Disposition: 03/10 22:21 I was immediately available on-site in the Emergency Department for consultation in the ms3 care of the patient. Disposition Summary: 03/11/25 00:14 Discharge Ordered Notes: Location: Home cp Problem: new cp Symptoms: have improved cp Condition: Stable cp Diagnosis - Chest pain, unspecified cp - Fall on same level from slipping, tripping and stumbling with subsequent striking cp against object Followup: cp - With: Private Physician - When: 2 - 3 days - Reason: Recheck today's complaints Discharge Instructions: - Discharge Summary Sheet cp - Chest Wall Pain cp - Nonspecific Chest Pain, Adult, [id number] cp Forms: - Medication Reconciliation Form cp - Antibiotic Education cp - Prescription Opioid Use cp - Patient Portal Instructions cp - Leadership Thank You Letter cp Prescriptions: - methocarbamol 750 mg Oral tablet - take 1 tablet ORAL route 3 times per day; 30 tablet; Refills: 0, Product cp Selection Permitted Signatures: Dispatcher [employer] EDMS Ronak Barakat PA PA cp Able, Lacie, RN RN lg3 Nba Segura DO DO ms3 Marianne Forte RN RN al5 Corrections: (The following items were deleted from the chart) 19:37 19:37 BASIC METABOLIC PANEL+C.LAB.BRZ ordered. EDMS EDMS 19:37 19:37 CBC+H.LAB.BRZ ordered. EDMS EDMS 19:37 19:37 HEPATIC FUNCTION+C.LAB.BRZ ordered. EDMS EDMS 19:37 19:37 MAGNESIUM+C.LAB.BRZ ordered. EDMS EDMS 19:37 19:37 PROBNP+C.LAB.BRZ ordered. EDMS EDMS 19:37 19:37 PROTIME (+INR)+COAG.LAB.BRZ ordered. EDMS EDMS 19:37 19:37 Troponin High Sensitivity+C.LAB.BRZ ordered. EDMS EDMS 19:37 19:37 Chest Single View+RAD.RAD.BRZ ordered. EDMS EDMS 22:48 22:48 Troponin High Sensitivity+C.LAB.BRZ ordered. EDMS EDMS
[2025-03-11 02:38] VITALS: TEMP 98.4
[2025-03-11 02:46] VITALS: BP 131/73; O2SAT 95
--- NOTE | 2025-03-11 14:14 | EKG ---
Test Date: 2025-03-10 Test Time: 20:12:12 Print Developer: JAMLI MEASUREMENT RESULTS: Intervals: Rate: 60 RI: 156 QRSD: 136 QT: 468 QTc: 468 Arnold: P: 44 RI: 156 QRS: -60 T: 54 INTERPRETIVE STATEMENTS: Normal sinus rhythm Left axis deviation Left ventricular hypertrophy with QRS widening Abnormal ECG Compared to ECG 06/08/2024 23:20:03 Left-axis deviation now present Right bundle-branch block no longer present Left anterior fascicular block no longer present Bifascicular block no longer present Myocardial infarct finding no longer present Electronically Signed On 03-11-25 14:12:40 CDT by Chavez Bean
== END 2025-03-11 02:00 | disposition home or self-care (01) ==
LOC: ER 19:14
DX: R07.9 Chest pain, unspecified (principal); W01.198A Fall on same level from slipping, tripping and stumbling with subsequent striking against other object, initial encounter
CPT/HCPCS: 93005; 85025; 80048; 36415; 83735; 85610; 80076; 84484 ×2; 83880; 71260; 74177; 71045; 99284; Q9967